=== PATIENT | female | born 1955 | race Caucasian/White ===

== ENCOUNTER 2017-09-17 02:40 | Inpatient (IN) | payer OTHER ==
[2017-09-17 03:37] LABS: Absolute Monocytes 0.4 K/uL (0.1-1.3); Absolute Neutrophil 7.2 K/uL (1.8-8.0); Basophils % 0.9 % (0-1.3); Eosinophils % 2.6 % (0-4.4); Hematocrit 32.3 % (36.0-45.0); Lymphocytes % 19.8 % (15.3-44.8); MCH 28.9 pg (27.0-35.0); MCV 89.2 fL (80-100); MPV 8.7 fL (7.6-11.3); Monocytes % 4.4 % (3.3-12.3); RBC Red Blood Cell Count 3.63 M/uL (3.86-4.86)
[2017-09-17 04:13] LABS: Albumin 4.5 g/dL (3.2-5.5); Bilirubin Total 0.3 mg/dL (0.3-1.2); Magnesium 2.4 mg/dL (1.8-2.5); Protein, Total 7.3 g/dL (6.0-8.3)
[2017-09-17 04:40] LABS: Urine Blood 1+ (NEG); Urine Glucose TRACE (NEG); Urine Protein 2+ (NEG)
[2017-09-17] MEDS ORDERED: FUROSEMIDE 40 MG/4 ML VIAL IV ONE (05:08)
[2017-09-17] MEDS ORDERED: ONDANSETRON 4 MG/2 ML VIAL IV PRN (05:08)
--- NOTE | 2017-09-17 05:31 | EDPHYS ---
Physician Documentation [facility] Name: Devika Sanchez Age: 61 yrs Sex: Female : 1955 Arrival Date: 09/17/2017 Time: 02:41 Bed 2 Private MD: Yogi Mao B ED Physician Bashir Buckley HPI: 09/17 03:03 This 61 yrs old Female presents to ER via Ambulatory with complaints of ps1 Breathing Difficulty. 03:03 renal patient 2/[address] Gracia. Has been avoiding going on dialysis for 2 years. ps1 Worsening kidney function since last visit 2 weeks ago. Now with orthopnea and difficulty breathing and anxiety while using CPAP at home. . Historical: - Allergies: 03:01 BACLOFEN; bb 03:01 Celecoxib; bb 03:01 Codeine; bb - Home Meds: 03:01 amlodipine oral twice a day [Active]; renavite [Active]; Sodium Bicarbonate 10 grains bb daily Oral [Active]; calcitrol every other day [Active]; phosphorous binder [Active]; levothyroxine 75 mcg tab 1 tab once daily [Active]; - PMHx: 03:01 Hypertension; kidney failure; Hypothyroidism; bb - PSHx: 03:01 renal catheter in chest; R knee; L wrist; bilateral carpal tunnel; bb - Immunization history:: Adult Immunizations unknown, Pneumococcal vaccine is up to date. - Social history:: Smoking status: Patient/guardian denies using tobacco, Patient/guardian denies using alcohol, street drugs. ROS: 06:28 Constitutional: Negative for fever, chills, and weight loss, Eyes: Negative for injury, ps1 pain, redness, and discharge, ENT: Negative for injury, pain, and discharge, Cardiovascular: Negative for chest pain, palpitations, and edema. 06:28 Abdomen/GI: Negative for abdominal pain, nausea, vomiting, diarrhea, and constipation, Back: Negative for injury and pain, MS/Extremity: Negative for injury and deformity, Skin: Negative for injury, rash, and discoloration, Neuro: Negative for headache, weakness, numbness, tingling, and seizure. 06:28 Respiratory: Positive for dyspnea on exertion, orthopnea, shortness of breath, at rest. Exam: 06:28 Constitutional: This is a well developed, well nourished patient who is awake, alert, ps1 and in no acute distress. Head/Face: Normocephalic, atraumatic. Eyes: Pupils equal round and reactive to light, extra-ocular motions intact. Lids and lashes normal. Conjunctiva and sclera are non-icteric and not injected. Chest/axilla: Normal chest wall appearance and motion. Nontender with no deformity. No lesions are appreciated. Cardiovascular: Regular rate and rhythm. No gallops, murmurs, or rubs. Normal PMI, no JVD. No pulse deficits. Respiratory: Lungs have equal breath sounds bilaterally, clear to auscultation and percussion. No rales, rhonchi or wheezes noted. No increased work of breathing, no retractions or nasal flaring. Abdomen/GI: Soft, non-tender, with normal bowel sounds. No distension or tympany. No guarding or rebound. No evidence of tenderness throughout. Skin: Warm, dry with normal turgor. Normal color with no rashes, no lesions, and no evidence of cellulitis. MS/ Extremity: Pulses equal, no cyanosis. Neurovascular intact. Full, normal range of motion. Neuro: Awake and alert, GCS 15, oriented to person, place, time, and situation. Cranial nerves II-XII grossly intact. Sensory grossly intact. Psych: Awake, alert, with orientation to person, place and time. Behavior, mood, and affect are within normal limits. Vital Signs: 03:01 BP 175 / 98; Pulse 85; Resp 20 S; Temp 97.9(O); Pulse Ox 100% on R/A; Weight 98.88 kg bb (R); Height 5 ft. 0 in. (152.40 cm) (R); Pain 0/10; 03:41 BP 141 / 69; Pulse 60; Resp 18; Pulse Ox 100% on R/A; lp1 04:44 BP 130 / 75; Pulse 82; Resp 15; Pulse Ox 100% on R/A; lp1 05:44 BP 128 / 70; Pulse 66; Resp 15; Pulse Ox 100% on R/A; lp1 03:01 Body Mass Index 42.57 (98.88 kg, 152.40 cm) bb MDM: 03:03 Patient medically screened. ps1 06:29 Data reviewed: vital signs, nurses notes, lab test result(s), radiologic studies. ED ps1 course: pt to be admitted for dialysis. Uremia. BUN 102. . 09/17 03:06 Order name: BNP; Complete Time: 04:27 ps1 09/17 03:06 Order name: CBC with Diff; Complete Time: 04:27 ps1 09/17 03:06 Order name: Magnesium; Complete Time: 04:27 ps1 09/17 03:06 Order name: Troponin (emerg Dept Use Only); Complete Time: 04:27 ps1 09/17 03:06 Order name: CMP; Complete Time: 04:27 ps1 09/17 03:06 Order name: XRAY Chest (1 view) ps1 09/17 04:18 Order name: Urine Dipstick--Ancillary (enter results); Complete Time: 05:18 rg2 09/17 05:13 Order name: CBC with Automated Diff EDMS 09/17 05:13 Order name: CBC with Automated Diff EDMS 09/17 05:13 Order name: Chest Single View EDMS 09/17 05:13 Order name: Chest Single View EDMS 09/17 05:13 Order name: Comprehensive Metabolic Panel EDMS 09/17 05:13 Order name: Comprehensive Metabolic Panel EDMS 09/17 03:06 Order name: EKG; Complete Time: 03:06 ps1 09/17 03:06 Order name: Cardiac monitoring; Complete Time: 04:03 ps1 09/17 03:06 Order name: EKG - Nurse/Tech; Complete Time: 03:31 ps1 09/17 03:06 Order name: IV Saline Lock; Complete Time: 04:03 ps1 09/17 03:06 Order name: Labs collected and sent; Complete Time: 04:03 ps1 09/17 03:06 Order name: O2 Per Protocol; Complete Time: 04:03 ps1 09/17 03:06 Order name: O2 Sat Monitoring; Complete Time: 04:03 ps1 09/17 03:06 Order name: Urine Dipstick-Ancillary (obtain specimen); Complete Time: 04:26 ps1 09/17 05:13 Order name: CONS Pharmacy Consult EDMS 09/17 05:13 Order name: CONS Physician Consult EDMS 09/17 05:13 Order name: Renal EDMS Administered Medications: 06:00 Drug: Ativan 0.5 mg Route: IVP; Site: left antecubital; lp1 06:26 Follow up: Given prior to transfer to floor lp1 Disposition: 04/28/18 05:31 Hospitalization ordered by Quang Lee for Inpatient Admission. Preliminary diagnosis is Uremia. Kidney Failure. Shortness of breath. . - Bed requested for Telemetry/MedSurg (Inpatient). - Status is Inpatient Admission. lp1 - Condition is Fair. - Problem is an acute exacerbation. - Symptoms have worsened. UTI on Admission? No Signatures: Dispatcher [employer] EDMS Katie Blanco RN RN Barb Yu RN RN Sonal Horvath RN RN lp1 Bashir Buckley MD MD ps1 Corrections: (The following items were deleted from the chart) 03:07 03:06 BASIC METABOLIC PANEL+C.LAB.BRZ ordered. EDIA EDMS
--- NOTE | 2017-09-17 05:31 | ER ---
Nurse's Notes [facility] Name: Devika Sanchez Age: 61 yrs Sex: Female : 1955 Arrival Date: 09/17/2017 Time: 02:41 Bed 2 Private MD: Yogi Mao B Diagnosis: Uremia. Kidney Failure. Shortness of breath. Presentation: 09/17 02:55 Presenting complaint: Patient states: she is in renal failure which is managed by Dr trey Gracia she has started having difficulty breathing yesterday she is unable to lay down and sleep. Transition of care: patient was not received from another setting of care. Onset of symptoms was September 17, 2017. Initial Sepsis Screen: Does the patient meet any 2 criteria? No. Patient's initial sepsis screen is negative. Does the patient have a suspected source of infection? No. Patient's initial sepsis screen is negative. 02:55 Method Of Arrival: Ambulatory bb 02:55 Acuity: NADINE 2 bb 03:46 Care prior to arrival: None. lp1 Historical: - Allergies: 03:01 BACLOFEN; bb 03:01 Celecoxib; bb 03:01 Codeine; bb - Home Meds: 03:01 amlodipine oral twice a day [Active]; renavite [Active]; Sodium Bicarbonate 10 grains bb daily Oral [Active]; calcitrol every other day [Active]; phosphorous binder [Active]; levothyroxine 75 mcg tab 1 tab once daily [Active]; - PMHx: 03:01 Hypertension; kidney failure; Hypothyroidism; bb - PSHx: 03:01 renal catheter in chest; R knee; L wrist; bilateral carpal tunnel; bb - Immunization history:: Adult Immunizations unknown, Pneumococcal vaccine is up to date. - Social history:: Smoking status: Patient/guardian denies using tobacco, Patient/guardian denies using alcohol, street drugs. Screenin:44 Abuse screen: Denies threats or abuse. Denies injuries from another. Nutritional lp1 screening: No deficits noted. Tuberculosis screening: No symptoms or risk factors identified. Fall Risk None identified. Assessment: 03:15 General: Appears in no apparent distress. Behavior is anxious. Pain: Denies pain. lp1 Neuro: Level of Consciousness is awake, alert, obeys commands, Oriented to person, place, time, situation, Moves all extremities. Full function Gait is steady. Cardiovascular: Reports shortness of breath, Patient's skin is warm and dry. Rhythm is sinus rhythm. Respiratory: Reports shortness of breath on exertion Airway is patent Trachea midline Respiratory effort is even, unlabored, Respiratory pattern is regular, Breath sounds are clear bilaterally. Onset: The symptoms/episode began/occurred gradually, the patient has mild shortness of breath. GI: Abdomen is obese. : No signs and/or symptoms were reported regarding the genitourinary system. EENT: No signs and/or symptoms were reported regarding the EENT system. Derm: Skin is pink, warm \\T\\ dry. Musculoskeletal: Circulation, motion, and sensation intact. 04:30 Reassessment: Patient and/or family updated on plan of care and expected duration. Pain lp1 level reassessed. Patient states feeling anxious, due to not having enough sleep; lights dimmed in room, pillow given to provide comfort. 05:30 Reassessment: Patient states discomfort due to feeling "restless". General: Behavior is lp1 anxious. Respiratory: Respiratory effort is even, unlabored. Derm: Skin is pink, warm \\T\\ dry. Vital Signs: 03:01 BP 175 / 98; Pulse 85; Resp 20 S; Temp 97.9(O); Pulse Ox 100% on R/A; Weight 98.88 kg bb (R); Height 5 ft. 0 in. (152.40 cm) (R); Pain 0/10; 03:41 BP 141 / 69; Pulse 60; Resp 18; Pulse Ox 100% on R/A; lp1 04:44 BP 130 / 75; Pulse 82; Resp 15; Pulse Ox 100% on R/A; lp1 05:44 BP 128 / 70; Pulse 66; Resp 15; Pulse Ox 100% on R/A; lp1 03:01 Body Mass Index 42.57 (98.88 kg, 152.40 cm) bb ED Course: 02:41 Patient arrived in ED. ds1 02:41 Yogi Mao MD is Private Physician. ds1 02:49 Bashir Buckley MD is Attending Physician. ps1 02:57 Triage completed. bb 03:01 Arm band placed on Patient placed in an exam room, on a stretcher, on pulse oximetry. bb Family accompanied patient. 03:24 X-ray completed. Portable x-ray completed in exam room. Patient tolerated procedure kc2 well. 03:25 XRAY Chest (1 view) In Process Unspecified. EDMS 03:30 Inserted saline lock: 20 gauge in right antecubital area, using aseptic technique. lp1 Blood collected. 03:41 Sonal Horvath, RN is Primary Nurse. lp1 03:44 Patient has correct armband on for positive identification. Placed in gown. Bed in low lp1 position. monitoring specialist on. Pulse ox on. NIBP on. 04:16 Notified ED physician of a critical lab result(s). Creatinine 6.55. lp1 05:30 Quang Lee MD is Hospitalizing Provider. ps1 05:44 No provider procedures requiring assistance completed. Patient admitted, IV remains in lp1 place. 06:00 20g to R AC infiltrated, removed. lp1 06:00 Inserted saline lock: 20 gauge in left antecubital area, using aseptic technique. lp1 Administered Medications: 06:00 Drug: Ativan 0.5 mg Route: IVP; Site: left antecubital; lp1 06:26 Follow up: Given prior to transfer to floor lp1 Intake: Outcome: 05:31 Decision to Hospitalize by Provider. ps1 05:44 Condition: stable lp1 05:44 Instructed on the need for admit. 06:00 Admitted to Tele accompanied by nurse, via wheelchair, room 413, with chart, Report lp1 called to ROLF Beaver 06:10 Patient left the ED. lp1 Signatures: Dispatcher [employer] EDVA Briseno, Janine ds1 Barb Yu RN RN bb Sonal Horvath, TIA RN lp1 Yolanda Alcocer2 Bashir Buckley MD MD ps1 Corrections: (The following items were deleted from the chart) 03:45 03:15 Respiratory: Reports shortness of breath on exertion Airway is patent Trachea lp1 midline Respiratory effort is even, unlabored, Respiratory pattern is regular, Breath sounds are clear bilaterally. lp1 06:30 06:30 Patient left the ED. lp1 lp1
[2017-09-17] MEDS ORDERED: LORazepam 2 MG/ML VIAL ONE (05:58)
[2017-09-17] MEDS: SODIUM BICARB 325 MG TAB PO SCH ×4 (08:57→21:33)
--- NOTE | 2017-09-17 08:57 | P.HP ---
Certification for Inpatient Patient admitted to: Observation With expected LOS: <2 Midnights Patient will require the following post-hospital care: None Practitioner: I am a practitioner with admitting privileges, knowledge of patient current condition, hospital course, and medical plan of care. Services: Services provided to patient in accordance with Admission requirements found in Title 42 Section 412.3 of the Code of Federal Regulations Patient History Date of Service: 09/17/17 Reason for admission: shortness of breath secondary to fluid overload History of Present Illness: Patient is a 61-year-old female who presents to the emergency room with fluid overload and pulmonary edema. Patient was short of breath and was not able to lay down without feeling suffocated. She decided to bring herself to the emergency room. In the emergency room patient had a chest x-ray performed which revealed pulmonary edema. Patient was admitted to the hospital and started on diuresis. Patient also had a Nephrology consultation as patient has significant uremia along with a metabolic acidosis with a creatinine greater than 6. Patient may benefit from hemodialysis but will have Nephrology speak to the patient. Otherwise, patient with no new complaints except for difficulty breathing. She wears a CPAP at home and is requesting 1 in the hospital which we will provide. Await Nephrology recommendation for further plan of care. Allergies celecoxib [From Celebrex] Allergy (Verified 02/24/17 02:19) Rash codeine Allergy (Unverified 03/01/17 15:31) Unknown BACLOFEN Allergy (Uncoded 03/01/17 15:31) Unknown NSAIDS Allergy (Uncoded 02/24/17 02:19) Unknown Home Medications: Calcitrol [Rocaltrol*] 0.25 mcg PO DAILY 02/24/17 Folic Acid/Vit Bcomp,C [Treva-Denny Tablet] 1 tab PO DAILY 02/24/17 Levothyroxine [Synthroid*] 1 tab PO DAILY 02/24/17 Na Bicarb Tab [Sodium Bicarb 325 MG Tab*] 1 tab PO DAILY 02/24/17 Amlodipine [Norvasc*] 5 mg PO BID #60 tab 02/27/17 Doxazosin [Cardura*] 1 mg PO DAILY #30 tab 02/27/17 - Past Medical/Surgical History Diabetic: No -: HTN -: Thyroid problem -: renal failure -: Sleep apnea patient compliant with her CPAP -: Polycystic kidney disease -: R knee sx - Family History Father Medical History: Heart disease, Hypertension Mother Medical History: Hypertension, Kidney disease Notes: polycystic kidney disease - Social History Alcohol use: No CD- Drugs: No Caffeine use: Yes Review of Systems 10-point ROS is otherwise unremarkable Physical Examination - Vital Signs Temperature: 97.8 F Blood Pressure: 117/65 Pulse: 62 Respirations: 17 Pulse Ox (%): 100 - Physical Exam General: Alert, In no apparent distress, Oriented x3 HEENT: Atraumatic, PERRLA, Mucous membr. moist/pink, EOMI, Sclerae nonicteric Neck: Supple, 2+ carotid pulse no bruit, No LAD, Without JVD or thyroid abnormality Respiratory: Diminished, Crackles/rales Cardiovascular: Regular rate/rhythm, Normal S1 S2, No murmurs Gastrointestinal: Normal bowel sounds, Soft and benign, Non-distended, No tenderness Musculoskeletal: No clubbing, No swelling, No tenderness Integumentary: No rashes Neurological: Normal gait, Normal speech, Normal strength at 5/5 x4 extr, Normal tone, Normal affect Lymphatics: No axilla or inguinal lymphadenopathy - Studies Laboratory Data (last 24 hrs) 09/17/17 03:10: WBC 10.0, Hgb 10.5 L, Hct 32.3 L, Plt Count 189 09/17/17 03:10: B-Natriuretic Peptide 31 09/17/17 03:10: Sodium 137, Potassium 4.0, BUN 102 H D, Creatinine 6.55 H*, Glucose 104, Magnesium 2.4, Total Bilirubin 0.3, AST 17, ALT 20, Alkaline Phosphatase 46 Assessment & Plan - Problems (Diagnosis) (1) ESRD (end stage renal disease) Current Visit: No Status: Acute (2) Hypomagnesemia Current Visit: No Status: Acute (3) Pulmonary embolism and infarction Current Visit: No Status: Acute (4) CKD (chronic kidney disease) Onset Date: 02/24/17 Current Visit: No Status: Chronic Qualifiers: (5) HTN (hypertension) Current Visit: No Status: Chronic Qualifiers: (6) Hypothyroidism Current Visit: No Status: Chronic Qualifiers: (7) Obesity Current Visit: No Status: Chronic Qualifiers: (8) Polycystic kidney disease Current Visit: No Status: Chronic - Plan Plan: 1. Continue with aggressive IV hydration 2. Monitor renal function closely 3. Nephrology consultation 4. IV diuretics 5. Sodium bicarb replacement 6. CPAP the bedside 7. strict input and output 8. GI and DVT prophylaxis Discharge Plan: Home Plan to discharge in: 48 Hours - Advance Directives Does patient have a Living Will: No Does patient have a Durable POA for Healthcare: No - Code Status/Comfort Care Code Status Assessed: Yes Code Status: Full Code Critical Care: No Time Spent Managing PTS Care (In Minutes): 50
[2017-09-17] MEDS: LEVOTHYROXINE SOD 0.075 MG TAB PO SCH (08:59)
[2017-09-17] MEDS ORDERED: DOXAZOSIN 2 MG TAB PO SCH (09:00)
[2017-09-17] MEDS ORDERED: LEVOTHYROXINE SOD 0.075 MG TAB PO SCH (09:00)
[2017-09-17] MEDS: CALCITROL 0.25 MCG CAP PO SCH (09:00)
[2017-09-17] MEDS ORDERED: AMLODIPINE 5 MG TAB PO SCH (09:00)
[2017-09-17] MEDS: FUROSEMIDE 40 MG/4 ML VIAL IV SCH ×2 (09:01→17:15)
--- NOTE | 2017-09-17 11:25 | RAD REPORT ---
EXAM DESCRIPTION: RAD - Chest Single View - 09/17/2017 3:26 am CLINICAL HISTORY: Shortness of breath COMPARISON: 02/23/2017 FINDINGS: Portable technique limits examination quality. The lungs are grossly clear. The heart is normal in size. No displaced fractures. IMPRESSION: No acute intrathoracic process suspected.
--- NOTE | 2017-09-17 16:13 | CON ---
Date of Consultation: 09/17/2017 Additional Consulting Physician: Quang Lee MD Reason For Consultation: Elevated BUN and creatinine, over volume, and fluid management. History Of Present Illness: This is a 61-year-old female, well known to me from the office with sign ificant past medical history of hypertension, hypothyroidism, secondary hyperparathyroidism, chronic kidney disease advanced, status post acute kidney injury required dialysis and then wean, obstructive sleep apnea, polycystic kidney disease, the patient being followed up with Dr. Gracia. The patient ca me to the hospital because of significant of shortness of breath with orthopnea with difficulty speec h. For that reason, she found to have elevated BUN and creatinine with acidosis. The patient was pl aced on BiPAP and diuresis. The patient still has shortness of breath. We have been consulted. The patient been seen by Dr. Gracia regularly. The patient was still refusing any preparation. Past Medical History: Includes: 1.Hypertension. 2.Hypothyroidism. 3.Obstructive sleep apnea. 4.Polycystic kidney disease. 5.Secondary hyperparathyroidism. 6.Chronic kidney disease, stage 4/5 secondary to hypertension and polycystic kidney disease. Family History: Positive for kidney disease, hypertension. Social History: Denies smoking. Denies drinking. Denies drug abuse. Family History: As above. Allergies: TO CELEBREX, CODEINE, BACLOFEN, AND NONSTEROID. Home Medications: Include calcitriol, folic acid, levothyroxine, sodium bicarb, amlodipine, Cardura, and Renvela. Review of Systems: Head and Neck: No red eye. No ear pain. GI: Decreased intake. : No polyuria. No dysuria. No hematuria. NETWORK SPECIALIST: No vaginal discharge. Respiratory: Has shortness of breath. Cardiovascular: Has leg swelling. Has orthopnea. Neuro: No weakness. Musculoskeletal: Fatigue. Endocrine: No polydipsia. Skin: No rash. Physical Examination: Vital Signs: Blood pressure 107/65, pulse of 78, afebrile. Chest: Crackles bilateral. Heart: S1, S2. Regular. Systolic murmur. Abdomen: Soft, nontender. Extremities: 2+ edema. Laboratory Data: WBC 10, H and H 10.5/32.2, platelets of 189. Sodium 137, potassium 4, bicarb 17, c hloride 112 and corrected, BUN 102, creatinine 6.5, calcium 8.8. Albumin of 4.5. Medications: Current medications the patient on include: 1.Amlodipine 5 mg b.i.d. 2.Cardura 1 mg daily. 3.Lasix 80 mg twice a day. 4.Sodium bicarb 650 t.i.d. 5.Levothyroxine. 6.Calcitriol 0.25. Laboratory Data: Chest x-ray showing cardiomegaly with congestion. BNP of 31. Assessment And Plan: 1.Chronic kidney disease stage 5, end-stage renal disease, slightly on the wet side. I am going to go ahead and initiate dialysis. We will plan for placement of Perm-A-Cath and we will start the veena ent on dialysis electively and we will monitor the patient. 2.Hypertension with over volume status. I am going to discontinue Norvasc to receive юлия Meza blood pressure for more diuresis. 3.Secondary hyperparathyroidism. We will resume Renvela. Continue calcitriol. 4.Hypothyroidism. Continue supplement. 5.Anemia, stable. We will continue to monitor. 6.Chronic obstructive pulmonary disease, obstructive sleep apnea. Follow up with primary. Case dis cussed with the patient, verbalized understanding. I agree on the plan after long discussion between with her and her . Discussed with the primary nurse. GINGER Voice ID: [id number] Report ID: [id number]
[2017-09-17] MEDS: SEVELAMER CARBONATE 800 MG TABLET PO SCH (17:14)
[2017-09-18] MEDS ORDERED: ALPRAZOLAM 1 MG TABLET PO ONE (00:05)
[2017-09-18] MEDS: ALPRAZOLAM 0.5 MG TABLET PO PRN ×2 (00:23→16:30)
[2017-09-18 05:30] LABS: Absolute Lymphocytes (CBC) 1.8 K/uL (0.7-4.9); Absolute Monocytes 0.4 K/uL (0.1-1.3); Basophils % 0.8 % (0-1.3); Hematocrit 29.9 % (36.0-45.0); Lymphocytes % 21.5 % (15.3-44.8); MCH 29.4 pg (27.0-35.0); MCV 88.5 fL (80-100); MPV 8.4 fL (7.6-11.3); Monocytes % 4.2 % (3.3-12.3); RBC Red Blood Cell Count 3.38 M/uL (3.86-4.86)
[2017-09-18] MEDS: LEVOTHYROXINE SOD 0.075 MG TAB PO SCH ×3 (06:03→16:31)
[2017-09-18 06:11] LABS: Bilirubin Total 0.4 mg/dL (0.3-1.2); Phosphorus 6.2 mg/dL (2.5-4.3); Potassium 3.3 mEq/L (3.6-5.0); Protein, Total 6.4 g/dL (6.0-8.3); Thyroid Stimulating Hormone 0.85 uIU/mL (0.34-5.60)
[2017-09-18] MEDS: SEVELAMER CARBONATE 800 MG TABLET PO SCH ×3 (07:35→16:31)
--- NOTE | 2017-09-18 07:44 | RAD REPORT ---
EXAM DESCRIPTION: RAD - Chest Single View - 09/18/2017 5:59 am CLINICAL HISTORY: Pulmonary edema, shortness of breath COMPARISON: September 17 TECHNIQUE: AP portable chest image was obtained 0546 hours . FINDINGS: No new or progressive mass, infiltrate or pulmonary edema finding. Heart and vasculature a re within normal limits. Trachea is midline. No measurable pleural effusion and no pneumothorax. No g ross bony abnormality seen. No acute aortic findings suspected. IMPRESSION: No acute cardiopulmonary process. No significant interval change.
[2017-09-18] MEDS: SODIUM BICARB 325 MG TAB PO SCH ×3 (08:05→22:09)
[2017-09-18] MEDS: CALCITROL 0.25 MCG CAP PO SCH (08:05)
[2017-09-18] MEDS: FUROSEMIDE 40 MG/4 ML VIAL IV SCH ×2 (08:05→16:29)
[2017-09-18] MEDS ORDERED: NA CHLORIDE 0.9% 500 ML ONE (08:42)
[2017-09-18] MEDS ORDERED: ONDANSETRON 4 MG/2 ML VIAL ONE (08:47)
[2017-09-18] MEDS ORDERED: FENTANYL CITR 100 MCG/2 ML ONE (08:47)
[2017-09-18] MEDS ORDERED: MIDAZOLAM HCL 2 MG/2 ML INJ ONE (08:47)
[2017-09-18] MEDS ORDERED: NS 0.9% VIAL 30 ML ONE (08:48)
[2017-09-18] MEDS ORDERED: HEPARIN 5000 UNIT/ML 1 ML VIAL ONE (08:48)
[2017-09-18] MEDS ORDERED: ETOMIDATE 20 MG/10 ML VIAL IV ONE (08:48)
[2017-09-18] MEDS ORDERED: Phenylephrine HCl 10 MG/ML 1 ML VIAL ONE (08:48)
[2017-09-18] MEDS ORDERED: BUPIVACA 0.25%/EPI 0.0005%/PF 30 ML VIAL ONE (08:49)
--- NOTE | 2017-09-18 09:51 | P.OP ---
Preoperative diagnosis: ESRD Postoperative diagnosis: ESRD Primary procedure: Ultrasound Guided RIGHT Internal Jugular Tunnelled Hemodialysis Catheter Anesthesia: GETA + Local Estimated blood loss: <5cc Specimen: None Findings: Dark, Nonpulsatile blood returned Complications: None Implants: 24cm curved Tunnelled HD catheter Transferred to: Recovery Room Condition: Good
[2017-09-18] MEDS: FENTANYL CITR 100 MCG/2 ML ONE ×3 (10:07→10:17)
[2017-09-18] MEDS ORDERED: PROMETHAZINE 25 MG/ML VIAL ONE (10:23)
--- NOTE | 2017-09-18 10:45 | P.PN ---
Subjective Date of Service: 09/18/17 Primary Care Provider: Dr Mao Chief Complaint: shortness of breath secondary to fluid overload Pt seen and examined at bedside. Doing well overall. Awaiting Surgery today for Dialysis catheter placement. Review of Systems General: As per HPI Physical Examination - Vital Signs Temperature: 97.3 F Blood Pressure: 111/65 Pulse: 88 Respirations: 16 Pulse Ox (%): 100 - Physical Exam General: Alert, In no apparent distress HEENT: Atraumatic, PERRLA, EOMI Neck: Supple, JVD not distended Respiratory: Normal air movement, Crackles/rales Cardiovascular: Regular rate/rhythm, Normal S1 S2 Gastrointestinal: Normal bowel sounds, No tenderness Musculoskeletal: No tenderness Integumentary: No rashes Neurological: Normal speech, Normal tone, Normal affect Lymphatics: No axilla or inguinal lymphadenopathy - Studies Laboratory Data (last 24 hrs) 09/18/17 04:50: Sodium 141, Potassium 3.3 L, BUN 96 H, Creatinine 6.63 H*, Glucose 94, Phosphorus 6.2 H, Total Bilirubin 0.4, AST 14, ALT 16, Alkaline Phosphatase 42 09/18/17 04:50: WBC 8.5 D, Hgb 9.9 L, Hct 29.9 L, Plt Count 180 Medications List Reviewed: Yes Assessment & Plan - Problems (Diagnosis) (1) Shortness of breath Onset Date: 05/26/15 Current Visit: No Status: Acute Plan: SOB most likely 2.2 to Volume Overload due to declining kidney function. Improved now -Lasix 80mg IV BID -Nephrology consulted. -Rec dialysis startup -Catheter placement today -SS to arrange for Outpt dialysis (2) ESRD (end stage renal disease) Current Visit: No Status: Acute Plan: ESRD now on HD -See # 1 (3) HTN (hypertension) Current Visit: No Status: Chronic Qualifiers: Hypertension type: essential hypertension (4) Hypothyroidism Current Visit: No Status: Chronic Qualifiers: Hypothyroidism type: acquired Qualified Code(s): E03.9 - Hypothyroidism, unspecified (5) Obesity Current Visit: No Status: Chronic Qualifiers: Obesity type: due to excess calories Obesity classification: adult class 2 (BMI 35 - 39.9) Body mass index: BMI 38.0-38.9 Discharge Plan: Home Plan to discharge in: 48 Hours - Code Status/Comfort Care Code Status Assessed: Yes Critical Care: No
[2017-09-18] MEDS: Morphine 2 MG/2 ML SYR IV PRN ×3 (12:32→22:10)
--- NOTE | 2017-09-18 14:20 | RAD REPORT ---
EXAM DESCRIPTION: RAD - Fluoroscopy <1 Hour - 09/18/2017 10:15 am FINDINGS: Chest fluoroscopy performed. Multiple portable C-arm views were obtained during fluoroscop ic assisted placement of a double-lumen vascular access catheter. No suspicious or unexpected finding.
--- NOTE | 2017-09-18 14:22 | RAD REPORT ---
EXAM DESCRIPTION: RAD - Chest Single View - 09/18/2017 10:16 am CLINICAL HISTORY: Hemodialysis catheter placement Regist[employer] Nurs[employer] system malfunction precluded earlier dictation. Telephone [facility] at the time of the study. COMPARISON: September 18 TECHNIQUE: AP portable chest image was obtained 1000 hours . FINDINGS: Double-lumen catheter has been placed on the right. Short arm is in the SVC. Long arm is a t the SVC atrial junction. There is no pneumothorax. No acute lung parenchymal finding. Heart and vas culature are normal. No pleural fluid collection. No gross bony abnormality seen. No acute aortic fin dings suspected. IMPRESSION: Right-sided dialysis catheter in place as detailed. No pneumothorax.
--- NOTE | 2017-09-18 16:12 | EKG ---
Test Date: 2017-09-17 Test Time: 03:10:00 Doormaker: DEB MEASUREMENT RESULTS: Intervals: Rate: 66 TX: 124 QRSD: 86 QT: 446 QTc: 467 [place]: P: 5 TX: 124 QRS: -16 T: 20 INTERPRETIVE STATEMENTS: Normal sinus rhythm Minimal voltage criteria for LVH, may be normal variant Borderline ECG Compared to ECG 03/01/2017 13:17:08 No significant changes Electronically Signed On 09-18-17 16:12:11 CDT by Marcus Nieves
--- NOTE | 2017-09-18 17:57 | OP ---
Date of Procedure: 09/18/2017 Surgeon: Leo Campo MD, Preoperative Diagnosis: End-stage renal disease. Postoperative Diagnosis: End-stage renal disease. Procedure Performed: An ultrasound-guided right internal jugular tunneled hemodialysis catheter plac ole using microintroducer set. Anesthesia: General endotracheal plus local with 0.25% Marcaine. Estimated Blood Loss: Less than 5 cc. Specimen: None. Findings: Dark nonpulsatile blood return. Fluoroscopy used to verify position. Complications: None. Implants: 24 cm curved tunneled hemodialysis catheter. Disposition: Transferred to recovery room in good condition. Procedure In Detail: After informed was obtained, patient brought to the operating room, prepped and draped in the usual sterile fashion after adequate anesthesia was achieved. The patient was placed in steep Trendelenburg position and using ultrasound guidance and a microintroducer set, I cannulated the right internal jugular vein on the first attempt under ultrasound guidance. Ultrasound verified position of the microwire advancing into the jugular vein. At this point, the needle was removed an d the wire was placed. A fluoroscopy confirmed the position to be in good anatomic position heading toward the SVC. Visualization was difficult due to fluoroscopy. Difficulties getting an appropriate view due to equipment dysfunction, however, I was able to see all of the anatomic structures I neede d to see. After the microwire was verified to be in good anatomic position, I made a small isaac inci serafin in the patient's insertion site in the jugular vein region. I then placed an introducer sheath using Seldinger technique over the wire and placed a standard wire from the 24 cm curved internal jug ular hemodialysis catheter set. After the standard wire was placed, I once again brought fluoroscopy and verified position which was found to be in good and normal anatomic position. At this point, an incision was made in the chest wall in the infraclavicular area approximately 3-4 cm from the clavic le. After appropriately anesthetizing 0.25% Marcaine, I then anesthetized the entire tract leading u p to the insertion site in the jugular vein and used a tunneling device to pass the 24 cm catheter up through this channel without incident or complication. The catheter was then positioned appropriate ly and the cuff was found to be in good anatomic position. I then proceeded to sequentially dilate u p the jugular vein using the attached dilators. After this was done easily with minimal force, I hua boy the introducer sheath and verified once again with fluoroscopy that the introducer sheath was in good anatomic position with the wire in place. At this point, the wire was removed and what I called the inner cannula introducer sheath was left in place in the inner cannula and then removed. At thi s point, the catheter was placed through the introducer sheath without evidence of complication and t he introducer sheath was removed at this time. An additional image was obtained at the end the proce dure showing that the catheter was in the appropriate location, and the skin incisions were then irri gated and closed with an interrupted nylon at the insertion site. The chest site was then irrigated and the subcutaneous layer was closed with a single interrupted 3-0 Vicryl and the skin was closed wi th a 2-0 nylon in an interrupted fashion also securing the catheter at this level. The catheter was then flushed and mark back quite easily with saline initially and then after flushing completely with saline heparin flush was then packed 2 cc per port into the introducer sheath using the super flush heparinized saline. After this was performed, the catheter was then secured to the chest wall using an additional 2-0 nylon suture in an interrupted fashion and a sterile dressing was placed over top. The patient tolerated the procedure well without evidence of complication, was placed back in neutra l position, and transferred to the PACU in good condition. All counts were correct at the case. Followup chest x-ray will be performed in the recovery room. STEPH/MEAGHAN Voice ID: [id number] Report ID: [id number]
[2017-09-19] MEDS: ALPRAZOLAM 0.5 MG TABLET PO PRN ×3 (01:43→21:26)
[2017-09-19] MEDS: LEVOTHYROXINE SOD 0.075 MG TAB PO SCH (05:32)
[2017-09-19 05:48] LABS: Absolute Monocytes 0.5 K/uL (0.1-1.3); Absolute Neutrophil 5.9 K/uL (1.8-8.0); Basophils % 0.6 % (0-1.3); Eosinophils % 2.4 % (0-4.4); Hematocrit 32.1 % (36.0-45.0); Lymphocytes % 23.3 % (15.3-44.8); MCH 29.9 pg (27.0-35.0); MCV 87.5 fL (80-100); MPV 8.3 fL (7.6-11.3); Monocytes % 5.9 % (3.3-12.3); RBC Red Blood Cell Count 3.67 M/uL (3.86-4.86)
[2017-09-19 06:06] LABS: Albumin 4.3 g/dL (3.2-5.5); Bilirubin Total 0.4 mg/dL (0.3-1.2); Potassium 3.5 mEq/L (3.6-5.0); Protein, Total 7.1 g/dL (6.0-8.3)
[2017-09-19] MEDS: Morphine 2 MG/2 ML SYR IV PRN ×3 (06:09→18:53)
[2017-09-19] MEDS: SODIUM BICARB 325 MG TAB PO SCH ×3 (08:15→21:25)
[2017-09-19] MEDS: CALCITROL 0.25 MCG CAP PO SCH (08:15)
[2017-09-19] MEDS: FUROSEMIDE 40 MG/4 ML VIAL IV SCH ×2 (08:15→17:00)
[2017-09-19] MEDS: SEVELAMER CARBONATE 800 MG TABLET PO SCH ×4 (08:15→17:59)
--- NOTE | 2017-09-19 10:49 | CON ---
Date of Consultation: 09/17/2017 Brief History Of Present Illness: The patient is a 61-year-old female who presented to the emergency room with fluid overload and pulmonary edema. She has a history of CKD with polycystic kidney disea se. She had a workup which revealed pulmonary edema in the ER. She was admitted to the hospital for diuresis. She had a nephrology consultation due to significant uremia, metabolic acidosis, and crea tinine of 6. Dr. Strong saw the patient, evaluated, and decided it was time for her to reinitiate hemodialysis possibly long-term and therefore she would likely need a tunneled hemodialysis catheter. Past Medical History: Significant for hypertension, hypothyroidism, renal failure, sleep apnea on CP AP, polycystic kidney disease. Past Surgical History: She has had a right subclavian tunneled hemodialysis catheter several years a go, which was kept in place for several years and then removed from the right subclavian position. S he has had knee surgery and carpal tunnel surgery. Social History: She denies smoking, alcohol, or recreational drug use. Allergies: TO CELEBREX, CODEINE, BACLOFEN, AND NSAIDS. Home Medications: Include calcitriol, Treva-Denny, Synthroid, sodium bicarb, Norvasc and Cardura. Family History: Noncontributory. Review of Systems: A 10-point review of systems other than HPI, she denies. She currently has no shortness of breath du ring the examination. Physical Examination: Vital Signs: At the time of examination her BMI is 38.9. Her blood pressure 132/68, pulse is 87, re spiratory rate 16, temperature 98.6. General: She is awake, alert, oriented. Psychiatric: She is appropriate, conversive. HEENT: She is normocephalic. Her sclerae are anicteric. Her mucous membranes are moist. Oropharyn x clear. Neck: Supple. No JVD. Chest: Had normal expansion excursion. She has a well-healed right subclavian port scar. Lungs: Clear during the examination and she had good inspiratory effort. Cardiovascular: Regular rate and rhythm. Abdomen: Soft, nontender. Extremities: No clubbing, cyanosis, minimal edema in bilateral lower extremities. Laboratory Data: Reveals a white blood count 10.0, hemoglobin 10.5, hematocrit 32.3, platelet count is 189. Sodium 137, potassium 4.0, chloride 112, carbon dioxide 17, BUN 102, creatinine 6.5, glucose is 104, total bilirubin 0.3, direct component not measured. AST 17, ALT 20, alkaline phosphatase 46 . Her urine showed 1+ blood and 2+ total protein. She had a chest x-ray performed on admission on 09/17, which showed lungs are grossly clear. Heart is normal in size. No displaced fractures. No ac [place] intrathoracic process was suspected. Assessment And Plan: This is a 61-year-old woman who presents with end-stage renal disease and worse kiya renal function. 1.Medical optimization per Dr. Strong. 2.I have explained the risks, benefits, and alternatives of placement of a tunneled hemodialysis cat heter including but not limited to bleeding, infection, damage to surrounding tissue, injury to vital structures including collapse lung/pneumothorax, injury to blood vessels, injury to mediastinal stru ctures, and need for further operations or procedures. She agrees to proceed as indicated. STEPH/MEAGHAN Voice ID: [id number] Report ID: [id number]
--- NOTE | 2017-09-19 19:09 | P.PN ---
Subjective Date of Service: 09/19/17 Primary Care Provider: Dr Mao Chief Complaint: shortness of breath secondary to fluid overload Subjective: Improving (Started dialysis.) Physical Examination - Vital Signs Temperature: 99.2 F Blood Pressure: 104/58 Pulse: 96 Respirations: 18 Pulse Ox (%): 98 - Physical Exam General: Alert, In no apparent distress, Oriented x3, Cooperative HEENT: Atraumatic Neck: Supple Respiratory: Diminished (bilateral) Cardiovascular: Normal pulses, Regular rate/rhythm Gastrointestinal: Normal bowel sounds, Soft and benign, Non-distended, No tenderness, No masses, No rebound, No guarding Musculoskeletal: No erythema, No tenderness, No warmth Integumentary: No tenderness/swelling, No erythema, No warmth, No cyanosis Neurological: Normal speech, Normal strength at 5/5 x4 extr, Normal tone, Normal affect - Studies Medications List Reviewed: Yes Assessment & Plan - Problems (Diagnosis) (1) Pulmonary edema Onset Date: 09/19/17 Current Visit: Yes Status: Acute Plan: Patient started on dialysis. Will continue with fluid restriction and IV Lasix. Will discuss with nephrology. Hepatitis panel pending. Social work working to get outpatient dialysis set up. Once this has been arranged then patient can be discharged home. Qualifiers: Chronicity: acute Qualified Code(s): J81.0 - Acute pulmonary edema (2) ESRD (end stage renal disease) Current Visit: No Status: Acute Plan: Patient with previous chronic renal disease. Patient now with end-stage renal disease requiring dialysis. Awaiting for outpatient dialysis to be set up. (3) Anemia Current Visit: No Status: Chronic Plan: This is likely of chronic disease. Will monitor closely. Qualifiers: Anemia type: due to chronic kidney disease Chronic kidney disease stage: on chronic dialysis Qualified Code(s): N18.6 - End stage renal disease; D63.1 - Anemia in chronic kidney disease; D63.1 - Anemia in chronic kidney disease; Z99.2 - Dependence on renal dialysis; Z99.2 - Dependence on renal dialysis; Z99.2 - Dependence on renal dialysis; Z99.2 - Dependence on renal dialysis (4) HTN (hypertension) Current Visit: No Status: Chronic Plan: Will continue with blood pressure control. Will monitor and adjust appropriately. Qualifiers: Hypertension type: essential hypertension (5) Hypothyroidism Current Visit: No Status: Chronic Plan: Continue the medication. Qualifiers: Hypothyroidism type: acquired Qualified Code(s): E03.9 - Hypothyroidism, unspecified (6) Obesity Current Visit: No Status: Chronic Plan: Will address lifestyle modification education. Qualifiers: Obesity type: due to excess calories Obesity classification: adult class 2 (BMI 35 - 39.9) Serious obesity comorbidity presence: with serious comorbidity Body mass index: BMI 37.0-37.9 Qualified Code(s): E66.01 - Morbid (severe) obesity due to excess calories; Z68.37 - Body mass index (BMI) 37.0-37.9, adult; Z68.37 - Body mass index (BMI) 37.0-37.9, adult Discharge Plan: Home Plan to discharge in: 48 Hours Time Spent Managing Pts Care (In Minutes): 55
--- NOTE | 2017-09-20 03:20 | PN ---
Date of Progress Note: 09/19/2017 Chief Complaint: Advanced chronic kidney disease, end-stage renal disease. Subjective: The patient will start dialysis today. Dialysis was ordered with ultrafiltration to treat fluid overload. The patient was found to have fluid overload and ultrafiltration with dialysis was done, patient was found to have metabolic acidosis and it improved with dialysis. The patient will continue dialysis 3 times per week for end-stage renal disease. Review of Systems: Denies fever, chills. Physical Examination: Lungs: Few crackles at bases. Heart: S1 and S2. ABDOMEN: Soft, benign. Extremities: Edema present in lower and upper extremities. Laboratory Data: Blood work showed sodium 142, potassium 3.5, chloride 104, CO2 28, BUN 48, creatinine 4.48, phosphorus 4.0. On September 17, sodium 137, potassium 4.0, chloride 112, CO2 17, BUN 102, creatinine 6.55, glucose 104 magnesium 2.4. Impression And Plan: 1. End-stage renal disease. The patient will continue dialysis 3 times per week. 2. Anemia of chronic kidney disease. Continue LUAN. Monitor hemoglobin level. 3. Fluid overload. Continue dialysis with ultrafiltration. Continue low- sodium diet. 4. Metabolic acidosis , controlled with dialysis. 4 Renal osteodystrophy , continue renal diet, monitor phosphorus level , adjust binders as needed. FABY/MEAGHAN Voice ID: [id number] Report ID: [id number] MTDD
[2017-09-20] MEDS: Morphine 2 MG/2 ML SYR IV PRN ×2 (04:14→10:42)
[2017-09-20] MEDS ORDERED: DIPHENHYDRAMINE 25 MG TAB/CAP PO ONE (04:39)
[2017-09-20 04:56] LABS: Absolute Lymphocytes (CBC) 2.3 K/uL (0.7-4.9); Absolute Monocytes 0.7 K/uL (0.1-1.3); Absolute Neutrophil 6.3 K/uL (1.8-8.0); Basophils % 0.7 % (0-1.3); Eosinophils % 2.2 % (0-4.4); Hematocrit 31.2 % (36.0-45.0); Lymphocytes % 24.1 % (15.3-44.8); MCH 30.2 pg (27.0-35.0); MCV 88.7 fL (80-100); MPV 8.9 fL (7.6-11.3); Monocytes % 6.9 % (3.3-12.3); RBC Red Blood Cell Count 3.52 M/uL (3.86-4.86)
[2017-09-20 05:31] LABS: Bilirubin Total 0.3 mg/dL (0.3-1.2); Phosphorus 4.4 mg/dL (2.5-4.3); Potassium 3.9 mEq/L (3.6-5.0); Protein, Total 6.7 g/dL (6.0-8.3)
[2017-09-20] MEDS: LEVOTHYROXINE SOD 0.075 MG TAB PO SCH (05:47)
[2017-09-20] MEDS: SEVELAMER CARBONATE 800 MG TABLET PO SCH ×3 (08:40→15:59)
[2017-09-20] MEDS: FUROSEMIDE 40 MG/4 ML VIAL IV SCH ×2 (08:41→15:59)
[2017-09-20] MEDS: SODIUM BICARB 325 MG TAB PO SCH ×3 (08:41→21:38)
[2017-09-20] MEDS: CALCITROL 0.25 MCG CAP PO SCH (08:41)
[2017-09-20] MEDS ORDERED: POLYETHYL GLY 3350 17 GM/DOSE PO PRN (11:40)
[2017-09-20] MEDS: DIPHENHYDRAMINE 25 MG TAB/CAP PO PRN (11:55)
--- NOTE | 2017-09-20 15:32 | P.PN ---
Subjective Date of Service: 09/20/17 Primary Care Provider: Dr Mao Chief Complaint: shortness of breath secondary to fluid overload Subjective: Other (complaining of constipation, itching at the site of the dressing placement) Review of Systems General: Unremarkable Eyes: Unremarkable ENT: Unremarkable Respiratory: Unremarkable Cardiovascular: Unremarkable Gastrointestinal: Constipation Genitourinary: Unremarkable Musculoskeletal: Unremarkable Neurological: Unremarkable Physical Examination - Vital Signs Temperature: 97.8 F Blood Pressure: 134/75 Pulse: 92 Respirations: 18 Pulse Ox (%): 100 - Physical Exam General: Alert, In no apparent distress, Oriented x3 HEENT: Atraumatic, Normocephalic, PERRLA Neck: Supple Respiratory: Clear to auscultation bilaterally, Normal air movement Cardiovascular: No edema, Normal pulses, Regular rate/rhythm, Normal S1 S2 Gastrointestinal: Normal bowel sounds, Soft and benign, Non-distended, W/out hepatosplenomegaly, No ascites, No tenderness Musculoskeletal: No clubbing, No swelling, No contractures, No erythema, No tenderness, No warmth Integumentary: Rash(es) (around the dressing placement at permacath site), Erythema (around the dressing placement at permacath site) - Studies Medications List Reviewed: Yes Assessment And Plan - Current Problems (Diagnosis) (1) ESRD (end stage renal disease) Current Visit: No Status: Acute (2) Anemia Current Visit: No Status: Chronic Plan: continue to monitor EPO with hd Qualifiers: Anemia type: due to chronic kidney disease Chronic kidney disease stage: on chronic dialysis Qualified Code(s): N18.6 - End stage renal disease; D63.1 - Anemia in chronic kidney disease; D63.1 - Anemia in chronic kidney disease; Z99.2 - Dependence on renal dialysis; Z99.2 - Dependence on renal dialysis; Z99.2 - Dependence on renal dialysis; Z99.2 - Dependence on renal dialysis (3) HTN (hypertension) Current Visit: No Status: Chronic Plan: Continue current BP meds Qualifiers: Hypertension type: essential hypertension - Plan started on HD Renal on board, appreciate recs will need 2 more sessions of HD hepatitis panel pending foster care case manager on board, to assist with outpatient HD placement renal diet monitor electrolytes Discharge Plan: Home Plan to discharge in: Greater than 2 days - Code Status/Comfort Care Code Status Assessed: Yes Code Status: Full Code
[2017-09-20] MEDS: ACETAMINOPHEN 500 MG TAB PO PRN (16:04)
[2017-09-20] MEDS: ALPRAZOLAM 0.5 MG TABLET PO PRN (21:38)
[2017-09-20 22:44] LABS: Hepatitis C Virus RNA (PCR)log <1.18 log IU/mL
[2017-09-21 01:03] VITALS: O2SAT 97
--- NOTE | 2017-09-21 04:31 | PN ---
Date of Progress Note: 09/20/2017 Subjective: The patient doing well. The patient is status post dialysis yesterday. Tolerated the d ialysis. Physical Examination: Vital Signs: Blood pressure 105/58, pulse of 91, afebrile. Chest: Clear to auscultation. Heart: S1, S2. Regular. Abdomen: Soft, nontender. Extremities: No edema. The patient had ultrafiltration of 1700. Laboratory Data: For the patient, H and H 10.6/31.2. Sodium 142, potassium 3.9, bicarb 30, BUN 38, creatinine 4.6, calcium 8.5, phos 4.4. Medications: The patient is on includes: 1.Tylenol. 2.Heparin. 3.Lasix 80 b.i.d. 4.Sodium bicarb 650 t.i.d. 5.Zofran. 6.Renvela 1 tablet with each meal. 7.Levothyroxine. 8.Morphine. 9.Calcitriol 0.25 daily. Assessment And Plan: 1.End-stage renal disease. We will continue the patient on dialysis Tuesday, Tuesday, Tuesday. I a m going to go ahead and arrange for the dialysis tomorrow. We still awaiting for chair time as outpa tient waiting for hepatitis. 2.Hypertension, controlled, optimal of all blood pressure medication except the diuresis. We will m onitor. 3.Secondary hyperparathyroidism. We will adjust the calcitriol to be every other day. 4.Chronic obstructive pulmonary disease as per the primary. GINGER Voice ID: [id number] Report ID: [id number]
[2017-09-21 04:32] LABS: HBsAG Nonreactive (Nonreactive)
[2017-09-21 05:32] LABS: Absolute Lymphocytes (CBC) 2.5 K/uL (0.7-4.9); Absolute Monocytes 0.5 K/uL (0.1-1.3); Absolute Neutrophil 5.9 K/uL (1.8-8.0); Eosinophils % 3.3 % (0-4.4); Hematocrit 32.3 % (36.0-45.0); Lymphocytes % 26.9 % (15.3-44.8); MCH 29.7 pg (27.0-35.0); MCV 89.6 fL (80-100); MPV 8.7 fL (7.6-11.3); Monocytes % 5.7 % (3.3-12.3)
[2017-09-21 05:42] LABS: Albumin 4.1 g/dL (3.2-5.5); Bilirubin Total 0.5 mg/dL (0.3-1.2); Phosphorus 5.8 mg/dL (2.5-4.3); Potassium 4.4 mEq/L (3.6-5.0); Protein, Total 6.7 g/dL (6.0-8.3)
[2017-09-21] MEDS: LEVOTHYROXINE SOD 0.075 MG TAB PO SCH (05:55)
[2017-09-21 06:49] VITALS: BMI 38.5
[2017-09-21] MEDS: SEVELAMER CARBONATE 800 MG TABLET PO SCH ×3 (08:35→16:26)
[2017-09-21] MEDS: ACETAMINOPHEN 500 MG TAB PO PRN ×2 (08:41→16:22)
[2017-09-21] MEDS: DIPHENHYDRAMINE 25 MG TAB/CAP PO PRN ×2 (08:43→16:23)
[2017-09-21] MEDS: FUROSEMIDE 40 MG/4 ML VIAL IV SCH ×2 (08:45→16:26)
--- NOTE | 2017-09-21 11:32 | P.PN ---
Subjective Date of Service: 09/21/17 Primary Care Provider: Dr Mao Chief Complaint: shortness of breath secondary to fluid overload Subjective: Other (complained of some pain at the base of her left big toe) Review of Systems 10-point ROS is otherwise unremarkable Physical Examination - Vital Signs Temperature: 98 F Blood Pressure: 113/57 Pulse: 87 Respirations: 18 Pulse Ox (%): 98 - Physical Exam General: Alert, In no apparent distress, Oriented x3 HEENT: Atraumatic, Normocephalic, PERRLA Neck: Supple, 2+ carotid pulse no bruit, JVD not distended, No Thyromegaly Respiratory: Clear to auscultation bilaterally, Normal air movement Cardiovascular: No edema, Normal pulses, Regular rate/rhythm, No gallops, No rubs, No murmurs Gastrointestinal: Normal bowel sounds, Soft and benign, Non-distended, W/out hepatosplenomegaly, No ascites, No tenderness, No masses, No rebound, No guarding Musculoskeletal: No clubbing, No swelling, No contractures, No erythema, No warmth, Tenderness (plantar surface of left big toe,no swelling, redness or warmth appreciated) Integumentary: No significant lesion, No tenderness/swelling, No erythema, No warmth, No cyanosis, No ulcers Neurological: Normal strength at 5/5 x4 extr - Studies Medications List Reviewed: Yes Assessment And Plan - Current Problems (Diagnosis) (1) ESRD (end stage renal disease) Current Visit: No Status: Acute Plan: Renal on board, appreciate assistance plan for HD today patient interested at home HD at this point hepatitis panel available , neg waiting approval for home HD (2) Anemia Current Visit: No Status: Chronic Plan: continue to monitor EPO with hd Qualifiers: Anemia type: due to chronic kidney disease Chronic kidney disease stage: on chronic dialysis Qualified Code(s): N18.6 - End stage renal disease; D63.1 - Anemia in chronic kidney disease; D63.1 - Anemia in chronic kidney disease; Z99.2 - Dependence on renal dialysis; Z99.2 - Dependence on renal dialysis; Z99.2 - Dependence on renal dialysis; Z99.2 - Dependence on renal dialysis (3) HTN (hypertension) Current Visit: No Status: Chronic Plan: Continue current BP meds Qualifiers: Hypertension type: essential hypertension - Plan started on HD Renal on board, appreciate recs will need 2 more sessions of HD hepatitis panel pending rn case manager hospice on board, to assist with outpatient HD placement renal diet monitor electrolytes Discharge Plan: Home Plan to discharge in: 24 Hours
[2017-09-21] MEDS: ALPRAZOLAM 0.5 MG TABLET PO PRN (11:35)
--- NOTE | 2017-09-21 15:37 | P.DS ---
Admission Date: 09/18/17 Discharge Date: 09/21/17 Primary Care Provider: Dr Mao Disposition: ROUTINE DISCHARGE Discharge Condition: GOOD Reason for Admission: shortness of breath secondary to fluid overload Consultations: Nephrology Dr Núñez Procedures: Perma cath placement HD - Problems (1) ESRD (end stage renal disease) Current Visit: No Status: Acute (2) Anemia Current Visit: No Status: Chronic Qualifiers: Anemia type: due to chronic kidney disease Chronic kidney disease stage: on chronic dialysis Qualified Code(s): N18.6 - End stage renal disease; D63.1 - Anemia in chronic kidney disease; D63.1 - Anemia in chronic kidney disease; Z99.2 - Dependence on renal dialysis; Z99.2 - Dependence on renal dialysis; Z99.2 - Dependence on renal dialysis; Z99.2 - Dependence on renal dialysis (3) HTN (hypertension) Current Visit: No Status: Chronic Qualifiers: Hypertension type: essential hypertension Brief History of Present Illness: Patient is a 61-year-old female who presents to the emergency room with fluid overload and pulmonary edema. Patient was short of breath and was not able to lay down without feeling suffocated. She decided to bring herself to the emergency room. In the emergency room patient had a chest x-ray performed which revealed pulmonary edema. Patient was admitted to the hospital and started on diuresis. Patient also had a Nephrology consultation as patient has significant uremia along with a metabolic acidosis with a creatinine greater than 6. Patient may benefit from hemodialysis but will have Nephrology speak to the patient. Otherwise, patient with no new complaints except for difficulty breathing Hospital Course: Patient was seen by the hot plate plywood press offbearer.,At this time she was felt to have progressed to ESRD.Permacath was placed ad HD was initiated.She recieved 3 sessions while in house.s iron worker was consulted and assisted with obtaining an outpatient HD spot.She is scheduled to receive HD TTS at [facility].She was discharged in stable condition. Vital Signs/Physical Exam: Temp Pulse Resp BP Pulse Ox 98.4 F 98 H 18 131/66 97 09/21/17 12:00 09/21/17 12:00 09/21/17 12:00 09/21/17 12:00 09/21/17 12:00 General: Alert, In no apparent distress, Oriented x3 HEENT: Atraumatic, Normocephalic, PERRLA Neck: Supple, JVD not distended, No Thyromegaly, No LAD Respiratory: Clear to auscultation bilaterally, Normal air movement Cardiovascular: No edema, Normal pulses, Regular rate/rhythm, Normal S1 S2, No gallops, No rubs, No murmurs Musculoskeletal: No clubbing, No swelling, No contractures, No erythema, No tenderness Neurological: Normal strength at 5/5 x4 extr Laboratory Data at Discharge: WBC 9.4 K/uL (4.3-10.9) 09/21/17 04:00 Hgb 10.7 g/dL (12.0-15.0) L 09/21/17 04:00 Hct 32.3 % (36.0-45.0) L 09/21/17 04:00 Plt Count 145 K/uL (152-406) L 09/21/17 04:00 Sodium 137 mEq/L (135-145) 09/21/17 04:00 Potassium 4.4 mEq/L (3.6-5.0) 09/21/17 04:00 BUN 61 mg/dL (6-20) H D 09/21/17 04:00 Creatinine 6.46 mg/dL (0.44-1.00) H* D 09/21/17 04:00 Glucose 123 mg/dL (65-120) H 09/21/17 04:00 Phosphorus 5.8 mg/dL (2.5-4.3) H 09/21/17 04:00 Magnesium 2.4 mg/dL (1.8-2.5) 09/17/17 03:10 Total Bilirubin 0.5 mg/dL (0.3-1.2) 09/21/17 04:00 AST 22 IU/L (10-42) 09/21/17 04:00 ALT 28 IU/L (10-60) 09/21/17 04:00 Alkaline Phosphatase 46 IU/L (42-121) 09/21/17 04:00 B-Natriuretic Peptide 31 pg/ml (<=100) 09/17/17 03:10 Home Medications: Calcitrol [Rocaltrol*] 0.25 mcg PO DAILY 02/24/17 Folic Acid/Vit Bcomp,C [Treva-Denny Tablet] 1 tab PO DAILY 02/24/17 Levothyroxine [Synthroid*] 1 tab PO DAILY 02/24/17 Amlodipine [Norvasc*] 5 mg PO BID #60 tab 02/27/17 Doxazosin [Cardura*] 1 mg PO DAILY #30 tab 02/27/17 Ferrous Sulfate [Ferrous Sulfate*] 2 tab PO DAILY 09/17/17 Sevelamer Carbonate [Renvela*] 800 mg PO TID 09/17/17 Sodium Bicarbonate 650 mg PO DAILY 09/17/17 Patient Discharge Instructions: return to the ER with new or worsening symptoms Diet: Low sodium Activity: Ad brenda Followup: Gretchen Strong MD [ACTIVE - CAN ADMIT] - 1 Week Physician Review: Patient Assessed, Agree with Above Assessment and Plan Time spent managing pt's care (in minutes): 30
[2017-09-21 16:27] VITALS: BP 116/56
[2017-09-21 17:03] VITALS: TEMP 98.3
--- NOTE | 2017-09-22 03:40 | PN ---
Date of Progress Note: 09/21/2017 Subjective: The patient feeling better. No nausea. No vomiting. Physical Examination: Vital Signs: Blood pressure 142/78, pulse of 88. Chest: Clear to auscultation. Heart: S1, S2. Regular. Abdomen: Soft, nontender. Extremities: No edema. Laboratory Data: Reviewed. Medication: Reviewed. Assessment And Plan: 1.End-stage renal disease. We will continue the patient on dialysis Tuesday, Tuesday, Tuesday. The patient shows interest in home hemodialysis as that is more compatible with her work schedule and be cause of her deconditioning status. We will arrange for outpatient hemodialysis and then we will arr jose for outpatient home hemo. The patient already has chair time with [facility] tomorrow so we will pr oceed with discharge. Then, we will arrange as outpatient for the home hemo. 2.Hypertension, controlled optimal. Continue current medication. 3.Anemia of chronic kidney disease, stable. 4.Chronic obstructive pulmonary disease. Follow up with the primary. GINGER Voice ID: [id number] Report ID: [id number]
[2017-09-22] MEDS ORDERED: CALCITROL 0.25 MCG CAP PO SCH (09:00)
== END 2017-09-21 19:00 | disposition home or self-care (01) | DRG 673 ==
LOC: ER 02:40 → ERHOLD 05:15 → 4TH 05:41 → OBSVTOIN 09-18 10:17
PROVIDERS: ADMIT Hospitalist; ATTEND Internal Medicine
PROC: 0JH60XZ Insertion of Tunneled Vascular Access Device into Chest Subcutaneous Tissue and Fascia, Open Approach (ICD-10-PCS; 2017-09-18)
PROC: 05HM33Z Insertion of Infusion Device into Right Internal Jugular Vein, Percutaneous Approach (ICD-10-PCS; principal; 2017-09-18 09:00)
DX: I12.0 Hypertensive chronic kidney disease with stage 5 chronic kidney disease or end stage renal disease (principal); N18.6 End stage renal disease; I26.99 Other pulmonary embolism without acute cor pulmonale; Q61.3 Polycystic kidney, unspecified; N25.81 Secondary hyperparathyroidism of renal origin; Z68.38 Body mass index [BMI] 38.0-38.9, adult; E83.42 Hypomagnesemia; E03.9 Hypothyroidism, unspecified; E66.9 Obesity, unspecified; G47.33 Obstructive sleep apnea (adult) (pediatric); D63.1 Anemia in chronic kidney disease; J44.9 Chronic obstructive pulmonary disease, unspecified
CPT/HCPCS: 36415; 71045; 76000; 80053; 80069; 81003; 83735; 83880; 84100; 84443; 84484; 85025; 86317; 86704; 86706; 87340; 87522; 90935; 93005; 94660; 94760; 96374; 99285; C1752; G0378; J1644; J2250; J2270; J2370; J2405; J2550; J3010

== ENCOUNTER 2017-09-24 06:24 | Emergency (ER) | payer OTHER ==
[2017-09-24 06:53] LABS: Absolute Lymphocytes (CBC) 2.9 K/uL (0.7-4.9); Absolute Monocytes 0.5 K/uL (0.1-1.3); Absolute Neutrophil 6.9 K/uL (1.8-8.0); Basophils % 0.6 % (0-1.3); Eosinophils % 2.8 % (0-4.4); Hematocrit 31.2 % (36.0-45.0); Lymphocytes % 27.2 % (15.3-44.8); MCV 88.8 fL (80-100); MPV 8.8 fL (7.6-11.3); Monocytes % 4.7 % (3.3-12.3); RBC Red Blood Cell Count 3.51 M/uL (3.86-4.86)
[2017-09-24 07:09] LABS: Protime INR 0.92
[2017-09-24 07:14] LABS: Potassium 3.5 mEq/L (3.6-5.0)
[2017-09-24 07:21] LABS: Albumin 4.2 g/dL (3.2-5.5); Bilirubin Direct 0.1 mg/dL (0-0.2); Bilirubin Total 0.3 mg/dL (0.3-1.2); Magnesium 2.2 mg/dL (1.8-2.5); Protein, Total 7.3 g/dL (6.0-8.3)
[2017-09-24] MEDS ORDERED: LORazepam 2 MG/ML VIAL ONE (07:32)
[2017-09-24 07:53] LABS: Urine Blood 1+ (NEG); Urine Glucose TRACE (NEG); Urine Protein 2+ (NEG); Urine pH 6.5 (5.0-7.0)
--- NOTE | 2017-09-24 10:15 | RAD REPORT ---
EXAM DESCRIPTION: [place] Single View09/24/2017 7:53 am CLINICAL HISTORY: Chest pain COMPARISON: August 2017 FINDINGS: The lungs appear clear of acute infiltrate. The heart is normal size. Central venous cath eter is in place. IMPRESSION: No acute abnormalities displayed
--- NOTE | 2017-09-24 10:48 | EDPHYS ---
Physician Documentation [facility] Name: Devika Sanchez Age: 61 yrs Sex: Female : 1955 Arrival Date: 09/24/2017 Time: 06:25 Bed 7 Private MD: Yogi Mao B ED Physician Rafiq Salamanca HPI: 09/24 07:00 This 61 yrs old Female presents to ER via Wheelchair with complaints of pm1 Breathing Difficulty. 07:00 The patient or guardian reports chest pain that is located primarily in the chest pm1 diffusely. Onset: Since dialysis treatments patient has reported chest pain with anxiety attacks. Patient contacted her PCP, Dr. Mao two days ago and was prescribed Zoloft. Patient reports some improvement in her anxiety with the medication. However patient has had three days of insomnia. Patient contacted her doctor yesterday and was prescribed Trazodone. Patient concerned that Trazodone is making her insomnia worse. Patient with dialysis treatments TThS. The pain does not radiate. Associated signs and symptoms: Pertinent negatives: abdominal pain, cough, diaphoresis, dizziness, headache, lower extremity swelling, nausea, vomiting. The chest pain is described as a pressure. Duration: The patient or guardian reports a single episode, that is still ongoing, since 0600 today. Other chest pain episodes prior and during previous dialysis treatments. Modifying factors: The symptoms are alleviated by Zoloft has helped a little. the symptoms are aggravated by emotionally stressful situations, Dialysis. The patient has experienced similar episodes in the past. The patient has been recently seen by a physician: The patient has been recently been admitted at [facility], was discharged earlier this week, Patient admitted last week for pulmonary edema and renal failure. Patient started on dialysis treatment and alfreda catheter placed. Historical: - Allergies: 06:47 BACLOFEN; fc 06:47 Celecoxib; fc 06:47 Codeine; fc 06:47 NSAIDS; fc - Home Meds: 06:47 ferrous sulfate 325 mg (65 mg iron) Oral tab 2 tab daily [Active]; doxazosin 1 mg oral fc tab 1 tab once daily [Active]; Rocaltrol 0.25 mcg Oral cap 1 cap once daily [Active]; Renvela 800 mg oral tab 1 tab 3 times per day [Active]; amlodipine 5 mg oral tab 1 tab twice a day [Active]; Treva-Denny 0.8 mg oral tab daily [Active]; sodium bicarbonate 650 mg oral tab daily [Active]; levothyroxine 75 mcg tab 1 tab once daily [Active]; Prozac 10 mg Oral cap once daily [Active]; trazodone 50 mg Oral tab .5 tab daily [Active]; - PMHx: 06:47 pulmonary edema; Hypothyroidism; Anemia; kidney failure; Hypertension; pulmonary fc embolism; polycystic kidney disease; ESRD; - PSHx: 06:47 right chest wall alfreda; fc - Immunization history:: Last tetanus immunization: unknown. - Social history:: Smoking status: Patient/guardian denies using tobacco. ROS: 07:00 Constitutional: Negative for fever, chills, and weight loss, Eyes: Negative for injury, pm1 pain, redness, and discharge, ENT: Negative for injury, pain, and discharge, Neck: Negative for injury, pain, and swelling. 07:00 Abdomen/GI: Negative for abdominal pain, nausea, vomiting, diarrhea, and constipation, Back: Negative for injury and pain, : Negative for injury, bleeding, discharge, and swelling, MS/Extremity: Negative for injury and deformity, Skin: Negative for injury, rash, and discoloration, Neuro: Negative for headache, weakness, numbness, tingling, and seizure. 07:00 Cardiovascular: Positive for chest pain, Negative for edema, orthopnea, palpitations. 07:00 Respiratory: Positive for shortness of breath, Negative for sputum production, wheezing. 07:00 Psych: Positive for anxiety, insomnia. Exam: 07:00 Constitutional: This is a well developed, well nourished patient who is awake, alert, pm1 and in no acute distress. Head/Face: Normocephalic, atraumatic. Eyes: Pupils equal round and reactive to light, extra-ocular motions intact. Lids and lashes normal. Conjunctiva and sclera are non-icteric and not injected. Cornea within normal limits. Periorbital areas with no swelling, redness, or edema. ENT: Nares patent. No nasal discharge, no septal abnormalities noted. Tympanic membranes are normal and external auditory canals are clear. Oropharynx with no redness, swelling, or masses, exudates, or evidence of obstruction, uvula midline. Mucous membranes moist. Neck: Trachea midline, no thyromegaly or masses palpated, and no cervical lymphadenopathy. Supple, full range of motion without nuchal rigidity, or vertebral point tenderness. No Meningismus. Chest/axilla: Normal chest wall appearance and motion. Nontender with no deformity. No lesions are appreciated. Cardiovascular: Regular rate and rhythm with a normal S1 and S2. No gallops, murmurs, or rubs. No pulse deficits. Respiratory: Lungs have equal breath sounds bilaterally, clear to auscultation and percussion. No rales, rhonchi or wheezes noted. No increased work of breathing, no retractions or nasal flaring. Abdomen/GI: Soft, non-tender, with normal bowel sounds. No distension or tympany. No guarding or rebound. No evidence of tenderness throughout. Back: No spinal tenderness. No costovertebral tenderness. Full range of motion. Skin: Warm, dry with normal turgor. Normal color with no rashes, no lesions, and no evidence of cellulitis. MS/ Extremity: Pulses equal, no cyanosis. Neurovascular intact. Full, normal range of motion. 07:00 Neuro: Orientation: is normal, Mentation: is normal, Motor: is normal, moves all fours. Vital Signs: 06:30 BP 154 / 80; Pulse 95; Resp 24; Pulse Ox 100% on R/A; Weight 97.07 kg (R); Height 5 ft. fc 0 in. (152.40 cm) (R); Pain 0/10; 07:07 BP 118 / 72; Pulse 79; Resp 17; Pulse Ox 99% on R/A; Pain 0/10; tl1 07:07 Temp 97.2(TE); aa5 10:11 BP 135 / 76; Pulse 74; Resp 19; Pulse Ox 99% on R/A; aj 11:11 BP 128 / 78; Pulse 72; Resp 18; Temp 97.9; Pulse Ox 99% on R/A; ph 06:30 Body Mass Index 41.79 (97.07 kg, 152.40 cm) fc MDM: 06:40 Patient medically screened. pm1 10:47 Data reviewed: vital signs. Data interpreted: Pulse oximetry: on room air is 99 %. pm1 Interpretation: normal. Counseling: I had a detailed discussion with the patient and/or guardian regarding: the historical points, exam findings, and any diagnostic results supporting the discharge/admit diagnosis, lab results, radiology results, the need for outpatient follow up, to return to the emergency department if symptoms worsen or persist or if there are any questions or concerns that arise at home. 11:00 ED course: Patient requesting additional Ativan prior to dialysis treatment. Patient pm1 going to dialysis at [facility] immediately after leaving the ER. Patient is anxious over the thought of sitting in a chair for 3-4 hours, the constant rechecking of the blood pressure cough, and the restlessness feeling in her legs. 09/24 06:41 Order name: Basic Metabolic Panel; Complete Time: 07:39 pm1 09/24 06:41 Order name: BNP; Complete Time: 07:27 pm1 09/24 06:41 Order name: CBC with Diff; Complete Time: 07:02 pm1 09/24 06:41 Order name: LFT's; Complete Time: 07:39 pm1 09/24 06:41 Order name: Magnesium; Complete Time: 07:39 pm1 09/24 06:41 Order name: PT-INR; Complete Time: 07:16 pm1 09/24 06:41 Order name: Ptt, Activated; Complete Time: 07:16 pm1 09/24 06:41 Order name: Troponin (emerg Dept Use Only); Complete Time: 07:27 pm1 09/24 06:41 Order name: XRAY Chest (1 view); Complete Time: 10:22 pm1 09/24 07:52 Order name: Urine Dipstick--Ancillary (enter results) eb 09/24 07:52 Order name: Urine Dipstick-Ancillary; Complete Time: 08:00 EDMS 09/24 09:55 Order name: Troponin (emerg Dept Use Only); Complete Time: 10:47 pm1 09/24 06:41 Order name: EKG; Complete Time: 06:42 pm1 09/24 06:41 Order name: Cardiac monitoring; Complete Time: 07:05 pm1 09/24 06:41 Order name: EKG - Nurse/Tech; Complete Time: 07:05 pm1 09/24 06:41 Order name: IV Saline Lock; Complete Time: 07:05 pm1 09/24 06:41 Order name: Labs collected and sent; Complete Time: 07:05 pm1 09/24 06:41 Order name: O2 Per Protocol; Complete Time: 07:05 pm1 05 06:41 Order name: O2 Sat Monitoring; Complete Time: 07:05 pm1 09/24 06:41 Order name: Urine Dipstick-Ancillary (obtain specimen); Complete Time: 08:03 pm1 Administered Medications: 07:31 Drug: Ativan 0.5 mg Route: IVP; Site: right hand; aa5 07:45 Follow up: Response: No adverse reaction; Marked relief of symptoms aa5 11:00 Drug: Ativan 0.5 mg Route: PO; ph 11:11 Follow up: Response: No adverse reaction ph Disposition: 09/24/17 10:48 Discharged to Home. Impression: Chest pain, unspecified, Anxiety disorder, unspecified, Insomnia. - Condition is Stable. - Discharge Instructions: Nonspecific Chest Pain, Insomnia, Generalized Anxiety Disorder. - Prescriptions for Ativan 0.5 mg Oral Tablet - take 1 tablet by ORAL route every 8 hours As needed; 10 tablet. - Medication Reconciliation Form, Thank You Letter form. - Follow up: Yogi Mao; When: 2 - 3 days; Reason: Recheck today's complaints, Continuance of care, Re-evaluation by your physician. Follow up: Emergency Department; When: As needed; Reason: Worsening of condition. - Problem is new. - Symptoms have improved. Addendum: 09/27/2017 19:52 Co-signature as Attending Physician, Rafiq Salamanca MD. g s Signatures: Dispatcher [employer] EDMS Shayla Meza RN RN Zamzam Colmenares RN RN aa5 Raegan You RN RN Vinayak Lora, CREDIT CARD CONTROL CLERK CREDIT CARD CONTROL CLERK pm1 Rafiq Salamanca MD MD Corrections: (The following items were deleted from the chart) 09/24 11:13 10:48 09/24/2017 10:48 Discharged to Home. Impression: Chest pain, unspecified; Anxiety ph disorder, unspecified; Insomnia. Condition is Stable. Discharge Instructions: Nonspecific Chest Pain, Insomnia, Generalized Anxiety Disorder. Prescriptions for Ativan 0.5 mg Oral Tablet - take 1 tablet by ORAL route every 8 hours As needed; 10 tablet. and Forms are Medication Reconciliation Form, Thank You Letter, Antibiotic Education, Prescription Opioid Use. Follow up: Yogi Mao; When: 2 - 3 days; Reason: Recheck today's complaints, Continuance of care, Re-evaluation by your physician. Follow up: Emergency Department; When: As needed; Reason: Worsening of condition. Problem is new. Symptoms have improved. pm1
--- NOTE | 2017-09-24 10:48 | ER ---
Nurse's Notes [facility] Name: Devika Sanchez Age: 61 yrs Sex: Female : 1955 Arrival Date: 09/24/2017 Time: 06:25 Bed 7 Private MD: Yogi Mao B Diagnosis: Chest pain, unspecified;Anxiety disorder, unspecified;Insomnia Presentation: 09/24 06:30 Presenting complaint: Patient states: that she was discharged from the hospital on post dialysis cath placement for pulmonary edema and kidney problems. On she went to outpt dialysis and became anxious. Was given Prozac by Dr Mao. When she could not sleep she called him back and was given Trazodone. This am at 0600 she started to have chest tightness and shortness of breath. Has had only small amt of sleep since Tuesday. Transition of care: patient was not received from another setting of care. Onset of symptoms was September 24, 2017 at 06:00. Initial Sepsis Screen: Does the patient meet any 2 criteria? RR > 20 per min. HR > 90 bpm. Yes Does the patient have a suspected source of infection? Yes: Productive cough/pneumonia. Care prior to arrival: None. 06:30 Method Of Arrival: Wheelchair 06:30 Acuity: NADINE 3 fc Historical: - Allergies: 06:47 BACLOFEN; fc 06:47 Celecoxib; fc 06:47 Codeine; fc 06:47 NSAIDS; fc - Home Meds: 06:47 ferrous sulfate 325 mg (65 mg iron) Oral tab 2 tab daily [Active]; doxazosin 1 mg oral fc tab 1 tab once daily [Active]; Rocaltrol 0.25 mcg Oral cap 1 cap once daily [Active]; Renvela 800 mg oral tab 1 tab 3 times per day [Active]; amlodipine 5 mg oral tab 1 tab twice a day [Active]; Treva-Denny 0.8 mg oral tab daily [Active]; sodium bicarbonate 650 mg oral tab daily [Active]; levothyroxine 75 mcg tab 1 tab once daily [Active]; Prozac 10 mg Oral cap once daily [Active]; trazodone 50 mg Oral tab .5 tab daily [Active]; - PMHx: 06:47 pulmonary edema; Hypothyroidism; Anemia; kidney failure; Hypertension; pulmonary fc embolism; polycystic kidney disease; ESRD; - PSHx: 06:47 right chest wall alfreda; fc - Immunization history:: Last tetanus immunization: unknown. - Social history:: Smoking status: Patient/guardian denies using tobacco. Screenin:39 Abuse screen: Denies threats or abuse. Nutritional screening: No deficits noted. fc Tuberculosis screening: No symptoms or risk factors identified. Fall Risk None identified. Assessment: 07:08 General: Appears distressed, Behavior is cooperative, anxious. Pain: Denies pain. tl1 Neuro: Level of Consciousness is awake, alert, obeys commands, Oriented to person, place, time, situation. Cardiovascular: Denies chest pain. Respiratory: Reports shortness of breath at rest Airway is patent Trachea midline Respiratory effort is labored, Respiratory pattern is tachypnea Breath sounds are clear bilaterally. GI: Abdomen is obese, Bowel sounds present X 4 quads. Abd is soft and non tender X 4 quads. : No signs and/or symptoms were reported regarding the genitourinary system. EENT: No signs and/or symptoms were reported regarding the EENT system. Derm: No signs and/or symptoms reported regarding the dermatologic system. 07:10 General: Appears comfortable, Behavior is calm, cooperative. Pain: Denies pain. Neuro: aa5 Level of Consciousness is awake, alert, obeys commands, Oriented to person, place, time, situation. Cardiovascular: Reports episodes of chest tightness since today at 0500 Heart tones S1 S2 present Capillary refill < 3 seconds in bilateral fingers toes Dialysis catheter noted to right upper chest.. Rhythm is sinus rhythm. Respiratory: Reports episodes of SOB since today at 0500 Airway is patent Respiratory effort is even, unlabored, Respiratory pattern is regular, symmetrical, Breath sounds are clear bilaterally. GI: No signs and/or symptoms were reported involving the gastrointestinal system. : No signs and/or symptoms were reported regarding the genitourinary system. EENT: No signs and/or symptoms were reported regarding the EENT system. Derm: Skin is pink, warm \\T\\ dry. Musculoskeletal: Range of motion: intact in all extremities. 07:25 Reassessment: [place] [employer] INSTALLER at bedside. Pt c/o SOB, tachypnea noted 24 RR, pt appears aa5 anxious. Pt states "I am getting short of breath just thinking about how short of breath I was this morning". Pt also reports chest tightness at this moment. . 07:45 Reassessment: Patient and/or family updated on plan of care and expected duration. Pain aa5 level reassessed. Patient is alert, oriented x 3, equal unlabored respirations, skin warm/dry/pink. Patient states feeling better. Pt currently denies SOB, denies chest tightness . 10:11 General: Appears in no apparent distress. comfortable, Behavior is calm, cooperative, aj appropriate for age. Neuro: Level of Consciousness is awake, alert, obeys commands, Oriented to person, place, time, situation. Respiratory: Airway is patent Respiratory effort is even, unlabored, Respiratory pattern is regular, symmetrical. Derm: Skin is intact, is healthy with good turgor, Skin is pink, warm \\T\\ dry. normal. 10:26 Reassessment: Patient appears in no apparent distress at this time. Patient and/or ph family updated on plan of care and expected duration. Pain level reassessed. Patient is alert, oriented x 3, equal unlabored respirations, skin warm/dry/pink. Pt ambulated to restroom, gait steady. 11:10 Reassessment: Patient appears in no apparent distress at this time. Patient and/or ph family updated on plan of care and expected duration. Pain level reassessed. Patient is alert, oriented x 3, equal unlabored respirations, skin warm/dry/pink. D/C home w/ SO, will attend dialysis after discharge. Vital Signs: 06:30 BP 154 / 80; Pulse 95; Resp 24; Pulse Ox 100% on R/A; Weight 97.07 kg (R); Height 5 ft. fc 0 in. (152.40 cm) (R); Pain 0/10; 07:07 BP 118 / 72; Pulse 79; Resp 17; Pulse Ox 99% on R/A; Pain 0/10; tl1 07:07 Temp 97.2(TE); aa5 10:11 BP 135 / 76; Pulse 74; Resp 19; Pulse Ox 99% on R/A; aj 11:11 BP 128 / 78; Pulse 72; Resp 18; Temp 97.9; Pulse Ox 99% on R/A; ph 06:30 Body Mass Index 41.79 (97.07 kg, 152.40 cm) ED Course: 06:25 Patient arrived in ED. do 06:28 Vinayak Lora NP is PHCP. pm1 06:28 Rafiq Salamanca MD is Attending Physician. pm1 06:30 Arm band placed on Patient placed in an exam room, on a stretcher. fc 06:30 Patient has correct armband on for positive identification. Placed in gown. Bed in low fc position. Call light in reach. quality assurance monitor body on. Pulse ox on. NIBP on. 06:30 No provider procedures requiring assistance completed. fc 06:32 Yogi Mao MD is Private Physician. do 06:32 Inserted saline lock: 22 gauge in right hand, using aseptic technique. ,using aseptic fc technique. per Mindy WEBER. 06:38 Triage completed. fc 07:05 Report received from TIA Thorpe. aa5 07:13 Zamzam Colmenares, RN is Primary Nurse. aa5 07:48 X-ray completed. Portable x-ray completed in exam room. Patient tolerated procedure jr1 well. 07:50 XRAY Chest (1 view) In Process Unspecified. EDMS 10:00 Report given to TIA Ireland. aa5 10:48 Yogi Mao MD is Referral Physician. pm1 11:12 IV discontinued, intact, bleeding controlled, No redness/swelling at site. Pressure ph dressing applied. Administered Medications: 07:31 Drug: Ativan 0.5 mg Route: IVP; Site: right hand; aa5 07:45 Follow up: Response: No adverse reaction; Marked relief of symptoms aa5 11:00 Drug: Ativan 0.5 mg Route: PO; ph 11:11 Follow up: Response: No adverse reaction ph Outcome: 10:48 Discharge ordered by MD. pm1 11:12 Discharged to home ambulatory, with significant other. ph 11:12 Condition: good 11:12 Discharge instructions given to patient, significant other, Instructed on discharge instructions, follow up and referral plans. medication usage, Demonstrated understanding of instructions, follow-up care, medications. 11:13 Patient left the ED. ph Signatures: Dispatcher [employer] EDMA Shu Saunders RN RN aj [place], Jennifer jr1 Shayla Meza RN RN Zamzam Colmenares RN RN aa5 Mindy Ruvalcaba RN RN tl1 Raegan You RN RN [facility], Vinayak Castano NP [employer] EXCHANGE INSTALLER pm1 Corrections: (The following items were deleted from the chart) 07:48 07:31 Ativan 0.5 mg IVP in right wrist aa5 aa5 08:22 07:10 Cardiovascular: Reports episodes of chest tightness since today at 0500 Heart aa5 tones S1 S2 present Capillary refill < 3 seconds in bilateral fingers toes Rhythm is sinus rhythm aa5
[2017-09-24] MEDS ORDERED: LORAZEPAM 0.5 MG TABLET ONE (10:59)
[2017-09-24 11:18] VITALS: O2SAT 99
[2017-09-24 11:20] VITALS: BP 128/78; TEMP 97.9
--- NOTE | 2017-09-25 05:49 | EKG ---
Test Date: 2017-09-24 Test Time: 06:40:15 Rn New Graduate: JANAK MEASUREMENT RESULTS: Intervals: Rate: 88 MD: 124 QRSD: 78 QT: 412 QTc: 498 [place]: P: 85 MD: 124 QRS: 9 T: 33 INTERPRETIVE STATEMENTS: Normal sinus rhythm Normal ECG Compared to ECG 09/17/2017 03:10:00 Left ventricular hypertrophy no longer present Electronically Signed On 09-25-17 05:48:55 CDT by Marcus Nieves
== END 2017-09-24 11:13 | disposition home or self-care (01) ==
LOC: ER 06:24
DX: F41.9 Anxiety disorder, unspecified (principal); G47.00 Insomnia, unspecified; I12.0 Hypertensive chronic kidney disease with stage 5 chronic kidney disease or end stage renal disease; N18.6 End stage renal disease; E03.9 Hypothyroidism, unspecified; Z88.5 Allergy status to narcotic agent; Z88.6 Allergy status to analgesic agent; Z88.8 Allergy status to other drugs, medicaments and biological substances
CPT/HCPCS: 36415; 71045; 80048; 80076; 81003; 83735; 83880; 84484; 85025; 85610; 85730; 93005; 96374; 99284

== ENCOUNTER 2017-11-14 09:21 | Observation (INO) | payer OTHER ==
--- OUTSIDE RECORDS SUMMARY | 2017-11-14 09:26 | XMS REPORT | Summary of Care ---
:1955 Author Organization [facility] Encounter HQ Encntr_alias(SHUBHAM) [id number] Date(s): 09/06/16 - 10/05/16 [facility] Discharge Disposition: Home or Self Care Attending Physician: Esteban Fink MD Vital Signs No data available for this section Problem List No data available for this section Allergies, Adverse Reactions, Alerts No data available for this section Medications No data available for this section Results No data available for this section Immunizations No data available for this section Procedures No data available for this section Social History No data available for this section Assessment and Plan No data available for this section
--- OUTSIDE RECORDS SUMMARY | 2017-11-14 09:26 | XMS REPORT | Summary of Care ---
:1955 Author Organization [facility] Encounter HQ Encntr_alias(SHUBHAM) [id number] Date(s): 08/04/16 - 09/02/16 [facility] Discharge Disposition: Home or Self Care Attending [...]
--- OUTSIDE RECORDS SUMMARY | 2017-11-14 09:26 | XMS REPORT | Continuity of Care Document ---
:1955 Author Organization Interface Problems Problem Status Onset Classification Date Comments Source Date Reported LT Active [facility] 7 [facility] LEFT Active [facility] Levels SX 07/19/16 [facility] Medications Medication Details Route Status Patient Ordering Order Source Instructions Provider Date Allergies, Adverse Reactions, Alerts Substance Category Reaction Severity Reaction Status Date Comments Source type Reported Immunizations Immunization Date Given Site Status Last Updated Comments Source Results Order Results Value Reference Date Interpretation Comments Source Name Range Vital Signs Vital Sign Value Date Comments Source Encounters Location Location Encounter Encounter Reason Attending ADM DC Status Source Details Type Number For Provider Date Date Visit [facility] OP Therapy [id number] Esteban 08/04 09/03 [facility] Patients off /2016 [facility] OP Therapy [id number] Esteban 09/06 10/06 [facility] Patients [place] /2016 [facility] Procedures Procedure Code Date Perfomer Comments Source
--- NOTE | 2017-11-14 10:38 | EDPHYS ---
Physician Documentation [facility] Name: Devika Sanchez Age: 62 yrs Sex: Female : 1955 Arrival Date: 11/14/2017 Time: 09:26 Bed 20 Private MD: Yogi Mao B ED Physician Andrea Kat HPI: 11/14 10:29 This 62 yrs old Female presents to ER via Ambulatory with complaints of madelyn Dialysis Catheter Problem. 10:29 The patient has a dialysis catheter in the right subclavian area. Onset: The madelyn symptoms/episode began/occurred 2 day(s) ago. The malfunction was discovered at home. The patient has not experienced similar symptoms in the past. Historical: - Allergies: 09:40 BACLOFEN; ss 09:40 Codeine; ss 09:40 NSAIDS; ss 09:40 Celebrex; ss - Home Meds: 09:40 levothyroxine 75 mcg tab 1 tab once daily [Active]; sevelamer carbonate 800 mg oral tab ss 1 tab 3 times per day [Active]; Lexapro 20 mg Oral tab 1 tab once daily [Active]; RevaVite tablet one tab once daily [Active]; Ambien 5 mg Oral tab 1 tab once daily [Active]; - PMHx: 09:40 ESRD; kidney failure; POLYCYSTIC KIDNEY DISEASE; Pulmonary Embolism; Anemia; ss Hypertension; Hypothyroidism; pulmonary edema; - PSHx: 09:40 right chest wall alfreda; ss - Immunization history:: Adult Immunizations up to date. - Social history:: Smoking status: Patient/guardian denies using tobacco. - Ebola Screening: : Patient denies exposure to infectious person Patient denies travel to an Ebola-affected area in the 21 days before illness onset. - Family history:: not pertinent. ROS: 10:29 Constitutional: Negative for fever, chills, and weight loss, Eyes: Negative for injury, madelyn pain, redness, and discharge, ENT: Negative for injury, pain, and discharge, Neck: Negative for injury, pain, and swelling, Cardiovascular: Negative for chest pain, palpitations, and edema, Respiratory: Negative for shortness of breath, cough, wheezing, and pleuritic chest pain, Abdomen/GI: Negative for abdominal pain, nausea, vomiting, diarrhea, and constipation, Back: Negative for injury and pain, : Negative for injury, bleeding, discharge, and swelling, MS/Extremity: Negative for injury and deformity, Neuro: Negative for headache, weakness, numbness, tingling, and seizure, Psych: Negative for depression, anxiety, suicide ideation, homicidal ideation, and hallucinations, Allergy/Immunology: Negative for hives, rash, and allergies, Endocrine: Negative for neck swelling, polydipsia, polyuria, polyphagia, and marked weight changes, Hematologic/Lymphatic: Negative for swollen nodes, abnormal bleeding, and unusual bruising. 10:29 Skin: Positive for erythema, of the anterior aspect of right upper chest. Exam: 10:29 Constitutional: This is a well developed, well nourished patient who is awake, alert, madelyn and in no acute distress. Head/Face: Normocephalic, atraumatic. Eyes: Pupils equal round and reactive to light, extra-ocular motions intact. Lids and lashes normal. Conjunctiva and sclera are non-icteric and not injected. Cornea within normal limits. Periorbital areas with no swelling, redness, or edema. ENT: Nares patent. No nasal discharge, no septal abnormalities noted. Tympanic membranes are normal and external auditory canals are clear. Oropharynx with no redness, swelling, or masses, exudates, or evidence of obstruction, uvula midline. Mucous membranes moist. Neck: Trachea midline, no thyromegaly or masses palpated, and no cervical lymphadenopathy. Supple, full range of motion without nuchal rigidity, or vertebral point tenderness. No Meningismus. Cardiovascular: Regular rate and rhythm with a normal S1 and S2. No gallops, murmurs, or rubs. Normal PMI, no JVD. No pulse deficits. Respiratory: Lungs have equal breath sounds bilaterally, clear to auscultation and percussion. No rales, rhonchi or wheezes noted. No increased work of breathing, no retractions or nasal flaring. Abdomen/GI: Soft, non-tender, with normal bowel sounds. No distension or tympany. No guarding or rebound. No evidence of tenderness throughout. Back: No spinal tenderness. No costovertebral tenderness. Full range of motion. Female : Normal external genitalia. Skin: Warm, dry with normal turgor. Normal color with no rashes, no lesions, and no evidence of cellulitis. MS/ Extremity: Pulses equal, no cyanosis. Neurovascular intact. Full, normal range of motion. Neuro: Awake and alert, GCS 15, oriented to person, place, time, and situation. Cranial nerves II-XII grossly intact. Motor strength 5/5 in all extremities. Sensory grossly intact. Cerebellar exam normal. Normal gait. Psych: Awake, alert, with orientation to person, place and time. Behavior, mood, and affect are within normal limits. 10:29 Chest/axilla: Inspection: normal, Palpation: tenderness, that is mild, of the anterior aspect of right upper chest, Axilla: are normal, Breasts: are normal, Lymph nodes: lymphadenopathy is not appreciated. Vital Signs: 09:35 BP 141 / 92; Pulse 66; Resp 18; Temp 98.6(O); Pulse Ox 98% on R/A; Weight 95.71 kg; ss Height 5 ft. 0 in. (152.40 cm); Pain 0/10; 11:32 BP 129 / 92; Pulse 58; Resp 17; Pulse Ox 99% on R/A; mh5 12:30 BP 130 / 64; Pulse 60; Resp 18; Pulse Ox 100% on R/A; aj1 13:19 BP 137 / 68; Pulse 62; Resp 18; Pulse Ox 99% on R/A; aj1 09:35 Body Mass Index 41.21 (95.71 kg, 152.40 cm) ss MDM: 09:31 Patient medically screened. [facility] 10:30 Data reviewed: vital signs, nurses notes, lab test result(s), EKG, radiologic studies, madelyn plain films. 11/14 10:28 Order name: Basic Metabolic Panel; Complete Time: 14:13 [facility] 11/14 10:28 Order name: CBC with Diff; Complete Time: 14:13 [facility] 11/14 10:28 Order name: Ckmb; Complete Time: 14:13 [facility] 11/14 10:28 Order name: CPK; Complete Time: 14:13 [facility] 11/14 10:28 Order name: LFT's; Complete Time: 14:13 [facility] 11/14 10:28 Order name: Magnesium; Complete Time: 14:13 [facility] 11/14 10:28 Order name: NT PRO-BNP; Complete Time: 14:13 [facility] 11/14 10:28 Order name: PT-INR; Complete Time: 14:13 [facility] 11/14 10:28 Order name: Ptt, Activated; Complete Time: 14:13 [facility] 11/14 10:28 Order name: Troponin (emerg Dept Use Only); Complete Time: 14:13 [facility] 11/14 10:28 Order name: Blood Culture Adult (2) [facility] 11/14 10:28 Order name: Urine Culture [facility] 11/14 10:28 Order name: Lipase; Complete Time: 14:13 [facility] 11/14 11:55 Order name: Urine Dipstick--Ancillary (enter results) 11/14 10:28 Order name: XRAY Chest (1 view); Complete Time: 14:13 [facility] 11/14 10:28 Order name: EKG; Complete Time: 10:29 [facility] 11/14 10:28 Order name: Cardiac monitoring; Complete Time: 10:31 [facility] 11/14 10:28 Order name: EKG - Nurse/Tech; Complete Time: 11:30 [facility] 11/14 10:28 Order name: IV Saline Lock; Complete Time: 10:31 [facility] 11/14 10:28 Order name: Labs collected and sent; Complete Time: 10:31 [facility] 11/14 10:28 Order name: O2 Per Protocol; Complete Time: 10:31 [facility] 11/14 10:28 Order name: O2 Sat Monitoring; Complete Time: 10:31 [facility] 11/14 10:28 Order name: Urine Dipstick-Ancillary (obtain specimen); Complete Time: 11:51 [facility] 11/14 10:46 Order name: CONS Physician Consult [facility] 11/14 10:46 Order name: CONS Physician Consult [facility] 11/14 12:22 Order name: Urine Dipstick-Ancillary; Complete Time: 14:13 EDLA Administered Medications: 11:59 Drug: NS 0.9% 1000 ml Route: IV; Rate: 75 ml/hr; Site: right antecubital; aj1 13:30 Follow up: IV Status: Infusion continued; IV Intake: 100ml aj1 Disposition: 11/14/17 10:37 Hospitalization ordered by Benny Whitehead for Inpatient Admission. Preliminary diagnosis are Displacement of vascular dialysis catheter, End stage renal disease. - Bed requested for Telemetry/MedSurg (Inpatient). - Status is Inpatient Admission. aj1 - Condition is Fair. - Problem is new. - Symptoms have improved. UTI on Admission? No Signatures: Dispatcher [employer] EDLA Keeley Washburn RN RN aj1 Shena Lovell RN RN dw Anderson, Corey, MD MD cha Smirch, Shelby, RN RN ss Corrections: (The following items were deleted from the chart) 12:31 10:37 Hospitalization Ordered by Benny Whitehead MD for Inpatient Admission. Preliminary dw diagnosis is Displacement of vascular dialysis catheter; End stage renal disease. Bed requested for Telemetry/MedSurg (Inpatient). Status is Inpatient Admission. Condition is Fair. Problem is new. Symptoms have improved. UTI on Admission? No. madelyn 14:20 12:31 11/14/2017 10:37 Hospitalization Ordered by Benny Whitehead MD for Inpatient aj1 Admission. Preliminary diagnosis is Displacement of vascular dialysis catheter; End stage renal disease. Bed requested for Telemetry/MedSurg (Inpatient). Status is Inpatient Admission. Condition is Fair. Problem is new. Symptoms have improved. UTI on Admission? No. dw
--- NOTE | 2017-11-14 10:38 | ER ---
Nurse's Notes [facility] Name: Devika Sanchez Age: 62 yrs Sex: Female : 1955 Arrival Date: 11/14/2017 Time: 09:26 Bed 20 Private MD: Yogi Mao B Diagnosis: Displacement of vascular dialysis catheter;End stage renal disease Presentation: 11/14 09:36 Presenting complaint: Patient states: "I went to go have my dialysis on Tuesday, but ss they wouldn't do it because they said my catheter had slipped, so I called Dr. Rodas's office today and they said to come to the ER because he was in surgery." Pt denies pain at this time. Transition of care: patient was not received from another setting of care. Onset of symptoms is unknown. Risk Assessment: Do you want to hurt yourself or someone else? Patient reports no desire to harm self or others. Initial Sepsis Screen: Does the patient meet any 2 criteria? No. Patient's initial sepsis screen is negative. Does the patient have a suspected source of infection? No. Patient's initial sepsis screen is negative. Care prior to arrival: None. 09:36 Method Of Arrival: Ambulatory ss 09:36 Acuity: NADINE 3 ss Historical: - Allergies: 09:40 BACLOFEN; ss 09:40 Codeine; ss 09:40 NSAIDS; ss 09:40 Celebrex; ss - Home Meds: 09:40 levothyroxine 75 mcg tab 1 tab once daily [Active]; sevelamer carbonate 800 mg oral tab ss 1 tab 3 times per day [Active]; Lexapro 20 mg Oral tab 1 tab once daily [Active]; RevaVite tablet one tab once daily [Active]; Ambien 5 mg Oral tab 1 tab once daily [Active]; - PMHx: 09:40 ESRD; kidney failure; POLYCYSTIC KIDNEY DISEASE; Pulmonary Embolism; Anemia; ss Hypertension; Hypothyroidism; pulmonary edema; - PSHx: 09:40 right chest wall alfreda; ss - Immunization history:: Adult Immunizations up to date. - Social history:: Smoking status: Patient/guardian denies using tobacco. - Ebola Screening: : Patient denies exposure to infectious person Patient denies travel to an Ebola-affected area in the 21 days before illness onset. - Family history:: not pertinent. Screenin:53 Abuse screen: Denies threats or abuse. Denies injuries from another. Nutritional aj1 screening: No deficits noted. Tuberculosis screening: No symptoms or risk factors identified. 13:29 Fall Risk None identified. aj1 Assessment: 09:53 General: Appears in no apparent distress. comfortable, Behavior is calm, cooperative, aj1 appropriate for age. Pain: Denies pain. Neuro: Level of Consciousness is awake, alert, obeys commands, Oriented to person, place, time, situation, Speech is normal, Facial symmetry appears normal. Cardiovascular: Redness noted above dialysis catheter, Patient states that she noticed that a stitch had come out on Tuesday, but didn't think much of it. When she went to dialysis Tuesday they told her the cup had come out and could not give her dialysis . Respiratory: Airway is patent Respiratory effort is even, unlabored, Respiratory pattern is regular, symmetrical. GI: No signs and/or symptoms were reported involving the gastrointestinal system. : No signs and/or symptoms were reported regarding the genitourinary system. EENT: No signs and/or symptoms were reported regarding the EENT system. Derm: No signs and/or symptoms reported regarding the dermatologic system. Skin is pink, warm \\T\\ dry. normal. Musculoskeletal: No signs and/or symptoms reported regarding the musculoskeletal system. Circulation, motion, and sensation intact. 10:50 Reassessment: Patient appears in no apparent distress at this time. No changes from aj1 previously documented assessment. Patient and/or family updated on plan of care and expected duration. Pain level reassessed. Patient is alert, oriented x 3, equal unlabored respirations, skin warm/dry/pink. 11:38 Reassessment: Patient appears in no apparent distress at this time. No changes from aj1 previously documented assessment. Patient and/or family updated on plan of care and expected duration. Pain level reassessed. Patient is alert, oriented x 3, equal unlabored respirations, skin warm/dry/pink. 12:30 Reassessment: Patient and/or family updated on plan of care and expected duration. Pain aj1 level reassessed. General: Appears in no apparent distress. comfortable, Behavior is calm, cooperative, appropriate for age. Pain: Denies pain. Neuro: Level of Consciousness is awake, alert, obeys commands, Oriented to person, place, time, situation, Speech is normal, Facial symmetry appears normal. Cardiovascular: Patient's skin is warm and dry. Respiratory: Airway is patent Respiratory effort is even, unlabored, Respiratory pattern is regular, symmetrical. 13:20 Reassessment: Patient appears in no apparent distress at this time. No changes from aj1 previously documented assessment. Patient and/or family updated on plan of care and expected duration. Pain level reassessed. Patient is alert, oriented x 3, equal unlabored respirations, skin warm/dry/pink. 13:40 Reassessment: Dr. Rodas at bedside to evaluate patient. aj1 Vital Signs: 09:35 BP 141 / 92; Pulse 66; Resp 18; Temp 98.6(O); Pulse Ox 98% on R/A; Weight 95.71 kg; Height 5 ft. 0 in. (152.40 cm); Pain 0/10; 11:32 BP 129 / 92; Pulse 58; Resp 17; Pulse Ox 99% on R/A; mh5 12:30 BP 130 / 64; Pulse 60; Resp 18; Pulse Ox 100% on R/A; aj1 13:19 BP 137 / 68; Pulse 62; Resp 18; Pulse Ox 99% on R/A; aj1 09:35 Body Mass Index 41.21 (95.71 kg, 152.40 cm) ED Course: 09:26 Patient arrived in ED. sb2 09:26 Yogi Mao MD is Private Physician. sb2 09:31 Andrea Kat MD is Attending Physician. madelyn 09:35 Arm band placed on right wrist. 09:38 Triage completed. 09:53 Keeley Washburn, RN is Primary Nurse. aj1 09:53 Patient has correct armband on for positive identification. Bed in low position. Call aj1 light in reach. Side rails up X 1. 09:53 No provider procedures requiring assistance completed. Initial lab(s) drawn, by in, dariel sent to lab. Inserted saline lock: 20 gauge in right antecubital area, using aseptic technique. Blood collected. 10:35 Benny Whitehead MD is Hospitalizing Provider. madelyn 10:46 X-ray completed. Portable x-ray completed in exam room. Patient tolerated procedure ml well. 10:46 EKG done, by microwave technician. reviewed by Andrea Kat MD. at1 10:47 XRAY Chest (1 view) In Process Unspecified. EDMS 11:30 Notified ED physician of a critical lab result(s). Creatinine of 8.5. 11:50 Urine collected: clean catch specimen, clear. [facility] 11:[address] [facility] 13:18 Report given to TIA Perez on 4th floor. aj1 13:19 Patient admitted, IV remains in place. aj1 Administered Medications: 11:59 Drug: NS 0.9% 1000 ml Route: IV; Rate: 75 ml/hr; Site: right antecubital; aj1 13:30 Follow up: IV Status: Infusion continued; IV Intake: 100ml aj1 Intake: 13:30 IV: 100ml; Total: 100ml. aj1 Outcome: 10:37 Decision to Hospitalize by Provider. [facility] 14:19 Admitted to Med/surg accompanied by [facility], with chart. aj1 14:19 Condition: stable 14:19 Discharge instructions given to patient, Instructed on the need for admit, Demonstrated understanding of instructions. 14:20 Patient left the ED. aj1 Signatures: Dispatcher [employer] EDMS Keeley Washburn, RN RN aj1 Hema Munoz RN RN Andrea Cordero MD MD cha Lopez, Melissa ml Smirch, Shelby, RN RN ss gonzales, Amanda, tableau administrator EKG [facility] HospitalCeline Santamaria Annette Torres2
--- NOTE | 2017-11-14 10:54 | RAD REPORT ---
EXAM DESCRIPTION: RAD - Chest Single View - 11/14/2017 10:49 am CLINICAL HISTORY: COUGH Chest pain. COMPARISON: Chest Single View dated 09/24/2017; Chest Single View dated 09/18/2017; Chest Single View d ated 09/18/2017; Chest Single View dated 09/17/2017 FINDINGS: Portable technique limits examination quality. The lungs are grossly clear. The heart is normal in size. No displaced fractures.Right-sided dialysis catheter has tip in the SVC. IMPRESSION: No acute intrathoracic process suspected.
[2017-11-14 10:58] LABS: Absolute Lymphocytes (CBC) 1.2 K/uL (0.7-4.9); Absolute Monocytes 0.2 K/uL (0.1-1.3); Absolute Neutrophil 4.9 K/uL (1.8-8.0); Basophils % 0.9 % (0-1.3); Eosinophils % 2.6 % (0-4.4); Hematocrit 35.9 % (36.0-45.0); MCH 30.1 pg (27.0-35.0); MCV 91.4 fL (80-100); Monocytes % 3.3 % (3.3-12.3); RBC Red Blood Cell Count 3.93 M/uL (3.86-4.86)
[2017-11-14 11:08] LABS: Protime INR 0.88
[2017-11-14] MEDS ORDERED: ONDANSETRON 4 MG/2 ML VIAL IV PRN (11:18)
[2017-11-14] MEDS ORDERED: ACETAMINOPHEN 500 MG TAB PO PRN (11:18)
[2017-11-14 11:27] LABS: ALT/SGPT 14 U/L (12-78); AST/SGOT 11 U/L (15-37); Albumin 3.5 g/dL (3.4-5.0); Alkaline Phosphatase 85 U/L (45-117); BUN Blood Urea Nitrogen 74 mg/dL (7-18); Bicarbonate 22 mmol/L (21-32); Bilirubin Direct < 0.1 mg/dL (0-0.2); Bilirubin Total 0.2 mg/dL (0.2-1.0); CKMB Creatine Kinase MB < 1.0 ng/mL (0.3-3.6); Creatine Phosphokinase 27 U/L (26-192); Glucose Level 96 mg/dL (74-106); Lipase 419 U/L (73-393); Magnesium 2.9 mg/dL (1.8-2.4); NT PRO-BNP 1242 pg/mL (<125); Potassium 3.8 mmol/L (3.5-5.1); Sodium Level 138 mmol/L (136-145)
[2017-11-14] MEDS ORDERED: NA CHLORIDE 0.9% 1,000 ML ONE (11:34)
[2017-11-14 12:22] LABS: Urine Blood TRACE (NEG); Urine Glucose TRACE (NEG); Urine Protein 2+ (NEG); Urine Specific Gravity 1.015 (1.005-1.030); Urine pH 6.5 (5.0-7.0)
--- NOTE | 2017-11-14 12:56 | EKG ---
Test Date: 2017-11-14 Test Time: 10:40:38 Ap Processor: NEREYDA MEASUREMENT RESULTS: Intervals: Rate: 59 WI: 132 QRSD: 86 QT: 480 QTc: 475 Lutz: P: 21 WI: 132 QRS: 7 T: 32 INTERPRETIVE STATEMENTS: Sinus bradycardia Otherwise normal ECG Compared to ECG 09/24/2017 06:40:15 Sinus rhythm no longer present Electronically Signed On 11-14-17 12:55:49 CDT by Marcus Nieves
[2017-11-14 16:56] VITALS: BMI 43.1
[2017-11-14] MEDS: ENOXAPARIN 30 MG/0.3 ML SQ SCH (17:00)
[2017-11-14] MEDS ORDERED: SEVELAMER CARBONATE 800 MG TABLET PO SCH (21:00)
[2017-11-14] MEDS: ZOLPIDEM TARTRATE 5 MG TABLET PO SCH (21:02)
--- NOTE | 2017-11-15 02:09 | HP ---
Date of Admission: 11/14/2017 Consultants: Shayne Rodas MD, General Surgery, Gretchen Strong M.D., Nephrology. Code Status: Full. Chief Complaint: Dialysis catheter malfunction. History Of Present Illness: The patient is a 62-year-old female with past medical history of end-sta ge renal disease, on hemodialysis, who sees Dr. Strong, which dialysis had began in August. The pat ient also has hypertension, sleep apnea, thyroid disease, hypothyroidism, comes in due to dialysis ca theter not functioning. She went for dialysis on Tuesday and was told that her dialysis catheter is not functioning properly and she was told by Nephrology to come to the office on Tuesday for re-evalu ation. On the day of admission, Nephrology contacted Surgery in order to have a dialysis catheter re placed, and therefore, the patient was informed to come into the ER for further evaluation. The veena ent otherwise denies any nausea, vomiting, fever, chills, bleeding from the cath site. The patient p atmilagro's vital signs were stable on arrival. Her lab work showed creatinine of 8.5 and a potassium o f 3.8. White count was normal. Chest x-ray did not show any acute abnormalities. The dialysis cath eter tip was in the SVC. The patient was then referred for admission. When seen in the ER, the veena ent was awake, alert, and oriented x3, not in any acute distress. Past Medical History: Hypertension; hypothyroidism; end-stage renal disease, on hemodialysis; sleep apnea, on CPAP; polycystic kidney disease. Past Surgical History: Right knee surgery, dialysis catheter placement in August. Allergies: TO CELEBREX, CAUSES A RASH; CODEINE; BACLOFEN; AND NSAIDS. Medications: List reviewed. Family History: Father had heart disease and hypertension. Mother had hypertension, polycystic kidn ey disease. Social History: The patient denies any alcohol use, illicit drug use, or tobacco use. Review of Systems: An 11-point system reviewed, negative except as per HPI. Physical Examination: Vital Signs: Temperature 98.6, heart rate 66, blood pressure 141/92, respirations 18, O2 98% on room air. General: Awake, alert, oriented x3, not in any acute distress, morbidly obese female. BMI of 41.2. HEENT: Normocephalic and atraumatic. PERRLA. EOMI. Moist mucous membranes. Oropharynx is clear. Conjunctiva is anicteric. Dentition is normal. Neck: Supple. No JVD. Trachea midline. CV: S1, S2. No murmurs. Regular rate and rhythm. Peripheral pulses present. Respiratory: Clear to auscultation bilaterally. No wheezing. No stridor. No use of accessory musc les. Gastrointestinal: Abdomen is soft, nontender, and nondistended. Positive bowel sounds. No guarding or rigidity. Extremities: No clubbing or cyanosis. No calf tenderness. The patient does have some pedal edema. Neuro: Cranial nerves 2 through 12 intact grossly. No focal neurological deficit. Speech is normal . Strength is 5/5 in bilateral upper and lower extremities. Skin: No rashes. Normal skin turgor. Psych: Mood is okay. Affect is full. Insight and judgment are good. Laboratory Data: Sodium 138, potassium 3.8, chloride 108, CO2 of 22, BUN 74, creatinine 8.5, glucose 96, calcium 8.3, magnesium 2.9. Troponin less than 0.02. BNP 1242. Lipase 419. INR 0.88. WBC 6. 6, H and H 11.8 and 35.9, platelets 158, neutrophils 74%. UA; negative nitrite, negative leukocyte. Chest x-ray personally reviewed, shows no acute intrathoracic process, suspected dialysis tip in the SVC. Assessment And Plan: A 62-year-old female with; 1.Dialysis catheter malfunction. Dr. Rodas has been consulted. We will likely remove dialysis c atheter today and have replacement catheter placed on opposite side in a.m. No acute bleeding at thi s time. 2.End-stage renal disease, on hemodialysis. Dr. Strong has been consulted. The patient has not h ad dialysis since . Electrolytes are stable at this time. We will continue to monitor. 3.History of pulmonary embolism. 4.Essential hypertension. Resume home medications. 5.Hypothyroidism. We will continue Synthroid. 6.Morbid obesity. BMI of 41. 7.History of polycystic kidney disease. 8.Obstructive sleep apnea, on CPAP. 9.Gastrointestinal and deep venous thrombosis prophylaxes with PPI and Lovenox renal dose. Plan: Admit the patient to Med-Surg and place as inpatient. SA/MODL Voice ID: [id number]
--- NOTE | 2017-11-15 02:57 | CON ---
Date of Consultation: 11/14/2017 Chief Complaint: End-stage renal disease, on dialysis. History Of Present Illness: The patient came to emergency room because of malfunctioning displaced dialysis catheter. The patient was scheduled with Dr. Rodas to have procedure done to replace the catheter. The patient has been treated with dialysis 3 times per week although last Tuesday when she came for routine treatment she was found to have displaced dialysis catheter and dialysis was not done. The patient was referred for dialysis catheter replacement. The patient is admitted to the hospital, is awaiting for the procedure to be done as soon as possible. The patient denies complaints. Review of Systems: Constitutional: Denies fever, chills. Eyes: Denies vision changes. Ears, Nose, Mouth, and Throat: Denies sore throat or earache. Respiratory: Denies PND, orthopnea. Cardiovascular: Denies chest pain, palpitation. GI: Denies nausea, vomiting. : Denies dysuria, hematuria. Musculoskeletal: Denies muscle aches or joint swelling. All other system reviewed and all are negative. Past Medical History: Polycystic kidney disease, pulmonary embolism, anemia, CKD, hypertension, hypothyroid, history of congestive heart failure with diastolic dysfunction and pulmonary edema, end-stage renal disease, on dialysis. Past Surgical History: Status post dialysis catheter, right IJ Social History: Denies tobacco, alcohol or illicit drugs. Physical Examination: General: She is not in acute distress. Eyes: Anicteric sclerae. EOMI. Ears, Nose, Mouth, and Throat: Oral mucosa moist. No pallor. Neck: Supple. No JVD. No bruits. Lungs: Clear to auscultation bilaterally. Heart: S1, S2. No pericardial friction rub. Abdomen: Soft, obese, nontender. No rebound. No guarding. Extremities: No edema. No clubbing. No cyanosis. Skin; warm and dry , no bleeding Neurologic: alert, oriented x3, no tremor Laboratory Data: Hemoglobin 11.8, WBC 6.6, platelet count is 158,000. Chemistry showed sodium 130, potassium 3.8, chloride 108, CO2 22, BUN 74, creatinine 8.5, magnesium 2.9, calcium 8.3, total protein 7.0, albumin 3.5. Impression And Plan: 1. End-stage renal disease, dialysis will be resumed as soon as the patient has a working dialysis catheter. The patient needs a catheter replacement for dialysis access. Procedure to insert new tunneled hemodialysis catheter will be scheduled by Dr. Rodas. 2. Hypertension. Continue blood pressure medication. 3. Renal osteodystrophy. Continue renal diet and binders. The patient will be n.p.o. prior to the procedure. 4. Anemia, chronic kidney disease. Monitor hemoglobin level. Adjust LUAN. FABY/MAEGHAN Voice ID: [id number] Report ID: [id number] MTDD
[2017-11-15] MEDS: LEVOTHYROXINE SOD 0.075 MG TAB PO SCH (05:14)
[2017-11-15 05:52] LABS: Absolute Lymphocytes (CBC) 1.6 K/uL (0.7-4.9); Absolute Monocytes 0.3 K/uL (0.1-1.3); Basophils % 1.1 % (0-1.3); Eosinophils % 3.4 % (0-4.4); Hematocrit 31.9 % (36.0-45.0); Lymphocytes % 31.3 % (15.3-44.8); MCH 29.9 pg (27.0-35.0); MCV 90.5 fL (80-100); MPV 7.8 fL (7.6-11.3); Monocytes % 5.1 % (3.3-12.3); RBC Red Blood Cell Count 3.52 M/uL (3.86-4.86)
[2017-11-15 06:06] LABS: Albumin 3.1 g/dL (3.4-5.0); Bilirubin Total 0.3 mg/dL (0.2-1.0); Potassium 4.6 mmol/L (3.5-5.1); Protein, Total 5.8 g/dL (6.4-8.2)
[2017-11-15 06:12] LABS: Protime INR 0.93
[2017-11-15] MEDS: SEVELAMER CARBONATE 800 MG TABLET PO SCH ×3 (08:00→16:32)
[2017-11-15] MEDS: MULTIVITAMINS,THERAPEUT 1 TAB PO SCH (09:00)
[2017-11-15] MEDS: ESCITALOPRAM 20 MG TAB PO SCH ×2 (09:00→13:21)
[2017-11-15] MEDS ORDERED: NS 0.9% VIAL 10 ML ONE (10:15)
[2017-11-15] MEDS ORDERED: HEPARIN 5000 UNIT/ML 1 ML VIAL ONE (10:15)
[2017-11-15] MEDS ORDERED: NA CHLORIDE 0.9% 100 ML IV ONE (10:15)
[2017-11-15] MEDS ORDERED: LIDOCAINE 1% 20 ML MDV ONE (10:16)
[2017-11-15] MEDS ORDERED: LIDOCAINE 1% MPF 5 ML VIAL ONE (10:20)
[2017-11-15] MEDS ORDERED: PROPOFOL 200 MG/20 ML VIAL IV ONE (10:20)
[2017-11-15] MEDS ORDERED: FENTANYL CITR 100 MCG/2 ML ONE (10:21)
[2017-11-15] MEDS ORDERED: ONDANSETRON HCL 40 MG/20 ML VIAL ONE (10:22)
[2017-11-15] MEDS ORDERED: Ringers Lactate 1,000 ML IV ONE (10:25)
--- NOTE | 2017-11-15 10:46 | P.CNS ---
Date of Consult: 11/14/17 Reason for Consult: unable to use HD cath History of Present Illness: 62 y/o fe,shahbaz with ESRD on HD needing removal of non-functional catheter and placement of new one to receive dialysis. Allergies celecoxib [From Celebrex] Allergy (Verified 11/14/17 14:29) Rash codeine Allergy (Verified 11/14/17 14:29) Unknown adhesive tape Adverse Reaction (Verified 11/14/17 14:29) Rash BACLOFEN Allergy (Mild, Uncoded 11/14/17 14:29) Unknown NSAIDS Allergy (Uncoded 11/14/17 14:29) Anaphylaxis Home medications list reviewed: Yes Home Medications: Folic Acid/Vit Bcomp,C [Treva-Denny Tablet] 1 tab PO DAILY 02/24/17 Levothyroxine [Synthroid*] 1 tab PO DAILY 02/24/17 Sevelamer Carbonate [Renvela*] 800 mg PO TID 09/17/17 Escitalopram [Lexapro*] 1 tab PO DAILY 11/14/17 Zolpidem Tartrate [Ambien*] 1 tab PO BEDTIME 11/14/17 - Past Medical/Surgical History Diabetic: No -: HTN -: Thyroid problem -: renal failure -: Sleep apnea patient compliant with her CPAP -: Polycystic kidney disease -: carpal tunnel -: R knee sx -: bilateral carpal tunnel repair. -: 2 dialysis catheter placements. - Family History Father Medical History: Heart disease, Hypertension Mother Medical History: Hypertension, Kidney disease Notes: polycystic kidney disease - Social History Alcohol use: No CD- Drugs: No Caffeine use: Yes Place of Residence: Home Review of Systems General: Unremarkable Eyes: Unremarkable ENT: Unremarkable Respiratory: Unremarkable Gastrointestinal: Unremarkable Genitourinary: As per HPI Integumentary: As per HPI (right chest hemosplit with cuff off catheter partially off need to be removed.) Physical Examination Temp Pulse Resp BP Pulse Ox 98.1 F 61 20 138/75 98 11/15/17 08:00 11/15/17 08:00 11/15/17 08:00 11/15/17 08:00 11/15/17 08:00 General: Alert, In no apparent distress, Oriented x3, Cooperative HEENT: PERRLA, EOMI Neck: Supple Respiratory: Normal air movement Cardiovascular: Regular rate/rhythm Gastrointestinal: Soft and benign Integumentary: No cyanosis, Other (right side partially off hemosplit with cuff off the skin. ) Laboratory Data (last 24 hrs) 11/14/17 10:15: PT 10.4, INR 0.88, APTT 26.4 11/14/17 10:15: WBC 6.6, Hgb 11.8 L, Hct 35.9 L, Plt Count 158 11/14/17 10:15: Sodium 138, Potassium 3.8, BUN 74 H, Creatinine 8.50 H*, Glucose 96, Magnesium 2.9 H, Total Bilirubin 0.2, AST 11 L, ALT 14, Alkaline Phosphatase 85, Lipase 419 H Conclusions/Impression: ESRD 1. Removal of hemosplit hemodyalisis catheter ( see procedure note) 2. NO P MN 3. Placement of hemosplit hemodialysis catheter. BAR fully explained including but not limited to infection, bleeding, damage to adjacent structures , Pneumothorax, hemothorax, DVT, PE, pericardial tamponade, pericarditis, catheter break, vessel stenosis, VT even
[2017-11-15] MEDS ORDERED: CIPROFLOXACIN 400mg IV 400 MG/200 ML BAG IV ONE (10:47)
--- NOTE | 2017-11-15 10:49 | P.BOP ---
Preoperative diagnosis: ESRD Postoperative diagnosis: same Primary procedure: Removal of hemosplit tunneled cuffed hemodialysis catheter Estimated blood loss: minimal Specimen: intact hemosplit Findings: as above Anesthesia: iv Complications: None Transferred to: Other (ER) Condition: Good
[2017-11-15] MEDS ORDERED: NA CHLORIDE 0.9% 500 ML ONE (11:11)
--- NOTE | 2017-11-15 11:47 | P.BOP ---
Preoperative diagnosis: ESRD Postoperative diagnosis: same Primary procedure: 1. Placement of hemosplit tunneled cuffed hemodialysis catheter Secondary procedure: 2. interpretation of fluoroscopy Other procedure(s): 3. right neck venous ultrasound Estimated blood loss: minimal Specimen: intact hemosplit Findings: see dictation Anesthesia: General Complications: None Implants: hemosplit HD cath Transferred to: Recovery Room (ER) Condition: Good
[2017-11-15] MEDS: MEPERIDINE HCL 25 MG/0.5 ML ONE ×4 (12:08→12:26)
--- NOTE | 2017-11-15 12:41 | RAD REPORT ---
EXAM DESCRIPTION: RAD - Chest Single View - 11/15/2017 12:32 pm CLINICAL HISTORY: Tessio catheter placement postprocedure chest film COMPARISON: November 14 TECHNIQUE: AP portable chest image was obtained 1219 hours . FINDINGS: No pneumothorax is present. No acute lung parenchymal process. Heart size, vasculature and lung markings are accentuated by shallow inspiration portable imaging. Trachea is midline. No pleura l fluid collection identifiable. Right-sided jugular catheter placement. Short arm of the catheter is in the distal most jugular vein with the long arm of the catheter at the proximal most SVC. IMPRESSION: Right jugular Tessio catheter placement showing no pneumothorax. Tip of the catheter is in the proximal most SVC. Short arm of the catheter is probably still within t he distal jugular vein.
--- NOTE | 2017-11-15 13:29 | RAD REPORT ---
EXAM DESCRIPTION: RAD - Fluoroscopy <1 Hour - 11/15/2017 1:11 pm CLINICAL HISTORY: Right jugular Tessio catheter placement COMPARISON: Chest film November 14 FINDINGS: Fluoroscopy of the right upper chest and right neck base performed. Total of 15 fluoroscop ic images were submitted for interpretation. Fluoro time was 0.6 minutes. Cumulative dose was 14.7 mG y. Fluoroscopic images show stepwise placement of a right jugular Tessio catheter. No suspicious or unex pected finding. IMPRESSION: Right jugular Tessio catheter placement as detailed.
[2017-11-15] MEDS: ENOXAPARIN 30 MG/0.3 ML SQ SCH (16:30)
[2017-11-15] MEDS: HYDROCODONE/APAP 10/325 TAB PO PRN ×2 (16:30→20:56)
--- NOTE | 2017-11-15 20:15 | PN ---
Date of Progress Note: 11/15/2017 Subjective: The patient seen and examined, chart reviewed, and case discussed with Dr. Rodas. Th e patient had dialysis catheter replaced today, going for hemodialysis later today. The patient othe rwise feels well. No nausea or vomiting. Review of Systems: Negative except as above. Medications: Reviewed. Objective: Vital signs: Temperature 98.1, heart rate 61, blood pressure 130/75, respirations 20, an d O2 98% on room air. General: Awake, alert, oriented x3, elderly, obese female. BMI 43. No acute distress. CV: S1, S2. No murmurs. Regular rate and rhythm. Peripheral pulses present. Respiratory: moving air well bilaterally. No wheezing. Gastrointestinal: Abdomen is soft, nontender, nondistended. Positive bowel sounds. Extremities: No clubbing, cyanosis, edema. Neurologic: Nonfocal. Laboratory Data: Sodium 143, potassium 4.3, chloride 109, CO2 21, BUN 75, creatinine 8.6, glucose 97 , calcium 8.2, total bilirubin 0.3, and albumin 3.1. INR 0.93. WBC 5.1, H and H 10.5, 31.9, and hua telets 155. Blood cultures, no growth to date. Urine culture no growth. Assessment And Plan: A 62-year-old female with; 1.Dialysis catheter malfunction, status post removal and replacement of new catheter by Dr. Rodas . The patient will be going for dialysis later today. 2.End-stage renal disease, on hemodialysis. Dr. Strong on board. We will continue with dialysis as scheduled. 3.History of pulmonary embolism. 4.Essential hypertension, stable, on home medications. 5.Hypothyroidism, Synthroid. 6.Morbid obesity body mass index 43.1. 7.History of polycystic kidney disease. 8.Obstructive sleep apnea, on CPAP at night. The patient is compliant with her CPAP. 9.Gastrointestinal and deep venous thrombosis prophylaxis with PPI and Lovenox renally dosed. Plan: We will likely discharge in a.m. as the patient has yet to start hemodialysis, but will likely not get done until 8 or 9 in the evening. We will monitor blood pressure and a.m. labs prior to dis charge. /MEAGHAN Voice ID: [id number] Report ID: [id number]
[2017-11-15] MEDS: ZOLPIDEM TARTRATE 5 MG TABLET PO SCH (20:56)
--- NOTE | 2017-11-16 01:25 | OP ---
Date of Procedure: 11/15/2017 Surgeon: Shayne Rodas MD Preoperative Diagnosis: End-stage renal disease. Postoperative Diagnosis: End-stage renal disease. Procedures: 1.Placement of a HemoSplit tunneled cuffed hemodialysis catheter. 2.Interpretation of fluoroscopy. 3.Right neck venous ultrasound. Estimated Blood Loss: Less than 10 cc. Specimen: None. Anesthesia: General. Implant: HemoSplit hemodialysis catheter in the right jugular vein. Indication: This is the case of a female come to us yesterday with a malfunction of the catheter. H er catheter was partially removed above, so catheter was removed intact. Today, she is in need for h emodialysis. They asked me to put a new hemodialysis catheter on her. The benefits, alternatives, a nd risks were fully explained to the patient, which included but are not limited to infection, bleedi ng, damage to adjacent structures as well as complication, pneumothorax, hemothorax, pericardial tamp onade, DVT, breakage of the catheter, UT, even . She also understands this may not relieve any symptoms. She might need more than one surgical intervention. She was advised to find a vascular grewal rgeon as soon as she can and the renal doctor suggested to move this catheter to a permanent location . She understood and signed the consent. Description Of Procedure: The patient was brought to the operating room and placed in supine positio n. Anesthesia was done without complication. The right neck and chest and left neck and chest were prepped and draped in a sterile fashion. Trying to stay away from the previous the patien t had. We placed the patient in Trendelenburg position. Time-out was called. Using ultrasound, we identified the internal jugular vein and we noticed to be viable and compressible. At that moment, I put an 18-gauge needle in the right jugular vein at the first attempt. A guidewire was passed throu gh and the needle was removed. Once again, we confirmed placement with the help of a fluoroscopy int o the superior vena cava. After that, I proceeded to select an area in the right upper chest where carlie marquis made a small incision and tunneled the catheter from there into the neck incision. We placed an in troducer sheath after putting dilators over the guidewire under direct visualization with fluoroscopy . The catheter was placed in, the introducer sheath was peeled off. We already from the skin. The fluoroscopy shows proper placement and excellent backflow and inflow. The skin was then c losed with 3-0 chromic. The catheter was secured in place with 3-0 nylon. Previously, the patient _ from the previous catheter insertion many months ago. She asked me to remove it and we rem alex that stitch through. The patient tolerated the procedure well. The patient was sent to recover y room in stable condition. The patient will be sent to the floor under the care of the primary doct or. NKECHI/MEAGHAN Voice ID: [id number] Report ID: [id number]
--- NOTE | 2017-11-16 01:40 | PN ---
Date of Progress Note: 11/15/2017 Subjective: The patient was admitted for malfunction PermCath today and plan for exchange. Physical Examination: Vital Signs: When I saw the patient, blood pressure 120/79, pulse of 60, afebrile. The patient had good diuresis. Chest: Crackles in the base. Heart: S1, S2. Regular. Abdomen: Soft, nontender. Extremities: Trace edema. Laboratory Data: WBC 5.1, H and H 10.5/35. Sodium 143, potassium 4.6, bicarb 21, BUN 75, creatinine 8.5, calcium 8.2, albumin 3.1. Medications: Current medications the patient on include: 1.Lovenox. 2.Heparin. 3.Ambien. 4.Lexapro. 5.Zofran. 6.Levothyroxine. 7.Hydrocodone. 8.Multivitamin. Assessment And Plan: 1.End-stage renal disease. We will continue the patient on dialysis. We will do a dialysis today a fter catheter exchange and we will monitor. 2.Hypertension, controlled, optimal. Continue current medication of blood pressure medication. 3.Malfunction PermCath. Will follow up after exchange. GINGER Voice ID: [id number] Report ID: [id number]
[2017-11-16] MEDS: HYDROCODONE/APAP 10/325 TAB PO PRN ×2 (04:05→08:05)
[2017-11-16] MEDS: LEVOTHYROXINE SOD 0.075 MG TAB PO SCH (04:05)
[2017-11-16 04:40] LABS: Absolute Lymphocytes (CBC) 1.5 K/uL (0.7-4.9); Absolute Monocytes 0.2 K/uL (0.1-1.3); Eosinophils % 2.5 % (0-4.4); Hematocrit 32.3 % (36.0-45.0); MCH 29.2 pg (27.0-35.0); MCV 89.5 fL (80-100); MPV 7.6 fL (7.6-11.3); Monocytes % 4.4 % (3.3-12.3); RBC Red Blood Cell Count 3.61 M/uL (3.86-4.86)
[2017-11-16 05:08] LABS: Bilirubin Total 0.3 mg/dL (0.2-1.0); Potassium 4.1 mmol/L (3.5-5.1); Protein, Total 5.9 g/dL (6.4-8.2)
[2017-11-16 08:02] VITALS: TEMP 97.6
[2017-11-16] MEDS: SEVELAMER CARBONATE 800 MG TABLET PO SCH ×2 (08:02→11:53)
[2017-11-16] MEDS: ESCITALOPRAM 20 MG TAB PO SCH (08:02)
[2017-11-16] MEDS: MULTIVITAMINS,THERAPEUT 1 TAB PO SCH (08:02)
[2017-11-16 11:55] VITALS: O2SAT 95
[2017-11-16 12:05] VITALS: BP 112/57
--- NOTE | 2017-11-16 14:58 | PN ---
Date of Progress Note: 11/16/2017 Subjective: The patient is status post PermCath exchange, tolerated well. Status post dialysis yest erday, tolerated well. We managed to remove 1400. Physical Examination: Vital Signs: Blood pressure 106/55, pulse of 65. Chest: Clear to auscultation. Heart: S1, S2. Regular rhythm. Abdomen: Soft, nontender. Extremities: No edema. Neurological: Alert and oriented x3. Nonfocal. Laboratory Data: WBC 5, H and H 10.5/32.3, platelets 148. Sodium 144, potassium 4.1, bicarb 31, BUN 33, creatinine 5, calcium 8.3. Current Medications: The patient on include: 1.Tylenol. 2.Lexapro. 3.Ambien. 4.Renvela. 5.Levothyroxine. Assessment And Plan: 1.End-stage renal disease, normal volume, status post dialysis today, recovering. We will continue dialysis as scheduled TTS. 2.Secondary hyperparathyroidism, stable. Continue Renvela. 3.Anemia, stable. 4.Over volume, recovered and resolved. 5.Anemia of chronic kidney disease. Continue LUAN as outpatient. 6.Malfunction of PermCath, status post exchange. We will follow up outpatient. Case discussed with Dr. Whitehead, agreed on the plan. The patient cleared from the renal standpoint for discharge planning. GINGER Voice ID: [id number] Report ID: [id number]
--- NOTE | 2017-11-17 02:55 | DS ---
Date of Discharge: 11/16/2017 Consultants: Dr. Rodas, General Surgery; Dr. Strong with Nephrology. Procedures: On 11/14/2017, removal of dialysis catheter. Procedure on 11/15/2017, placement of Hemo Split tunneled cuffed hemodialysis catheter, right venous ultrasound. Admitting Diagnoses: 1.Dialysis catheter malfunction. 2.End-stage renal disease, on hemodialysis. 3.History of pulmonary embolism. 4.Essential hypertension. 5.Hypothyroidism. 6.Morbid obesity, body mass index of 41. 7.History of polycystic kidney disease. 8.Obstructive sleep apnea, on CPAP. Discharge Diagnoses: 1.Dialysis catheter malfunction, status post removal and replacement of new catheter. 2.End-stage renal disease, on hemodialysis. 3.History of pulmonary embolism. 4.Essential hypertension, stable. 5.Hypothyroidism, on Synthroid. 6.Morbid obesity, body mass index of 43.1. 7.History of polycystic kidney disease. 8.Obstructive sleep apnea, on CPAP. Hospital Course: The patient is a 62-year-old female who was unable to be dialyzed at the outpatient center and was having difficulty with her catheter malfunctioning. The patient was told to come int o the ER for further evaluation. Dr. Rodas was consulted. He removed the dialysis catheter and a new catheter was placed the following day. The patient was able to be dialyzed and did well. Her e lectrolytes remained stable. Her blood cultures were negative to date. The patient was then cleared for discharge from Nephrology and Surgical standpoint. She was sent home in a stable condition. Activity: As tolerated. Medications: As per medication reconciliation list. Followup: Follow up with primary care physician in 2 to 3 days. Follow up with walking dragline operator, Dr. Sanchez, in 2 weeks. Return to ER for worsening condition. Diet: Renal. Activity: Ad brenda. Physical Examination: General: Awake, alert, oriented, no acute distress. CV: S1, S2. No murmurs. Respiratory: Moving air well bilaterally. Abdomen: Soft, nontender, nondistended. Positive bowel sounds. Extremities: No clubbing, cyanosis, edema. Neurologic: Nonfocal. Skin: Dialysis catheter in place, right chest wall. SA/MODL Voice ID: [id number] Report ID: [id number]
[2017-11-17 12:46] LABS: HBsAG Nonreactive (Nonreactive)
== END 2017-11-16 12:47 | disposition home or self-care (01) ==
LOC: ER 09:21 → INTOOBSV 10:43 → ERHOLD 10:43 → 4TH 13:30
PROVIDERS: ADMIT Family Medicine; ATTEND Family Medicine
PROC: 02HV33Z Insertion of Infusion Device into Superior Vena Cava, Percutaneous Approach (ICD-10-PCS; 2017-11-15)
PROC: 0JH63XZ Insertion of Tunneled Vascular Access Device into Chest Subcutaneous Tissue and Fascia, Percutaneous Approach (ICD-10-PCS; principal; 2017-11-15 11:00)
DX: T82.41XA Breakdown (mechanical) of vascular dialysis catheter, initial encounter (principal); I12.0 Hypertensive chronic kidney disease with stage 5 chronic kidney disease or end stage renal disease; N18.6 End stage renal disease; Z99.2 Dependence on renal dialysis; E03.9 Hypothyroidism, unspecified; G47.30 Sleep apnea, unspecified; Q61.3 Polycystic kidney, unspecified; E66.01 Morbid (severe) obesity due to excess calories; Z68.41 Body mass index [BMI] 40.0-44.9, adult; D63.1 Anemia in chronic kidney disease
CPT/HCPCS: 36415 ×2; 36558; 71045 ×2; 80048; 80053 ×2; 80076; 81003; 82550; 82553; 83690; 83735; 83880; 84484; 85025 ×3; 85610 ×2; 85730 ×2; 86704; 86706; 86803; 87040 ×2; 87086; 87088; 87340; 90935 ×2; 93005; 94760 ×5; 96360; 96361; 99285; C1752; G0378 ×2; J0744; J1644; J1650; J2175 ×2; J2405; J3010; J7030; 76000

== ENCOUNTER 2017-11-19 18:11 | Emergency (ER) | payer OTHER ==
--- OUTSIDE RECORDS SUMMARY | 2017-11-19 18:14 | XMS REPORT | Continuity of Care Document ---
:1955 Author Organization Interface Problems Problem Status Onset Classification Date Comments Source Date Reported LT Active [facility] 7 [facility] LEFT Active [facility] [place] SX 07/19/16 [facility] Medications Medication Details Route Status [...] Type Number For Provider Date Date Visit [facility] OP Therapy [id number] Esteban 08/04 09/03 [facility] Patients off /2016 [facility] OP Therapy [id number] Esteban 09/06 10/06 [facility] Patients [place] /2016 [facility] Procedures Procedure Code Date Perfomer Comments Source
[2017-11-19 20:33] LABS: Absolute Lymphocytes (CBC) 1.5 K/uL (0.7-4.9); Absolute Monocytes 0.2 K/uL (0.1-1.3); Absolute Neutrophil 4.2 K/uL (1.8-8.0); Basophils % 0.7 % (0-1.3); Eosinophils % 1.8 % (0-4.4); Lymphocytes % 25.2 % (15.3-44.8); MCH 29.6 pg (27.0-35.0); Monocytes % 2.5 % (3.3-12.3); RBC Red Blood Cell Count 3.66 M/uL (3.86-4.86)
[2017-11-19 20:52] LABS: Albumin 3.6 g/dL (3.4-5.0); Bilirubin Total 0.3 mg/dL (0.2-1.0); Potassium 4.2 mmol/L (3.5-5.1); Protein, Total 6.8 g/dL (6.4-8.2)
--- NOTE | 2017-11-19 21:10 | RAD REPORT ---
EXAM DESCRIPTION: RAD - Chest Single View - 11/19/2017 8:17 pm CLINICAL HISTORY: Dialysis catheter placement, limited function COMPARISON: November 15 TECHNIQUE: AP portable chest image was obtained 2011 hours . FINDINGS: Right jugular double-lumen dialysis catheter is in place. The superior aspect of the phil ter falls outside of the field of view. The long and short arm of the catheter unchanged in position from November 15. Heart and vasculature are normal. No measurable pleural effusion and no pneumothorax. No gross bony a bnormality seen. No acute aortic findings suspected. IMPRESSION: No change in positioning of the dialysis catheter since the November 15 study. No acute chest finding.
--- NOTE | 2017-11-19 22:41 | EDPHYS ---
Physician Documentation [facility] Name: Devika Sanchez Age: 62 yrs Sex: Female : 1955 Arrival Date: 11/19/2017 Time: 18:16 Bed 26 Private MD: Yogi Mao B ED Physician Stanley Jaquez HPI: 11/19 19:05 This 62 yrs old Female presents to ER via Ambulatory with complaints of rh1 Dialysis Catheter Problem. 19:05 The patient has a dialysis catheter in the right subclavian area. Type of problem: rh1 unable to withdraw blood. Onset: The symptoms/episode began/occurred just prior to arrival. The malfunction was discovered at the dialysis center. Dialysis schedule: . Associated signs and symptoms: Pertinent negatives: fever, swelling, redness in area, bleeding at site. The patient has not experienced similar symptoms in the past. The patient has been recently seen by a physician: catheter placed [address] Rodas. Pt. reports she was at dialysis today, nurse attempted to access port, was able to flush but was unable to withdraw blood. The nurse used activase without any change. She was sent here by Dr. Oakley.. Historical: - Allergies: 18:25 BACLOFEN; aj1 18:25 Celebrex; aj1 18:25 Celecoxib; aj1 18:25 Codeine; aj1 18:25 NSAIDS; aj1 - Home Meds: 18:25 Ambien 5 mg Oral tab 1 tab once daily [Active]; amlodipine 5 mg tab 1 tab twice a day aj1 [Active]; doxazosin 1 mg Oral tab 1 tab once daily [Active]; ferrous sulfate 325 mg (65 mg iron) Oral tab 2 tab daily [Active]; levothyroxine 75 mcg tab 1 tab once daily [Active]; levothyroxine 75 mcg tab 1 tab once daily [Active]; Lexapro 20 mg Oral tab 1 tab once daily [Active]; Prozac 10 mg Oral cap once daily [Active]; Treva-Denny 0.8 mg Oral tab daily [Active]; Renvela 800 mg Oral tab 1 tab 3 times per day [Active]; RevaVite tablet one tab once daily [Active]; Rocaltrol 0.25 mcg Oral cap 1 cap once daily [Active]; sevelamer carbonate 800 mg Oral tab 1 tab 3 times per day [Active]; sodium bicarbonate 650 mg Oral tab daily [Active]; trazodone 50 mg Oral tab 0.5 tab daily [Active]; - PMHx: 18:25 Anemia; ESRD; Hypertension; Hypothyroidism; kidney failure; POLYCYSTIC KIDNEY DISEASE; aj1 pulmonary edema; Pulmonary Embolism; - Immunization history:: Adult Immunizations up to date. - Social history:: Smoking status: Patient/guardian denies using tobacco. - Ebola Screening: : Patient denies travel to an Ebola-affected area in the 21 days before illness onset. ROS: 19:05 Constitutional: Negative for fever, chills rh1 19:05 Cardiovascular: Negative for chest pain, edema, palpitations. 19:05 Respiratory: Negative for cough, shortness of breath, wheezing. 19:05 Abdomen/GI: Negative for abdominal pain, nausea and vomiting. 19:05 Neuro: Negative for altered mental status, dizziness. 19:05 All other systems are negative. Exam: 19:05 Constitutional: This is a well developed, well nourished patient who is awake, alert, rh1 and in no acute distress. Head/Face: Normocephalic, atraumatic. Neck: Trachea midline, and no cervical lymphadenopathy. Supple, full range of motion without nuchal rigidity. No Meningismus. Chest/axilla: Normal chest wall appearance and motion. Nontender with no deformity. No lesions are appreciated. Cardiovascular: Regular rate and rhythm with a normal S1 and S2. No gallops, murmurs, or rubs. No JVD. No pulse deficits. Respiratory: Lungs have equal breath sounds bilaterally, clear to auscultation. No rales, rhonchi or wheezes noted. No increased work of breathing. Abdomen/GI: Soft, non-tender, with normal bowel sounds. No distension. No guarding or rebound. No evidence of tenderness throughout. Back: No spinal tenderness. No costovertebral tenderness. Full range of motion. Skin: Warm, dry with normal turgor. Normal color with no rashes, no lesions, and no evidence of cellulitis. MS/ Extremity: Pulses equal, no cyanosis. Neurovascular intact. Full, normal range of motion. Neuro: Awake and alert, GCS 15, oriented to person, place, time, and situation. Cranial nerves II-XII grossly intact. Motor strength 5/5 in all extremities. Sensory grossly intact. Cerebellar exam normal. Normal gait. 19:05 Chest/axilla: right upper chest port without swelling, erythema. Vital Signs: 18:25 BP 158 / 86; Pulse 78; Resp 18; Temp 99.1(O); Pulse Ox 96% on R/A; Weight 98.88 kg (R); aj1 Height 5 ft. 0 in. (152.40 cm) (R); Pain 0/10; 19:07 BP 133 / 65; Pulse 70; Resp 20; Pulse Ox 99% on R/A; aj 20:26 BP 149 / 83; Pulse 61; Resp 20; Pulse Ox 98% on R/A; aj 21:50 BP 145 / 71; Pulse 61; Resp 20; Pulse Ox 100% on R/A; aj 22:45 BP 148 / 80; Pulse 60; Resp 19; Pulse Ox 99% on R/A; kr2 18:25 Body Mass Index 42.57 (98.88 kg, 152.40 cm) aj1 MDM: 19:05 Patient medically screened. [facility] 19:23 Physician consultation: Юлия Powell MD was called at 19:23, was contacted [facility] at 19:23, regarding consult, patient's condition, she would like to have the patient admitted and consult Dr. Rodas, and also have blood work prior to determining if dialysis is needed tonight or can wait until tomorrow. 21:42 Physician consultation: Юлия Powell MD was called at 21:30, regarding [facility] consult, patient's condition, recommends admission for replacement of dialysis catheter and dialysis tomorrow. 21:44 Physician consultation: Shayne Rodas MD was called at 21:45, was contacted at 21:45, [facility] regarding consult, patient's condition, reports he will plan for catheter placement on Tuesday as he feels an MRI/MRV is needed to determine causation of issues with dialysis catheter; he will call the patient on Tuesday morning to discuss scheduling for MRI or need for evaluation in [place] by vascular surgeon for further management. 21:45 Data reviewed: vital signs, nurses notes, lab test result(s), radiologic studies, plain [facility] films, and as a result, I will admit patient. Data interpreted: Pulse oximetry: on room air is 98 %. Interpretation: normal. Counseling: I had a detailed discussion with the patient and/or guardian regarding: the historical points, exam findings, and any diagnostic results supporting the discharge/admit diagnosis, lab results. 21:50 Physician consultation: Юлия Powell MD was called at 21:50, was contacted [facility] at 21:55, regarding consult, patient's condition, if pt. has adequate follow up with Dr. Rodas on Tuesday morning, ok to discharge with that close follow up. 22:39 ED course: Spoke with pt. regarding plan of care and conversations with Dr. Oakley and [address] Dr. Rodas. Discussed with pt option for admission, and wait until Tuesday for MRI vs going home, and awaiting Dr Rodas's call on Tuesday for further intervention. We also discussed possibility of attempting transfer for evaluation by vascular surgery, but I do not think transfer is necessary at this time, and she would rather wait for Dr. Rodas. She prefers to go home tonight, and will await call from Dr. Rodas on Tuesday. We also discussed if she does not hear from the office Tuesday, to call the office. We discussed if she has any concerning symptoms, including, chest pain, SOB, dizziness, cramping, abdominal pain, vomiting, to return to ER for immediate evaluation. She verbalized understanding, and is in agreement with plan of care.. 11/19 19:23 Order name: CBC with Diff; Complete Time: 20:52 [facility] 11/19 19:23 Order name: CMP; Complete Time: 20:54 [facility] 11/19 19:20 Order name: Chest Single View XRAY; Complete Time: 21:11 [facility] Administered Medications: No medications were administered Disposition: 11/19/17 22:40 Discharged to Home. Impression: Other complication of vascular dialysis catheter. - Condition is Stable. - Discharge Instructions: Dialysis Vascular Access Malfunction, Dialysis Diet, [id number]. - Medication Reconciliation Form, Thank You Letter, Antibiotic Education, Prescription Opioid Use form. - Follow up: Shayne Rodas MD; When: 48 Hours; Reason: Further diagnostic work-up, Recheck today's complaints, Continuance of care, Re-evaluation by your physician. Follow up: Emergency Department; When: As needed; Reason: Fever > 102 F, If symptoms return, Trouble breathing, Worsening of condition. - Problem is new. - Symptoms are unchanged. Addendum: 11/23/2017 07:02 Co-signature as Attending Physician, Stanley Jaquez MD. r n Signatures: Dispatcher [employer] EDMS Keeley Washburn RN RN aj1 Stanley Jaquez MD MD rn Jones, Rachel, [employer] 1 Brina Jimenez RN RN kr2 Corrections: (The following items were deleted from the chart) 11/19 22:57 22:40 11/19/2017 22:40 Discharged to Home. Impression: Other complication of vascular kr2 dialysis catheter. Condition is Stable. Forms are Medication Reconciliation Form, Thank You Letter, Antibiotic Education, Prescription Opioid Use. Follow up: Shayne Rodas; When: 48 Hours; Reason: Further diagnostic work-up, Recheck today's complaints, Continuance of care, Re-evaluation by your physician. Follow up: Emergency Department; When: As needed; Reason: Fever > 102 F, If symptoms return, Trouble breathing, Worsening of condition. Problem is new. Symptoms are unchanged. [facility] 11/20 19:23 Physician consultation: Юлия Powell MD was called at 19:23, [facility] was contacted at 19:23, regarding consult, patient's condition, [facility] 11/20 21:42 Physician consultation: Юлия Powell MD was called at 21:30, [facility] regarding consult, patient's condition, recommends admission for , [facility] 11/20 21:44 Physician consultation: Shayne Rodas MD was called at 21:45, was [facility] contacted at 21:45, regarding consult, patient's condition, reports he will plan for catheter placement on tuesday, [facility] 11/20 21:50 Physician consultation: Юлия Powell MD was called at 21:50, [place] [id number] 11/20 22:39 ED course: Spoke with pt. regarding plan of care. [place] [id number]
--- NOTE | 2017-11-19 22:41 | ER ---
Nurse's Notes [facility] Name: Devika Sanchez Age: 62 yrs Sex: Female : 1955 Arrival Date: 11/19/2017 Time: 18:16 Bed 26 Private MD: Yogi Mao B Diagnosis: Other complication of vascular dialysis catheter Presentation: 11/19 18:17 Presenting complaint: Patient states: She went to dialysis today and was told by the aj1 nurse that her dialysis catheter was difficult to aspirate blood. States Dr. Rodas just inserted this catheter on Tuesday morning. The nurse at dialysis attempted flushing both ports with saline and reposition the patient, when that did not work they tried packing each port with Activase 2 mg, which also did not help per a note sent over by patient's dialysis nurse Chelo Claudio RN. Patient last received dialysis on . Transition of care: patient was not received from another setting of care. Onset of symptoms was November 19, 2017. Risk Assessment: Do you want to hurt yourself or someone else? Patient reports no desire to harm self or others. Initial Sepsis Screen: Does the patient meet any 2 criteria? No. Patient's initial sepsis screen is negative. Does the patient have a suspected source of infection? No. Patient's initial sepsis screen is negative. Care prior to arrival: None. 18:17 Method Of Arrival: Ambulatory aj 18:17 Acuity: NADINE 3 aj1 Triage Assessment: 18:25 General: Appears in no apparent distress. comfortable, Behavior is calm, cooperative, aj1 appropriate for age. Pain: Denies pain. Historical: - Allergies: 18:25 BACLOFEN; aj1 18:25 Celebrex; aj1 18:25 Celecoxib; aj1 18:25 Codeine; aj1 18:25 NSAIDS; aj1 - Home Meds: 18:25 Ambien 5 mg Oral tab 1 tab once daily [Active]; amlodipine 5 mg tab 1 tab twice a day aj1 [Active]; doxazosin 1 mg Oral tab 1 tab once daily [Active]; ferrous sulfate 325 mg (65 mg iron) Oral tab 2 tab daily [Active]; levothyroxine 75 mcg tab 1 tab once daily [Active]; levothyroxine 75 mcg tab 1 tab once daily [Active]; Lexapro 20 mg Oral tab 1 tab once daily [Active]; Prozac 10 mg Oral cap once daily [Active]; Treva-Denny 0.8 mg Oral tab daily [Active]; Renvela 800 mg Oral tab 1 tab 3 times per day [Active]; RevaVite tablet one tab once daily [Active]; Rocaltrol 0.25 mcg Oral cap 1 cap once daily [Active]; sevelamer carbonate 800 mg Oral tab 1 tab 3 times per day [Active]; sodium bicarbonate 650 mg Oral tab daily [Active]; trazodone 50 mg Oral tab 0.5 tab daily [Active]; - PMHx: 18:25 Anemia; ESRD; Hypertension; Hypothyroidism; kidney failure; POLYCYSTIC KIDNEY DISEASE; aj1 pulmonary edema; Pulmonary Embolism; - Immunization history:: Adult Immunizations up to date. - Social history:: Smoking status: Patient/guardian denies using tobacco. - Ebola Screening: : Patient denies travel to an Ebola-affected area in the 21 days before illness onset. Screenin:07 Abuse screen: Denies threats or abuse. Denies injuries from another. Nutritional aj screening: No deficits noted. Tuberculosis screening: No symptoms or risk factors identified. Fall Risk None identified. Assessment: 19:07 General: Appears in no apparent distress. comfortable, Behavior is calm, cooperative, aj appropriate for age. Neuro: Level of Consciousness is awake, alert, obeys commands, Oriented to person, place, time, situation, Appropriate for age. Cardiovascular: Dialysis shunt: in the anterior aspect of right upper chest, with no edema, no bleeding noted. Respiratory: Airway is patent Respiratory effort is even, unlabored, Respiratory pattern is regular, symmetrical. Derm: Skin is intact, is healthy with good turgor, Skin is pink, warm \T\ dry. normal. 21:50 Reassessment: Patient appears in no apparent distress at this time. No changes from aj previously documented assessment. Patient and/or family updated on plan of care and expected duration. Pain level reassessed. Patient is alert, oriented x 3, equal unlabored respirations, skin warm/dry/pink. Patient denies pain at this time. 22:30 Reassessment: Patient appears in no apparent distress at this time. Patient and/or kr2 family updated on plan of care and expected duration. Pain level reassessed. Patient is alert, oriented x 3, equal unlabored respirations, skin warm/dry/pink. Patient denies pain at this time. Vital Signs: 18:25 BP 158 / 86; Pulse 78; Resp 18; Temp 99.1(O); Pulse Ox 96% on R/A; Weight 98.88 kg (R); aj1 Height 5 ft. 0 in. (152.40 cm) (R); Pain 0/10; 19:07 BP 133 / 65; Pulse 70; Resp 20; Pulse Ox 99% on R/A; aj 20:26 BP 149 / 83; Pulse 61; Resp 20; Pulse Ox 98% on R/A; aj 21:50 BP 145 / 71; Pulse 61; Resp 20; Pulse Ox 100% on R/A; aj 22:45 BP 148 / 80; Pulse 60; Resp 19; Pulse Ox 99% on R/A; kr2 18:25 Body Mass Index 42.57 (98.88 kg, 152.40 cm) aj1 ED Course: 18:16 Patient arrived in ED. sb2 18:16 Yogi Mao MD is Private Physician. sb2 18:23 Triage completed. aj1 18:25 Arm band placed on Patient placed in an exam room. aj1 18:37 Geneva Milian NP is PHCP. rh1 18:37 Stanley Jaquez MD is Attending Physician. rh1 18:44 Shu Saunders, TIA is Primary Nurse. aj 19:07 Patient has correct armband on for positive identification. aj 20:16 X-ray completed. Portable x-ray completed in exam room. Patient tolerated procedure la2 well. 20:17 Chest Single View XRAY In Process Unspecified. EDMS 20:26 Inserted saline lock: 22 gauge in right antecubital area, using aseptic technique. aj Blood collected. 21:50 No provider procedures requiring assistance completed. aj 22:40 Shayne Rodas MD is Referral Physician. rh1 22:50 IV discontinued, intact, bleeding controlled, No redness/swelling at site. Pressure kr2 dressing applied. Administered Medications: No medications were administered Outcome: 22:40 Discharge ordered by . rh1 22:50 Discharged to home ambulatory, with family. kr2 22:50 Condition: good 22:50 Discharge instructions given to patient, family, Instructed on discharge instructions, follow up and referral plans. Demonstrated understanding of instructions, follow-up care. 22:57 Patient left the ED. kr2 Signatures: Dispatcher [employer] EDKeeley Reyes RN RN aj1 Shu Saunders RN Geneva Michelle, ENE SLEEP MANAGER rh1 Sandi Avery sd2 Brina Jimenez RN RN kr2 Annette Beal2
[2017-11-19 23:06] VITALS: TEMP 99.1
[2017-11-19 23:09] VITALS: BP 145/71; O2SAT 100
== END 2017-11-19 22:57 | disposition home or self-care (01) ==
LOC: ER 18:11
DX: T82.41XA Breakdown (mechanical) of vascular dialysis catheter, initial encounter (principal); X58.XXXA Exposure to other specified factors, initial encounter; Y93.89 Activity, other specified; Y92.538 Other ambulatory health services establishments as the place of occurrence of the external cause; Y99.9 Unspecified external cause status; Z88.5 Allergy status to narcotic agent; Z88.8 Allergy status to other drugs, medicaments and biological substances; I12.0 Hypertensive chronic kidney disease with stage 5 chronic kidney disease or end stage renal disease; N18.6 End stage renal disease; Z99.2 Dependence on renal dialysis; E03.9 Hypothyroidism, unspecified; Q61.3 Polycystic kidney, unspecified
CPT/HCPCS: 36415; 71045; 80053; 85025; 99284

== ENCOUNTER 2018-05-22 12:50 | Emergency (ER) | payer OTHER ==
--- OUTSIDE RECORDS SUMMARY | 2018-05-22 13:37 | XMS REPORT | Clinical Summary ---
:1955 Author Organization [facility] Address [address] [place] [address] Care Team Providers Name Role Phone Sunny Mao MD Primary Care Provider Allergies Active Allergy Reactions Severity Noted Date Comments Adhesive Tape-Silicones Rash Low 11/21/2017 Baclofen Other (See Comments) High 11/21/2017 Encephalopathy Celecoxib Hives 11/21/2017 Codeine GI Intolerance 11/21/2017 Medications Medication Sig Dispensed Refills Start Date End Date Status levothyroxine Take 75 mcg by 0 Active (SYNTHROID, LEVOXYL) mouth every 75 mcg tablet morning. folic acid/vit B Take 1 tablet 0 Active complex and C by mouth daily. (REBEKAH-ZACH ORAL) sevelamer (RENVELA) Take 1,600 mg 0 Active 800 mg tablet by mouth 3 (three) times a day with meals. calcium carbonate Chew 1 tablet 3 0 Active (calcium carbonate EX) (three) times a 300 mg (750 mg) day with meals. tablet,chewable escitalopram (LEXAPRO) Take 20 mg by 0 Active 20 MG tablet mouth daily. zolpidem (AMBIEN) 5 MG Take 5 mg by 0 Active tablet mouth nightly. cinacalcet (SENSIPAR) Take 30 mg by 0 Active 30 MG tablet mouth daily. aspirin (ECOTRIN) 81 Take 1 tablet 30 tablet 0 12/10/2017 01/09/2018 MG enteric coated (81 mg total) tablet by mouth daily for 30 days. Active Problems Problem Noted Date PKD (polycystic kidney disease) 01/11/2018 Hemodialysis catheter dysfunction 12/10/2017 ESRD (end stage renal disease) on dialysis 12/09/2017 Failure of hemodialysis access 11/21/2017 Encounters Date Type Specialty Care Team Description 01/11/2018 Telephone Transplant Isabella Milian - Neymar Coyle MA Txp 12/09/2017 Surgery General Surgery Ladan, TUNNELED DIALYSIS MD Crescencio CATHETER EXCHANGE, VENIOGRAM, AND BALLOON ANGIOPLASTY. 12/09/2017 Anesthesia Event General Surgery Brandon Jeffries CRNA 12/09/2017 - Hospital Encounter General Internal Ladan, ESRD (end stage renal disease) on dialysis (Primary Dx); 12/10/2017 Emily Prather MD Failure of hemodialysis access, initial encounter Layla Quinn MD 11/22/2017 Anesthesia Event General Surgery Jessica Goodman, RADHA 11/22/2017 Surgery General Surgery Ladan, Tunneled Dialysis MD Crescencio Catheter Exchange/Insertion, Venogram balloon angioplasty right chest 11/22/2017 Patient Outreach Quality Stephanie Reyes RN 11/21/2017 - Emergency General Internal Shravan Zapien Failure of hemodialysis access, subsequent encounter (Primary Dx); 11/22/2017 Emily Verde MD End stage renal disease Layla Quinn MD Joglekar, Samir P., MD after 05/21/2017 Family History Medical History Relation Name Comments Heart disease Father Hyperlipidemia Father Kidney disease Mother Polycystic kidney disease Mother Kidney disease Sister Polycystic kidney disease Sister Relation Name Status Comments Father Mother Sister Social History Tobacco Use Types Packs/Day Years Used Date Never Smoker Smokeless Tobacco: Never Used Tobacco Cessation: Counseling Given: Yes Alcohol Use Drinks/Week oz/Week Comments No Sex Assigned at Date Recorded Not on file Job Start Date Occupation Industry Not on file Not on file Not on file Travel History Travel Start Travel End No recent travel history available. Last Filed Vital Signs Vital Sign Reading Time Taken Blood Pressure 139/83 12/10/2017 2:58 PM CDT Pulse 88 12/10/2017 2:58 PM CDT Temperature 36.2 C (97.1 F) 12/10/2017 2:58 PM CDT Respiratory Rate 19 12/10/2017 2:58 PM CDT Oxygen Saturation 92% 12/10/2017 2:58 PM CDT Inhaled Oxygen Concentration - - Weight 98.4 kg (217 lb) 01/11/2018 3:23 PM CDT Height 154.3 cm (5' 0.75") 01/11/2018 3:23 PM CDT Body Mass Index 41.34 01/11/2018 3:23 PM CDT Plan of Treatment Health Maintenance Due Date Last Done Comments CERVICAL CANCER SCREENING 1974 BREAST CANCER SCREENING 11/14/2003 COLON CANCER SCREENING 11/14/2003 SHINGLES VACCINES (1 of 2) 11/14/2003 INFLUENZA VACCINE 12/21/2017 Procedures Procedure Name Priority Date/Time Associated Comments Diagnosis HEMODIALYSIS Routine 12/10/2017 7:44 AM CDT ZZESTIMATED GFR Routine 12/10/2017 5:40 Results for this AM CDT procedure are in the results section. HC COMPLETE BLD COUNT Routine 12/10/2017 5:40 Results for this W/AUTO DIFF AM CDT procedure are in the results section. BASIC METABOLIC PANEL Routine 12/10/2017 5:40 Results for this AM CDT procedure are in the results section. HEPATITIS B SURFACE Routine 12/09/2017 1:20 Results for this ANTIGEN PM CDT procedure are in the results section. HEMODIALYSIS Routine 12/09/2017 12:21 PM CDT [place] < 1 HOUR Routine 12/09/2017 9:15 Results for this AM CDT procedure are in the results section. LA AN ELECTIVE Routine 12/09/2017 9:04 SUPRAGLOTTIC AIRWAY AM CDT Procedure Note - Brandon Jeffries HOME APPRAISER - 12/09/2017 9:04 AM CDT Airway Date/Time: 12/09/2017 8:55 AM Performed by: BRANDON JEFFRIES Authorized by: AZUCENA SILVEIRA Location: OR Urgency: Elective Difficult Airway: No Anesthesiologist: AZUCENA SILVEIRA Resident/HOME APPRAISER/AA: BRANDON JEFFRIES Preoxygenated with 100% O2: Yes C-spine Precautions Maintained Throughout: Yes Mask Ventilation: Easy mask Final Airway Type: Supraglottic airway Final LMA: I-Gel LMA Size: 4 Number of Attempts at Approach: 1 POC PANEL 4 Routine 12/09/2017 8:21 AM CDT ZZESTIMATED GFR STAT 12/09/2017 8:18 AM CDT TYPE AND SCREEN STAT 12/09/2017 8:18 AM CDT BASIC METABOLIC PANEL STAT 12/09/2017 8:18 AM CDT ZZESTIMATED GFR STAT 11/22/2017 2:11 PM CDT HEPATITIS C ANTIBODY Routine 11/22/2017 2:11 PM CDT HEPATITIS B CORE ANTIBODY Routine 11/22/2017 2:11 PM CDT Results for this IGM procedure are in the results section. HEPATITIS B SURFACE Routine 11/22/2017 2:11 PM CDT Results for this ANTIBODY procedure are in the results section. BASIC METABOLIC PANEL STAT 11/22/2017 2:11 PM CDT OR FL > 1 HOUR Routine 11/22/2017 11:15 AM CDT LA AN ELECTIVE SUPRAGLOTTIC Routine 11/22/2017 9:50 AM CDT AIRWAY Procedure Note - Jonah Donaldson MD - 11/22/2017 9:50 AM CDT Airway Date/Time: 11/22/2017 9:50 AM Performed by: JONAH DONALDSON Authorized by: JONAH DONALDSON Location: OR Urgency: Elective Difficult Airway: No Anesthesiologist: JONAH DONALDSON Resident/HOME APPRAISER/AA: JESSICA GOODMAN Performed by: resident/HOME APPRAISER/AA Preoxygenated with 100% O2: Yes C-spine Precautions Maintained Throughout: Yes Mask Ventilation: Easy mask Final Airway Type: Supraglottic airway Final LMA: I-Gel LMA Size: 3 Number of Attempts at Approach: 1 POC PANEL 4 Routine 11/22/2017 8:16 AM CDT HEMODIALYSIS Routine 11/22/2017 8:12 AM CDT ZZESTIMATED GFR STAT 11/22/2017 8:12 AM CDT BASIC METABOLIC PANEL STAT 11/22/2017 8:12 AM CDT TYPE AND SCREEN STAT 11/22/2017 8:10 AM CDT ECG ED PRELIMINARY Routine 11/21/2017 1:10 PM CDT Results for this INTERPRETATION procedure are in the results section. XR CHEST 2 VW STAT 11/21/2017 12:08 PM CDT ZZESTIMATED GFR STAT 11/21/2017 11:26 AM CDT BASIC METABOLIC PANEL STAT 11/21/2017 11:26 AM CDT PARTIAL THROMBOPLASTIN TIME STAT 11/21/2017 11:26 AM CDT Results for this (PTT) procedure are in the results section. PROTHROMBIN TIME WITH INR STAT 11/21/2017 11:26 AM CDT HC COMPLETE BLD COUNT W/AUTO STAT 11/21/2017 11:26 AM CDT Results for this DIFF procedure are in the results section. ECG 12-LEAD STAT 11/21/2017 11:22 AM CDT after 05/21/2017 Results Estimated GFR (12/10/2017 5:40 AM CDT)Only the most recent of5 resultswithin the time period is included. GFR Non Af Amer 9 (A) mL/min/1.73 m2 [facility] DEPARTMENT OF PATHOLOGY AND GENOMIC MEDICINE GFR Af Amer 11 (A) mL/min/1.73 m2 [facility] DEPARTMENT OF Comment: PATHOLOGY AND GENOMIC Chronic kidney disease: <60 mL/min/1.73m2 MEDICINE Kidney failure: <15 mL/min/1.73m2 The estimated GFR is calculated from the IDMS-traceable Modification of Diet in Renal Disease Equation. The accuracy of the calculation is poor when the creatinine is normal. Calculated values >90 mL/min/1.73m2 are not reported. This equation has not been validated in children (<18 years), women, the elderly (>70 years), or ethnic groups other than Caucasians and Americans. Specimen Plasma specimen Performing Organization Address City/State/Zipcode Phone Number [facility] DEPARTMENT OF PATHOLOGY [address] [place] [address] AND [employer] CBC with platelet and differential (12/10/2017 5:40 AM CDT)Only the most recent of2 resultswithin the time period is included. WBC 6.5 4.5 - 11.0 k/uL [facility] DEPARTMENT OF PATHOLOGY AND GENOMIC MEDICINE RBC 3.53 (L) 4.20 - 5.50 m/uL [facility] DEPARTMENT OF PATHOLOGY AND GENOMIC MEDICINE HGB 10.3 (L) 12.0 - 16.0 g/dL [facility] DEPARTMENT OF PATHOLOGY AND GENOMIC MEDICINE HCT 33.9 (L) 37.0 - 47.0 % [facility] DEPARTMENT OF PATHOLOGY AND GENOMIC MEDICINE MCV 96.0 82.0 - 100.0 fL [facility] DEPARTMENT OF PATHOLOGY AND GENOMIC MEDICINE MCH 29.2 27.0 - 34.0 pg [facility] DEPARTMENT OF PATHOLOGY AND GENOMIC MEDICINE MCHC 30.4 (L) 31.0 - 37.0 g/dL [facility] DEPARTMENT OF PATHOLOGY AND GENOMIC MEDICINE RDW - SD 50.0 37.0 - 55.0 fL [facility] DEPARTMENT OF PATHOLOGY AND GENOMIC MEDICINE MPV 10.0 6.9 - 11.0 fL [facility] DEPARTMENT OF PATHOLOGY AND GENOMIC MEDICINE Platelet count 149 (L) 150 - 400 K/uL [facility] DEPARTMENT OF PATHOLOGY AND GENOMIC MEDICINE Nucleated RBC 0.00 /100 WBC [facility] DEPARTMENT OF PATHOLOGY AND GENOMIC MEDICINE Neutrophils 60.9 39.0 - 69.0 % [facility] DE[facility]MENT OF PATHOLOGY AND GENOMIC MEDICINE Lymphocytes 30.7 25.0 - 45.0 % [facility] DEPARTMENT OF PATHOLOGY AND GENOMIC MEDICINE Monocytes 3.7 0.0 - 10.0 % [facility] DEPARTMENT OF PATHOLOGY AND GENOMIC MEDICINE Eosinophils 3.4 0.0 - 5.0 % [facility] DEPARTMENT OF PATHOLOGY AND GENOMIC MEDICINE Basophils 0.8 0.0 - 1.0 % [facility]PARTMENT OF PATHOLOGY AND GENOMIC MEDICINE Immature granulocytes 0.5 0.0 - 1.0 % [facility] DEPARTMENT OF PATHOLOGY AND GENOMIC MEDICINE Specimen Blood Performing Organization Address City/State/Zipcode Phone Number [facility] DEPARTMENT OF PATHOLOGY [address] [place] [address] AND [facility] Basic metabolic panel (12/10/2017 5:40 AM CDT)Only the most recent of5 resultswithin the time period is included. Sodium 143 135 - 148 mEq/L [facility] DEPARTMENT OF PATHOLOGY AND GENOMIC MEDICINE Potassium 4.5 3.5 - 5.0 mEq/L [facility] DEPARTMENT OF PATHOLOGY AND GENOMIC MEDICINE Chloride 103 98 - 112 mEq/L [facility] DEPARTMENT OF PATHOLOGY AND GENOMIC MEDICINE CO2 21 (L) 24 - 31 mEq/L [facility] DEPARTMENT OF PATHOLOGY AND GENOMIC MEDICINE Anion gap 19@ANIO (H) 7 - 15 mEq/L [facility] DEPARTMENT OF PATHOLOGY AND GENOMIC MEDICINE BUN 39 (H) 8 - 23 mg/dL [facility] DEPARTMENT OF PATHOLOGY AND GENOMIC MEDICINE Creatinine 4.9 (H) 0.5 - 0.9 mg/dL [facility] DEPARTMENT OF PATHOLOGY AND GENOMIC MEDICINE Glucose 105 (H) 65 - 99 mg/dL [facility] DEPARTMENT OF PATHOLOGY AND GENOMIC MEDICINE Calcium 8.5 (L) 8.8 - 10.2 mg/dL [facility] DEPARTMENT OF PATHOLOGY AND GENOMIC MEDICINE Specimen Plasma specimen Performing Organization Address City/[facility]/Zipcode Phone Number [facility] DEPARTMENT OF PATHOLOGY [address] [place] [address] AND [facility] Hepatitis B surface antigen (12/09/2017 1:20 PM CDT) Hepatitis B surface Ag Non-reactive Non-reactive [facility] DEPARTMENT OF PATHOLOGY AND GENOMIC MEDICINE Specimen Blood Performing Organization Address [facility] Cent[facility] Phone Number [facility] DEPARTMENT OF PATHOLOGY AND [address] [place] [address] [facility] MED[facility] [place] < 1 Hour (12/09/2017 9:15 AM CDT) Narrative Performed At EXAMINATION:[place] 1 HOUR [facility] CLINICAL HISTORY: IMPRESSION: Fluoroscopy was provided. No radiologist present.Please see procedure report for discussion of procedure, findings and fluoroscopic time. [facility]-[id number] Procedure Note Interface, Radiology Results Incoming - 12/09/2017 9:22 AM CDT EXAMINATION: [place] 1 HOUR CLINICAL HISTORY: IMPRESSION: Fluoroscopy was provided. No radiologist present. Please see procedure report for discussion of procedure, findings and fluoroscopic time. [facility]-[id number] Performing Organization Address [facility] Phone Number [facility] [address] [place] [address] POC panel 4 (12/09/2017 8:21 AM CDT)Only the most recent of2 resultswithin the time period is included. POC sodium 139 135 - 148 mmol/L [facility] DEPARTMENT OF PATHOLOGY AND GENOMIC MEDICINE POC potassium 4.4 3.5 - 5.0 mmol/L [facility] DEPARTMENT OF PATHOLOGY AND GENOMIC MEDICINE POC hematocrit 29 (L) 37 - 47 % [facility] DEPARTMENT OF PATHOLOGY AND GENOMIC MEDICINE POC glucose 87 65 - 99 mg/dL [facility] DEPARTMENT OF PATHOLOGY AND GENOMIC MEDICINE POC hemoglobin 9.9 (L) 12.0 - 16.0 g/dL [facility] DEPARTMENT OF Comment: PATHOLOGY AND GENOMIC Meter ID: [id number] MEDICINE Professional Poker Player: Sriram [place] Specimen Blood Performing Organization Address City/[facility]/Zipcode Phone Number [facility] DEPARTMENT OF PATHOLOGY [id number] [place] [address] AND GENOMIC MEDICINE Type and screen (12/09/2017 8:18 AM CDT)Only the most recent of2 resultswithin the time period is included. ABO grouping O [facility] DEPARTMENT OF PATHOLOGY AND GENOMIC MEDICINE Rh type POS [facility] DEPARTMENT OF PATHOLOGY AND GENOMIC MEDICINE Antibody screen (gel) NEG [facility] DEPARTMENT OF PATHOLOGY AND GENOMIC MEDICINE Specimen Blood Performing Organization Address City/[facility]/Zipcode Phone Number [facility] DEPARTMENT OF PATHOLOGY [id number] [place] [address] AND [facility] MEDICINE Hepatitis C antibody (11/22/2017 2:11 PM CDT) Hepatitis C Ab Non-reactive Non-reactive [facility] DEPARTMENT OF PATHOLOGY AND GENOMIC MEDICINE Specimen Blood Performing Organization Address City/[facility]ode Phone Number [facility] DEPARTMENT OF PATHOLOGY AND [address] [place] [address] Hepatitis B core antibody IgM (11/22/2017 2:11 PM CDT) Hepatitis B core IgM Non-reactive Non-reactive [facility] DEPARTMENT OF PATHOLOGY AND GENOMIC MEDICINE Specimen Blood Performing Organization Address City/[facility]/Zipcode Phone Number [facility] DEPARTMENT OF PATHOLOGY AND [address] [place] [address] Hepatitis B surface antibody (11/22/2017 2:11 PM CDT) Hepatitis B surface Ab Reactive (A) Non-reactive [facility] DEPARTMENT OF PATHOLOGY AND GENOMIC MEDICINE Specimen Blood Performing Organization Address [facility] Centercode Phone Number [facility] DEPARTMENT OF PATHOLOGY AND [address] [place] [address] [place] > I Hour (11/22/2017 11:15 AM CDT) Narrative Performed At EXAMINATION:[place] 1 HOUR [facility] CLINICAL HISTORY: None provided. IMPRESSION: 1. Fluoroscopy was provided in the operating. I was not present during the procedure. 2. Please refer to the operative report for findings. 3. Total Dose:2 fluoroscopic images. 130.3 seconds of fluoroscopy time. Procedure Note Interface, Radiology Results Incoming - 11/22/2017 12:21 PM CDT EXAMINATION: [place] 1 HOUR CLINICAL HISTORY: None provided. IMPRESSION: 1. Fluoroscopy was provided in the operating. I was not present during the procedure. 2. Please refer to the operative report for findings. 3. Total Dose: 2 fluoroscopic images. 130.3 seconds of fluoroscopy time. 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 There is no pneumothorax. 2.Heart size within normal limits. Vessels are not congested. 3.No infiltrates are seen. [id number] Procedure Note Hm Interface, Radiology Results Incoming - 11/21/2017 12:14 PM CDT EXAMINATION: XR CHEST 2 VW CLINICAL HISTORY: Dizziness end-stage renal disease COMPARISON: None IMPRESSION: 1. Right jugular catheter tip is in the right innominate vein. There is no pneumothorax. 2. Heart size within normal limits. Vessels are not congested. 3. No infiltrates are seen. [id number] Performing Organization Address [facility] Phone Number [facility] [address] [place] [address] Partial thromboplastin time, activated (11/21/2017 11:26 AM CDT) PTT 28.0 23.0 - 36.0 sec [facility] DEPARTMENT OF Comment: PATHOLOGY AND GENOMIC PTT therapeutic range for unfractionated heparin is MEDICINE 61.0-112.0 seconds which corresponds to Anti-Xa 0.3-0.7 U/ml. Specimen Blood Performing Organization Address [facility]/Zipcode Phone Number [facility] DEPARTMENT OF PATHOLOGY [address] [place] [address] AND GENOMIC MEDICINE Prothrombin time with INR (11/21/2017 11:26 AM CDT) Prothrombin time 12.9 12.0 - 15.0 sec [facility] DEPARTMENT OF PATHOLOGY AND GENOMIC MEDICINE INR 1.0 [facility] DEPARTMENT OF Comment: PATHOLOGY AND GENOMIC The International Normalized Ratio (INR) is a therapeutic MEDICINE monitoring tool for patients who are stable on oral anticoagulant therapy. An INR of 2.0-3.0 is suggested for deep vein thrombosis/pulmonary embolism. Specimen Blood Performing Organization Address City/State/Zipcode Phone Number [facility] DEPARTMENT OF PATHOLOGY [address] [facility] [place] [address] AND [employer] MEDICINE ECG 12 lead (11/21/2017 11:22 AM CDT) Ventricular rate 62 [facility] Atrial rate 62 [facility] LA interval 126 [facility] QRSD interval 84 [facility] QT interval 440 [facility] QTC interval 446 [facility] P axis 1 33 [facility] QRS axis 1 7 [facility] T wave axis 45 [facility] EKG impression Normal sinus rhythm-Normal ECG-No previous [facility] MUSE ECGs available- Performing Organization Address City/[facility]/Zipcode Phone Number [facility] MUSE [address] [place] [address] after 05/21/2017 Insurance Payer Benefit Plan / Group Subscriber ID Type Phone Address [place] PPO xxxxxxxxxx-xxxx PPO MEDICARE MEDICARE PART A AND B xxxxxxxxxxx Medicare [place], [place] Advance Directives Patient has advance care planning documents on file. For more information, please contact:Harry Franklin[address] [place] [address]
[2018-05-22 13:43] LABS: Absolute Lymphocytes (CBC) 1.1 K/uL (0.7-4.9); Absolute Monocytes 0.2 K/uL (0.1-1.3); Absolute Neutrophil 4.4 K/uL (1.8-8.0); Eosinophils % 1.4 % (0-4.4); Hematocrit 34.2 % (36.0-45.0); Lymphocytes % 18.5 % (15.3-44.8); MPV 7.3 fL (7.6-11.3); Monocytes % 3.9 % (3.3-12.3); RBC Red Blood Cell Count 3.86 M/uL (3.86-4.86)
[2018-05-22 13:44] LABS: Protime INR 1.06
[2018-05-22 14:16] LABS: BUN Blood Urea Nitrogen 73 mg/dL (7-18); Bicarbonate 24 mmol/L (21-32); Glucose Level 83 mg/dL (74-106); Magnesium 2.6 mg/dL (1.8-2.4); NT PRO-BNP 787 pg/mL (<125); Potassium 3.8 mmol/L (3.5-5.1); Sodium Level 141 mmol/L (136-145); Troponin (Emerg Dept Use Only) < 0.02 ng/mL (0.0-0.045)
--- NOTE | 2018-05-22 14:32 | RAD REPORT ---
EXAM DESCRIPTION: RAD - Chest Single View - 05/22/2018 2:27 pm CLINICAL HISTORY: Dyspnea COMPARISON: March 15 TECHNIQUE: AP portable chest image was obtained 1411 hours . FINDINGS: Lungs are clear. Heart and vasculature are normal. No measurable pleural effusion and no p neumothorax. No acute bony abnormality seen. No acute aortic findings suspected. Right-sided double-l umen catheter has been removed since prior study. IMPRESSION: No acute cardiopulmonary process. No significant change from comparison.
--- NOTE | 2018-05-22 15:19 | ER ---
Nurse's Notes [facility] Name: Devika Sanchez Age: 62 yrs Sex: Female : 1955 Arrival Date: 05/22/2018 Time: 12:54 Bed 23 Private MD: Yogi Mao B Diagnosis: End stage renal disease;Dyspnea Presentation: 05/22 12:56 Presenting complaint: Patient states: i am having trouble breathing that started for a hj while and its getting worse; now my chest feels heavy and i think i am keeping fluids and i gained 10 lbs in 2 days; reports SOB; hx of PE; dialysis pt; denies chest pain;. Transition of care: patient was not received from another setting of care. Onset of symptoms was May 22, 2018. Risk Assessment: Do you want to hurt yourself or someone else? Patient reports no desire to harm self or others. Initial Sepsis Screen: Does the patient meet any 2 criteria? No. Patient's initial sepsis screen is negative. Does the patient have a suspected source of infection? No. Patient's initial sepsis screen is negative. Care prior to arrival: None. 12:56 Method Of Arrival: Ambulatory 12:56 Acuity: NADINE 3 hj Triage Assessment: 12:59 General: Appears in no apparent distress. uncomfortable, Behavior is calm, cooperative, hj appropriate for age. Pain: Complains of pain in chest. Respiratory: Reports shortness of breath Onset: The symptoms/episode began/occurred gradually, the patient has mild shortness of breath. Historical: - Allergies: 12:58 BACLOFEN; hj 12:58 Celebrex; hj 12:58 Celecoxib; hj 12:58 Codeine; hj 12:58 NSAIDS; hj - PMHx: 12:58 Anemia; ESRD; Hypertension; Hypothyroidism; kidney failure; POLYCYSTIC KIDNEY DISEASE; hj pulmonary edema; Pulmonary Embolism; - PSHx: 12:58 dialysis port; hj - Immunization history:: Adult Immunizations up to date. - Social history:: Smoking status: Patient/guardian denies using tobacco, Patient/guardian denies using alcohol. - Ebola Screening: : Patient negative for fever greater than or equal to 101.5 degrees Fahrenheit, and additional compatible Ebola Virus Disease symptoms Patient denies exposure to infectious person Patient denies travel to an Ebola-affected area in the 21 days before illness onset. Screenin:59 Abuse screen: Denies threats or abuse. Denies injuries from another. Nutritional hj screening: No deficits noted. Tuberculosis screening: No symptoms or risk factors identified. Fall Risk None identified. Assessment: 12:59 Cardiovascular: Reports shortness of breath, Rhythm is. Respiratory: Airway is patent hj Respiratory effort is even, unlabored, Respiratory pattern is symmetrical, 13:43 General: Appears in no apparent distress. comfortable, Behavior is calm, cooperative, aj1 appropriate for age. Pain: Complains of pain in chest Pain does not radiate. Pain currently is 2 out of 10 on a pain scale. Quality of pain is described as heavy, Pain began one week ago Is intermittent. Neuro: Level of Consciousness is awake, alert, obeys commands, Oriented to person, place, time, situation. Cardiovascular: Reports chest pain, shortness of breath, Heart tones S1 S2 present Patient's skin is warm and dry. Rhythm is sinus rhythm. Respiratory: Reports shortness of breath cough that is persistent Airway is patent Respiratory effort is even, unlabored, Respiratory pattern is regular, symmetrical. GI: No signs and/or symptoms were reported involving the gastrointestinal system. : No signs and/or symptoms were reported regarding the genitourinary system. EENT: No signs and/or symptoms were reported regarding the EENT system. Derm: No signs and/or symptoms reported regarding the dermatologic system. Skin is pink, warm \T\ dry. normal. Musculoskeletal: No signs and/or symptoms reported regarding the musculoskeletal system. Circulation, motion, and sensation intact. 14:26 Reassessment: Patient appears in no apparent distress at this time. No changes from aj1 previously documented assessment. Patient and/or family updated on plan of care and expected duration. Pain level reassessed. Patient is alert, oriented x 3, equal unlabored respirations, skin warm/dry/pink. 15:30 Reassessment: Patient appears in no apparent distress at this time. No changes from aj1 previously documented assessment. Patient and/or family updated on plan of care and expected duration. Pain level reassessed. Patient is alert, oriented x 3, equal unlabored respirations, skin warm/dry/pink. 16:10 Reassessment: Patient appears in no apparent distress at this time. No changes from aj1 previously documented assessment. Patient and/or family updated on plan of care and expected duration. Pain level reassessed. Patient is alert, oriented x 3, equal unlabored respirations, skin warm/dry/pink. Vital Signs: 13:00 BP 137 / 65; Pulse 85; Resp 18; Temp 97.6; Pulse Ox 96% on R/A; Weight 102.06 kg; hj Height 5 ft. 3 in. (160.02 cm); Pain 0/10; 13:43 BP 142 / 75; Pulse 68; Resp 18; Pulse Ox 100% on R/A; aj1 14:25 BP 135 / 76; Pulse 68; Resp 18; Pulse Ox 98% on R/A; aj1 15:30 BP 136 / 82; Pulse 66; Resp 18; Pulse Ox 100% on R/A; aj1 13:00 Body Mass Index 39.86 (102.06 kg, 160.02 cm) hj ED Course: 12:54 Patient arrived in ED. mr 12:54 Yogi Mao MD is Private Physician. mr 12:58 Triage completed. hj 13:00 Arm band placed on right wrist. hj 13:00 Patient has correct armband on for positive identification. Placed in gown. Bed in low hj position. Call light in reach. Side rails up X 1. 13:10 Mylene Goel FNP-C is PHCP. kb 13:10 Saturnino Mcmillan MD is Attending Physician. kb 13:17 Keeley Washburn, RN is Primary Nurse. aj1 13:35 Initial lab(s) drawn, by or, sent to lab. Inserted saline lock: 20 gauge in right aj1 antecubital area, using aseptic technique. Blood collected. 13:43 No provider procedures requiring assistance completed. aj1 14:15 X-ray completed. Portable x-ray completed in exam room. Patient tolerated procedure jb2 well. 14:27 XRAY Chest (1 view) In Process Unspecified. EDMS Administered Medications: No medications were administered Outcome: 15:18 Discharge ordered by . kb 16:11 Patient left the ED. aj1 Signatures: Dispatcher [employer] EDMS Mylene Goel FNP-C FNP-Keeley Fernandez RN RN aj1 Karishma Jonas Jesse jb2 Slime Maldonado RN RN Shayne Cardona RN RN Corrections: (The following items were deleted from the chart) 12:59 12:56 Presenting complaint: Patient states: i am having trouble breathing that started hj for a while and its getting worse; now my chest feels heavy and i think i am keeping fluids and i gained 10 lbs in 2 days; reports SOB; hj 13:02 12:56 Presenting complaint: Patient states: i am having trouble breathing that started hj for a while and its getting worse; now my chest feels heavy and i think i am keeping fluids and i gained 10 lbs in 2 days; reports SOB; hx of PE; hj 13: 13:00 Pulse 85bpm; Resp 18bpm; Temp 97.6F; 102.06 kg; Height 5 ft. 3 in.; BMI: 39.8; hj Pain 0/10; hj 13:19 13:00 BP 137 / 65; Pulse 85bpm; Resp 18bpm; Temp 97.6F; 102.06 kg; Height 5 ft. 3 in.; iw BMI: 39.8; Pain 0/10; hj 13:19 13:00 BP 137 / 65; Pulse 85bpm; Resp 18bpm; Pulse Ox 96% RA; Temp 97.6F; 102.06 kg; hj Height 5 ft. 3 in.; BMI: 39.8; Pain 0/10; iw
--- NOTE | 2018-05-22 15:19 | EDPHYS ---
Physician Documentation [facility] Name: Devika Sanchez Age: 62 yrs Sex: Female : 1955 Arrival Date: 05/22/2018 Time: 12:54 Bed 23 Private MD: Yogi Mao B ED Physician Saturnino Mcmillan HPI: 05/22 15:02 This 62 yrs old Female presents to ER via Ambulatory with complaints of kb Breathing Difficulty. 15:02 The patient has shortness of breath at rest, and the patient has a history of pulmonary kb edema, ESRD. Onset: The symptoms/episode began/occurred 1 month(s) ago. Duration: The symptoms are intermittent. The patient's shortness of breath is aggravated by exertion, is alleviated by nothing. Associated signs and symptoms: The patient has no apparent associated signs or symptoms. Severity of symptoms: At their worst the symptoms were moderate in the emergency department the symptoms are unchanged. The patient has experienced similar episodes in the past, several times. The patient has not recently seen a physician. Pt states she has had shortness of breath for a month. States she gained 10lbs from to , but they are only allowed to take off 6lb of fluid at dialysis. Her PCP put her on lasix on Tuesday and it has helped some but persists. Was seen by Dr Mattson for these symptoms and given a "puffer.". 15:05 Pt states "my lungs feel heavy.". kb Historical: - Allergies: 12:58 BACLOFEN; hj 12:58 Celebrex; hj 12:58 Celecoxib; hj 12:58 Codeine; hj 12:58 NSAIDS; hj - PMHx: 12:58 Anemia; ESRD; Hypertension; Hypothyroidism; kidney failure; POLYCYSTIC KIDNEY DISEASE; hj pulmonary edema; Pulmonary Embolism; - PSHx: 12:58 dialysis port; hj - Immunization history:: Adult Immunizations up to date. - Social history:: Smoking status: Patient/guardian denies using tobacco, Patient/guardian denies using alcohol. - Ebola Screening: : Patient negative for fever greater than or equal to 101.5 degrees Fahrenheit, and additional compatible Ebola Virus Disease symptoms Patient denies exposure to infectious person Patient denies travel to an Ebola-affected area in the 21 days before illness onset. ROS: 15:02 Constitutional: Negative for fever, chills, and weight loss, ENT: Negative for injury, kb pain, and discharge, Neck: Negative for injury, pain, and swelling, Cardiovascular: Negative for chest pain, palpitations, and edema, Abdomen/GI: Negative for abdominal pain, nausea, vomiting, diarrhea, and constipation, Back: Negative for injury and pain, : Negative for injury, bleeding, discharge, and swelling, MS/Extremity: Negative for injury and deformity, Skin: Negative for injury, rash, and discoloration, Neuro: Negative for headache, weakness, numbness, tingling, and seizure. 15:02 Respiratory: Positive for dyspnea on exertion, shortness of breath, Negative for cough, hemoptysis, orthopnea, pleurisy, sputum production, wheezing. Exam: 15:02 Constitutional: This is a well developed, well nourished patient who is awake, alert, kb and in no acute distress. Head/Face: Normocephalic, atraumatic. Chest/axilla: Normal chest wall appearance and motion. Nontender with no deformity. No lesions are appreciated. Cardiovascular: Regular rate and rhythm with a normal S1 and S2. No gallops, murmurs, or rubs. Normal PMI, no JVD. No pulse deficits. Respiratory: Lungs have equal breath sounds bilaterally, clear to auscultation and percussion. No rales, rhonchi or wheezes noted. No increased work of breathing, no retractions or nasal flaring. Abdomen/GI: Soft, non-tender, with normal bowel sounds. No distension or tympany. No guarding or rebound. No evidence of tenderness throughout. Back: No spinal tenderness. No costovertebral tenderness. Full range of motion. Skin: Warm, dry with normal turgor. Normal color with no rashes, no lesions, and no evidence of cellulitis. MS/ Extremity: Pulses equal, no cyanosis. Neurovascular intact. Full, normal range of motion. Neuro: Awake and alert, GCS 15, oriented to person, place, time, and situation. Cranial nerves II-XII grossly intact. Motor strength 5/5 in all extremities. Sensory grossly intact. Cerebellar exam normal. Normal gait. Vital Signs: 13:00 BP 137 / 65; Pulse 85; Resp 18; Temp 97.6; Pulse Ox 96% on R/A; Weight 102.06 kg; Height 5 ft. 3 in. (160.02 cm); Pain 0/10; 13:43 BP 142 / 75; Pulse 68; Resp 18; Pulse Ox 100% on R/A; aj1 14:25 BP 135 / 76; Pulse 68; Resp 18; Pulse Ox 98% on R/A; aj1 15:30 BP 136 / 82; Pulse 66; Resp 18; Pulse Ox 100% on R/A; aj1 13:00 Body Mass Index 39.86 (102.06 kg, 160.02 cm) MDM: 13:12 Patient medically screened. 14:58 The patient's Wells Deep Vein Thrombosis Score was calculated as follows: Previous DVT/PE (1.5 Pts) Total Score: 0-2 Pts- Low Risk. The patient's pulmonary embolism risk score was calculated as follows: the patient has a history of a previous deep vein thrombosis or pulmonary embolism (1.5 Pts) Total Score: 0-2 points. This patient was found to be at low risk for a pulmonary embolism by using the Well's assessment criteria. Data reviewed: vital signs, nurses notes. Data interpreted: Pulse oximetry: on room air is 98 %. Interpretation: normal. Counseling: I had a detailed discussion with the patient and/or guardian regarding: the historical points, exam findings, and any diagnostic results supporting the discharge/admit diagnosis, lab results, radiology results, the need for outpatient follow up, a family practitioner, to return to the emergency department if symptoms worsen or persist or if there are any questions or concerns that arise at home. 15:14 ED course: Pt educated on diagnostic findings. Pt has history of PE, but no other risk kb factors. No tachypnea, hypoxia, tachycardia noted. Lungs clear throughout. Pt educated to keep appt for dialysis tomorrow, follow up with PCP and nephrology. Pt taking in full sentences, laughing and appears to be in no distress. Will follow up and return for worsening symptoms. . 15:18 Data reviewed: I have discussed the patient's presentation/case with the attending Emergency Department Physician;. 05/22 13:16 Order name: Basic Metabolic Panel; Complete Time: 14:24 kb 05/22 13:16 Order name: CBC with Diff; Complete Time: 14:01 kb 05/22 13:16 Order name: Magnesium; Complete Time: 14:24 kb 05/22 13:16 Order name: NT PRO-BNP; Complete Time: 14:24 kb 05/22 13:16 Order name: PT-INR; Complete Time: 14:01 kb 05/22 13:16 Order name: Troponin (emerg Dept Use Only); Complete Time: 14:24 kb 05/22 13:16 Order name: XRAY Chest (1 view); Complete Time: 14:35 kb 05/22 13:16 Order name: EKG; Complete Time: 13:17 kb 05/22 13:16 Order name: Cardiac monitoring; Complete Time: 13:34 kb 05/22 13:16 Order name: EKG - Nurse/Tech; Complete Time: 14:26 kb 05/22 13:16 Order name: IV Saline Lock; Complete Time: 13:34 kb 05/22 13:16 Order name: Labs collected and sent; Complete Time: 13:35 kb 05/22 13:16 Order name: O2 Per Protocol; Complete Time: 13:35 kb 05/22 13:16 Order name: O2 Sat Monitoring; Complete Time: 13:35 kb Administered Medications: No medications were administered Disposition: 05/23 15:49 Co-signature as Attending Physician, Saturnino Mcmillan MD I agree with the assessment and kdr plan of care. Disposition: 05/22/18 15:18 Discharged to Home. Impression: End stage renal disease, Dyspnea. - Condition is Stable. - Discharge Instructions: Chronic Kidney Disease, Adult, [id number]. - Medication Reconciliation Form, Thank You Letter, Antibiotic Education, Prescription Opioid Use form. - Follow up: Emergency Department; When: As needed; Reason: Worsening of condition. Follow up: Private Physician; When: 2 - 3 days; Reason: Recheck today's complaints, Continuance of care, Re-evaluation by your physician. Signatures: Dispatcher [employer] Mylene Briceño FNP-C FNP-Keeley Fernandez RN RN aj1 Saturnino Mcmillan MD MD kdr Shayne Cardona RN RN hj Corrections: (The following items were deleted from the chart) 05/22 15:19 15:02 Pt states she has had shortness of breath for a month. States she gained 10lbs kb from to , but they are only allowed to take off 6lb of fluid at dialysis. Her PCP put her on lasix on Tuesday and it has helped some but persists. kb 16:11 15:18 05/22/2018 15:18 Discharged to Home. Impression: End stage renal disease; aj1 Dyspnea. Condition is Stable. Forms are Medication Reconciliation Form, Thank You Letter, Antibiotic Education, Prescription Opioid Use. Follow up: Emergency Department; When: As needed; Reason: Worsening of condition. Follow up: Private Physician; When: 2 - 3 days; Reason: Recheck today's complaints, Continuance of care, Re-evaluation by your physician. kb
--- NOTE | 2018-05-22 15:32 | EKG ---
Test Date: 2018-05-22 Test Time: 14:29:13 Transportation Security Officer: DARIO MEASUREMENT RESULTS: Intervals: Rate: 66 [place]: 138 QRSD: 82 QT: 464 QTc: 486 [place]: P: 36 [place]: 138 QRS: 11 T: 33 INTERPRETIVE STATEMENTS: Normal sinus rhythm Normal ECG Compared to ECG 11/14/2017 10:40:38 Sinus bradycardia no longer present Electronically Signed On 05-22-18 15:31:35 SE[employer]ESS [employer]BE [employer]ER by Marcus Nieves
[2018-05-22 16:34] VITALS: TEMP 97.6
[2018-05-22 16:37] VITALS: BP 136/82; O2SAT 100
== END 2018-05-22 16:11 | disposition home or self-care (01) ==
LOC: ER 12:50
DX: I12.0 Hypertensive chronic kidney disease with stage 5 chronic kidney disease or end stage renal disease (principal); N18.6 End stage renal disease; Z99.2 Dependence on renal dialysis; Z88.1 Allergy status to other antibiotic agents; Z88.5 Allergy status to narcotic agent; Z88.6 Allergy status to analgesic agent; Z88.8 Allergy status to other drugs, medicaments and biological substances
CPT/HCPCS: 36415; 71045; 80048; 83735; 83880; 84484; 85025; 85610; 93005; 99284

== ENCOUNTER 2021-03-06 23:08 | Emergency (ER) | payer OTHER, MEDICARE ==
[2021-03-07] MEDS ORDERED: LORazepam 2 MG/ML VIAL ONE ×2 (00:53→03:03)
[2021-03-07 01:36] LABS: Basophils % 0.7 % (0-1.3); Hematocrit 38.2 % (36.0-45.0); Lymphocytes % 22.4 % (15.3-44.8); MPV 8.1 fL (7.6-11.3)
[2021-03-07 01:37] LABS: Protime INR 0.94
[2021-03-07 02:04] LABS: ALT/SGPT 48 U/L (12-78); AST/SGOT 16 U/L (15-37); Albumin 3.8 g/dL (3.4-5.0); Alkaline Phosphatase 83 U/L (45-117); BUN Blood Urea Nitrogen 72 mg/dL (7-18); Bicarbonate 25 mmol/L (21-32); Bilirubin Direct 0.1 mg/dL (0-0.2); Bilirubin Total 0.3 mg/dL (0.2-1.0); Glucose Level 93 mg/dL (74-106); Magnesium 2.3 mg/dL (1.8-2.4); NT PRO-BNP 2771 pg/mL (<125); Protein, Total 6.8 g/dL (6.4-8.2); Sodium Level 142 mmol/L (136-145); Troponin (Emerg Dept Use Only) < 0.02 ng/mL (0.0-0.045)
--- NOTE | 2021-03-07 02:46 | ER ---
Nurse's Notes [facility] Name: Devika Sanchez Age: 65 yrs Sex: Female : 1955 Arrival Date: 03/06/2021 Time: 23:10 Bed 19 Private MD: Diagnosis: Anxiety disorder, unspecified Presentation: 03/06 23:15 Chief complaint: Patient states: Anxious all day, took xanax at 1945, SOB. Unable to sj1 sleep. Hx of panic attacks. Coronavirus screen: Vaccine status: Patient reports being unvaccinated. Ebola Screen: Patient negative for fever greater than or equal to 101.5 degrees Fahrenheit, and additional compatible Ebola Virus Disease symptoms Patient denies exposure to infectious person. Patient denies travel to an Ebola-affected area in the 21 days before illness onset. Initial Sepsis Screen: Does the patient meet any 2 criteria? No. Patient's initial sepsis screen is negative. Does the patient have a suspected source of infection? No. Patient's initial sepsis screen is negative. Risk Assessment: Do you want to hurt yourself or someone else? Patient reports no desire to harm self or others. Onset of symptoms was March 06, 2021. 23:15 Method Of Arrival: Ambulatory [facility] 23:15 Acuity: NADINE 4 sj1 Triage Assessment: 23:20 General: Appears in no apparent distress. Behavior is calm, cooperative, appropriate sj1 for age. Pain: Complains of pain in rt knee Pain does not radiate. Pain currently is 3 out of 10 on a pain scale. Quality of pain is described as aching, Pain began. EENT: No deficits noted. Neuro: No deficits noted. Cardiovascular: No deficits noted. Respiratory: Reports shortness of breath. GI: No deficits noted. : No deficits noted. Derm: No deficits noted. Musculoskeletal: Reports pain in rt knee. Historical: - Allergies: 23:20 Baclofen; sj1 23:20 Celebrex; sj1 23:20 Codeine; sj1 23:20 Celecoxib; sj1 23:20 NSAIDS; sj1 - Home Meds: 03/07 01:00 Ambien 5 mg Oral tab 1 tab once daily [Active]; amlodipine 5 mg tab 1 tab twice a day df1 [Active]; doxazosin 1 mg Oral tab 1 tab once daily [Active]; ferrous sulfate 325 mg (65 mg iron) Oral tab 2 tab daily [Active]; levothyroxine 75 mcg tab 1 tab once daily [Active]; Lexapro 20 mg Oral tab 1 tab once daily [Active]; Prozac 10 mg Oral cap once daily [Active]; Treva-Denny 0.8 mg Oral tab daily [Active]; Renvela 800 mg Oral tab 1 tab 3 times per day [Active]; RevaVite tablet one tab once daily [Active]; Rocaltrol 0.25 mcg Oral cap 1 cap once daily [Active]; sevelamer carbonate 800 mg Oral tab 1 tab 3 times per day [Active]; sodium bicarbonate 650 mg Oral tab daily [Active]; trazodone 50 mg Oral tab 0.5 tab daily [Active]; - PMHx: 03/06 23:20 Anemia; ESRD; kidney failure; Pulmonary Embolism; pulmonary edema; Hypertension; sj1 Hypothyroidism; POLYCYSTIC KIDNEY DISEASE; 03/07 01:00 Hemodialysis; df1 - PSHx: 01:00 bilateral carpal tunnel; right knee repair; fistula left arm; df1 - Immunization history:: Adult Immunizations up to date. - Social history:: Smoking status: Patient denies any tobacco usage or history of. Patient/guardian denies using alcohol, street drugs. Screenin/15 23:23 Abuse screen: Denies threats or abuse. Denies injuries from another. Nutritional sj1 screening: No deficits noted. Tuberculosis screening: No symptoms or risk factors identified. Fall Risk None identified. Assessment: 23:56 General: Appears uncomfortable, Behavior is cooperative, anxious. Pain: Denies pain. cc4 Neuro: No deficits noted. Level of Consciousness is awake, alert, obeys commands, Oriented to person, place, time, situation. Cardiovascular: No deficits noted. Denies chest pain, Capillary refill < 3 seconds Rhythm is sinus rhythm. Respiratory: Reports shortness of breath since Intermittently; States, "I feel like I am having an anxiety attack"; "I feel on edge"; 'I feel SOB at times"; no respiratory distress noted; O2 sat 100% on RA. GI: No signs and/or symptoms were reported involving the gastrointestinal system. : No deficits noted. No signs and/or symptoms were reported regarding the genitourinary system. Reports ESRD \\T\\ receiving hemodialysis TTS; AVF noted left upper arm. EENT: No signs and/or symptoms were reported regarding the EENT system. Derm: No deficits noted. Skin is intact. Musculoskeletal: No deficits noted. Capillary refill < 3 seconds. Vital Signs: 23:15 BP 137 / 63; Pulse 63; Resp 19; Temp 98.1(O); Pulse Ox 98% on R/A; Weight 113.85 kg sj1 (R); Height 5 ft. 0 in. (152.40 cm) (R); Pain 3/10; 23:56 BP 134 / 73; Pulse 61; Resp 20; Temp 98.1; Pulse Ox 98% on R/A; cc4 03/07 00:47 BP 121 / 51; Pulse 62; Resp 20; Pulse Ox 98% ; cc4 01:30 BP 142 / 73; Pulse 63; Resp 20; Pulse Ox 100% on R/A; cc4 02:58 BP 123 / 56; Pulse 63; Resp 18; Pulse Ox 100% on R/A; Pain 0/10; dc2 03/06 23:15 Body Mass Index 49.02 (113.85 kg, 152.40 cm) [facility] ED Course: 03/06 23:10 Patient arrived in ED. bp1 23:20 Triage completed. sj1 23:20 Arm band placed on right wrist. sj1 23:23 Patient has correct armband on for positive identification. sj1 23:56 Andrea Burdick PA is PHCP. cp 23:56 Bashir Buckley MD is Attending Physician. cp 03/07 00:20 XRAY Chest (1 view) In Process Unspecified. EDMS 00:22 Mikaela Begum, TIA is Primary Nurse. cc4 01:00 Basic Metabolic Panel Sent. df1 01:00 CBC with Diff Sent. df1 01:00 LFT's Sent. df1 01:00 Magnesium Sent. df1 01:00 NT PRO-BNP Sent. df1 01:00 PT-INR Sent. df1 01:00 Troponin (emerg Dept Use Only) Sent. df1 01:00 Inserted saline lock: 20 gauge in right antecubital area, using aseptic technique. df1 01:00 No provider procedures requiring assistance completed. df1 02:59 IV discontinued, intact, bleeding controlled, No redness/swelling at site. Pressure dc2 dressing applied. Administered Medications: 00:59 Drug: Ativan (LORazepam) 0.5 mg Route: IVP; Site: right antecubital; df1 02:00 Follow up: Response: Anxiety unchanged dc2 02:28 CANCELLED (Physician Discretion): Ativan (LORazepam) 0.5 mg PO once cp 02:42 Drug: Ativan (LORazepam) 0.5 mg Route: IVP; Site: right forearm; dc2 03:00 Follow up: Response: Anxiety decreased dc2 02:58 Not Given (BP too loww): Lasix (furosemide) 60 mg IVP once; give over 2 minutes dc2 Outcome: 02:45 Discharge ordered by MD. cp 03:00 Discharged to home via wheelchair. dc2 03:00 Condition: stable 03:00 Discharge instructions given to patient, Instructed on discharge instructions, Demonstrated understanding of instructions. 03:13 Patient left the ED. dc2 Signatures: Dispatcher [employer] EDMS Andrea Burdick PA PA cp Roslyn Reese [facility] Mikaela Begum RN RN cc4 Maricruz Yost df1 Zaida Sibley RN RN dc2 Dianne Washburn RN RN sj1 Corrections: (The following items were deleted from the chart) 02:58 02:42 Lasix (furosemide) 60 mg IVP in right forearm dc2 dc2
--- NOTE | 2021-03-07 02:46 | EDPHYS ---
Physician Documentation [facility] Name: Devika Sanchez Age: 65 yrs Sex: Female : 1955 Arrival Date: 03/06/2021 Time: 23:10 Bed 19 Private MD: ED Physician Bashir Buckley HPI: 03/07 00:10 This 65 yrs old Female presents to ER via Ambulatory with complaints of cp Anxiety. Historical: - Allergies: 03/06 23:20 Baclofen; sj1 23:20 Celebrex; sj1 23:20 Codeine; sj1 23:20 Celecoxib; sj1 23:20 NSAIDS; sj1 - Home Meds: 03/07 01:00 Ambien 5 mg Oral tab 1 tab once daily [Active]; amlodipine 5 mg tab 1 tab twice a day df1 [Active]; doxazosin 1 mg Oral tab 1 tab once daily [Active]; ferrous sulfate 325 mg (65 mg iron) Oral tab 2 tab daily [Active]; levothyroxine 75 mcg tab 1 tab once daily [Active]; Lexapro 20 mg Oral tab 1 tab once daily [Active]; Prozac 10 mg Oral cap once daily [Active]; Treva-Denny 0.8 mg Oral tab daily [Active]; Renvela 800 mg Oral tab 1 tab 3 times per day [Active]; RevaVite tablet one tab once daily [Active]; Rocaltrol 0.25 mcg Oral cap 1 cap once daily [Active]; sevelamer carbonate 800 mg Oral tab 1 tab 3 times per day [Active]; sodium bicarbonate 650 mg Oral tab daily [Active]; trazodone 50 mg Oral tab 0.5 tab daily [Active]; - PMHx: 03/06 23:20 Anemia; ESRD; kidney failure; Pulmonary Embolism; pulmonary edema; Hypertension; sj1 Hypothyroidism; POLYCYSTIC KIDNEY DISEASE; 03/07 01:00 Hemodialysis; df1 - PSHx: 01:00 bilateral carpal tunnel; right knee repair; fistula left arm; df1 - Immunization history:: Adult Immunizations up to date. - Social history:: Smoking status: Patient denies any tobacco usage or history of. Patient/guardian denies using alcohol, street drugs. ROS: 00:15 Constitutional: Negative for body aches, chills, fever, poor PO intake. cp 00:15 Cardiovascular: Negative for chest pain, edema, palpitations. cp 00:15 Eyes: Negative for injury, pain, redness, and discharge. cp 00:15 ENT: Negative for drainage from ear(s), ear pain, sore throat, difficulty swallowing, difficulty handling secretions. 00:15 Respiratory: Positive for orthopnea, shortness of breath, at rest. Negative for cough, wheezing. 00:15 Abdomen/GI: Negative for abdominal pain, nausea, vomiting, and diarrhea. 00:15 Back: Negative for pain at rest, pain with movement. 00:15 Neuro: Negative for altered mental status, headache, loss of consciousness, syncope, weakness. 00:15 Psych: Positive for anxiety. 00:15 All other systems are negative. Exam: 00:45 ECG was reviewed by the Attending Physician. cp Vital Signs: 03/06 23:15 BP 137 / 63; Pulse 63; Resp 19; Temp 98.1(O); Pulse Ox 98% on R/A; Weight 113.85 kg sj1 (R); Height 5 ft. 0 in. (152.40 cm) (R); Pain 3/10; 23:56 BP 134 / 73; Pulse 61; Resp 20; Temp 98.1; Pulse Ox 98% on R/A; cc4 03/07 00:47 BP 121 / 51; Pulse 62; Resp 20; Pulse Ox 98% ; cc4 01:30 BP 142 / 73; Pulse 63; Resp 20; Pulse Ox 100% on R/A; cc4 02:58 BP 123 / 56; Pulse 63; Resp 18; Pulse Ox 100% on R/A; Pain 0/10; dc2 03/06 23:15 Body Mass Index 49.02 (113.85 kg, 152.40 cm) sj1 MDM: 00:06 Patient medically screened. cp 01:00 Differential diagnosis: Anxiety Reaction CHF exacerbation, volume overload, cardiac cp arrythmia, electrolyte abnormality pneumonia, pulmonary edema, Pulmonary Embolism Unstable Angina. 02:15 Data reviewed: vital signs, nurses notes, lab test result(s), EKG, radiologic studies, cp plain films. 02:15 Test interpretation: by ED physician or midlevel provider: ECG, chest xray negative for cp infiltrates. 03/07 00:05 Order name: Basic Metabolic Panel; Complete Time: 02:08 cp 03/07 02:09 Interpretation: Normal except: BUN 72; CRE 9.53; GFR 4; CA 8.0. cp 03/07 00:05 Order name: CBC with Diff; Complete Time: 02:08 cp 03/07 02:09 Interpretation: Normal except: MCV 95.5; MCH 31.6; PLT 151. cp 03/07 00:05 Order name: LFT's; Complete Time: 02:08 cp 03/07 00:05 Order name: Magnesium; Complete Time: 02:08 cp 03/07 00:05 Order name: NT PRO-BNP; Complete Time: 02:08 cp 03/07 02:09 Interpretation: Abnormal: NT PRO-BNP 2771. cp 03/07 00:05 Order name: PT-INR; Complete Time: 02:08 cp 03/07 00:05 Order name: Troponin (emerg Dept Use Only); Complete Time: 02:08 cp 03/07 02:09 Interpretation: Abnormal: TROPED < 0.02. cp 03/07 00:05 Order name: XRAY Chest (1 view) cp 03/07 00:05 Order name: EKG; Complete Time: 00:07 cp 03/07 00:05 Order name: Cardiac monitoring; Complete Time: 00:59 cp 03/07 00:05 Order name: EKG - Nurse/Tech; Complete Time: 00:59 cp 03/07 00:05 Order name: IV Saline Lock; Complete Time: 00:59 cp 03/07 00:05 Order name: Labs collected and sent; Complete Time: 00:59 cp 03/07 00:05 Order name: O2 Per Protocol; Complete Time: 00:59 cp 03/07 00:05 Order name: O2 Sat Monitoring; Complete Time: 00:59 cp EC:45 Rate is 62 beats/min. Rhythm is regular. MT interval is normal. QRS interval is normal. cp QT interval is normal. T waves are Inverted in lead aVR. Interpreted by me. Reviewed by me. Administered Medications: 00:59 Drug: Ativan (LORazepam) 0.5 mg Route: IVP; Site: right antecubital; df1 02:00 Follow up: Response: Anxiety unchanged dc2 02:28 CANCELLED (Physician Discretion): Ativan (LORazepam) 0.5 mg PO once cp 02:42 Drug: Ativan (LORazepam) 0.5 mg Route: IVP; Site: right forearm; dc2 03:00 Follow up: Response: Anxiety decreased dc2 02:58 Not Given (BP too loww): Lasix (furosemide) 60 mg IVP once; give over 2 minutes dc2 Disposition: 03:01 Chart complete. cp 04:46 Co-signature as Attending Physician, Bashir Buckley MD Did not see or evaluate patient. ps1 Signature is for administrative purposes and not an endorsement of care provided. . Disposition Summary: 03/07/21 02:45 Discharge Ordered Location: Home cp Problem: new cp Symptoms: have improved cp Condition: Stable cp Diagnosis - Anxiety disorder, unspecified cp Followup: cp - With: Private Physician - When: 1 - 2 days - Reason: Recheck today's complaints Discharge Instructions: - Discharge Summary Sheet cp - Generalized Anxiety Disorder, Adult cp Forms: - Medication Reconciliation Form cp - Thank You Letter cp - Antibiotic Education cp - Prescription Opioid Use cp Signatures: Dispatcher [employer] EDMS Andrea Burdick PA PA cp Bashir Buckley MD MD ps1 Maricruz Yost df1 Zaida Sibley RN RN dc2 Dianne Washburn RN RN sj1 Corrections: (The following items were deleted from the chart) 02:09 02:09 Normal except: BUN 72; CRE 9.53; GFR 4. cp cp 02:28 02:27 Ativan (LORazepam) 0.5 mg PO once ordered. cp cp
[2021-03-07] MEDS ORDERED: FUROSEMIDE 100 MG/10 ML VIAL IV ONE (03:03)
[2021-03-07 03:20] VITALS: TEMP 98.1
[2021-03-07 03:24] VITALS: O2SAT 100
[2021-03-07 03:26] VITALS: BP 123/56
--- NOTE | 2021-03-07 07:39 | RAD REPORT ---
EXAM DESCRIPTION: RAD - Chest Single View - 03/07/2021 12:20 am CLINICAL HISTORY: SOB COMPARISON: Portable April 2018 TECHNIQUE: AP portable chest image was obtained 03/07/2021 12:20 am . FINDINGS: No peripheral mass or consolidation. Interstitial pattern is not clearly different from th e prior study when adjusting for technique differences. Heart and vasculature are normal. No measurable pleural effusion and no pneumothorax. No acute bony abnormality seen. No acute aortic findings suspected. IMPRESSION: No acute cardiopulmonary process. No significant change from comparison study.
--- NOTE | 2021-03-09 09:03 | EKG ---
Test Date: 2021-03-07 Test Time: 00:39:22 Medical Receptionist Assistant: MEASUREMENT RESULTS: Intervals: Rate: 62 [place]: 112 QRSD: 82 QT: 450 QTc: 456 [place]: P: 61 [place]: 112 QRS: -10 T: 35 INTERPRETIVE STATEMENTS: Normal sinus rhythm Normal ECG Compared to ECG 03/07/2021 00:38:44 Atrial fibrillation no longer present Electronically Signed On 03-09-21 08:57:53 CDT by Gómez Black
== END 2021-03-07 03:13 | disposition home or self-care (01) ==
LOC: ER 23:08
DX: F41.9 Anxiety disorder, unspecified (principal); I12.0 Hypertensive chronic kidney disease with stage 5 chronic kidney disease or end stage renal disease; N18.6 End stage renal disease; Z99.2 Dependence on renal dialysis; Z88.1 Allergy status to other antibiotic agents; Z88.5 Allergy status to narcotic agent; Z88.6 Allergy status to analgesic agent
CPT/HCPCS: 36415; 71045; 80048; 80076; 83735; 83880; 84484; 85025; 85610; 93005; 99284

== ENCOUNTER 2021-04-26 09:03 | Emergency (ER) | payer OTHER, MEDICARE ==
--- OUTSIDE RECORDS SUMMARY | 2021-04-26 09:07 | XMS REPORT | Continuity of Care Document ---
:1955 Author Organization [facility] t Address [address] [place] [place] [address] Care Team Providers Name Role Phone Neena Dyer MD Attending Clinician Doctor Unassigned, Name Attending Clinician Unavailable 1, Lab Attending Clinician Unavailable Neena Dyer MD Admitting Clinician Problems This patient has no known problems. Allergies, Adverse Reactions, Alerts Allergy Allergy Status Severity Reaction(s) Onset Inactive Treating Comm ents Source Name Type Date Date Clinician Baclofen Adverse Active Info [facility] Adhesive Adverse Active Info Not [facility] Tape Reaction Available [facility] Medications Ordered Filled Start Stop Current Ordering Indication Dosage Frequency Signature Comments Components Source Medication Medication Date Date Medication? Clinician (SIG) Name Name Aspir-81 Aspir-81 Yes Khurram not [facility] defined [facility] Sensipar Sensipar Yes Khurram not [facility] Levothyroxi Levothyroxi Yes Khurram not [facility] ne Sodium ne Sodium [facility] defined [facility] Treva-Denny Treva-Denny Yes Khurram not [facility] Lasix Lasix Yes Khurram not [facility] Levaquin Levaquin Yes Khurram not [facility] defined [facility] Renvela Renvela Yes Khurram not [facility] Promethazin Promethazin Yes Khurram not [facility] HCl e HCl [facility] Hydrocodone Hydrocodone Yes Khurram not [facility] -Acetaminop -Acetaminop [facility] defined [facility] Xanax Xanax Yes Khurram not [facility] defined [facility] Dialyvite Dialyvite Yes Khurram not [facility] 800/Ultra D 800/Ultra D [facility] defined [facility] Zolpidem Zolpidem Yes Khurram not [facility] Tartrate Tartrate [facility] defined [facility] Lidocaine-P Lidocaine-P Yes Khurram not [facility] rilocaine rilocaine [facility] defined [facility] Furosemide Furosemide Yes Khurram not [facility] defined [facility] Escitalopra Escitalopra Yes Khurram not [facility] m Oxalate m Oxalate [facility] defined [facility] Alprazolam Alprazolam Yes Khurram not [facility] Procedures This patient has no known procedures. Encounters Start End Encounter Admission Attending Care Care Encounter Source Date/Time Date/Time Type Type Clinicians Facility Department ID 2021-02-02 2021-02-02 [id number] 2020-12-25 2020-12-25 [facility] [id number] [facility] 2020-12-01 2020-12-01 [facility] [id number] [facility] 2020-10-06 2020-10-06 [facility] [id number] [facility] 2020-09-29 2020-09-29 [facility] [id number] [facility] 2020-09-22 2020-09-22 [facility] [id number] [facility] 2020-08-04 2020-08-04 [id number] 2020-03-17 2020-03-17 [facility] [id number] [facility] 2020-03-10 2020-03-10 [facility] [id number] [facility] 2020-03-04 2020-03-04 [facility] [id number] [facility] 2019-10-22 2019[facility]10-22 [facility] [id number] [facility] 15[facility] 15:00[facility]00 [facility] 2019-05-07 2019-05-07 [facility] [id number] 11:15:00 11:15:00 [facility] Clin[facility] 2019-04-18 2019-04-18 [facility] [id number] 08[facility]00:00 08:00:00 [facility] 2019-01-29 2019-01-29 [facility] [id number] 11:00:00 11:00:00 [facility] 2019-01-23 2019-01-23 [facility] [id number] 15[facility]30:00 15:30:00 [facility] 2019-01-15 2019-01-15 [facility] [id number] 11:00:00 11:00:00 [facility] 2019-01-08 2019-01-08 [facility] [id number] 06:54:52 10:15:00 Encounter Robbie Chaudhary Yakov [id number] [place] [id number] [facility] [id number] [place] 07 2019-01-08 2019-01-08 Orders Doctor GRISELDA [id number] 00:00:00 00:00:00 Only Unassigned, OLAMIDE [id number] [place] [id number] [id number] 2019-01-03 2019-01-03 [facility] [id number] 14:06:00 14:06:00 [facility] ent [facility] 2019-01-01 2019-01-01 Primary Care Provider 1, Adc Lab [facility] [id number] 14:12:04 14:27:04 Visit Yakov [id number] [place] [id number] [place] [id number] [facility] 2019-01-01 2019-01-01 Orders Doctor GRISELDA [id number] 00:00:00 00:00:00 Only Unassigned, OLAMIDE [id number] [place] [id number] 2018-12-04 2018-12-04 [facility] [id number] 13:30:00 13:30:00 t [facility] Results This patient has no known results.
--- NOTE | 2021-04-26 09:24 | ER ---
Nurse's Notes [facility] Name: Devika Sanchez Age: 65 yrs Sex: Female : 1955 Arrival Date: 04/26/2021 Time: : Bed Waiting Private MD: Yogi Mao B Diagnosis: Assessment: 04/26 09:22 Reassessment: States she no longer wants to be seen as a patient because she needs to ss go home to take her XANAX that she forgot to take this am. ED Course: : Patient arrived in ED. as : Yogi Mao MD is Private Physician. as Administered Medications: No medications were administered Outcome: : Eloped from waiting room, before seeing physician ss : Patient left the ED. ss Signatures: Anaya oRdas Shelby, RN RN ss
== END 2021-04-26 09:23 | disposition left against medical advice (07) ==
LOC: ER 09:03
DX: Z02.9 Encounter for administrative examinations, unspecified (principal)

== ENCOUNTER 2021-05-02 14:58 | Emergency (ER) | payer OTHER, MEDICARE ==
--- OUTSIDE RECORDS SUMMARY | 2021-05-02 15:02 | XMS REPORT | Continuity of Care Document ---
:[address] [facility] t Address [address] [place] [address] Care Team Providers Name Role Phone Neena [...] Clinicians Facility Department ID 2021-02-02 2021-02-02 [facility] [id number] 2020-12-25 2020-12-25 [facility] [id number] [facility] 2020-12-01 2020-12-01 [facility] [id number] [facility] 2020-10-06 2020-10-06 [facility] [id number] [facility] 2020-09-29 2020-09-29 [facility] [id number] [facility] 2020-09-22 2020-09-22 [facility] [id number] [facility] 2020-08-04 2020-08-04 [facility] [id number] [facility] 2020-03-17 2020-03-17 [facility] [id number] [facility] 2020-03-10 2020-03-10 [facility] [id number] [facility] 2020-03-04 2020-03-04 [facility] [id number] [facility] 2019-10-22 2019-10-22 [facility] [id number] 15:00:00 15:00:00 [facility] Clin[facility] 2019-05-07 2019-05-07 [facility] [id number] 11:15:00 11:15:00 [facility] 2019-04-18 2019-04-18 [facility] [id number] 08:00:00 08:00:00 [facility] Clin[facility] 2019-01-29 2019-01-29 [facility] [id number] 11:00:00 11:00:00 [facility] 2019-01-23 2019-01-23 [facility] [id number] 15:30:00 15:30:00 [facility] 2019-01-15 2019-01-15 [facility] [id number] 11:00:00 11:00:00 [facility] 2019-01-08 2019-01-08 [facility] [id number] 06:54:52 10:15:00 Encounter Robbie Chaudhary Yakov [id number] [place] [id number] [facility] [id number] [place] 07 2019-01-08 2019-01-08 Orders Doctor GRISELDA [id number] 00:00:00 00:00:00 Only Unassigned, OLAMIDE [id number] [place] [id number] 2019-01-03 2019-01-03 [facility] [id number] 14:06:00 14:06:00 [facility] 2019-01-01 2019-01-01 Software Development Coordinator 1, Adc Lab [facility] [id number] 14:12:04 14:27:04 Visit Yakov [id number] [place] [id number] [place] [id number] [facility] 2019-01-01 2019-01-01 Orders Doctor GRISELDA [id number] 00:00:00 00:00:00 Only Unassigned, OLAMIDE [id number] [place] [id number] 2018-12-04 2018-12-04 [facility] [id number] 13:30:00 13:30:00 [facility] Results This patient has no known results.
[2021-05-02] MEDS ORDERED: NA CHLORIDE 0.9% 1,000 ML ONE (15:30)
[2021-05-02] MEDS ORDERED: ONDANSETRON 4 MG/2 ML VIAL ONE (15:30)
[2021-05-02 15:36] LABS: Absolute Lymphocytes (CBC) 0.5 K/uL (0.7-4.9); Basophils % 0.4 % (0-1.3); Hematocrit 32.9 % (36.0-45.0); Lymphocytes % 12.4 % (15.3-44.8); MPV 7.6 fL (7.6-11.3); RBC Red Blood Cell Count 3.59 M/uL (3.86-4.86)
[2021-05-02 16:05] LABS: Albumin 2.6 g/dL (3.4-5.0); Bilirubin Direct 0.2 mg/dL (0-0.2); Bilirubin Total 0.5 mg/dL (0.2-1.0); Potassium 4.4 mmol/L (3.5-5.1); Protein, Total 6.6 g/dL (6.4-8.2)
[2021-05-02] MEDS ORDERED: CASIRIVIMAB/IMDEVIMAB 10 ML VIAL ONE (16:46)
[2021-05-02] MEDS ORDERED: NA CHLORIDE 0.9% 250 ML ONE (16:46)
--- NOTE | 2021-05-02 18:51 | ER ---
Nurse's Notes [facility] Name: Devika Sanchez Age: 65 yrs Sex: Female : 1955 Arrival Date: 05/02/2021 Time: 15:01 Bed 7 Private MD: Diagnosis: Other specified viral diseases-COVID 19 Presentation: 05/02 15:00 Chief complaint: EMS states: patient is complaining of nausea, dizziness, and diarrhea. al4 pt is supposed to go to dialysis 3 times a week, but has missed this week due to not being able to get out of bed. patient tested positive for COVID on 04/27/21 by Brock.". 15:02 Coronavirus screen: diarrhea, nausea, Client reports previous positive COVID test al4 result. Date of collection: April 27, 2021. Ebola Screen: No symptoms or risks identified at this time. Initial Sepsis Screen: Does the patient meet any 2 criteria? No. Patient's initial sepsis screen is negative. Does the patient have a suspected source of infection? No. Patient's initial sepsis screen is negative. Risk Assessment: Do you want to hurt yourself or someone else? Patient reports no desire to harm self or others. Onset of symptoms is unknown. 15:02 Method Of Arrival: EMS: [facility] al4 15:02 Acuity: NADINE 3 al4 Triage Assessment: 15:39 General: Appears in no apparent distress. uncomfortable, Behavior is calm, cooperative, al4 appropriate for age, Reports nausea, dizziness. Pain: Denies pain. EENT: No signs and/or symptoms were reported regarding the EENT system. Neuro: Level of Consciousness is awake, alert, obeys commands, Oriented to person, place, time, situation, Appropriate for age. Cardiovascular: Capillary refill < 3 seconds Patient's skin is warm and dry. Respiratory: Airway is patent Respiratory effort is even, unlabored, Respiratory pattern is regular, symmetrical. GI: Reports diarrhea. : No signs and/or symptoms were reported regarding the genitourinary system. Derm: No signs and/or symptoms reported regarding the dermatologic system. Musculoskeletal: No signs and/or symptoms reported regarding the musculoskeletal system. Historical: - Allergies: 15:43 Baclofen; al4 15:43 Celebrex; al4 15:43 Celecoxib; al4 15:43 NSAIDS; al4 15:43 Codeine; al4 - Immunization history:: Client reports having NOT received the Covid vaccine. Flu vaccine is up to date. - Social history:: Patient/guardian denies using alcohol, street drugs, The patient lives with family, Smoking status: Patient denies any tobacco usage or history of. - Family history:: not pertinent. Screenin:10 Abuse screen: Denies threats or abuse. Nutritional screening: No deficits noted. al4 Tuberculosis screening: No symptoms or risk factors identified. Fall Risk No fall in past 12 months (0 pts). IV access (20 points). Ambulatory Aid- None/Bed Rest/Nurse Assist (0 pts). Gait- Weak (10 pts.). Mental Status- Oriented to own ability (0 pts). Total Ledesma Fall Scale indicates No Risk (0-24 pts). Assessment: 15:00 Reassessment: see triage assessment. al4 16:00 Reassessment: No changes from previously documented assessment. Patient and/or family al4 updated on plan of care and expected duration. Pain level reassessed. Patient is alert, oriented x 3, equal unlabored respirations, skin warm/dry/pink. 17:23 Reassessment: regen-cov started. pt awake and alert. all questions answered. al4 Reassessment:. 18:00 Reassessment: Patient and/or family updated on plan of care and expected duration. Pain al4 level reassessed. Patient is alert, oriented x 3, equal unlabored respirations, skin warm/dry/pink. 18:11 Reassessment: Jarvis Sanchez () : [phone]. call for dsicharge. jd3 18:31 Reassessment: med complete. post infusion observation started. al4 18:34 Reassessment: No changes from previously documented assessment. Patient and/or family al4 updated on plan of care and expected duration. Pain level reassessed. Patient is alert, oriented x 3, equal unlabored respirations, skin warm/dry/pink. 19:10 Reassessment: called patient's for discharge and ride home at this time. lp1 19:15 Reassessment: Patient called nurse into room, reports "I pulled my IV out because I am lp1 ready to go, but it won't stop bleeding"; Small amount of blood noted to floor, pressure held to R AC IV site, bleeding controlled. Vital Signs: 15:02 BP 148 / 87; Pulse 79; Resp 18 S; Temp 100.1; Pulse Ox 97% on R/A; al4 15:13 BP 148 / 87; Pulse 73; Resp 18; Temp 100.1; Pulse Ox 97% ; al4 15:30 BP 128 / 51; Pulse 61; Resp 19; Pulse Ox 97% ; al4 16:00 BP 123 / 58; Pulse 78; Resp 19; Pulse Ox 98% ; al4 16:30 BP 21 / 62; Pulse 78; Resp 18; Pulse Ox 98% ; al4 17:00 BP 145 / 66; Pulse 77; Resp 25; Pulse Ox 94% ; al4 17:51 BP 131 / 53; Pulse 80; Resp 27; Pulse Ox 96% ; al4 18:00 BP 127 / 74; Pulse 80; Resp 24; Pulse Ox 96% ; al4 18:35 BP 129 / 41; Pulse 60; Resp 16; Pulse Ox 96% ; al4 19:20 BP 134 / 72; Pulse 64; Resp 22; Temp 98.9(O); Pulse Ox 95% on R/A; lp1 ED Course: 15:01 Patient arrived in ED. al4 15:01 Elton Andrade is Primary Nurse. al4 15:07 Quang Hale MD is Attending Physician. ma2 15:08 Triage completed. al4 15:10 Patient has correct armband on for positive identification. Bed in low position. Call al4 light in reach. Side rails up X2. Pulse ox on. NIBP on. Door closed. Noise minimized. 15:12 Maintain EMS IV. Dressing intact. Good blood return noted. Site clean \\T\\ dry. Gauge \\T\\ al 4 site: 18G Right AC. 18:04 PO fluids given. Head of bed elevated. al4 19:21 Attending Physician role handed off by Quang Hale MD madelyn 19:21 Andrea Kat MD is Attending Physician. [facility] 19:25 No provider procedures requiring assistance completed. bleeding controlled, DC'd by lp1 patient. Administered Medications: 15:38 Drug: NS 0.9% 1000 ml Route: IV; Rate: 1 bolus; Site: right antecubital; al4 16:38 Follow up: Response: No adverse reaction; IV Status: Completed infusion al4 15:38 Drug: Zofran (Ondansetron) 4 mg Route: IVP; Site: right antecubital; al4 16:38 Follow up: Response: No adverse reaction al4 17:22 Drug: Casirivimab-Imdevimab Dose Pack 120 mg/mL-120 mg/mL (EUA) 600 mg Route: IV; Rate: al4 calculated rate; Infused Over: 1 hrs; Site: right antecubital; 18:22 Follow up: Response: No adverse reaction; IV Status: Completed infusion al4 Outcome: 18:50 Discharge ordered by . ma2 19:38 Discharged to home via wheelchair, with significant other. lp1 19:38 Condition: good 19:38 Discharge instructions given to patient, significant other, Instructed on discharge instructions, follow up and referral plans. Demonstrated understanding of instructions, follow-up care. 19:38 Patient left the ED. lp1 Signatures: Andrea Kat MD MD cha Pena, Laura RN RN lp1 Manoj Garcia RN RN jd3 Alzahri, Mohammad, MD MD ma2 Ledbetter, Alexis al4 Corrections: (The following items were deleted from the chart) 17:14 17:13 Reassessment: see triage assessment al4 al4 17:59 15:30 BP 128 / 51; Pulse 61bpm; Resp 18bpm; Pulse Ox 97%; al4 al4 17:59 16:00 BP 123 / 58; Pulse 78bpm; Resp 18bpm; Pulse Ox 98%; al4 al4 17:59 16:30 BP 138 / 62; Pulse 78bpm; Resp 18bpm; Pulse Ox 98%; al4 al4 17:59 17:00 BP 145 / 66; Pulse 77bpm; Resp 18bpm; Pulse Ox 94%; al4 al4 18:14 18:11 Reassessment: Jarvis Sanchez () : [phone] moses jd3
--- NOTE | 2021-05-02 18:51 | EDPHYS ---
Physician Documentation [facility] Name: Devika Sanchez Age: 65 yrs Sex: Female : 1955 Arrival Date: 05/02/2021 Time: 15:01 Bed 7 Private MD: ED Physician Andrea Kat HPI: 05/02 15:09 This 65 yrs old Female presents to ER via EMS with complaints of nausea. ma2 15:09 Onset: The symptoms/episode began/occurred gradually, 2 day(s) ago. Associated signs ma2 and symptoms: Pertinent negatives: diaphoresis, dizziness, fever, hemoptysis, loss of consciousness, nausea, numbness in extremities, visual changes, vomiting. Severity of symptoms: At their worst the symptoms were moderate in the emergency department the symptoms are unchanged. The patient has not experienced similar symptoms in the past. Historical: - Allergies: 15:43 Baclofen; al4 15:43 Celebrex; al4 15:43 Celecoxib; al4 15:43 NSAIDS; al4 15:43 Codeine; al4 - Immunization history:: Client reports having NOT received the Covid vaccine. Flu vaccine is up to date. - Social history:: Patient/guardian denies using alcohol, street drugs, The patient lives with family, Smoking status: Patient denies any tobacco usage or history of. - Family history:: not pertinent. ROS: 15:09 Constitutional: Negative for fever, chills, and weight loss. ma2 15:09 All other systems are negative. Exam: 15:09 Constitutional: This is a well developed, well nourished patient who is awake, alert, ma2 and in no acute distress. Head/Face: Normocephalic, atraumatic. Eyes: Pupils equal round and reactive to light, extra-ocular motions intact. Lids and lashes normal. Conjunctiva and sclera are non-icteric and not injected. Cornea within normal limits. Periorbital areas with no swelling, redness, or edema. ENT: Nares patent. No nasal discharge, no septal abnormalities noted. Tympanic membranes are normal and external auditory canals are clear. Oropharynx with no redness, swelling, or masses, exudates, or evidence of obstruction, uvula midline. Mucous membranes moist. Neck: Trachea midline, no thyromegaly or masses palpated, and no cervical lymphadenopathy. Supple, full range of motion without nuchal rigidity, or vertebral point tenderness. No Meningismus. Chest/axilla: Normal chest wall appearance and motion. Nontender with no deformity. No lesions are appreciated. Cardiovascular: Regular rate and rhythm with a normal S1 and S2. No gallops, murmurs, or rubs. Normal PMI, no JVD. No pulse deficits. Respiratory: Lungs have equal breath sounds bilaterally, clear to auscultation and percussion. No rales, rhonchi or wheezes noted. No increased work of breathing, no retractions or nasal flaring. Abdomen/GI: Soft, non-tender, with normal bowel sounds. No distension or tympany. No guarding or rebound. No evidence of tenderness throughout. Skin: Warm, dry with normal turgor. Normal color with no rashes, no lesions, and no evidence of cellulitis. MS/ Extremity: Pulses equal, no cyanosis. Neurovascular intact. Full, normal range of motion. Neuro: Awake and alert, GCS 15, oriented to person, place, time, and situation. Cranial nerves II-XII grossly intact. Motor strength 5/5 in all extremities. Sensory grossly intact. Cerebellar exam normal. Normal gait. Vital Signs: 15:02 BP 148 / 87; Pulse 79; Resp 18 S; Temp 100.1; Pulse Ox 97% on R/A; al4 15:13 BP 148 / 87; Pulse 73; Resp 18; Temp 100.1; Pulse Ox 97% ; al4 15:30 BP 128 / 51; Pulse 61; Resp 19; Pulse Ox 97% ; al4 16:00 BP 123 / 58; Pulse 78; Resp 19; Pulse Ox 98% ; al4 16:30 BP 21 / 62; Pulse 78; Resp 18; Pulse Ox 98% ; al4 17:00 BP 145 / 66; Pulse 77; Resp 25; Pulse Ox 94% ; al4 17:51 BP 131 / 53; Pulse 80; Resp 27; Pulse Ox 96% ; al4 18:00 BP 127 / 74; Pulse 80; Resp 24; Pulse Ox 96% ; al4 18:35 BP 129 / 41; Pulse 60; Resp 16; Pulse Ox 96% ; al4 19:20 BP 134 / 72; Pulse 64; Resp 22; Temp 98.9(O); Pulse Ox 95% on R/A; lp1 MDM: 15:07 Patient medically screened. ma2 15:09 Differential diagnosis: Anxiety Reaction asthma, Bronchitis reactive airway disease. ma2 16:01 ED course: Patient request Regeneron infusion, I explained all risk benefits, explained ma2 that this is) EUA treatment, also explained that she is on a high risk group, since she is obese, age above 65, and has CKD, however patient insisted on receiving the treatment. I had a lengthy discussion she understands all risk and benefit,. 18:45 Data reviewed: vital signs, nurses notes. Counseling: I had a detailed discussion with ma2 the patient and/or guardian regarding: the historical points, exam findings, and any diagnostic results supporting the discharge/admit diagnosis, the presence of at least one elevated blood pressure reading (>120/80) during this emergency department visit, the need for outpatient follow up. 05/02 15:08 Order name: Basic Metabolic Panel; Complete Time: 16:29 [facility] 05/02 15:08 Order name: CBC with Diff [facility] 05/02 15:08 Order name: Hepatic Function; Complete Time: 16:29 [place] 05/02 15:08 Order name: Lipase; Complete Time: 16:29 [facility] 05/02 19:10 Order name: CBC Smear Scan EDMS 05/02 15:08 Order name: IV Saline Lock; Complete Time: 15:14 [facility] 05/02 15:08 Order name: Labs collected and sent; Complete Time: 15:24 [facility] Administered Medications: 15:38 Drug: NS 0.9% 1000 ml Route: IV; Rate: 1 bolus; Site: right antecubital; al4 16:38 Follow up: Response: No adverse reaction; IV Status: Completed infusion al4 15:38 Drug: Zofran (Ondansetron) 4 mg Route: IVP; Site: right antecubital; al4 16:38 Follow up: Response: No adverse reaction al4 17:22 Drug: Casirivimab-Imdevimab Dose Pack 120 mg/mL-120 mg/mL (EUA) 600 mg Route: IV; Rate: al4 calculated rate; Infused Over: 1 hrs; Site: right antecubital; 18:22 Follow up: Response: No adverse reaction; IV Status: Completed infusion al4 Disposition Summary: 05/02/21 18:50 Discharge Ordered Location: Home ma2 Condition: Stable ma2 Diagnosis - Other specified viral diseases - COVID 19 ma2 Followup: ma2 - With: Private Physician - When: Tomorrow - Reason: Continuance of care Discharge Instructions: - Discharge Summary Sheet ma2 - 10 Things You Can Do to Manage Your COVID-19 Symptoms at Home - [facility] Forms: - Medication Reconciliation Form ma2 - Thank You Letter ma2 - Antibiotic Education ma2 - Prescription Opioid Use ma2 Signatures: Dispatcher [employer] EDQuang Oates MD MD ma2 Elton Andrade
[2021-05-02 19:10] LABS: Blood Morphology Comment NOT SEEN (NOT SEEN); Platelet Estimate DECR; White Blood Cell Scan OK (OK)
[2021-05-02 20:02] VITALS: BP 134/72; TEMP 98.9; O2SAT 95
== END 2021-05-02 19:38 | disposition home or self-care (01) ==
LOC: ER 14:58
DX: U07.1 COVID-19 (principal)
CPT/HCPCS: 96365; 96361; 85025; 80048; 36415; 80076; 83690; 96375; 99284; J7050; J7030; J2405; M0243

== ENCOUNTER 2021-05-07 09:39 | Emergency (ER) | payer OTHER, MEDICARE ==
--- OUTSIDE RECORDS SUMMARY | 2021-05-07 09:41 | XMS REPORT | Continuity of Care Document ---
:[address] [facility] t Address [address] [place] [address] Care Team Providers Name Role Phone Neena [...] Clinicians Facility Department ID 2021-02-02 2021-02-02 Outpatient [facility] [id number] [facility] 2020-12-25 2020-12-25 Outpatient [facility] [id number] [facility] 2020-12-01 2020-12-01 [facility] [id number] 2020-10-06 2020-10-06 [facility] [id number] [facility] 2020-09-29 2020-09-29 Outpatient [facility] [id number] [facility] 2020-09-22 2020-09-22 [facility] [id number] [facility] 2020-08-04 2020-08-04 [facility] [id number] [facility] 2020-03-17 2020-03-17 [facility] [id number] [facility] 2020-03-10 2020-03-10 [facility] [id number] [facility] 2020-03-04 2020-03-04 [facility] [id number] [facility] 2019-10-22 2019-10-22 [facility] [id number] [facility] 15[facility] 15[facility] 2019-05-07 2019-05-07 [facility] [id number] 11:15:00 11:15:00 [facility] Clinics 2019-04-18 2019-04-18 [facility] [id number] 08:[facility]00 08:00:00 [facility] Clinics 2019-01-29 2019-01-29 [facility] [id number] 11:00[facility]00 11:00:00 [facility] Clin[facility] 2019-01-23 2019-01-23 [facility] [id number] 15[facility]30:00 15:30:00 [facility] Clin[facility] 2019-01-15 2019-01-15 [facility] [id number] 11:00:00 11:00:00 [facility] 2019-01-08 2019-01-08 [facility] [id number] 06:54:52 10:15:00 Encounter Robbie Chaudhary Yakov [id number] [place] [id number] [facility] [id number] [place] 07 2019-01-08 2019-01-08 Orders Doctor GRISELDA [id number] 00:00:00 00:00:00 Only Unassigned, OLAMIDE [id number] [place] [id number] 2019-01-03 2019-01-03 [facility] [id number] 14:06:00 14:06:00 [facility] 2019-01-01 2019-01-01 Warp Scouring Vat Tender 1, Adc Lab [facility] [id number] 14:12:04 14:27:04 Visit Yakov [id number] [place] [id number] [place] [id number] [facility] 2019-01-01 2019-01-01 Orders Doctor GRISELDA [id number] 00:00:00 00:00:00 Only Unassigned, OLAMIDE [id number] [place] [id number] 2018-12-04 2018-12-04 [facility] [id number] 13:30:00 13:30:00 [facility] Results This patient has no known results.
[2021-05-07 10:08] LABS: Absolute Lymphocytes (CBC) 0.4 K/uL (0.7-4.9); Basophils % 0.2 % (0-1.3); Lymphocytes % 8.4 % (15.3-44.8); MPV 7.2 fL (7.6-11.3); RBC Red Blood Cell Count 3.47 M/uL (3.86-4.86)
[2021-05-07 10:12] LABS: Protime INR 1.11
--- NOTE | 2021-05-07 10:23 | RAD REPORT ---
EXAM DESCRIPTION: [place] Single View05/07/2021 10:14 am CLINICAL HISTORY: Chest pain COMPARISON: February 2021 FINDINGS: Moderate to marked bilateral pulmonary opacities The heart is borderline enlarged IMPRESSION: Moderate to marked bilateral pulmonary opacities probably pneumonia
[2021-05-07 10:35] LABS: Potassium 4.4 mmol/L (3.5-5.1)
[2021-05-07 10:53] LABS: Blood Morphology Comment NOT SEEN (NOT SEEN); Platelet Estimate DECR
--- NOTE | 2021-05-07 11:35 | EDPHYS ---
Physician Documentation [facility] Name: Devika Sanchez Age: 65 yrs Sex: Female : 1955 Arrival Date: 05/07/2021 Time: 09:41 Bed 19 Private MD: ED Physician Saturnino Mcmillan HPI: 05/07 12:12 This 65 yrs old Female presents to ER via EMS with complaints of not feeling well. kb 12:12 The patient or guardian reports flu symptoms, low-grade fever, myalgias, no appetite. kb Onset: The symptoms/episode began/occurred 10 day(s) ago. Severity of symptoms: At their worst the symptoms were moderate, in the emergency department the symptoms are unchanged. Modifying factors: The symptoms are alleviated by nothing, the symptoms are aggravated by nothing. Associated signs and symptoms: The patient has no apparent associated signs or symptoms. The patient has not experienced similar symptoms in the past. The patient has not recently seen a physician. Pt states she has had covid for 10 days. States she has been tired and not wanting to get up and do anything because she hasn't felt good. Has not gone to dialysis in 11 days because she hasn't felt like it. States her made her come in today because he was worried about her not feeling well. reports pt has had nausea and vomiting for 10 days. Pt's only complaint at this time is not feeling well. . Historical: - Allergies: 09:42 Baclofen; ap3 09:42 Celebrex; ap3 09:42 Celecoxib; ap3 09:42 Codeine; ap3 09:42 NSAIDS; ap3 - PMHx: 09:42 Anemia; ESRD; hemodialysis; Hypertension; Hypothyroidism; kidney failure; POLYCYSTIC ap3 KIDNEY DISEASE; pulmonary edema; Pulmonary Embolism; - PSHx: 09:42 bilateral carpal tunnel; fistula left arm; right knee repair; ap3 - Immunization history:: Client reports having NOT received the Covid vaccine. - Social history:: Smoking status: Patient denies any tobacco usage or history of. ROS: 12:11 Respiratory: Negative for shortness of breath, cough, wheezing, and pleuritic chest kb pain. 12:11 Constitutional: Positive for body aches, chills, fatigue, fever, malaise, poor PO intake. 12:11 Abdomen/GI: Positive for nausea and vomiting, Negative for abdominal pain, diarrhea. 12:11 All other systems are negative. Exam: 12:11 Constitutional: This is a well developed, well nourished patient who is awake, alert, kb and in no acute distress. Head/Face: Normocephalic, atraumatic. Cardiovascular: Regular rate and rhythm with a normal S1 and S2. No gallops, murmurs, or rubs. No pulse deficits. Respiratory: Respirations even and unlabored. No increased work of breathing. Talking in full sentences Abdomen/GI: Soft, non-tender. No distention Skin: Warm, dry with normal turgor. Normal color. MS/ Extremity: Pulses equal, no cyanosis. Neurovascular intact. Full, normal range of motion. Neuro: Awake and alert, GCS 15, oriented to person, place, time, and situation. Moves all extremities. Normal gait. Psych: Awake, alert, with orientation to person, place and time. Behavior, mood, and affect are within normal limits. Vital Signs: 09:44 BP 146 / 65; Pulse 67; Resp 16; Temp 97.5(O); Pulse Ox 98% on R/A; Weight 95.25 kg; ap3 Height 5 ft. (152.40 cm); 10:48 BP 152 / 72; Pulse 65; Resp 17; Pulse Ox 99% on R/A; ap3 09:44 Body Mass Index 41.01 (95.25 kg, 152.40 cm) ap3 MDM: 09:43 Patient medically screened. kb 10:40 Data reviewed: vital signs, nurses notes. Data interpreted: Pulse oximetry: on room air kb is 98 %. Interpretation: normal. ED course: Pt states she just wants to go home. States she didn't want to come, but her called 911 because she didn't feel good. Pt educated that we needed to wait for her potassium level to come back before she could leave. . 12:08 Counseling: I had a detailed discussion with the patient and/or guardian regarding: the kb historical points, exam findings, and any diagnostic results supporting the discharge/admit diagnosis, lab results, radiology results, the need for outpatient follow up, a family practitioner, to return to the emergency department if symptoms worsen or persist or if there are any questions or concerns that arise at home. ED course: Pt continues to want to go home. States she will go to dialysis this evening. Spoke with dialysis nurse about pt coming to dialysis tonight. They will be expecting her to come. Pt transferred from stretcher to chair with assist. No resp distress. no indication for emergent dialysis. Pt is awake, alert and oriented x4. . 05/07 09:43 Order name: CBC with Diff; Complete Time: 10:56 kb 05/07 09:43 Order name: Basic Metabolic Panel; Complete Time: 10:41 kb 05/07 09:43 Order name: Protime (+inr); Complete Time: 10:14 kb 05/07 09:43 Order name: Ptt, Activated; Complete Time: 10:14 kb 05/07 09:43 Order name: Chest Single View XRAY; Complete Time: 10:25 kb 05/07 10:14 Order name: Manual Differential; Complete Time: 10:56 EDMS Administered Medications: No medications were administered Disposition: 19:49 Co-signature as Attending Physician, Saturnino Mcmillan MD I agree with the assessment and kdr plan of care. Disposition Summary: 05/07/21 11:35 Discharge Ordered Location: Home kb Condition: Stable kb Diagnosis - Coronavirus infection, unspecified kb Followup: kb - With: Emergency Department - When: As needed - Reason: Worsening of condition Followup: kb - With: Private Physician - When: 2 - 3 days - Reason: Recheck today's complaints, Continuance of care, Re-evaluation by your physician Discharge Instructions: - Discharge Summary Sheet kb - Viral Respiratory Infection, [id number]-Faew kb - COVID-19 kb - COVID-19 Frequently Asked Questions kb Forms: - Medication Reconciliation Form kb - Thank You Letter kb - Antibiotic Education kb - Prescription Opioid Use kb Prescriptions: - Zofran 4 mg Oral Tablet - take 1 tablet by ORAL route every 6 hours As needed; 20 tablet; Refills: 0, kb Product Selection Permitted Signatures: Dispatcher [employer] EDMS Mylene Goel FNP-C FNP-Ckb Rittger, Kevin, MD MD kdr Prokisch, Amanda, RN RN ap3 Corrections: (The following items were deleted from the chart) 10:57 10:26 [place] Wo Con+CT.RAD.BRZ ordered. EDMS EDMS
--- NOTE | 2021-05-07 11:35 | ER ---
Nurse's Notes [facility] Name: Devika Sanchez Age: 65 yrs Sex: Female : 1955 Arrival Date: 05/07/2021 Time: 09:41 Bed 19 Private MD: Diagnosis: Coronavirus infection, unspecified Presentation: 05/07 09:44 Chief complaint: EMS states: they were called to the patients residence for a complaint ap3 of weakness with nausea. It is reported that the patient tested positive 10 days ago. She reports that she has not had dialysis for 11 days due to not feeling well. Coronavirus screen: Client reports previous positive COVID test result. Date of collection: April 27, 2021. Ebola Screen: No symptoms or risks identified at this time. Initial Sepsis Screen: Does the patient meet any 2 criteria? No. Patient's initial sepsis screen is negative. Does the patient have a suspected source of infection? No. Patient's initial sepsis screen is negative. Risk Assessment: Do you want to hurt yourself or someone else? Patient reports no desire to harm self or others. Onset of symptoms was April 27, 2021. Care prior to arrival: Medication(s) given: zofran 4 mg, IV initiated. 20 GA, in the right antecubital area. 09:44 Method Of Arrival: EMS: [facility] ap3 09:44 Acuity: NADINE 3 ap3 Historical: - Allergies: 09:42 Baclofen; ap3 09:42 Celebrex; ap3 09:42 Celecoxib; ap3 09:42 Codeine; ap3 09:42 NSAIDS; ap3 - PMHx: 09:42 Anemia; ESRD; hemodialysis; Hypertension; Hypothyroidism; kidney failure; POLYCYSTIC ap3 KIDNEY DISEASE; pulmonary edema; Pulmonary Embolism; - PSHx: 09:42 bilateral carpal tunnel; fistula left arm; right knee repair; ap3 - Immunization history:: Client reports having NOT received the Covid vaccine. - Social history:: Smoking status: Patient denies any tobacco usage or history of. Screenin:48 Abuse screen: Denies threats or abuse. Nutritional screening: No deficits noted. ap3 Tuberculosis screening: No symptoms or risk factors identified. Fall Risk None identified. Assessment: 09:46 General: Appears in no apparent distress. uncomfortable, Behavior is calm, cooperative, ap3 Reports chills for fever for feeling ill for fatigue for. Pain: Complains of pain in generalized aches and pains Pain began gradually. Neuro: Level of Consciousness is awake, alert, obeys commands, Oriented to person, place, time, situation, Speech is normal. Cardiovascular: Patient's skin is warm and dry. Respiratory: Airway is patent Respiratory effort is even, unlabored, Respiratory pattern is regular, symmetrical. GI:. 10:31 Reassessment: patient resting, eyes closed, respirations are even and unlabored at this ap3 time. Bed is locked in the lowest position. Side rails are up Xs 2, call light is within reach. 10:44 Reassessment: nurse provided patient with an incentive spirometer, and proper ap3 education. Nurse observed the patient use the incentive spirometer, and there was observed understanding of the teaching through demonstration. Patient states to nurse she wants to go home. Nurse informed patient that we are waiting results on a few more lab values. Patient verbalized understanding and requests to go home when we have all the results in. Provider notified. 11:02 Reassessment: patient asked that her IV be promptly removed. ap3 11:31 Reassessment: patient disconnected BP cuff, pulse OX and heart monitor. patient ap3 ambulated to chair and is unsteady on her feet. nurse educated patient on need to not ambulate without assistance. nurse has curtain open so nurse and staff can monitor patient for ambulating without assistance. 11:45 Reassessment: patients family contacted for families discharge. family stated they are ap3 on their way. 11:59 Reassessment: patient attempted to get up without assistance. nurse assisted patient ap3 back into her chair, and educated again on the use of her call light and waiting for assistance. patient verbalized understanding. 12:12 Reassessment: at bedside. ap3 Vital Signs: 09:44 BP 146 / 65; Pulse 67; Resp 16; Temp 97.5(O); Pulse Ox 98% on R/A; Weight 95.25 kg; ap3 Height 5 ft. (152.40 cm); 10:48 BP 152 / 72; Pulse 65; Resp 17; Pulse Ox 99% on R/A; ap3 09:44 Body Mass Index 41.01 (95.25 kg, 152.40 cm) ap3 ED Course: 09:41 Patient arrived in ED. em1 09:41 Shu Centeno, RN is Primary Nurse. ap3 09:43 Mylene Goel FNP-C is [facility]. kb 09:43 Saturnino Mcmillan MD is Attending Physician. kb 09:46 Triage completed. ap3 09:48 Arm band placed on right wrist. ap3 09:49 Patient has correct armband on for positive identification. Bed in low position. Call ap3 light in reach. Side rails up X2. roll skinner on. Pulse ox on. NIBP on. Door closed. Noise minimized. 09:49 Maintain EMS IV. Dressing intact. Good blood return noted. Site clean \T\ dry. Gauge \T\ ap 3 site: 20g right AC. IV is patent, is intact, with good blood return, Flushed right antecubital with 5 ml normal saline. 10:14 Chest Single View XRAY In Process Unspecified. EDMS 11:02 IV discontinued, intact, bleeding controlled, No redness/swelling at site. Pressure ap3 dressing applied. 12:13 No provider procedures requiring assistance completed. ap3 Administered Medications: No medications were administered Outcome: 11:35 Discharge ordered by . kb 12:13 Discharged to home via wheelchair, with family. ap3 12:13 Condition: stable 12:13 Discharge instructions given to patient, family, Instructed on discharge instructions, follow up and referral plans. medication usage, incentive spirometer, COVID precautions Demonstrated understanding of instructions, follow-up care, medications, Prescriptions given X 1. 12:23 Patient left the ED. ap3 Signatures: Dispatcher [employer] EDMS Mylene Goel FNP-C FNP-Ckb Martinez, Eric em1 Shu Centeno, RN RN ap3 Corrections: (The following items were deleted from the chart) 11:59 11:58 Reassessment: patients family contacted for families discharge. family stated ap3 they are on their way. ap3
[2021-05-07 12:36] VITALS: TEMP 97.5
[2021-05-07 12:37] VITALS: BP 152/72; O2SAT 99
== END 2021-05-07 12:23 | disposition home or self-care (01) ==
LOC: ER 09:39
DX: U07.1 COVID-19 (principal); I12.0 Hypertensive chronic kidney disease with stage 5 chronic kidney disease or end stage renal disease; N18.6 End stage renal disease; E03.9 Hypothyroidism, unspecified
CPT/HCPCS: 36415; 71045; 80048; 85025; 85610; 85730; 99284

== ENCOUNTER 2021-05-09 18:30 | Observation (INO) | payer OTHER, MEDICARE ==
--- OUTSIDE RECORDS SUMMARY | 2021-05-09 18:34 | XMS REPORT | Continuity of Care Document ---
:1955 Author Organization [facility] t Address [address] [place] [address] Care Team Providers Name Role Phone Neena [...] l Outpat[facility] ent Clinics Treva-Denny Treva-Denny Yes Khurrma not [facility] [...] Clinicians Facility Department ID 2021-02-02 2021-02-02 [facility] [id number] [facility] 2020-12-25 2020-12-25 [facility] [id number] [facility] 2020-12-01 2020-12-01 Out[facility] [id number] [facility] 2020-10-06 2020-10-06 Out[facility] [id number] [facility] 2020-09-29 2020-09-29 [facility] [id number] [facility] 2020-09-22 2020-09-22 Out[facility] [id number] [facility] 2020-08-04 2020-08-04 Out[facility] [id number] [facility] 2020-03-17 2020-03-17 Out[facility] [id number] [facility] 2020-03-10 2020-03-10 Out[facility] [id number] [facility] 2020-03-04 2020-03-04 [facility] [id number] [facility] 2019-10-22 2019-10-22 [facility] [id number] 15:[facility]00 15:[facility] Clinics 2019-05-07 2019-05-07 [facility] [id number] 11:15:00 11:15:00 [facility] ent Clinics 2019-04-18 2019-04-18 [facility] [id number] 08:00:00 08:00:00 [facility] ent Clinics 2019-01-29 2019-01-29 [facility] [id number] 11:00:00 11:00:00 [facility] ent Clinics 2019-01-23 2019-01-23 [facility] [id number] 15:30:00 15:30:00 [facility] ent Clinics 2019-01-15 2019-01-15 [facility] [id number] 11:00:00 11:00:00 [facility] ent [facility] 2019-01-08 2019-01-08 [facility] [id number] 06:54:52 10:15:00 Encounter Robbie Chaudhary Yakov [id number] [place] [id number] [facility] [id number] [place] 07 2019-01-08 2019-01-08 Orders Doctor GRISELDA [id number] 00:00:00 00:00:00 Only Unassigned, OLAMIDE [id number] [place] [id number] 2019-01-03 2019-01-03 [facility] [id number] 14:06:00 14:06:00 [facility] ent [facility] 2019-01-01 2019-01-01 Hospice Liaison 1, Adc Lab [facility] [id number] 14:12:04 14:27:04 Visit Yakov [id number] [place] [id number] [place] [id number] [facility] 2019-01-01 2019-01-01 Orders Doctor GRISELDA [id number] 00:00:00 00:00:00 Only Unassigned, OLAMIDE [id number] [place] [id number] 2018-12-04 2018-12-04 [facility] [id number] 13:30:00 13:30:00 [facility] ent [facility] Results This patient has no known results.
[2021-05-09 20:01] LABS: Absolute Lymphocytes (CBC) 0.4 K/uL (0.7-4.9); Basophils % 0.2 % (0-1.3); Lymphocytes % 6.4 % (15.3-44.8); MPV 7.1 fL (7.6-11.3); RBC Red Blood Cell Count 3.96 M/uL (3.86-4.86)
[2021-05-09 20:05] LABS: Protime INR 1.15
[2021-05-09 20:24] LABS: ALT/SGPT 61 U/L (12-78); AST/SGOT 39 U/L (15-37); Albumin 3.2 g/dL (3.4-5.0); Alkaline Phosphatase 71 U/L (45-117); BUN Blood Urea Nitrogen 39 mg/dL (7-18); Bicarbonate 22 mmol/L (21-32); Bilirubin Direct 0.8 mg/dL (0-0.2); Bilirubin Total 1.5 mg/dL (0.2-1.0); Glucose Level 109 mg/dL (74-106); Magnesium 2.7 mg/dL (1.8-2.4); NT PRO-BNP 4724 pg/mL (<125); Potassium 3.1 mmol/L (3.5-5.1); Sodium Level 139 mmol/L (136-145); Troponin (Emerg Dept Use Only) < 0.02 ng/mL (0.0-0.045)
--- NOTE | 2021-05-09 20:24 | RAD REPORT ---
EXAM DESCRIPTION: RAD - Chest Single View - 05/09/2021 8:06 pm CLINICAL HISTORY: syncope Chest pain. COMPARISON: Chest Single View dated 05/07/2021; Chest Single View dated 03/07/2021; Chest Single Vie w dated 05/22/2018; Chest Pa And Lat (2 Views) dated 03/15/2018 FINDINGS: Portable technique limits examination quality. Moderate bilateral pulmonary opacities are present probably representing pulmonary edema or pneumonia . These appear mildly improved since comparative study from 2 days earlier. The heart is mildly enlar ged in size. No displaced fractures.
--- NOTE | 2021-05-09 20:31 | RAD REPORT ---
EXAM DESCRIPTION: CT - Head Brain Wo Cont - 05/09/2021 8:25 pm CLINICAL HISTORY: SYNCOPE Headache, drowsiness COMPARISON: No comparisons TECHNIQUE: All CT scans are performed using dose optimization technique as appropriate and may inclu de automated exposure control or mA/KV adjustment according to patient size. FINDINGS: No intracranial hemorrhage, hydrocephalus or extra-axial fluid collection.Mild generalized brain atrophy is present.No areas of brain edema or evidence of midline shift. Mild thickening of the sphenoid sinus. The paranasal sinuses and mastoids are otherwise clear. The ca lvarium is intact. IMPRESSION: No acute intracranial abnormality.
--- NOTE | 2021-05-09 20:33 | RAD REPORT ---
EXAM DESCRIPTION: CT - Abdomen Pelvis Wo Contrast - 05/09/2021 8:25 pm CLINICAL HISTORY: Abdominal pain. Diarrhea;Nausea / vomiting COMPARISON: No comparisons TECHNIQUE: CT imaging of the abdomen and pelvis was performed without contrast. Solid organ, bowel a nd vascular assessment is limited due to lack of IV and oral contrast. All CT scans are performed using dose optimization technique as appropriate and may include automated exposure control or mA/KV adjustment according to patient size. FINDINGS: Mild ground-glass opacities are present in both lung bases likely representing viral infec tion. The liver contains innumerable cysts. Polycystic kidney disease is also noted bilaterally with the in numerable renal cysts.The spleen, pancreas and adrenal glands are normal. No bowel obstruction, free air, free fluid or abscess. Mild sigmoid diverticulosis coli without diver ticulitis. The appendix is normal. The osseous structures are within normal limits. IMPRESSION: Polycystic kidney disease is noted. Ground-glass opacity in both lung bases most compatible with viral infection. A limited non-contrast examination was performed as detailed.
[2021-05-09 20:39] LABS: Arterial Blood Carboxyhemoglob 1.1 % (0-1.5); Blood Gas Oxyhemoglobin 94.1 % (94-97); Blood O2 Saturation 96.3 % (92-98.5)
[2021-05-09 20:48] LABS: Platelet Estimate ADEQ; White Blood Cell Scan OK (OK)
[2021-05-09 20:49] LABS: Blood Morphology Comment NOT SEEN (NOT SEEN)
--- NOTE | 2021-05-09 20:53 | ER ---
Nurse's Notes [facility] Name: Devika Sanchez Age: 65 yrs Sex: Female : 1955 Arrival Date: 05/09/2021 Time: 18:34 Bed 17 Private MD: Yogi Mao B Diagnosis: Syncope;ESRD on Hemodialysis;Pneumonia Presentation: 05/09 18:58 Chief complaint: EMS states: Syncopal episode while receiving dialysis treatment, ss lasting only moments. Pt has no complaints at this time. EMS reports that dialysis staff told him that patient missed 2 weeks of dialysis due to being COVID +. Coronavirus screen: Client presents with at least one sign or symptom that may indicate coronavirus-19. Standard/surgical mask placed on the client. Ebola Screen: Patient denies exposure to infectious person. Patient denies travel to an Ebola-affected area in the 21 days before illness onset. Initial Sepsis Screen: Does the patient meet any 2 criteria? No. Patient's initial sepsis screen is negative. Does the patient have a suspected source of infection? No. Patient's initial sepsis screen is negative. Risk Assessment: Do you want to hurt yourself or someone else? Patient reports no desire to harm self or others. Onset of symptoms was May 09, 2021. 18:58 Method Of Arrival: EMS: [facility] ss 18:58 Acuity: NADINE 3 ss Triage Assessment: 19:15 Pain: Denies pain. mk 23:56 General: Appears uncomfortable. mk Historical: - Allergies: 18:59 Baclofen; ss 18:59 Celebrex; ss 18:59 Celecoxib; ss 18:59 Codeine; ss 18:59 NSAIDS; ss - PMHx: 18:59 Hypothyroidism; Hypertension; pulmonary edema; POLYCYSTIC KIDNEY DISEASE; Pulmonary ss Embolism; kidney failure; hemodialysis; ESRD; Anemia; - PSHx: 18:59 bilateral carpal tunnel; fistula left arm; right knee repair; ss - Immunization history:: Client reports having NOT received the Covid vaccine. - Social history:: Smoking status: Patient denies any tobacco usage or history of. Screenin:15 Fall Risk No fall in past 12 months (0 pts). Secondary diagnosis (15 points) impaired mk mobility, IV access (20 points). Ambulatory Aid- None/Bed Rest/Nurse Assist (0 pts). Gait- Weak (10 pts.). Mental Status- Overestimates/Forgets Limitations (15 pts.). 23:55 Abuse screen: Denies threats or abuse. Nutritional screening: No deficits noted. mk Tuberculosis screening: No symptoms or risk factors identified. Assessment: 19:15 General: Appears uncomfortable, Behavior is anxious. Neuro: Level of Consciousness is mk awake, alert, obeys commands, Oriented to person, place, situation, Vault Mechanic are equal bilaterally Moves all extremities. Gait is unsteady, shuffling, Speech is normal, Facial symmetry appears normal, Pupils are PERRLA, Intact. Cardiovascular: Heart tones S1 S2 present Capillary refill < 3 seconds Pulses are 2+ in right radial artery, right dorsalis pedis artery, left radial artery and left dorsalis pedis artery Rhythm is Dialysis shunt: in the left arm, with auscultated bruit, Parent/caregiver reports patient has had syncope, since while at HD, per [facility] pt 'slumped over in the chair while at HD'. Respiratory: Airway is patent Trachea midline Respiratory effort is even, unlabored, Respiratory pattern is regular, Breath sounds are clear. GI: Abdomen is round non-distended, Bowel sounds present X 4 quads. Abd is soft and non tender X 4 quads. : No signs and/or symptoms were reported regarding the genitourinary system. Derm: Skin is intact, bruise RAC by EMS IV attempt Skin is dry, Skin is pink, warm \\T\\ dry. Skin temperature is warm. Musculoskeletal: Reports weakness in right leg and left leg. 20:16 General: Appears uncomfortable, Behavior is anxious. mk 21:15 General: Appears uncomfortable, Behavior is anxious. mk 22:22 Reassessment: No changes from previously documented assessment. Patient and/or family mk updated on plan of care and expected duration. Pain level reassessed. Patient is alert, oriented x 3, equal unlabored respirations, skin warm/dry/pink. 23:41 Reassessment: Patient and/or family updated on plan of care and expected duration. Pain mk level reassessed. Patient is alert, oriented x 3, equal unlabored respirations, skin warm/dry/pink. Patient states feeling better. 05/10 00:34 Reassessment: No changes from previously documented assessment. Patient and/or family mk updated on plan of care and expected duration. Pain level reassessed. Patient is alert, oriented x 3, equal unlabored respirations, skin warm/dry/pink. 01:24 Reassessment: Patient and/or family updated on plan of care and expected duration. Pain mk level reassessed. Patient is alert, oriented x 3, equal unlabored respirations, skin warm/dry/pink. General: Appears uncomfortable, Behavior is anxious. 02:30 Reassessment: No changes from previously documented assessment. Patient and/or family mk updated on plan of care and expected duration. Pain level reassessed. Patient is alert, oriented x 3, equal unlabored respirations, skin warm/dry/pink. pt asking anxiously for medications for anxiety as well as pt's , RN notifying MD. 03:28 Reassessment: No changes from previously documented assessment. Patient is alert, mk oriented x 3, equal unlabored respirations, skin warm/dry/pink. Patient states feeling better. General: Appears in no apparent distress. 03:29 Reassessment: No changes from previously documented assessment. Patient and/or family mk updated on plan of care and expected duration. Pain level reassessed. Patient is alert, oriented x 3, equal unlabored respirations, skin warm/dry/pink. 04:24 Reassessment: No changes from previously documented assessment. Patient and/or family mk updated on plan of care and expected duration. Pain level reassessed. Patient is alert, oriented x 3, equal unlabored respirations, skin warm/dry/pink. 05:15 Reassessment: No changes from previously documented assessment. Patient and/or family mk updated on plan of care and expected duration. Pain level reassessed. Patient is alert, oriented x 3, equal unlabored respirations, skin warm/dry/pink. 06:10 Reassessment: No changes from previously documented assessment. Patient and/or family mk updated on plan of care and expected duration. Pain level reassessed. Patient is alert, oriented x 3, equal unlabored respirations, skin warm/dry/pink. General: Appears Behavior is cooperative. Vital Signs: 05/09 18:58 Resp 18; Height 5 ft. 0 in. (152.40 cm); Pain 0/10; ss 19:08 Pulse 71; Temp 97.2(TE); Pulse Ox 98% on R/A; ss 19:39 BP 140 / 97; Pulse 63; Resp 18; Pulse Ox 97% on R/A; mk 20:44 BP 142 / 81; Pulse 68; Resp 20 S; Pulse Ox 98% on R/A; as6 22:31 BP 159 / 103; Pulse 72; Resp 18; Pulse Ox 97% on R/A; mk 23:15 BP 137 / 81; Pulse 71; Resp 18; Pulse Ox 97% ; mk 05/10 00:10 BP 148 / 84; Pulse 74; Resp 18; Pulse Ox 97% on R/A; mk 01:00 BP 135 / 75; Pulse 63; Resp 16; Pulse Ox 97% on R/A; mk 02:12 BP 127 / 66; Pulse 63; Resp 22; Pulse Ox 95% on R/A; mk 02:12 BP 115 / 67; Pulse 67; Resp 18; Pulse Ox 95% on R/A; mk 03:28 BP 139 / 67; Pulse 76; Resp 18; Pulse Ox 98% on R/A; mk 04:21 BP 119 / 65; Pulse 88; Resp 18; Pulse Ox 97% on R/A; mk 05:20 BP 115 / 58; Pulse 67; Resp 18; Pulse Ox 96% on R/A; mk 06:10 BP 110 / 68; Pulse 67; Resp 18; Pulse Ox 94% on R/A; mk [place] Coma Score: 05/09 19:09 Eye Response: spontaneous(4). Verbal Response: confused(4). Motor Response: obeys mk commands(6). Total: 14. 20:52 Eye Response: spontaneous(4). Verbal Response: confused(4). Motor Response: obeys mk commands(6). Total: 14. 22:31 Eye Response: spontaneous(4). Verbal Response: oriented(5). Motor Response: obeys mk commands(6). Total: 15. 23:15 Eye Response: spontaneous(4). Verbal Response: oriented(5). Motor Response: obeys mk commands(6). Total: 15. 05/10 01:00 Eye Response: spontaneous(4). Verbal Response: oriented(5). Motor Response: obeys mk commands(6). Total: 15. 02:12 Eye Response: spontaneous(4). Verbal Response: oriented(5). Motor Response: obeys mk commands(6). Total: 15. 03:28 Eye Response: spontaneous(4). Verbal Response: oriented(5). Motor Response: obeys mk commands(6). Total: 15. 04:21 Eye Response: spontaneous(4). Verbal Response: oriented(5). Motor Response: obeys mk commands(6). Total: 15. 05:20 Eye Response: spontaneous(4). Verbal Response: oriented(5). Motor Response: obeys mk commands(6). Total: 15. 06:10 Eye Response: spontaneous(4). Verbal Response: oriented(5). Motor Response: obeys mk commands(6). Total: 15. ED Course: 05/09 18:34 Patient arrived in ED. mr 18:34 Yogi Mao MD is Private Physician. mr 18:59 Triage completed. ss 18:59 Arm band placed on right wrist. ss 19:02 Chris Torrez MD is Attending Physician. 7 19:15 Patient has correct armband on for positive identification. Allergy band placed. Fall mk risk band placed. Placed in gown. Bed in low position. Call light in reach. Side rails up X 1. 19:39 Marianne Banuelos, RN is Primary Nurse. mk 19:56 Inserted saline lock: 20 gauge in right antecubital area, using aseptic technique. oe Blood collected. 20:06 XRAY Chest (1 view) In Process Unspecified. EDMS 20:24 CT Head Brain wo Cont In Process Unspecified. EDMS 20:25 CT Abd/Pelvis - Without Contrast In Process Unspecified. EDMS 20:28 Notified ED physician of a critical lab result(s). Creatinine 9.47. lp1 20:52 Hermelindo Marrufo is Hospitalizing Provider. 7 20:59 CBC with Diff Sent. mk 20:59 Basic Metabolic Panel Sent. mk 21:56 COVID-19/FLU A+B/RSV Sent. mk 21:57 Blood Culture Sent. mk 22:32 COVID-19/FLU A+B/RSV Sent. mk 22:32 Blood Culture Sent. mk 22:32 Blood Culture Adult (2) Sent. mk 22:32 COVID-19/FLU A+B/RSV (Document "Date of Onset" if Symptomatic) Sent. mk 23:56 No provider procedures requiring assistance completed. 05/10 07:29 Primary Nurse role handed off by Marianne Banuelos RN bp 07:29 Marcelo Echevarria, RN is Primary Nurse. bp 10:08 Hospitalizing Provider role handed off by Hermelindo Marrufo eb 10:08 May Real MD is Hospitalizing Provider. eb 16:09 IV discontinued, intact, bleeding controlled, No redness/swelling at site. ld1 Administered Medications: 05/09 21:56 Drug: Rocephin (cefTRIAXone) 1 grams Route: IV; Rate: per protocol; Site: right mk antecubital; 23:55 Follow up: Response: No adverse reaction; IV Status: Completed infusion; IV Intake: 10mlmk 22:32 Drug: AZITHromycin 500 mg Route: IVPB; Infused Over: 1 hrs; Site: right antecubital; mk 23:55 Follow up: Response: No adverse reaction; IV Status: Completed infusion; IV Intake: mk 250ml 22:32 Drug: Ativan (LORazepam) 0.5 mg Route: PO; mk 23:55 Follow up: Response: Anxiety decreased mk Intake: 23:55 IV: 250ml; Total: 250ml. mk 23:55 IV: 10ml; Total: 260ml. Outcome: 20:53 Decision to Hospitalize by Provider. [facility] 05/10 16:09 Discharged to home via wheelchair, with family. ld1 Condition: stable Discharge instructions given to patient, family, Instructed on discharge instructions, follow up and referral plans. medication usage, Demonstrated understanding of instructions, follow-up care, medications, Prescriptions given X 2. 16:09 Patient left the ED. ld1 Signatures: Dispatcher [facility] Karishma JonasGabby RN TIA Sonal Horvath RN RN lp1 Honorio Cardoza Marcelo Echevarria, RN RN Randi Meng Maurice, MD MD [facility] Lucinda Lopez, TIA WEBER ld1 Jean-Pierre Zavaleta RN RN as6 Marianne Banuelos, TIA WEBER Corrections: (The following items were deleted from the chart) 05/09 23:54 23:52 BP 137 / 81; Pulse 71bpm; Resp 18bpm; Pulse Ox 97%; mk 05/10 06:07 1218 22:22 Reassessment: [facility]
--- NOTE | 2021-05-09 20:54 | EDPHYS ---
Physician Documentation [facility] Name: Devika Sanchez Age: 65 yrs Sex: Female : 1955 Arrival Date: 05/09/2021 Time: 18:34 Bed 17 Private MD: Yogi Mao B ED Physician Chris Torrez HPI: 05/09 19:31 This 65 yrs old Female presents to ER via EMS with complaints of Syncope. mh7 19:31 The patient has experienced syncope, lost consciousness. Onset: The symptoms/episode mh7 began/occurred just prior to arrival, today. Duration: This was a single episode, that lasted an unknown period of time, Brief episode per EMS from bystanders. Context: the episode(s) was witnessed, by a bystander, Dialysis staff, occurred Dialysis center, occurred while the patient was sitting, Receiving dialysis. Just prior to the episode the patient experienced no apparent symptoms. Associated injury: The patient did not suffer any apparent associated injury. Associated signs and symptoms: Pertinent positives: nausea, vomiting, weakness, Generalized fatigue/weakness, Pertinent negatives: abdominal pain, agitation, ataxia, blurred vision, chest pain, combativeness, confusion, diaphoresis, dizziness, headache, lightheadedness, numbness, palpitations, seizure, shortness of breath, tingling, vertigo. 19:31 Current symptoms: Nausea. mh7 19:31 Patient states that she has been feeling generalized fatigue/weakness for 2 weeks since mh7 testing positive for Covid. She also reports missing dialysis for the past 2 weeks due to Covid symptoms. Denies any fever, cough, headache, chest pain, abdominal pain, dizziness, numbness/tingling, or focal weakness. She has had nausea, vomiting, and diarrhea over the past 2 weeks.. Historical: - Allergies: 18:59 Baclofen; ss 18:59 Celebrex; ss 18:59 Celecoxib; ss 18:59 Codeine; ss 18:59 NSAIDS; ss - PMHx: 18:59 Hypothyroidism; Hypertension; pulmonary edema; POLYCYSTIC KIDNEY DISEASE; Pulmonary ss Embolism; kidney failure; hemodialysis; ESRD; Anemia; - PSHx: 18:59 bilateral carpal tunnel; fistula left arm; right knee repair; ss - Immunization history:: Client reports having NOT received the Covid vaccine. - Social history:: Smoking status: Patient denies any tobacco usage or history of. ROS: 19:31 Constitutional: Negative for fever, chills, and weight loss, Eyes: Negative for injury, mh7 pain, redness, and discharge, ENT: Negative for injury, pain, and discharge, Neck: Negative for injury, pain, and swelling, Cardiovascular: Negative for chest pain, palpitations, and edema, Respiratory: Negative for shortness of breath, cough, wheezing, and pleuritic chest pain, Back: Negative for injury and pain, : Negative for injury, bleeding, discharge, and swelling, MS/Extremity: Negative for injury and deformity, Skin: Negative for injury, rash, and discoloration, Neuro: Negative for headache, weakness, numbness, tingling, and seizure, Psych: Negative for depression, anxiety, suicide ideation, homicidal ideation, and hallucinations, Allergy/Immunology: Negative for hives, rash, and allergies, Endocrine: Negative for neck swelling, polydipsia, polyuria, polyphagia, and marked weight changes, Hematologic/Lymphatic: Negative for swollen nodes, abnormal bleeding, and unusual bruising. Exam: 19:31 Constitutional: This is a well developed, well nourished patient who is awake, alert, mh7 and in no acute distress. Head/Face: Normocephalic, atraumatic. Eyes: Pupils equal round and reactive to light, extra-ocular motions intact. Lids and lashes normal. Conjunctiva and sclera are non-icteric and not injected. Cornea within normal limits. Periorbital areas with no swelling, redness, or edema. Neck: Trachea midline, no thyromegaly or masses palpated, and no cervical lymphadenopathy. Supple, full range of motion without nuchal rigidity, or vertebral point tenderness. No Meningismus. Chest/axilla: Normal chest wall appearance and motion. Nontender with no deformity. No lesions are appreciated. Cardiovascular: Regular rate and rhythm with a normal S1 and S2. No gallops, murmurs, or rubs. Normal PMI, no JVD. No pulse deficits. Respiratory: Lungs have equal breath sounds bilaterally, clear to auscultation and percussion. No rales, rhonchi or wheezes noted. No increased work of breathing, no retractions or nasal flaring. Abdomen/GI: Soft, non-tender, with normal bowel sounds. No distension or tympany. No guarding or rebound. No evidence of tenderness throughout. Back: No spinal tenderness. No costovertebral tenderness. Full range of motion. Skin: Warm, dry with normal turgor. Normal color with no rashes, no lesions, and no evidence of cellulitis. MS/ Extremity: Pulses equal, no cyanosis. Neurovascular intact. Full, normal range of motion. 19:31 Neuro: Orientation: to person, place, situation, Mentation: appropriate for stated age, Memory: appropriate for stated age, Cranial nerves: grossly normal, Cerebellar function: is grossly normal, Motor: is normal, Sensation: is normal, Gait: not tested. seizure activity, is not displayed by the patient, Abnormal movements: there are no abnormal movements. 19:31 Psych: Behavior/mood is pleasant, cooperative, Affect is calm, Oriented to person, place, Patient has no thoughts/intents to harm self or others. Judgement / Insight is normal. Memory is normal. Delusions/hallucinations are not present. Vital Signs: 18:58 Resp 18; Height 5 ft. 0 in. (152.40 cm); Pain 0/10; ss 19:08 Pulse 71; Temp 97.2(TE); Pulse Ox 98% on R/A; ss 19:39 BP 140 / 97; Pulse 63; Resp 18; Pulse Ox 97% on R/A; mk 20:44 BP 142 / 81; Pulse 68; Resp 20 S; Pulse Ox 98% on R/A; as6 22:31 BP 159 / 103; Pulse 72; Resp 18; Pulse Ox 97% on R/A; mk 23:15 BP 137 / 81; Pulse 71; Resp 18; Pulse Ox 97% ; mk 12 00:10 BP 148 / 84; Pulse 74; Resp 18; Pulse Ox 97% on R/A; mk 01:00 BP 135 / 75; Pulse 63; Resp 16; Pulse Ox 97% on R/A; mk 02:12 BP 127 / 66; Pulse 63; Resp 22; Pulse Ox 95% on R/A; mk 02:12 BP 115 / 67; Pulse 67; Resp 18; Pulse Ox 95% on R/A; mk 03:28 BP 139 / 67; Pulse 76; Resp 18; Pulse Ox 98% on R/A; mk 04:21 BP 119 / 65; Pulse 88; Resp 18; Pulse Ox 97% on R/A; mk 05:20 BP 115 / 58; Pulse 67; Resp 18; Pulse Ox 96% on R/A; mk 06:10 BP 110 / 68; Pulse 67; Resp 18; Pulse Ox 94% on R/A; mk [place] Coma Score: 05/09 19:09 Eye Response: spontaneous(4). Verbal Response: confused(4). Motor Response: obeys mk commands(6). Total: 14. 20:52 Eye Response: spontaneous(4). Verbal Response: confused(4). Motor Response: obeys mk commands(6). Total: 14. 22:31 Eye Response: spontaneous(4). Verbal Response: oriented(5). Motor Response: obeys mk commands(6). Total: 15. 23:15 Eye Response: spontaneous(4). Verbal Response: oriented(5). Motor Response: obeys mk commands(6). Total: 15. 05/10 01:00 Eye Response: spontaneous(4). Verbal Response: oriented(5). Motor Response: obeys mk commands(6). Total: 15. 02:12 Eye Response: spontaneous(4). Verbal Response: oriented(5). Motor Response: obeys mk commands(6). Total: 15. 03:28 Eye Response: spontaneous(4). Verbal Response: oriented(5). Motor Response: obeys mk commands(6). Total: 15. 04:21 Eye Response: spontaneous(4). Verbal Response: oriented(5). Motor Response: obeys mk commands(6). Total: 15. 05:20 Eye Response: spontaneous(4). Verbal Response: oriented(5). Motor Response: obeys mk commands(6). Total: 15. 06:10 Eye Response: spontaneous(4). Verbal Response: oriented(5). Motor Response: obeys mk commands(6). Total: 15. MDM: 05/09 20:51 Differential Diagnosis: cardiac arrhythmia, cerebrovascular accident, drug effect, mh7 emotional response, idiopathic syncope, pseudo seizure, seizure, sepsis, transient ischemic attack, vasovagal episode. Data reviewed: vital signs, nurses notes, EMS record, old medical records, lab test result(s), cardiac enzymes, CBC, electrolytes, EKG, radiologic studies, CT scan, plain films. Data interpreted: Pulse oximetry: on room air is 98 %. Interpretation: normal. Counseling: I had a detailed discussion with the patient and/or guardian regarding: the historical points, exam findings, and any diagnostic results supporting the discharge/admit diagnosis, the presence of at least one elevated blood pressure reading (>120/80) during this emergency department visit, lab results, radiology results, the need for further work-up and treatment in the hospital. Response to treatment: the patient's symptoms have mildly improved after treatment. 20:53 Patient medically screened. [facility] 05/09 19:29 Order name: Basic Metabolic Panel [facility] 05/09 19:29 Order name: CBC with Diff [facility] 05/09 19:29 Order name: LFT's; Complete Time: 20:29 [facility] 05/09 19:29 Order name: Magnesium; Complete Time: 20:29 [facility] 05/09 19:29 Order name: NT PRO-BNP; Complete Time: 20:29 [facility] 05/09 19:29 Order name: PT-INR; Complete Time: 20:24 [facility] 05/09 19:29 Order name: Troponin (emerg Dept Use Only); Complete Time: 20:29 [facility] 05/09 19:29 Order name: Arterial Blood Gas; Complete Time: 20:50 [facility] 05/09 19:30 Order name: Basic Metabolic Panel; Complete Time: 20:29 [facility] 05/09 19:30 Order name: CBC with Automated Diff; Complete Time: 20:50 [facility] 05/09 20:33 Order name: Blood Culture Adult (2) [facility] 05/09 20:33 Order name: COVID-19/FLU A+B/RSV (Document "Date of Onset" if Symptomatic) [facility] 05/09 20:34 Order name: Blood Culture [facility] 05/09 20:34 Order name: COVID-19/FLU A+B/RSV; Complete Time: 01:42 [facility] 05/09 19:29 Order name: XRAY Chest (1 view); Complete Time: 20:26 [facility] 05/09 19:29 Order name: CT Head Brain wo Cont; Complete Time: 20:34 [facility] 05/09 19:35 Order name: CT Abd/Pelvis - Without Contrast; Complete Time: 20:36 [facility] 05/09 20:48 Order name: CBC Smear Scan; Complete Time: 20:50 [facility] 05/10 01:45 Order name: Lactate [facility] 05/10 01:59 Order name: C-Reactive Protein [facility] 05/10 01:59 Order name: Ferritin [facility] 05/10 02:06 Order name: Procalcitonin [facility] 05/10 06:05 Order name: CBC with Automated Diff [facility] 05/10 09:02 Order name: Comprehensive Metabolic Panel [facility] 05/10 09:03 Order name: Phosphorus [facility] 05/10 09:03 Order name: Lipid Profile [facility] 05/10 09:03 Order name: T4 Free [facility] 05/10 09:03 Order name: Magnesium [facility] 05/10 09:03 Order name: Thyroid Stimulating Hormone [facility] 05/10 09:06 Order name: LDL, Direct [facility] 05/09 19:29 Order name: EKG; Complete Time: 19:30 mh7 05/09 19:29 Order name: Cardiac monitoring; Complete Time: 20:45 mh7 05/09 19:29 Order name: EKG - Nurse/Tech; Complete Time: 20:45 mh7 05/09 19:29 Order name: IV Saline Lock; Complete Time: 20:45 mh7 05/09 19:29 Order name: Labs collected and sent; Complete Time: 20:45 mh7 05/09 19:29 Order name: O2 Per Protocol; Complete Time: 20:45 mh7 05/09 19:29 Order name: O2 Sat Monitoring; Complete Time: 20:45 mh7 Administered Medications: 21:56 Drug: Rocephin (cefTRIAXone) 1 grams Route: IV; Rate: per protocol; Site: right antecubital; 23:55 Follow up: Response: No adverse reaction; IV Status: Completed infusion; IV Intake: 10mlmk 22:32 Drug: AZITHromycin 500 mg Route: IVPB; Infused Over: 1 hrs; Site: right antecubital; 23:55 Follow up: Response: No adverse reaction; IV Status: Completed infusion; IV Intake: mk 250ml 22:32 Drug: Ativan (LORazepam) 0.5 mg Route: PO; 23:55 Follow up: Response: Anxiety decreased Disposition Summary: 05/09/21 20:53 Hospitalization Ordered Hospitalization Status: Inpatient Admission [facility] Condition: Stable [facility] Problem: new [facility] Symptoms: have improved mh7 Bed/Room Type: Standard [facility] Provider: May Real(05/10/21 10:08) eb Location: Intensive Care Unit(05/10/21 12:57) eb Room Assignment: 8-(05/10/21 12:57) eb Diagnosis - Syncope mh7 - ESRD on Hemodialysis mh7 - Pneumonia [facility] Forms: - Medication Reconciliation Form mh7 - SBAR form 7 Signatures: Dispatcher [employer] EDMS Katie Blanco RN RN Gabby Gomez RN RN Randi Carrion Maurice, MD MD [facility] Jeremias Washburn PA PA ej Kotarski, Madeline RN RN mk Corrections: (The following items were deleted from the chart) 21:03 20:53 Telemetry/MedSurg (Inpatient) [facility] 21:03 20:53 [facility] 05/10 10:08 12 20:53 Hermelindo Marrufo [facility] 05/10 12:57 05/09 21:03 [facility] ER [facility] 05/10 12:57 05/09 21:03 [facility]
[2021-05-09] MEDS ORDERED: CEFTRIAXONE 1000 MG/VIAL ONE (21:05)
[2021-05-09] MEDS ORDERED: WATER FOR INJ,STERILE 10 ML ONE (21:06)
[2021-05-09] MEDS ORDERED: AZITHROMYCIN 500 MG INJ IVPB ONE (21:06)
[2021-05-09] MEDS ORDERED: NA CHLORIDE 0.9% 250 ML ONE (21:07)
[2021-05-09] MEDS ORDERED: LORAZEPAM 0.5 MG TABLET ONE (22:18)
--- NOTE | 2021-05-09 22:25 | P.HP ---
Certification for Inpatient Patient admitted to: Observation With expected LOS: <2 Midnights Patient will require the following post-hospital care: None Practitioner: I am a practitioner with admitting privileges, knowledge of patient current condition, hospital course, and medical plan of care. Services: Services provided to patient in accordance with Admission requirements found in Title 42 Section 412.3 of the Code of Federal Regulations Patient History Date of Service: 05/09/21 Reason for admission: syncope History of Present Illness: Ms. Sanchez is a 65 yo F with ESRD on HD TTS, HTN, hypothyroidism who presents after syncopal episode while receiving dialysis today. She says she became diaphoretic and next thing she remembers is a staff member doing a sternal rub on her chest. Denies dizziness, lightheadness, fall. She has had COVID for the past two weeks and has not been going to dialysis. Today was her first session back. She has been having fatigue, weakness, nausea, vomiting, and diarrhea. Denies fever, cough and SOB. She has had poor appetite and decreased fluid intake for the past 10 days. She says in the past she had syncopal episodes during dialysis when her blood pressure was low. K 3.1 BUN 39 Cr 9.47 GFR 4 Mg 2.7 Tbili 1.5 Dbili 0.8 AST 39 BNP 4724. Received IV antibiotics in the ED. CT HEAD WO CONTRAST IMPRESSION: No acute intracranial abnormality. CTAP IMPRESSION: Polycystic kidney disease is noted. Ground-glass opacity in both lung bases most compatible with viral infection. CXR FINDINGS: Moderate bilateral pulmonary opacities are present probably representing pulmonary edema or pneumonia. These appear mildly improved since comparative study from 2 days earlier. The heart is mildly enlarged in size. No displaced fractures. Allergies celecoxib [From Celebrex] Allergy (Verified 11/14/17 14:29) Rash codeine Allergy (Verified 11/14/17 14:29) Unknown adhesive tape Adverse Reaction (Verified 11/14/17 14:29) Rash BACLOFEN Allergy (Mild, Uncoded 11/14/17 14:29) Unknown NSAIDS Allergy (Uncoded 11/14/17 14:29) Anaphylaxis Home Medications: Folic Acid/Vit B Complex and C [Treva-Denny Tablet] 1 tab PO DAILY 02/24/17 Levothyroxine [Synthroid*] 1 tab PO DAILY 02/24/17 Sevelamer Carbonate [Renvela*] 800 mg PO TID 09/17/17 Escitalopram [Lexapro*] 1 tab PO DAILY 11/14/17 Zolpidem Tartrate [Ambien*] 1 tab PO BEDTIME 11/14/17 - Past Medical/Surgical History Diabetic: No -: HTN -: Hypothyroidism -: ESRD ON HD TTS -: Sleep apnea patient compliant with her CPAP -: Polycystic kidney disease -: carpal tunnel -: R knee sx -: bilateral carpal tunnel repair. -: 2 dialysis catheter placements. - Family History Father -: Heart disease, Hypertension Mother -: Hypertension, Kidney disease Notes: polycystic kidney disease - Social History Smoking Status: Never smoker Alcohol use: No CD- Drugs: No Caffeine use: Yes Place of Residence: Home Review of Systems 10-point ROS is otherwise unremarkable General: Sweats, Weakness, Malaise Eyes: Unremarkable ENT: Unremarkable Respiratory: Unremarkable Cardiovascular: Unremarkable Gastrointestinal: Nausea, Vomiting, Diarrhea, As per HPI Genitourinary: Unremarkable Musculoskeletal: Unremarkable Integumentary: Unremarkable Neurological: Unremarkable Lymphatics: Unremarkable Physical Examination - Physical Exam General: Alert, In no apparent distress HEENT: Atraumatic, PERRLA, Mucous membr. moist/pink, EOMI, Sclerae nonicteric Neck: Supple, 2+ carotid pulse no bruit, No LAD, Without JVD or thyroid abnormality Respiratory: Clear to auscultation bilaterally, Normal air movement Cardiovascular: Regular rate/rhythm, Normal S1 S2 Gastrointestinal: Normal bowel sounds, No tenderness Musculoskeletal: No tenderness Integumentary: No rashes Neurological: Normal speech, Normal strength at 5/5 x4 extr, Normal tone, Normal affect Lymphatics: No axilla or inguinal lymphadenopathy - Studies Laboratory Data (last 24 hrs) 05/09/21 19:52: PT 13.3 H, INR 1.15 05/09/21 19:52: WBC 7.00 D, Hgb 12.1, Hct 36.0, Plt Count 190 D 05/09/21 19:52: Sodium 139, Potassium 3.1 L, BUN 39 H D, Creatinine 9.47 H* D, Glucose 109 H, Magnesium 2.7 H, Total Bilirubin 1.5 H, AST 39 H, ALT 61, Alkaline Phosphatase 71 Assessment and Plan - Problems (Diagnosis) (1) Syncope Current Visit: Yes Status: Acute Qualifiers: Syncope type: unspecified Qualified Code(s): R55 - Syncope and collapse (2) COVID Current Visit: Yes Status: Acute (3) Missed dialysis Current Visit: Yes Status: Acute (4) ESRD (end stage renal disease) Onset Date: 11/17/17 Current Visit: No Status: Chronic (5) Essential hypertension Onset Date: 11/17/17 Current Visit: No Status: Chronic (6) Hypothyroidism Onset Date: 11/17/17 Current Visit: No Status: Chronic Qualifiers: Hypothyroidism type: acquired Qualified Code(s): E03.9 - Hypothyroidism, unspecified (7) Polycystic kidney disease Current Visit: No Status: Chronic - Plan CRP, ferritin, procal, lactate pending on tele, repeat EKG, orthostatic VS hydralazine PRN for BP antiemetics as needed reconcile and continue home medications DVT ppx Discharge Plan: Home Plan to discharge in: 24 Hours - Advance Directives Does patient have a Living Will: No Does patient have a Durable POA for Healthcare: No - Code Status/Comfort Care Code Status Assessed: Yes (full code ) Critical Care: No Time Spent Managing Pts Care (In Minutes): 70
[2021-05-09 22:52] LABS: SARS-COV-2 RT PCR POSITIVE (NEGATIVE)
[2021-05-10] MEDS ORDERED: HYDRALAZINE HCL 20 MG/ML VIAL IV PRN (00:44)
[2021-05-10] MEDS ORDERED: LORAZEPAM 0.5 MG TABLET PO PRN (00:44)
[2021-05-10] MEDS ORDERED: ONDANSETRON 4 MG/2 ML VIAL IV PRN (00:44)
[2021-05-10] MEDS ORDERED: ACETAMINOPHEN 500 MG TAB PO PRN (00:44)
[2021-05-10] MEDS: HEPARIN 5000 UNIT/ML 1 ML VIAL SQ SCH ×2 (01:00→09:00)
[2021-05-10] MEDS ORDERED: ZOLPIDEM TARTRATE 5 MG TABLET PO SCH (01:14)
[2021-05-10] MEDS ORDERED: HEPARIN 5000 UNIT/ML 1 ML VIAL ONE (01:31)
[2021-05-10] MEDS ORDERED: ZOLPIDEM TARTRATE 5 MG TABLET ONE (01:32)
[2021-05-10 01:59] LABS: C-Reactive Protein 78.7 mg/L (<3.00); Ferritin 2317.5 ng/mL (8-388)
[2021-05-10 06:04] LABS: Absolute Lymphocytes (CBC) 0.9 K/uL (0.7-4.9); Basophils % 0.5 % (0-1.3); Hematocrit 34.9 % (36.0-45.0); MPV 8.2 fL (7.6-11.3); RBC Red Blood Cell Count 3.78 M/uL (3.86-4.86)
--- NOTE | 2021-05-10 07:41 | P.CNS ---
Date of Consult: 05/10/21 Reason for Consult: ESRD Requesting Physician: May Real Chief Complaint: syncope History of Present Illness: 65F w/ PMHx of ESRD on HD qTTS, last HD received yesterday, who became unresponsive x 45 sec while receiving HD yesterday afternoon. VS were stable & no tongue biting, facial droop, chest pain, MANN, or dizzeness at that time. Admitted for further eval & mngt. Allergies celecoxib [From Celebrex] Allergy (Verified 11/14/17 14:29) Rash codeine Allergy (Verified 11/14/17 14:29) Unknown adhesive tape Adverse Reaction (Verified 11/14/17 14:29) Rash BACLOFEN Allergy (Mild, Uncoded 11/14/17 14:29) Unknown NSAIDS Allergy (Uncoded 11/14/17 14:29) Anaphylaxis Home Medications: Folic Acid/Vit B Complex and C [Treva-Denny Tablet] 1 tab PO DAILY 02/24/17 Levothyroxine [Synthroid*] 1 tab PO DAILY 02/24/17 Sevelamer Carbonate [Renvela*] 800 mg PO TID 09/17/17 Escitalopram [Lexapro*] 1 tab PO DAILY 11/14/17 Zolpidem Tartrate [Ambien*] 1 tab PO BEDTIME 11/14/17 Dexamethasone [Decadron] 6 mg PO DAILY #5 tablet 05/10/21 Furosemide 2 tab PO BID 05/10/21 Hydrocodone/Acetaminophen [Hydrocodone-Acetamin 5-325 mg] 1 each PO Q6HR PRN 05/10/21 Zinc Sulfate [Zinc Sulfate*] 220 mg PO BID #20 cap 05/10/21 - Past Medical/Surgical History Diabetic: No -: HTN -: Hypothyroidism -: ESRD ON HD TTS -: Sleep apnea patient compliant with her CPAP -: Polycystic kidney disease -: carpal tunnel -: R knee sx -: bilateral carpal tunnel repair. -: 2 dialysis catheter placements. - Family History Father Medical History: Heart disease, Hypertension Mother Medical History: Hypertension, Kidney disease Notes: polycystic kidney disease - Social History Alcohol use: No CD- Drugs: No Caffeine use: Yes Place of Residence: Home Review of Systems General: Weakness Eyes: Unremarkable ENT: Unremarkable Respiratory: Unremarkable Cardiovascular: Other (syncope) Gastrointestinal: Unremarkable Genitourinary: Unremarkable Musculoskeletal: Unremarkable Integumentary: Unremarkable Neurological: Unremarkable Lymphatics: Unremarkable Other: Anxiety Physical Examination General: In no apparent distress HEENT: Atraumatic, Normocephalic Neck: 2+ carotid pulse no bruit Respiratory: Other (symmetric chest expansion) Cardiovascular: No rubs, No murmurs Gastrointestinal: Soft and benign, No guarding Musculoskeletal: No clubbing Integumentary: No warmth Neurological: Normal speech, Normal tone Urinary: Other (no bladder distention) External genitalia: Deferred Rectal: Deferred Laboratory Data (last 24 hrs) 05/09/21 19:52: PT 13.3 H, INR 1.15 05/09/21 19:52: WBC 7.00 D, Hgb 12.1, Hct 36.0, Plt Count 190 D 05/09/21 19:52: Sodium 139, Potassium 3.1 L, BUN 39 H D, Creatinine 9.47 H* D, Glucose 109 H, Magnesium 2.7 H, Total Bilirubin 1.5 H, AST 39 H, ALT 61, Alkaline Phosphatase 71 Conclusions/Impression: # ESRD on HD qTTS at [facility] Received HD yesterday Next HD Tue HD access: [place] AVF EDW: 101 kgs Renal vit po daily Renal diet Monitor renal panel # Syncope Occured during HD on 05/09/21 w/ stable VS ? non-convulsive seizure, r/o dialysis dysequilibrium BUN 116 on 05/07 & 39 on 05/09 No EKG or telemetry abnormalities Per other services # Anemia Monitor H/H # Renal osteodystrophy Monitor Ca & Phos # Covid infection Decadron # Generalized anxiety disorder Start Sertraline 50 mg po daily # Dispo Dc today request for help to take care of pt at home. Will arrange for home provider visits.
[2021-05-10] MEDS ORDERED: LORAZEPAM 1 MG TABLET ONE (07:48)
[2021-05-10 08:24] VITALS: BMI 35.2
[2021-05-10 08:57] LABS: Bicarbonate 21 mmol/L (21-32); Glucose Level 101 mg/dL (74-106); Potassium 3.4 mmol/L (3.5-5.1); Sodium Level 139 mmol/L (136-145)
[2021-05-10 08:58] LABS: ALT/SGPT 58 U/L (12-78); AST/SGOT 31 U/L (15-37); Alkaline Phosphatase 66 U/L (45-117); BUN Blood Urea Nitrogen 47 mg/dL (7-18); Bilirubin Total 1.1 mg/dL (0.2-1.0)
[2021-05-10 08:59] LABS: HDL Cholesterol 35 mg/dL (40-60); Phosphorus 5.4 mg/dL (2.5-4.9); Protein, Total 7.7 g/dL (6.4-8.2)
[2021-05-10 09:00] LABS: Magnesium 2.5 mg/dL (1.8-2.4)
[2021-05-10 09:05] LABS: LDL, Direct 67 mg/dL (100-129)
[2021-05-10] MEDS ORDERED: ONDANSETRON 4 MG/2 ML VIAL ONE (09:31)
[2021-05-10] MEDS ORDERED: AMLODIPINE 5 MG TAB PO ONE (09:41)
[2021-05-10 09:47] VITALS: O2SAT 98
[2021-05-10 13:11] VITALS: BP 132/81
[2021-05-10] MEDS ORDERED: POTASSIUM 25 MEQ EFFERV TAB PO ONE (14:23)
--- NOTE | 2021-05-10 14:23 | P.DS ---
Admission Date: 05/09/21 Discharge Date: 05/10/21 Disposition: ROUTINE DISCHARGE Discharge Condition: FAIR Reason for Admission: syncope Brief History of Present Illness: History of Present Illness: Ms. Sanchez is a 65 yo F with ESRD on HD TTS, HTN, hypothyroidism who presents after syncopal episode while receiving dialysis today. She says she became diaphoretic and next thing she remembers is a staff member doing a sternal rub on her chest. Denies dizziness, lightheadness, fall. She has had COVID for the past two weeks and has not been going to dialysis. Today was her first session back. She has been having fatigue, weakness, nausea, vomiting, and diarrhea. Denies fever, cough and SOB. She has had poor appetite and decreased fluid intake for the past 10 days. She says in the past she had syncopal episodes during dialysis when her blood pressure was low. K 3.1 BUN 39 Cr 9.47 GFR 4 Mg 2.7 Tbili 1.5 Dbili 0.8 AST 39 BNP 4724. Received IV antibiotics in the ED. CT HEAD WO CONTRAST IMPRESSION: No acute intracranial abnormality. CTAP IMPRESSION: Polycystic kidney disease is noted. Ground-glass opacity in both lung bases most compatible with viral infection. CXR FINDINGS: Moderate bilateral pulmonary opacities are present probably representing pulmonary edema or pneumonia. These appear mildly improved since comparative study from 2 days earlier. The heart is mildly enlarged in size. No displaced fractures. Allergies celecoxib [From Celebrex] Allergy (Verified 11/14/17 14:29) Rash codeine Allergy (Verified 11/14/17 14:29) Unknown adhesive tape Adverse Reaction (Verified 11/14/17 14:29) Rash Hospital Course: 59-year-old female with history of hypertension, ESRD, recently diagnosed Covid positive status in the last week admitted after developing syncope during [id number] dialysis yesterday night. She has apparently missed dialysis for 2 weeks prior to restarting [id number] dialysis now. On admission her potassium was 3.4 creatinine of 9.6 with BUN down to 39. She was started on gentle IV fluid although blood pressure has normalized in the 140s. Patient remained stable with no telemetry changes or EKG abnormality. She is more ambulatory and conversant today. She will be discharged home to follow-up with her regular dialysis as outpatient. Her chest x-ray shows improving bilateral pulmonary infiltrates worrisome for Covid pneumonia versus pulmonary edema. Patient may need continued dialysis but with low UF target during the session. We will start the patient on Decadron since still + Covid status Vital Signs/Physical Exam: Temp Pulse Resp BP Pulse Ox 69 17 132/81 95 05/10/21 12:00 05/10/21 12:00 05/10/21 12:00 05/10/21 12:00 General: Alert, In no apparent distress, Oriented x3 HEENT: Atraumatic, Normocephalic, PERRLA Neck: Supple, 2+ carotid pulse no bruit, JVD not distended Respiratory: Clear to auscultation bilaterally, Normal air movement Cardiovascular: No edema, Normal pulses, Regular rate/rhythm, Normal S1 S2 Gastrointestinal: Normal bowel sounds, Soft and benign, Non-distended Musculoskeletal: No clubbing, No swelling Integumentary: No rashes, No breakdown, No significant lesion Neurological: Normal speech, Normal tone, Sensation intact, Cranial nerves 3-12 intact Laboratory Data at Discharge: WBC 6.60 K/uL (4.3-10.9) 05/10/21 05:27 Hgb 11.7 g/dL (12.0-15.0) L 05/10/21 05:27 Hct 34.9 % (36.0-45.0) L 05/10/21 05:27 Plt Count 189 K/uL (152-406) 05/10/21 05:27 PT 13.3 SECONDS (9.5-12.5) H 05/09/21 19:52 INR 1.15 05/09/21 19:52 Sodium 139 mmol/L (136-145) 05/10/21 07:05 Potassium 3.4 mmol/L (3.5-5.1) L 05/10/21 07:05 BUN 47 mg/dL (7-18) H 05/10/21 07:05 Creatinine 10.90 mg/dL (0.55-1.3) H* D 05/10/21 07:05 Glucose 101 mg/dL (74-106) 05/10/21 07:05 Phosphorus 5.4 mg/dL (2.5-4.9) H 05/10/21 07:05 Magnesium 2.5 mg/dL (1.8-2.4) H 05/10/21 07:05 Total Bilirubin 1.1 mg/dL (0.2-1.0) H 05/10/21 07:05 AST 31 U/L (15-37) 05/10/21 07:05 ALT 58 U/L (12-78) 05/10/21 07:05 Alkaline Phosphatase 66 U/L (45-117) 05/10/21 07:05 Triglycerides 418 mg/dL (<150) H 05/10/21 07:05 Cholesterol 146 mg/dL (<200) 05/10/21 07:05 LDL Cholesterol Direct 67 mg/dL (100-129) L 05/10/21 07:05 HDL Cholesterol 35 mg/dL (40-60) L 05/10/21 07:05 Cholesterol/HDL Ratio 4.17 05/10/21 07:05 Home Medications: Folic Acid/Vit B Complex and C [Treva-Denny Tablet] 1 tab PO DAILY 02/24/17 Levothyroxine [Synthroid*] 1 tab PO DAILY 02/24/17 Sevelamer Carbonate [Renvela*] 800 mg PO TID 09/17/17 Escitalopram [Lexapro*] 1 tab PO DAILY 11/14/17 Zolpidem Tartrate [Ambien*] 1 tab PO BEDTIME 11/14/17 Dexamethasone [Decadron] 6 mg PO DAILY #5 tablet 05/10/21 Furosemide 2 tab PO BID 05/10/21 Hydrocodone/Acetaminophen [Hydrocodone-Acetamin 5-325 mg] 1 each PO Q6HR PRN 05/10/21 Zinc Sulfate [Zinc Sulfate*] 220 mg PO BID #20 cap 05/10/21 New Medications: Dexamethasone [Decadron] 6 mg PO DAILY #5 tablet Zinc Sulfate [Zinc Sulfate*] 220 mg PO BID #20 cap Diet: Renal Activity: Ad brenda Followup: Yogi Mao MD [Primary Care Provider] - Time spent managing pt's care (in minutes): 35
[2021-05-10 16:19] VITALS: TEMP 97.2
--- NOTE | 2021-05-11 08:12 | EKG ---
Test Date: 2021-05-09 Test Time: 19:32:40 Locum Tenens Hospitalist: MEASUREMENT RESULTS: Intervals: Rate: 65 DE: 108 QRSD: 84 QT: 446 QTc: 463 Dana: P: 16 DE: 108 QRS: 7 T: 16 INTERPRETIVE STATEMENTS: Sinus rhythm with short DE Moderate voltage criteria for LVH, may be normal variant Cannot rule out Septal infarct, age undetermined Abnormal ECG Compared to ECG 03/07/2021 00:39:22 Short DE interval now present Left ventricular hypertrophy now present Myocardial infarct finding now present Electronically Signed On 05-11-21 08:11:07 SLURRY TANK TENDER by Gómez Black
== END 2021-05-10 16:09 | disposition home or self-care (01) ==
LOC: ER 18:30 → ERHOLD 22:13 → 3RD-ICU 05-10 14:42
PROVIDERS: ADMIT Internal Medicine; ATTEND Internal Medicine
DX: R55 Syncope and collapse (principal); U07.1 COVID-19; I12.0 Hypertensive chronic kidney disease with stage 5 chronic kidney disease or end stage renal disease; N18.6 End stage renal disease; D64.9 Anemia, unspecified; N25.0 Renal osteodystrophy; F41.9 Anxiety disorder, unspecified; E03.9 Hypothyroidism, unspecified; Q61.3 Polycystic kidney, unspecified; G47.30 Sleep apnea, unspecified; Z99.2 Dependence on renal dialysis
CPT/HCPCS: 96365; 93005; 87040 ×2; 85025 ×2; 80048; 36415; 83721; 83735 ×2; 87205; 84100; 85610; 80061; 80076; 83605; 84443; 84484; 84439; 82728; 80053; 84145; 83880; 0241U; 86140; 70450; 74176; 71045; 82805; 94760; 99284; J1644; J0456; J7050; J2405; G0378 ×3

== ENCOUNTER 2022-02-10 14:56 | Emergency (ER) | payer OTHER, MEDICARE ==
--- OUTSIDE RECORDS SUMMARY | 2022-02-10 14:59 | XMS REPORT | Continuity of Care Document ---
:1955 Author Organization [facility] t Address [address] [place] [address] Care Team Providers Name Role Phone Sunny Mao Attending Clinician Unavailable Robbie Dyer MD Attending Clinician Doctor Unassigned, [place] Attending Clinician Unavailable 1, [facility] Attending Clinician Unavailable Robbie Dyer MD Admitting Clinician Problems This patient has no known problems. Allergies, Adverse Reactions, Alerts Allergy Allergy Status Severity Reaction(s) Onset Inactive Treating Comm ents Source Name Type Date Date Clinician [place] Adverse Active Info Not Commo n Reaction Available [facility] Adhesive Adverse Active Info Not Commo n Tape Reaction Available [facility] Medications Ordered Filled Start Stop Current Ordering Indication Dosage Frequency Signature Comments Components Source Medication Medication Date Date Medication? Clinician (SIG) Name Name Aspir-81 Aspir-81 Yes Khurram not Comm on Garcia defined [facility] Sensipar Sensipar Yes Khurram not Comm on Garcia defined [facility] Levothyroxi Levothyroxi Yes Khurram not Common ne Sodium ne Sodium [facility] Treva-Denny Treva-Denny Yes Khurram not Co mmon Garcia defined [facility] Lasix Lasix Yes Khurram not Common Garcia defined [facility] Levaquin Levaquin Yes Khurram not Comm on Garcia defined [facility] Renvela Renvela Yes Khurram not Common Garcia defined [facility] Promethazin Promethazin Yes Khurram not Common e HCl e HCl Garcia defined [facility] Hydrocodone Hydrocodone Yes Khurram not Common -Acetaminop -Acetaminop Garcai defined [facility] hen hen [facility] Xanax Xanax Yes Khurram not Common Garcia defined [facility] Dialyvite Dialyvite Yes Khurram not Co mmon 800/Ultra D 800/Ultra D Garcia defined [facility] Zolpidem Zolpidem Yes Khurram not Comm on Tartrate Tartrate Garcia defined Spir it [facility] Lidocaine-P Lidocaine-P Yes Khurram not Common rilocaine rilocaine Garcia defined Sp [facility] Furosemide Furosemide Yes Khurram not Common Garcia defined [facility] Escitalopra Escitalopra Yes Khurram not Common m Oxalate m Oxalate Garcia [facility] Alprazolam Alprazolam Yes Khurram not Common Garcia defined [facility] Procedures This patient has no known procedures. Encounters Start End Encounter Admission Attending Care Care Encounter Source Date/Time Date/Time Type Type Clinicians Facility Department ID 2022-01-[address] [facility] [id number] Common 08:24:01 Sunny [facility] 2021-12-[address] [facility] [id number] Common 10:40:00 Sunny [facility] 2021-12-[address] [facility] [id number] Common 10:47:00 Sunny [facility] 2021-06-[address] [facility] [id number] Common 13:46:32 Sunny [id number] [facility] 2021-06-[address] [facility] [id number] Common 12:58:03 Sunny [id number] [facility] 2021-06-17 Outpatient Mayco, STLMLC STLMLC [id number] Common 12:57:19 Sunny [id number] [facility] 2021-06-17 Outpatient Mayco, STLMLC STLMLC [id number] Common 11:52:24 Sunny [id number] [facility] 2022-01-04 2022-01-04 ambulatory STLMLC STLMLC [id number] Common 00:00:00 00:00:00 [facility] 2021-11-30 2021-11-30 ambulatory STLMLC STLMLC [id number] Common 00:00:00 00:00:00 [facility] 2021-10-05 2021-10-05 ambulatory STLMLC STLMLC [id number] Common 00:00:00 00:00:00 [facility] 2021-09-28 2021-09-28 ambulatory STLMLC STLMLC [id number] Common 00:00:00 00:00:00 [facility] 2021-09-21 2021-09-21 ambulatory STLMLC STLMLC [id number] Common 00:00:00 00:00:00 [facility] 2021-02-02 2021-02-02 Outpatient STLMLC STLMLC [id number] Common 00:00:00 00:00:00 [facility] 2020-12-25 2020-12-25 Outpatient STLMLC STLMLC [id number] Common 00:00:00 00:00:00 [facility] 2020-12-01 2020-12-01 Outpatient STLMLC STLMLC [id number] Common 00:00:00 00:00:00 [facility] 2020-10-06 2020-10-06 Outpatient STLMLC STLMLC [id number] Common 00:00:00 00:00:00 [facility] 2020-09-29 2020-09-29 Outpatient STLMLC STLMLC [id number] Common 00:00:00 00:00:00 [facility] 2020-09-22 2020-09-22 Outpatient STLMLC STLMLC [id number] Common 00:00:00 00:00:00 [facility] 2020-08-04 2020-08-04 Outpatient STLMLC STLMLC [id number] Common 00:00:00 00:00:00 [facility] 2020-03-17 2020-03-17 Outpatient STLMLC STLMLC [id number] Common 00:00:00 00:00:00 [facility] 2020-03-10 2020-03-10 Outpatient STLMLC STLMLC [id number] Common 00:00:00 00:00:00 [facility] 2020-03-04 2020-03-04 Outpatient STLMLC STLMLC [id number] Common 00:00:00 00:00:00 [facility] 2019-10-22 2019-10-22 [facility] [id number] Common 15:00:00 15:00:00 [facility] 2019-05-07 2019-05-07 [facility] [id number] Common 11:15:00 11:15:00 t [facility] Bone [facility] Sp[facility] 2019-04-18 2019-04-18 [facility] [id number] Common 08:00:00 08:00:00 t [facility] Bone [facility] Sp[facility] t and [facility] 2019-01-29 2019-01-29 [facility] [id number] Common 11:00:00 11:00:00 t [facility] 2019-01-23 2019-01-23 [facility] [id number] Common 15:30:00 15:30:00 t [facility] Bone [facility] Sp[facility] t and [facility] 2019-01-15 2019-01-15 [facility] [id number] Common 11:00:00 11:00:00 t [facility] Bone [facility] Sp[facility] t [facility] 2019-01-08 2019-01-08 [facility] [id number] 06:54:52 10:15:00 Encounter Robbie Chaudhary Yakov [id number] [place] [id number] [facility] [id number] [place] 071 2019-01-08 2019-01-08 Orders Doctor GRISELDA [id number] 00:00:00 00:00:00 Only Unassigned, OLAMIDE [id number] [place] [id number] [id number] 2019-01-03 2019-01-03 [facility] [id number] Common 14:06:00 14:06:00 t [facility] Bone [facility] Spiri t and Joint [facility] 2019-01-01 2019-01-01 Project Architect 1, Adc Lab [facility] [id number] 14:12:04 14:27:04 Visit Yakov [id number] [place] [id number] [place] [id number] [facility] 2019-01-01 2019-01-01 Orders Doctor GRISELDA [id number] 00:00:00 00:00:00 Only Unassigned, OLAMIDE [id number] [place] [id number] 2018-12-04 2018-12-04 [facility] [id number] Common 13:30:00 13:30:00 t Bone Bone and Spiri t and Joint [facility] Results This patient has no known results.
[2022-02-10 15:53] LABS: Urine Blood 3+ (Negative); Urine Glucose Negative (Negative); Urine Protein 3+ (Negative); Urine Specific Gravity 1.015 (1.005-1.030); Urine pH >=9.0 (5.0-7.0)
[2022-02-10 15:58] LABS: Hematocrit 38.5 % (36.0-45.0); Lymphocytes % 27.8 % (15.3-44.8); MCV 93.2 fL (80-100); MPV 8.1 fL (7.6-11.3); RBC Red Blood Cell Count 4.14 M/uL (3.86-4.86)
[2022-02-10 16:14] LABS: Albumin 3.8 g/dL (3.4-5.0); Bilirubin Total 0.4 mg/dL (0.2-1.0); Protein, Total 6.8 g/dL (6.4-8.2)
[2022-02-10 16:15] LABS: Potassium 5.1 mmol/L (3.5-5.1)
--- NOTE | 2022-02-10 16:49 | RAD REPORT ---
EXAM DESCRIPTION: CT - Stone Protocol - 02/10/2022 4:35 pm CLINICAL HISTORY: Flank pain. hematuria COMPARISON: Abdomen Pelvis Wo Contrast dated 05/09/2021 TECHNIQUE: Axial images were obtained without oral or IV contrast. Lack of contrast limits solid org an and vascular assessment. The [id number] spans the entirety of the system partially obscuring uppermost abdomen and lung bases. Coronal reformatted images were obtained and reviewed. All CT scans are performed using dose optimization technique as appropriate and may include automated exposure control or mA/KV adjustment according to patient size. FINDINGS: The lower lung vallejo are clear. Innumerable cysts are noted in the liver, several which demonstrate wall calcifications.Normal spleen . The pancreas and adrenal glands are normal. No pathologic lymphadenopathy in the abdomen or pelvis. Innumerable cysts are present throughout both kidneys compatible with polycystic kidney disease. Lorri ral demonstrate mild complex features. No hydronephrosis. No bowel obstruction, free air, free fluid or abscess. Normal appendix noted.Sigmoid diverticulosis w ithout diverticulitis. No significant bony abnormality. IMPRESSION: No hydronephrosis is seen. Innumerable cysts in both kidneys and in the liver compatible with polycystic kidney disease.
[2022-02-10] MEDS ORDERED: CEFTRIAXONE 1000 MG/VIAL ONE (17:30)
--- NOTE | 2022-02-10 17:54 | EDPHYS ---
Physician Documentation [facility] Name: Devika Sanchez Age: 66 yrs Sex: Female : 1955 Arrival Date: 02/10/2022 Time: 14:59 Bed IW5 Private MD: Yogi Mao B ED Physician Andrea Kat HPI: 02/10 15:28 This 66 yrs old Female presents to ER via Ambulatory with complaints of Urinary Problem.jmm 15:28 This is a 58-year-old female with history of end-stage renal disease, polycystic kidney jmm disease, hypertension the presents emerged department with complaints of blood in her urine. Denies fever or chills. Denies vomiting. Denies pain. Patient last received dialysis yesterday.. Historical: - Allergies: 15:11 Baclofen; iw 15:11 Celebrex; iw 15:11 Codeine; iw 15:11 NSAIDS; iw 15:11 Celecoxib; iw - PMHx: 15:11 Anemia; ESRD; hemodialysis; Hypertension; Hypothyroidism; kidney failure; POLYCYSTIC iw KIDNEY DISEASE; pulmonary edema; Pulmonary Embolism; - PSHx: 15:11 bilateral carpal tunnel; fistula left arm; right knee repair; iw - Immunization history:: Adult Immunizations up to date. - Social history:: Smoking status: Patient denies any tobacco usage or history of. ROS: 15:28 Constitutional: Negative for fever, chills, and weight loss, Cardiovascular: Negative jmm for chest pain, palpitations, and edema, Respiratory: Negative for shortness of breath, cough, wheezing, and pleuritic chest pain, Abdomen/GI: Negative for abdominal pain, nausea, vomiting, diarrhea, and constipation. 15:28 : Positive for urinary symptoms, hematuria. 15:28 All other systems are negative. Exam: 15:28 Constitutional: This is a well developed, well nourished patient who is awake, alert, jmm and in no acute distress. Head/Face: atraumatic. Eyes: EOMI, no conjunctival erythema appreciated ENT: Moist Mucus Membranes Neck: Trachea midline, Supple Chest/axilla: Normal chest wall appearance and motion. Cardiovascular: Regular rate and rhythm. No edema appreciated Respiratory: Normal respirations, no respiratory distress appreciated 15:28 Back: Normal ROM Skin: General appearance color normal MS/ Extremity: Moves all extremities, no obvious deformities appreciated, no edema noted to the lower extremities Neuro: Awake and alert Psych: Behavior is normal, Mood is normal, Patient is cooperative and pleasant 15:28 Abdomen/GI: Inspection: abdomen appears normal, Bowel sounds: normal, Palpation: abdomen is soft and non-tender, in all quadrants. Vital Signs: 15:08 BP 125 / 60; Pulse 87; Resp 16; Temp 97.9; Pulse Ox 97% on R/A; Weight 78.6 kg; iw MDM: 15:32 Patient medically screened. [facility] 17:54 Data reviewed: vital signs, nurses notes. Counseling: I had a detailed discussion with shilpa the patient and/or guardian regarding: the historical points, exam findings, and any diagnostic results supporting the discharge/admit diagnosis, lab results, radiology results, the need for outpatient follow up, to return to the emergency department if symptoms worsen or persist or if there are any questions or concerns that arise at home. 20:04 ED course: Patient is alert nontoxic in appearance in the ED. Urine will be treated shilpa with oral antibiotics. Patient otherwise to follow-up with her geospatial analyst and otherwise given strict return precautions. Patient understood agrees to clinic care.. 02/10 15:28 Order name: CBC with Diff [facility] 02/10 15:28 Order name: CMP [facility] 02/10 15:28 Order name: Lipase [facility] 02/10 15:28 Order name: Urine Culture [facility] 02/10 15:53 Order name: Urine Dipstick-Ancillary; Complete Time: 15:55 [facility] 02/10 15:59 Order name: CBC with Automated Diff; Complete Time: 16:05 [facility] 02/10 15:28 Order name: IV Saline Lock; Complete Time: 15:48 [facility] 02/10 15:28 Order name: Labs collected and sent; Complete Time: 15:48 [facility] 02/10 15:28 Order name: CT Stone Protocol [facility] 02/10 15:28 Order name: Urine Dipstick-Ancillary (obtain specimen); Complete Time: 15:47 [facility] 02/10 16:16 Order name: Comprehensive Metabolic Panel; Complete Time: 16:17 [facility] 02/10 16:16 Order name: Lipase; Complete Time: 16:17 [facility] 02/10 16:49 Order name: CT; Complete Time: 16:50 EDMS Administered Medications: 17:23 Drug: Rocephin (cefTRIAXone) 1 grams Route: IV; Rate: calculated rate; Site: right bm7 antecubital; 18:13 Follow up: Response: No adverse reaction; IV Status: Completed infusion bm7 Disposition Summary: 02/10/22 17:54 Discharge Ordered Location: Home [facility] Condition: Stable [facility] Diagnosis - Hemorrhagic cystitis [facility] Followup: [facility] - With: Yogi Mao MD - When: 2 - 3 days - Reason: Recheck today's complaints, Continuance of care, Re-evaluation by your physician Discharge Instructions: - Discharge Summary Sheet [facility] - Hemorrhagic Cystitis [facility] Forms: - Medication Reconciliation Form [facility] - Thank You Letter [facility] - Antibiotic Education [facility] - Prescription Opioid Use [facility] - Family Work Release Prescriptions: - cefpodoxime 200 mg Oral Tablet - take 1 tablet by ORAL route every 12 hours for 10 days with food; 20 tablet; [facility] Refills: 0, Product Selection Permitted Signatures: Dispatcher [employer] EDMS Shahzad Watkins PA PA [facility] Slime Maldonado, RN TIA Roslyn Cline RN RN [facility]
--- NOTE | 2022-02-10 17:54 | ER ---
Nurse's Notes [facility] Name: Devika Sanchez Age: 66 yrs Sex: Female : 1955 Arrival Date: 02/10/2022 Time: 14:59 Bed IW5 Private MD: Yogi Mao B Diagnosis: Hemorrhagic cystitis Presentation: 02/10 15:08 Chief complaint: Patient states: woke up and slept late, her commode had a lot of blood iw in it, I urinated four more time and there was blood, I have PCKD , is having some mild cramping and low back pain, denies pain with urination , urine is pinkish color , is on dialysis. Coronavirus screen: At this time, the client does not indicate any symptoms associated with coronavirus-19. Ebola Screen: Patient negative for fever greater than or equal to 101.5 degrees Fahrenheit, and additional compatible Ebola Virus Disease symptoms Patient denies exposure to infectious person. Patient denies travel to an Ebola-affected area in the 21 days before illness onset. No symptoms or risks identified at this time. Initial Sepsis Screen: Does the patient meet any 2 criteria? No. Patient's initial sepsis screen is negative. Does the patient have a suspected source of infection? No. Patient's initial sepsis screen is negative. Risk Assessment: Do you want to hurt yourself or someone else? Patient reports no desire to harm self or others. Onset of symptoms was February 10, 2022. 15:08 Method Of Arrival: Ambulatory iw 15:08 Acuity: NADINE 3 iw Historical: - Allergies: 15:11 Baclofen; iw 15:11 Celebrex; iw 15:11 Codeine; iw 15:11 NSAIDS; iw 15:11 Celecoxib; iw - PMHx: 15:11 Anemia; ESRD; hemodialysis; Hypertension; Hypothyroidism; kidney failure; POLYCYSTIC iw KIDNEY DISEASE; pulmonary edema; Pulmonary Embolism; - PSHx: 15:11 bilateral carpal tunnel; fistula left arm; right knee repair; iw - Immunization history:: Adult Immunizations up to date. - Social history:: Smoking status: Patient denies any tobacco usage or history of. Screenin:12 Abuse screen: Denies threats or abuse. Nutritional screening: No deficits noted. bm7 Tuberculosis screening: No symptoms or risk factors identified. Fall Risk None identified. Assessment: 18:12 Reassessment: No changes from previously documented assessment. bm7 Vital Signs: 15:08 BP 125 / 60; Pulse 87; Resp 16; Temp 97.9; Pulse Ox 97% on R/A; Weight 78.6 kg; iw ED Course: 14:59 Patient arrived in ED. mr 14:59 Yogi Mao MD is Private Physician. mr 15:11 Triage completed. iw 15:11 Arm band placed on. iw 15:27 Shahzad Watkins PA is PHCP. jmm 15:27 Andrea Kat MD is Attending Physician. jmm 15:48 Initial lab(s) drawn, by mo, sent to lab. Inserted saline lock: 20 gauge antecubital bm7 area, using aseptic technique. Blood collected. 17:54 Yogi Mao MD is Referral Physician. m 18:12 Patient has correct armband on for positive identification. Adult w/ patient. Client bm7 placed on continuous cardiac and pulse oximetry monitoring. NIBP monitoring applied. 18:12 No provider procedures requiring assistance completed. IV discontinued, intact, bm7 bleeding controlled, No redness/swelling at site. Pressure dressing applied. Administered Medications: 17:23 Drug: Rocephin (cefTRIAXone) 1 grams Route: IV; Rate: calculated rate; Site: right bm7 antecubital; 18:13 Follow up: Response: No adverse reaction; IV Status: Completed infusion bm7 Medication: 18:12 VIS not applicable for this client. bm7 Outcome: 17:54 Discharge ordered by . [facility] 18:12 Discharged to home ambulatory, with family. bm7 18:12 Condition: good 18:12 Discharge instructions given to patient, family, Instructed on discharge instructions, follow up and referral plans. medication usage, Demonstrated understanding of instructions, follow-up care, medications, Prescriptions given X 1. 18:13 Patient left the ED. bm7 Signatures: Shahzad Watkins PA PA jmm Rivera, Mary Slime Maldonado, RN RN Roslyn Cline RN RN bm7
[2022-02-12 04:27] VITALS: BP 125/60; TEMP 97.9; O2SAT 97
== END 2022-02-10 18:13 | disposition home or self-care (01) ==
LOC: ER 14:56
DX: N30.01 Acute cystitis with hematuria (principal); I12.0 Hypertensive chronic kidney disease with stage 5 chronic kidney disease or end stage renal disease; N18.6 End stage renal disease; Z99.2 Dependence on renal dialysis; Z88.1 Allergy status to other antibiotic agents; Z88.5 Allergy status to narcotic agent; Z88.6 Allergy status to analgesic agent
CPT/HCPCS: 36415; 74176; 76377; 80053; 81003; 83690; 85025; 87077; 87086; 87088; 87186; 96365; 99284

== ENCOUNTER 2022-09-22 19:23 | Emergency (ER) | payer OTHER, MEDICARE ==
--- OUTSIDE RECORDS SUMMARY | 2022-09-22 19:29 | XMS REPORT | Continuity of Care Document ---
:1955 Author Organization [facility] t Address [address] [place] [address] [address] [place] [address] Care Team Providers Name Role Phone Yogi Mao MD Primary Care Physician Sunny Mao Attending Clinician Unavailable Ami Choe MA Attending Clinician Unavailable Tito Rico MD Attending Clinician Michell Fisher MA Attending Clinician Unavailable Quique Jama RN Attending Clinician Unavailable Susu Sanchez MA Attending Clinician Unavailable Zaida Alvarez Attending Clinician Unavailable Javed Vitale LCSW Attending Clinician Unavailable Carla Walsh MA Attending Clinician Unavailable Lety Espinoza Attending Clinician Tony Aranda Attending Clinician Unavailable Alberto Kumar MD Attending Clinician Janee Shen RN Attending Clinician Unavailable Marga Sun Attending Clinician Unavailable Roxana Fraser MA Attending Clinician Unavailable Clara Champion MA Attending Clinician Unavailable Robbie Dyer MD Attending Clinician Doctor Unassigned, [place] Attending Clinician Unavailable , [facility] Attending Clinician Unavailable Robbie Dyer MD Admitting Clinician Payers Payer Name Policy Type Policy Number Effective Date Expiration Date [place] [address] [id number] [facility] MEDICARE 12 [id number] [facility] NOVITAS [facility] Problems Condition Condition Condition Status Onset Resolution Last Treating Co mments Source Name Details Category Date Date Treatment Clinician Date CKD CKD Disease Active 2021-05 Method[facility] (chronic (chronic 06-14 kidney kidney 00:00: Hospita disease) disease) 00 l stage 5, stage 5, GFR less GFR less than 15 than 15 ml/min ml/min Pre-transp Pre-transp Disease Active 2021-05 M ethodi lant lant 06-14 evaluation evaluation 00:00: Ho spita for kidney for kidney 00 l transplant transplant Essential Essential Disease Active 2021-05 Met hodi hypertensi hypertensi 06-14 on on 00:00: Hospita 00 l Mixed Mixed Disease Active 2021-05 [facility] hyperlipid hyperlipid 06-14 emia emia 00:00: Hospita 00 l PKD PKD Disease Active [facility] (polycysti (polycysti 01-11 st c kidney c kidney 00:00: Hospit a disease) disease) 00 l 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 00:00: Hospit a dysfunctio dysfunctio 00 l n n ESRD (end ESRD (end Disease Active Met hodi stage stage 12-09 renal renal 00:00: Hospita disease) disease) 00 l on on dialysis dialysis Failure of Failure of Disease Active M ethodi hemodialys hemodialys 11-21 is access is access 00:00: Hosp zane 00 l [id number] Primary Problem Comm on osteoarthr Spirit itis of - [facility] left knee [facility] [id number] Primary Problem Comm on osteoarthr Spirit [facility] of - [facility] right knee [facility] Allergies, Adverse Reactions, Alerts Allergy Allergy Status Severity Reaction(s) Onset Inactive Treating Comm ents Source Name Type Date Date Clinician Adhesive Propensi Active Rash Paper Method i Tape-Azra ty to 11-[address] icones adverse 00:00: ok Hospita reaction 00 l s to drug Baclofen Propensi Active Other (See Encephalo Methodi ty to Comments) 11-[address] adverse 00:00: Hospita reaction 00 l s to drug Celecoxi Propensi Active Hives Method i b ty to 11-21 adverse 00:00: Hospita reaction 00 l s to drug Codeine Propensi Active GI Methodi ty to Intolerance 11-21 adverse 00:00: Hospita reaction 00 l s to drug codeine codeine Active Unknown Common [facility] 4994 Drug Active Unknown Common allergy [facility] celecoxi celecoxi Active Unknown Commo n b b [facility] baclofen baclofen Active Unknown Commo n [facility] Family History Family Member Diagnosis Comments Start Date Stop Date Source Natural father Heart disease [facility] Natural father Hyperlipidemia Method [facility] Natural mother Kidney disease Method [facility] Natural mother Polycystic kidney Met [facility] Natural sister Kidney disease Method [facility] sister Polycystic kidney Met [facility] Social History Social Habit Start Date Stop Date Quantity Comments Source History of Tobacco Common [facility] - Use [facility] Gender identity [facility] Sexual orientation Method [facility] History of Social 2022-07-26 2022-07-[address] function 00:00:00 00:00:00 Hospital Alcohol intake 2022-07-21 2022-07-21 Current Jewish 00:00:00 00:00:00 non-drinker of Hospital alcohol (finding) Tobacco use and 2022-02-12 2022-02-12 Smokeless Jewish exposure 00:00:00 00:00:00 tobacco non-user [facility] Sex Ass[birth year] At [birth year] Jewish 00:00:00 00:00:00 Hospital Smoking Status Start Date Stop Date Source Never Smoker [facility] Medications Ordered Filled Start Stop Current Ordering Indication Dosage Frequency Signature Comments Components Source Medication Medication Date Date Medication? Clinician (SIG) Name Name Bupivicaine Bupivicaine 2021-05 No 2.5mg [facility] 2-21 Spirit 00:00: [facility] Kenalog Kenalog 2021-05 No 40mg Common (Triamcinol (Triamcinol 2-21 S pirit one) one) 00:00: [facility] calcium Yes 1{tbl} [id number] Chew 1 Methodi carbonate 02-[id number] 300 mg (750 11:51: 3D (three) Hos aaron mg) 37 times a l tablet,chew day with able meals. folic Yes 1{tbl} QD Take 1 Methodi acid/vit B 02-[address] complex and 11:51: mouth Hospi ta C 37 daily. l (REBEKAH-DENNY ORAL) sevelamer Yes 2400mg [id number] Take 3 Methodi (RENVELA) 02-12 [id number] tablets s t 800 mg 11:31: 3D (2,400 mg Hospit a tablet 39 total) by l mouth 3 (three) times a day with meals. 1,600mg with snacks escitalopra Yes 20mg QD Take 20 mg Methodi m (LEXAPRO) 02-[address] 20 MG 11:31: daily. Hospita tablet 39 l zolpidem Yes 5mg QD Take 5 mg Meth smith (AMBIEN) 10 02-[address] mg tablet 11:31: nightly. Hosp zane 39 l cinacalcet Yes 60mg QD Take 2 Metho di (SENSIPAR) 02-[address] 30 MG 11:31: (60 mg Hospita tablet 39 total) by l mouth daily. ferric Yes 1{tbl} [id number] Take 1 M ethodi citrate 02-12 [id number] tablet by s t (Auryxia) 11:31: 3D mouth 3 Hospi ta 210 mg iron 39 (three) l tablet times daily after meals. vit B Yes 1{tbl} QD Chew 1 Methodi comp-C-foli 02-[address] c acid-vit 11:31: daily. Hospi ta D3 39 l (Dialyvite 800 Plus D) 800 mcg- 2,000 unit tablet,chew able furosemide Yes 160mg QD Take 2 Meth smith (LASIX) 80 02-[address] mg tablet 11:31: (160 mg Hospi ta 39 total) by l mouth daily. ALPRAZolam Yes .5mg Q.5D Take 1 Metho di (XANAX) 0.5 9-[address] MG tablet 11:31: (0.5 mg Hospi ta 39 total) by l mouth 2 (two) times a day. levothyroxi 0 Yes 75ug QD Take 75 Met hodi ne 9-[address] (SYNTHROID, 11:31: mouth Hospi ta LEVOXYL) 75 39 every l mcg tablet morning. Kenalog Kenalog 0 No 40mg Common (Triamcinol (Triamcinol 8-15 S pirit one) one) 00:00: - [facility] Bupivicaine Bupivicaine 2021-0 No 2.5mg [facility] 8-15 Spirit 00:00: - [facility] Kenalog Kenalog 2021-0 No 40mg Common (Triamcinol (Triamcinol 8-15 S pirit one) one) 00:00: - [facility] Bupivicaine Bupivicaine 2021-0 No 2.5mg [facility] [place] 8-15 Spirit 00:00: - [facility] Bupivicaine Bupivicaine 2021-0 No 2.5mg [facility] 8-15 Spirit 00:00: - [facility]I 00 [facility] Kenalog Kenalog 2021-0 No 40mg Common (Triamcinol (Triamcinol 8-15 S pirit one) one) 00:00: - [facility] Hyalgan 20 Hyalgan 20 2021-0 No 20mg C ommon mg mg 5-16 Spirit 00:00: - [facility] Hyalgan 20 Hyalgan 20 2021-0 No 20mg C ommon mg mg 5-16 Spirit 00:00: - [facility] Hyalgan 20 Hyalgan 20 2021-0 No 20mg C ommon mg mg 5-16 Spirit 00:00: - [facility] Hyalgan 20 Hyalgan 20 2021-0 No 20mg C ommon mg mg 5-16 Spirit 00:00: - [facility] Hyalgan 20 Hyalgan 20 2021-0 No 20mg C ommon mg mg 5-16 Spirit 00:00: - [facility] Hyalgan 20 Hyalgan 20 2021-0 No 20mg C ommon mg mg 10-05 Spirit 00:00: - [facility] Hyalgan 20 Hyalgan 20 2021-0 No 20mg C ommon mg mg 09-28 Spirit 00:00: - [facility] Hyalgan 20 Hyalgan 20 2021-0 No 20mg C ommon mg mg 09-28 Spirit 00:00: - [facility] Hyalgan 20 Hyalgan 20 2021-0 No 20mg C ommon mg mg 09-28 Spirit 00:00: - [facility] Hyalgan 20 Hyalgan 20 2021-0 No 20mg C ommon mg mg 09-28 Spirit 00:00: - [facility] Hyalgan 20 Hyalgan 20 2021-0 No 20mg C ommon mg mg 09-28 Spirit 00:00: - [facility] Hyalgan 20 Hyalgan 20 2021-0 No 20mg C ommon mg mg 09-28 Spirit 00:00: - [facility] Kenalog Kenalog 2021-0 No 40mg Common (Triamcinol (Triamcinol 5-02 S pirit one) one) 00:00: - [facility] Bupivicaine Bupivicaine 2021-0 No 2.5mg [facility] - Spirit 00:00: - [facility] Hyalgan 20 Hyalgan 20 2021-0 No 20mg C ommon mg mg 09-21 Spirit 00:00: - [facility] Kenalog Kenalog 2021-0 No 40mg Common (Triamcinol (Triamcinol 5-02 S pirit one) one) 00:00: - [facility] Bupivicaine Bupivicaine 2021-0 No 2.5mg [facility] 5-02 Spirit 00:00: - [facility] Hyalgan 20 Hyalgan 20 2021-0 No 20mg C ommon mg mg 09-21 Spirit 00:00: - [facility] Kenalog Kenalog 2021-0 No 40mg Common (Triamcinol (Triamcinol 5-02 S pirit one) one) 00:00: - [facility]I 00 [facility] Bupivicaine Bupivicaine 2-0 No 2.5mg [facility] 5-02 Spirit 00:00: - [facility] 00 [facility] Hyalgan 20 Hyalgan 20 2021-0 No 20mg C ommon mg mg -02 Spirit 00:00: - [facility]I 00 [facility] Kenalog Kenalog 2021-0 No 40mg Common (Triamcinol (Triamcinol 5-02 S pirit one) one) 00:00: - [facility]I 00 [facility] Bupivicaine Bupivicaine 2021-0 No 2.5mg [facility] 5-02 Spirit 00:00: - [facility] 00 [facility] Hyalgan 20 Hyalgan 20 2021-0 No 20mg C ommon mg mg 09-21 Spirit 00:00: - [facility]I 00 [facility] Kenalog Kenalog 2021-0 No 40mg Common (Triamcinol (Triamcinol 5-02 S pirit one) one) 00:00: - [facility]I 00 [facility] Hyalgan 20 Hyalgan 20 2021-0 No 20mg C ommon mg mg 02 Spirit 00:00: - [facility] 00 [facility] Bupivicaine Bupivicaine 2021-0 No 2.5mg [facility] 5-02 Spirit 00:00: - [facility] 00 [facility] Kenalog Kenalog 2021-0 No 40mg Common (Triamcinol (Triamcinol 5-02 S pirit one) one) 00:00: - [facility]I 00 [facility] Hyalgan 20 Hyalgan 20 2021-0 No 20mg C ommon mg mg 5-02 Spirit 00:00: - [facility] 00 [facility] Bupivicaine Bupivicaine 2-0 No 2.5mg [facility] [place] 5-02 Spirit 00:00: - [facility] 00 [facility] Kenalog Kenalog 2021-0 No 40mg Common (Triamcinol (Triamcinol 5-02 S pirit one) one) 00:00: - [facility] 00 [facility] Bupivicaine Bupivicaine 2-0 No 2.5mg [facility] [place] 5-02 Spirit 00:00: - [facility] 00 [facility] Hyalgan 20 Hyalgan 20 2021-0 No 20mg C ommon mg mg 5-02 Spirit 00:00: - [facility]I 00 [facility] Kenalog Kenalog 2020-0 No 40mg Common (Triamcinol (Triamcinol 7-12 S pirit one) one) 00:00: - [facility] 00 [facility] Bupivicaine Bupivicaine 2020-0 No 2.5mg [facility] 7-12 Spirit 00:00: - [facility] 00 [facility] Kenalog Kenalog 2020-0 No 40mg Common (Triamcinol (Triamcinol 7-12 S pirit one) one) 00:00: - [facility] 00 [facility] Bupivicaine Bupivicaine 2020-0 No 2.5mg [facility] 7-12 Spirit 00:00: - [facility] 00 [facility] Kenalog Kenalog 2020-0 No 40mg Common (Triamcinol (Triamcinol 7-12 S pirit one) one) 00:00: - [facility] 00 [facility] Bupivicaine Bupivicaine 2020-0 No 2.5mg [facility] 7-12 Spirit 00:00: - [facility] 00 [facility] Kenalog Kenalog 2020-0 No 40mg Common (Triamcinol (Triamcinol 7-12 S pirit one) one) 00:00: - [facility] 00 [facility] Bupivicaine Bupivicaine 2020-0 No 2.5mg [facility] 7-12 Spirit 00:00: - [facility] 00 [facility] Bupivicaine Bupivicaine 2020-0 No 2.5mg [facility] 7-12 Spirit 00:00: - [facility] 00 [facility] Kenalog Kenalog 2020-0 No 40mg Common (Triamcinol (Triamcinol 7-12 S pirit one) one) 00:00: - [facility] 00 [facility] Bupivicaine Bupivicaine 2020-0 No 2.5mg [facility] 7-12 Spirit 00:00: - [facility] 00 [facility] Kenalog Kenalog 2020-0 No 40mg Common (Triamcinol (Triamcinol 7-12 S pirit one) one) 00:00: - [facility] Kenalog Kenalog 2020-0 No 40mg Common (Triamcinol (Triamcinol 7-12 S pirit one) one) 00:00: - [facility]I 00 [facility] Bupivicaine Bupivicaine 2020-0 No 2.5mg [facility] 7-12 Spirit 00:00: - [facility] Hyalgan 20 Hyalgan 20 2020-0 No 20mg C ommon mg mg 5-17 Spirit 00:00: - [facility]I 00 [facility] Hyalgan 20 Hyalgan 20 2020-0 No 20mg C ommon mg mg 5-17 Spirit 00:00: - [facility] Hyalgan 20 Hyalgan 20 2020-0 No 20mg C ommon mg mg 5- Spirit 00:00: - [facility] Hyalgan 20 Hyalgan 20 2020-0 No 20mg C ommon mg mg 5-17 Spirit 00:00: - [facility] Hyalgan 20 Hyalgan 20 2020-0 No 20mg C ommon mg mg 5-17 Spirit 00:00: - [facility] Hyalgan 20 Hyalgan 20 2020-0 No 20mg C ommon mg mg -17 Spirit 00:00: - [facility] Hyalgan 20 Hyalgan 20 2020-0 No 20mg C ommon mg mg 5-17 Spirit 00:00: - [facility] Hyalgan 20 Hyalgan 20 2020-0 No 20mg C ommon mg mg 5-17 Spirit 00:00: - [facility] Hyalgan 20 Hyalgan 20 2020-0 No 20mg C ommon mg mg 5-17 Spirit 00:00: - [facility] Hyalgan 20 Hyalgan 20 2020-0 No 20mg C ommon mg mg 5-17 Spirit 00:00: - [facility] Hyalgan 20 Hyalgan 20 2020-0 No 20mg C ommon mg mg 5-17 Spirit 00:00: - [facility] Hyalgan 20 Hyalgan 20 2020-0 No 20mg C ommon mg mg 5-17 Spirit 00:00: - [facility] Hyalgan 20 Hyalgan 20 1-0 No 20mg C ommon mg mg -17 Spirit 00:00: - [facility] 00 [facility] Hyalgan 20 Hyalgan 20 1-0 No 20mg C ommon mg mg 5-17 Spirit 00:00: - [facility] Hyalgan 20 Hyalgan 20 1-0 No 20mg C ommon mg mg 5-10 Spirit 00:00: - [facility] 00 [facility] Hyalgan 20 Hyalgan 20 1-0 No 20mg C ommon mg mg 5-10 Spirit 00:00: - [facility] Hyalgan 20 Hyalgan 20 2020-0 No 20mg C ommon mg mg 5-10 Spirit 00:00: - [facility] 00 [facility] Hyalgan 20 Hyalgan 20 2020-0 No 20mg C ommon mg mg 5-10 Spirit 00:00: - [facility] Hyalgan 20 Hyalgan 20 2020-0 No 20mg C ommon mg mg 5-10 Spirit 00:00: - [facility] Hyalgan 20 Hyalgan 20 2020-0 No 20mg C ommon mg mg 5-10 Spirit 00:00: - [facility] Hyalgan 20 Hyalgan 20 2020-0 No 20mg C ommon mg mg 5-10 Spirit 00:00: - [facility] Hyalgan 20 Hyalgan 20 1-0 No 20mg C ommon mg mg 5-10 Spirit 00:00: - [facility] Hyalgan 20 Hyalgan 20 1-0 No 20mg C ommon mg mg 5-10 Spirit 00:00: - [facility] 00 [facility] Hyalgan 20 Hyalgan 20 1-0 No 20mg C ommon mg mg 5-10 Spirit 00:00: - [facility] 00 [facility] Hyalgan 20 Hyalgan 20 1-0 No 20mg C ommon mg mg 5-10 Spirit 00:00: - [facility] 00 [facility] Hyalgan 20 Hyalgan 20 1-0 No 20mg C ommon mg mg 5-10 Spirit 00:00: - [facility] 00 [facility] Hyalgan 20 Hyalgan 20 2020-0 No 20mg C ommon mg mg 5-10 Spirit 00:00: - [facility] Hyalgan 20 Hyalgan 20 2020-0 No 20mg C ommon mg mg 09-29 Spirit 00:00: - [facility] Hyalgan 20 Hyalgan 20 2020-0 No 20mg C ommon mg mg 09-22 Spirit 00:00: - [facility] Hyalgan 20 Hyalgan 20 2020-0 No 20mg C ommon mg mg 09-22 Spirit 00:00: - [facility] Hyalgan 20 Hyalgan 20 2020-0 No 20mg C ommon mg mg 09-22 Spirit 00:00: - [facility] Hyalgan 20 Hyalgan 20 2020-0 No 20mg C ommon mg mg 09-22 Spirit 00:00: - [facility] Hyalgan 20 Hyalgan 20 2020-0 No 20mg C ommon mg mg 09-22 Spirit 00:00: - [facility] Hyalgan 20 Hyalgan 20 2020-0 No 20mg C ommon mg mg 09-22 Spirit 00:00: - [facility] Hyalgan 20 Hyalgan 20 2020-0 No 20mg C ommon mg mg 09-22 Spirit 00:00: - [facility] Hyalgan 20 Hyalgan 20 2020-0 No 20mg C ommon mg mg 09-22 Spirit 00:00: - [facility] Hyalgan 20 Hyalgan 20 2020-0 No 20mg C ommon mg mg 09-22 Spirit 00:00: - [facility] Hyalgan 20 Hyalgan 20 2020-0 No 20mg C ommon mg mg 09-22 Spirit 00:00: - [facility] Hyalgan 20 Hyalgan 20 2020-0 No 20mg C ommon mg mg 09-22 Spirit 00:00: - [facility] Hyalgan 20 Hyalgan 20 2020-0 No 20mg C ommon mg mg 09-22 Spirit 00:00: - [facility] Hyalgan 20 Hyalgan 20 2020-0 No 20mg C ommon mg mg 09-22 Spirit 00:00: - [facility] Hyalgan 20 Hyalgan 20 2020-0 No 20mg C ommon mg mg 5-03 Spirit 00:00: - [facility] 00 [facility] Bupivicaine Bupivicaine 2020-0 No 2.5mg [facility] 3-15 [facility] 00:00: - [facility] 00 [facility] Kenalog Kenalog 0 No 40mg Common (Triamcinol (Triamcinol 3-15 S pirit one) one) 00:00: - [facility] 00 [facility] Bupivicaine Bupivicaine 2020-0 No 2.5mg [facility] 3-15 Spirit 00:00: - [facility] 00 [facility] Kenalog Kenalog 0 No 40mg Common (Triamcinol (Triamcinol 3-15 S pirit one) one) 00:00: - [facility] 00 [facility] Bupivicaine Bupivicaine 2020-0 No 2.5mg [facility] [place] 3-15 Spirit 00:00: - [facility] 00 [facility] Kenalog Kenalog 0 No 40mg Common (Triamcinol (Triamcinol 3-15 S pirit one) one) 00:00: - [facility] 00 [facility] Bupivicaine Bupivicaine 2020-0 No 2.5mg [facility] 3-15 Spirit 00:00: - [facility] 00 [facility] Kenalog Kenalog 2020-0 No 40mg Common (Triamcinol (Triamcinol 3-15 S pirit one) one) 00:00: - [facility] 00 [facility] Kenalog Kenalog 2020-0 No 40mg Common (Triamcinol (Triamcinol 3-15 S pirit one) one) 00:00: - [facility] 00 [facility] Bupivicaine Bupivicaine 2020-0 No 2.5mg [facility] 3-15 [facility] 00:00: - [facility] 00 [facility] Kenalog Kenalog 2020-0 No 40mg Common (Triamcinol (Triamcinol 3-15 S pirit one) one) 00:00: - [facility] 00 [facility] Bupivicaine Bupivicaine 2020-0 No 2.5mg [facility] 3-15 [facility] 00:00: - [facility] 00 [facility] Bupivicaine Bupivicaine 2020-0 No 2.5mg [facility] 3-15 [facility] 00:00: - [facility] 00 [facility] Kenalog Kenalog 2020-0 No 40mg Common (Triamcinol (Triamcinol 3-15 S pirit one) one) 00:00: - [facility] 00 [facility] Hyalgan 20 Hyalgan 20 2019-1 No 20mg C ommon mg mg 0-26 Spirit 00:00: - [facility] 00 [facility] Hyalgan 20 Hyalgan 20 2019- No 20mg C ommon mg mg 0-26 Spirit 00:00: - [facility] 00 [facility] Kenalog Kenalog 2019- No 40mg Common (Triamcinol (Triamcinol 0-26 S pirit one) one) 00:00: - [facility] 00 [facility] Bupivicaine Bupivicaine 2019- No 5mg [facility] 0-26 [facility] 00:00: - [facility] 00 [facility] Hyalgan 20 Hyalgan 20 2019- No 20mg C ommon mg mg 0-26 Spirit 00:00: - [facility] 00 [facility] Hyalgan 20 Hyalgan 20 2019-1 No 20mg C ommon mg mg 0-26 Spirit 00:00: - [facility] 00 [facility] Bupivicaine Bupivicaine 2019-1 No 5mg [facility] 0-26 [facility] 00:00: - [facility] 00 [facility] Kenalog Kenalog 2019- No 40mg Common (Triamcinol (Triamcinol 0-26 S pirit one) one) 00:00: - [facility] 00 [facility] Hyalgan 20 Hyalgan 20 2019-1 No 20mg C ommon mg mg 0-26 Spirit 00:00: - [facility] 00 [facility] Hyalgan 20 Hyalgan 20 2019-1 No 20mg C ommon mg mg 0-26 Spirit 00:00: - [facility] 00 [facility] Bupivicaine Bupivicaine 2019- No 5mg [facility] 0-26 [facility] 00:00: - [facility] 00 [facility] Kenalog Kenalog 2019- No 40mg Common (Triamcinol (Triamcinol 0-26 S pirit one) one) 00:00: - [facility] 00 [facility] Hyalgan 20 Hyalgan 20 2019- No 20mg C ommon mg mg 0-26 Spirit 00:00: - [facility] 00 [facility] Hyalgan 20 Hyalgan 20 2019- No 20mg C ommon mg mg 0-26 Spirit 00:00: - [facility] 00 [facility] Bupivicaine Bupivicaine 2019- No 5mg [facility] [place] 0-26 [facility] 00:00: - [facility] 00 [facility] Kenalog Kenalog 2019- No 40mg Common (Triamcinol (Triamcinol 0-26 S pirit one) one) 00:00: - [facility] 00 [facility] Hyalgan 20 Hyalgan 20 2019- No 20mg C ommon mg mg 0-26 Spirit 00:00: - [facility] 00 [facility] Bupivicaine Bupivicaine 2019- No 5mg [facility] 0-26 [facility] 00:00: - [facility] 00 [facility] Hyalgan 20 Hyalgan 20 2019- No 20mg C ommon mg mg 0-26 Spirit 00:00: - [facility] 00 [facility] Kenalog Kenalog 2019- No 40mg Common (Triamcinol (Triamcinol 0-26 S pirit one) one) 00:00: - [facility] 00 [facility] Hyalgan 20 Hyalgan 20 2019- No 20mg C ommon mg mg 0-26 Spirit 00:00: - [facility] 00 [facility] Bupivicaine Bupivicaine 2019- No 5mg [facility] 0-26 [facility] 00:00: - [facility] 00 [facility] Hyalgan 20 Hyalgan 20 2019- No 20mg C ommon mg mg 0-26 Spirit 00:00: - [facility] 00 [facility] Kenalog Kenalog 2019- No 40mg Common (Triamcinol (Triamcinol 0-26 S pirit one) one) 00:00: - [facility] 00 [facility] Hyalgan 20 Hyalgan 20 2019-1 No 20mg C ommon mg mg 0-26 Spirit 00:00: - [facility] 00 [facility] Hyalgan 20 Hyalgan 20 2019- No 20mg C ommon mg mg 0-26 Spirit 00:00: - [facility] 00 [facility] Bupivicaine Bupivicaine 2019-05 No 5mg [facility] 0-26 [facility] 00:00: - [facility] Kenalog Kenalog 2019-05 No 40mg Common (Triamcinol (Triamcinol 0-26 S pirit one) one) 00:00: - [facility] Hyalgan 20 Hyalgan 20 2019-05 No 20mg C ommon mg mg 0-19 Spirit 00:00: - [facility] Hyalgan 20 Hyalgan 20 2019-05 No 20mg C ommon mg mg 0-19 Spirit 00:00: - [facility] Hyalgan 20 Hyalgan 20 2019-05 No 20mg C ommon mg mg 0-19 Spirit 00:00: - [facility] Hyalgan 20 Hyalgan 20 2019-05 No 20mg C ommon mg mg 0-19 Spirit 00:00: - [facility] Hyalgan 20 Hyalgan 20 2019-05 No 20mg C ommon mg mg 0-19 Spirit 00:00: - [facility] Hyalgan 20 Hyalgan 20 2019-05 No 20mg C ommon mg mg 0-19 Spirit 00:00: - [facility] Hyalgan 20 Hyalgan 20 2019-05 No 20mg C ommon mg mg 0-19 Spirit 00:00: - [facility] Hyalgan 20 Hyalgan 20 2019-05 No 20mg C ommon mg mg 0-19 Spirit 00:00: - [facility] Hyalgan 20 Hyalgan 20 2019- No 20mg C ommon mg mg 0-19 [facility] 00:00: - [facility] Hyalgan 20 Hyalgan 20 2019-05 No 20mg C ommon mg mg 0-19 Spirit 00:00: - [facility] Hyalgan 20 Hyalgan 20 2019- No 20mg C ommon mg mg 0-19 Spirit 00:00: - [facility] Hyalgan 20 Hyalgan 20 2019-05 No 20mg C ommon mg mg 0-19 Spirit 00:00: - [facility] Hyalgan 20 Hyalgan 20 2019- No 20mg C ommon mg mg 0-19 Spirit 00:00: - [facility] 00 [facility] Hyalgan 20 Hyalgan 20 2019-1 No 20mg C ommon mg mg 0-19 Spirit 00:00: - [facility] 00 [facility] Kenalog Kenalog 2019-05 No 40mg Common (Triamcinol (Triamcinol 0-13 S pirit one) one) 00:00: - [facility] Hyalgan 20 Hyalgan 20 2019- No 20mg C ommon mg mg 0-13 Spirit 00:00: - [facility] Hyalgan 20 Hyalgan 20 2019- No 20mg C ommon mg mg 0-13 Spirit 00:00: - [facility] Bupivicaine Bupivicaine 2019- No 5mg [facility] [place] 0-13 [facility] 00:00: - [facility] Kenalog Kenalog 2019-05 No 40mg Common (Triamcinol (Triamcinol 0-13 S pirit one) one) 00:00: - [facility] Hyalgan 20 Hyalgan 20 2019- No 20mg C ommon mg mg 0-13 Spirit 00:00: - [facility] Hyalgan 20 Hyalgan 20 2019- No 20mg C ommon mg mg 0-13 Spirit 00:00: - [facility] Bupivicaine Bupivicaine 2019- No 5mg [facility] [place] 0-13 [facility] 00:00: - [facility] Kenalog Kenalog 2019-05 No 40mg Common (Triamcinol (Triamcinol 0-13 S pirit one) one) 00:00: - [facility] Hyalgan 20 Hyalgan 20 2019- No 20mg C ommon mg mg 0-13 [facility] 00:00: - [facility] Hyalgan 20 Hyalgan 20 2019- No 20mg C ommon mg mg 0-13 Spirit 00:00: - [facility] Bupivicaine Bupivicaine 2019- No 5mg [facility] [place] 0-13 [facility] 00:00: - [facility] Kenalog Kenalog 2019-05 No 40mg Common (Triamcinol (Triamcinol 0-13 S pirit one) one) 00:00: - [facility] Hyalgan 20 Hyalgan 20 2020-1 No 20mg C ommon mg mg 0-13 [facility] 00:00: - [facility] Hyalgan 20 Hyalgan 20 2019-1 No 20mg C ommon mg mg 0-13 Spirit 00:00: - [facility] Bupivicaine Bupivicaine 2019- No 5mg [facility] [place] 0-13 [facility] 00:00: - [facility] Kenalog Kenalog 2019- No 40mg Common (Triamcinol (Triamcinol 0-13 S pirit one) one) 00:00: - [facility] Hyalgan 20 Hyalgan 20 2019- No 20mg C ommon mg mg 0-13 [facility] 00:00: - [facility] Hyalgan 20 Hyalgan 20 2019- No 20mg C ommon mg mg 0-13 [facility] 00:00: - [facility] Bupivicaine Bupivicaine 2019- No 5mg [facility] [place] 0-13 [facility] 00:00: - [facility] Kenalog Kenalog 2019- No 40mg Common (Triamcinol (Triamcinol 0-13 S pirit one) one) 00:00: - [facility] Hyalgan 20 Hyalgan 20 2019-1 No 20mg C ommon mg mg 0-13 [facility] 00:00: - [facility] Hyalgan 20 Hyalgan 20 2019-1 No 20mg C ommon mg mg 0-13 [facility] 00:00: - [facility] Bupivicaine Bupivicaine 2019-1 No 5mg [facility] [place] 0-13 [facility] 00:00: - [facility] Kenalog Kenalog 2019- No 40mg Common (Triamcinol (Triamcinol 0-13 S pirit one) one) 00:00: - [facility] Hyalgan 20 Hyalgan 20 2019-1 No 20mg C ommon mg mg 0-13 [facility] 00:00: - [facility] Bupivicaine Bupivicaine 2019-1 No 5mg [facility] [place] 0-13 [facility] 00:00: - [facility] Hyalgan 20 Hyalgan 20 2020-1 No 20mg C ommon mg mg 0-13 [facility] 00:00: - [facility] Kenalog Kenalog 2020-0 No 40mg [facility] (Triamcinol (Triamcinol 6-01 S pirit one) one) 00:00: - [facility] LIDOCAINE LIDOCAINE 2020-0 No 4mL Com mon HCL 10MG/ML HCL 10MG/ML 6- S pirit 00:00: - [facility] Kenalog Kenalog 2020-0 No 40mg [facility] (Triamcinol (Triamcinol 6-01 S pirit one) one) 00:00: - [facility] LIDOCAINE LIDOCAINE 2020-0 No 4mL Com mon HCL 10MG/ML HCL 10MG/ML 6- S pirit 00:00: - [facility] Kenalog Kenalog 2020-0 No 40mg Common (Triamcinol (Triamcinol 6-01 S pirit one) one) 00:00: - [facility] LIDOCAINE LIDOCAINE 2020-0 No 4mL Com mon HCL 10MG/ML HCL 10MG/ML 6- S pirit 00:00: - [facility] Kenalog Kenalog 2020-0 No 40mg Common (Triamcinol (Triamcinol 6-01 S pirit one) one) 00:00: - [facility] LIDOCAINE LIDOCAINE 2020-0 No 4mL Com mon HCL 10MG/ML HCL 10MG/ML 6- S pirit 00:00: - [facility] Kenalog Kenalog 2020-0 No 40mg Common (Triamcinol (Triamcinol 6-01 S pirit one) one) 00:00: - [facility] LIDOCAINE LIDOCAINE 2020-0 No 4mL Com mon HCL 10MG/ML HCL 10MG/ML 6-01 S pirit 00:00: - [facility] Kenalog Kenalog 2020-0 No 40mg Common (Triamcinol (Triamcinol 6-01 S pirit one) one) 00:00: - [facility] LIDOCAINE LIDOCAINE 2020-0 No 4mL Com mon HCL 10MG/ML HCL 10MG/ML 6-01 S pirit 00:00: - [facility] Kenalog Kenalog 2020-0 No 40mg Common (Triamcinol (Triamcinol 6-01 S pirit one) one) 00:00: - [facility] LIDOCAINE LIDOCAINE 2020-0 No 4mL Com mon HCL 10MG/ML HCL 10MG/ML 6-01 S pirit 00:00: - [facility] Hyalgan 20 Hyalgan 20 2019-0 No 2mL C ommon mg mg 01-29 Spirit 00:00: - [facility] Hyalgan 20 Hyalgan 20 2019-0 No 2mL C ommon mg mg 01-29 [facility] 00:00: - [facility] Hyalgan 20 Hyalgan 20 2019-0 No 2mL C ommon mg mg 01-29 [facility] 00:00: - [facility] Hyalgan 20 Hyalgan 20 2019-0 No 2mL C ommon mg mg 01-29 [facility] 00:00: - [facility] Hyalgan 20 Hyalgan 20 2019-0 No 2mL C ommon mg mg 01-29 [facility] 00:00: - [facility] Hyalgan 20 Hyalgan 20 2019-0 No 2mL C ommon mg mg 01-29 [facility] 00:00: - [facility] Hyalgan 20 Hyalgan 20 2019-0 No 2mL C ommon mg mg 01-29 [facility] 00:00: - [facility] Hyalgan 20 Hyalgan 20 2019-0 No 2mL C ommon mg mg 01-23 [facility] 00:00: - [facility] Hyalgan 20 Hyalgan 20 2019-0 No 2mL C ommon mg mg 01-23 [facility] 00:00: - [facility] Hyalgan 20 Hyalgan 20 2019-0 No 2mL C ommon mg mg 01-23 [facility] 00:00: - [facility] Hyalgan 20 Hyalgan 20 2019-0 No 2mL C ommon mg mg 01-23 [facility] 00:00: - [facility] Hyalgan 20 Hyalgan 20 2019-0 No 2mL C ommon mg mg 01-23 [facility] 00:00: - [facility] Hyalgan 20 Hyalgan 20 2019-0 No 2mL C ommon mg mg 01-23 [facility] 00:00: - [facility] Hyalgan 20 Hyalgan 20 2019-0 No 2mL C ommon mg mg 01-23 [facility] 00:00: - [facility] Hyalgan 20 Hyalgan 20 2019-0 No 2mL C ommon mg mg 01-15 [facility] 00:00: - [facility] Hyalgan 20 Hyalgan 20 2019-0 No 2mL C ommon mg mg 01-15 [facility] 00:00: - [facility] Hyalgan 20 Hyalgan 20 2019-0 No 2mL C ommon mg mg 01-15 [facility] 00:00: - [facility] Hyalgan 20 Hyalgan 20 2019-0 No 2mL C ommon mg mg 01-15 [facility] 00:00: - [facility] Hyalgan 20 Hyalgan 20 2019-0 No 2mL C ommon mg mg 01-15 [facility] 00:00: - [facility] Hyalgan 20 Hyalgan 20 2019-0 No 2mL C ommon mg mg 01-15 [facility] 00:00: - [facility] Hyalgan 20 Hyalgan 20 2019-0 No 2mL C ommon mg mg 01-15 [facility] 00:00: - [facility] Kenalog Kenalog 2019-0 No 40mg Common (Triamcinol (Triamcinol 5-16 S pirit one) one) 00:00: - [facility] LIDOCAINE LIDOCAINE 2019-0 No 10mg Com mon HCL 10MG/ML HCL 10MG/ML 5-16 S pirit 00:00: - [facility] Kenalog Kenalog 2019-0 No 40mg Common (Triamcinol (Triamcinol 5-16 S pirit one) one) 00:00: - [facility] LIDOCAINE LIDOCAINE 2019-0 No 10mg Com mon HCL 10MG/ML HCL 10MG/ML 5-16 S pirit 00:00: - [facility] Kenalog Kenalog 2019-0 No 40mg Common (Triamcinol (Triamcinol 5-16 S pirit one) one) 00:00: - [facility] LIDOCAINE LIDOCAINE 2019-0 No 10mg Com mon HCL 10MG/ML HCL 10MG/ML 5-16 S pirit 00:00: - [facility] Suleman Kenalog 2019-0 No 40mg Common (Triamcinol (Triamcinol 5-16 S pirit one) one) 00:00: - [facility] LIDOCAINE LIDOCAINE 2019-0 No 10mg Com mon HCL 10MG/ML HCL 10MG/ML 5-16 S pirit 00:00: - [facility] Suleman Kenalog 2019-0 No 40mg Common (Triamcinol (Triamcinol 5-16 S pirit one) one) 00:00: - [facility] LIDOCAINE LIDOCAINE 2019-0 No 10mg Com mon HCL 10MG/ML HCL 10MG/ML 5-16 S pirit 00:00: - [facility] S[place] Kenjun 2019-0 No 40mg Common (Triamcinol (Triamcinol 5-16 S pirit one) one) 00:00: - [facility] LIDOCAINE LIDOCAINE 2019-0 No 10mg Com mon HCL 10MG/ML HCL 10MG/ML 5-16 S pirit 00:00: - [facility] Suleman Kenalog 2019-0 No 40mg Common (Triamcinol (Triamcinol 5-16 S pirit one) one) 00:00: - [facility] LIDOCAINE LIDOCAINE 2019-0 No 10mg Com mon HCL 10MG/ML HCL 10MG/ML 5-16 S pirit 00:00: - [facility] Aspir-81 Aspir-81 Yes Khurram not Comm on Garcia defined [facility] Sensipar Sensipar Yes Khurram not Comm on Garcia defined [facility] Levothyroxi Levothyroxi Yes Khurram not Common ne Sodium ne Sodium [facility] Rebekah-Denny Rebekah-Denny Yes Khurram not Co mmon Garcia defined [facility] Lasix Lasix Yes Khurram not Common Garcia defined [facility] Levaquin Levaquin Yes Khurram not Comm on Garcia defined [facility] Renvela Renvela Yes Khurram not Common Garcia defined [facility] Promethazin Promethazin Yes Khurram not Common e HCl e HCl Garcia defined [facility] Hydrocodone Hydrocodone Yes Khurram not Common -Acetaminop -Acetaminop Garcia defined [facility] Xanax Xanax Yes Khurram not Common Garcia defined [facility] Dialyvite Dialyvite Yes Khurram not Co mmon 800/Ultra D 800/Ultra D Garcia defined [facility] Zolpidem Zolpidem Yes Khurram not Comm on Tartrate Tartrate Garcia defined Spir it [facility] Lidocaine-P Lidocaine-P Yes Khurram not Common rilocaine rilocaine Garcia defined [facility] Furosemide Furosemide Yes Khurram not Common Garcia defined [facility] Escitalopra Escitalopra Yes Khurram not Common m Oxalate m Oxalate Garcia defined [facility] Alprazolam Alprazolam Yes Khurram not Common Garcia defined [facility] Dialyvite Dialyvite No Dialyvite 800/Ultra D 800/Ultra D 800/Ultra D Auryxia 1 Auryxia 1 No Auryxia 1 GM 210 GM 210 GM 210 MG(Fe) MG(Fe) MG(Fe) HYDROcodone HYDROcodone No HYDROcodon -Acetaminop -Acetaminop e-Acetamin hen hen ophen Vitamin D Vitamin D No Vitamin D (Ergocalcif (Ergocalcif (Ergocalci clarissa) 1.25 clarissa) 1.25 ferol) MG (94591 MG (36106 1.25 MG UT) UT) (02947 UT) Promethazin Promethazin No Promethazi e HCl e HCl ne HCl Lasix Lasix No Lasix Rebekah-Denny Rebekah-Denny No Rebekah-Denny levoFLOXaci levoFLOXaci No levoFLOXac n 250 MG n 250 MG in 250 MG Escitalopra Escitalopra No Escitalopr m Oxalate m Oxalate am Oxalate Levothyroxi Levothyroxi No Levothyrox ne Sodium ne Sodium ine Sodium Sensipar Sensipar No Sensipar Acetaminoph Acetaminoph No Acetaminop en-Codeine en-Codeine hen-Codein #3 300-30 #3 300-30 e #3 MG MG 300-30 MG Levaquin Levaquin No Levaquin Renvela Renvela No Renvela Zolpidem Zolpidem No Zolpidem Tartrate Tartrate Tartrate ALPRAZolam ALPRAZolam No ALPRAZolam Aspir-81 Aspir-81 No Aspir-81 Xanax Xanax No Xanax Sevelamer Sevelamer No Sevelamer Carbonate Carbonate Carbonate 800 MG 800 MG 800 MG Lidocaine-P Lidocaine-P No Lidocaine- rilocaine rilocaine Prilocaine Dialyvite Dialyvite No Dialyvite 800/Ultra D 800/Ultra D 800/Ultra D Levothyroxi Levothyroxi No Levothyrox ne Sodium ne Sodium ine Sodium ALPRAZolam ALPRAZolam No ALPRAZolam Vitamin D Vitamin D No Vitamin D (Ergocalcif (Ergocalcif (Ergocalci clarissa) 1.25 clarissa) 1.25 ferol) MG (73828 MG (84083 1.25 MG UT) UT) (35088 UT) Promethazin Promethazin No Promethazi e HCl e HCl ne HCl Lactulose Lactulose No Lactulose 10 GM/15ML 10 GM/15ML 10 GM/15ML Levaquin Levaquin No Levaquin Acetaminoph Acetaminoph No Acetaminop en-Codeine en-Codeine hen-Codein #3 300-30 #3 300-30 e #3 MG MG 300-30 MG Lidocaine-P Lidocaine-P No Lidocaine- rilocaine rilocaine Prilocaine Zolpidem Zolpidem No Zolpidem Tartrate Tartrate Tartrate Auryxia 1 Auryxia 1 No Auryxia 1 GM 210 GM 210 GM 210 MG(Fe) MG(Fe) MG(Fe) Sevelamer Sevelamer No Sevelamer Carbonate Carbonate Carbonate 800 MG 800 MG 800 MG Furosemide Furosemide No Furosemide Sensipar Sensipar No Sensipar levoFLOXaci levoFLOXaci No levoFLOXac n 250 MG n 250 MG in 250 MG Rebekah-Denny Rebekah-Denny No Rebekah-Denny Aspir-81 Aspir-81 No Aspir-81 Xanax Xanax No Xanax Lasix Lasix No Lasix Escitalopra Escitalopra No Escitalopr m Oxalate m Oxalate am Oxalate HYDROcodone HYDROcodone No HYDROcodon -Acetaminop -Acetaminop e-Acetamin hen hen ophen Renvela Renvela No Renvela Dialyvite Dialyvite No Dialyvite 800/Ultra D 800/Ultra D 800/Ultra D Levothyroxi Levothyroxi No Levothyrox ne Sodium ne Sodium ine Sodium ALPRAZolam ALPRAZolam No ALPRAZolam Vitamin D Vitamin D No Vitamin D (Ergocalcif (Ergocalcif (Ergocalci clarissa) 1.25 clarissa) 1.25 ferol) MG (81642 MG (01515 1.25 MG UT) UT) (20455 UT) Promethazin Promethazin No Promethazi e HCl e HCl ne HCl Lactulose Lactulose No Lactulose 10 GM/15ML 10 GM/15ML 10 GM/15ML Levaquin Levaquin No Levaquin Acetaminoph Acetaminoph No Acetaminop en-Codeine en-Codeine hen-Codein #3 300-30 #3 300-30 e #3 MG MG 300-30 MG Lidocaine-P Lidocaine-P No Lidocaine- rilocaine rilocaine Prilocaine Zolpidem Zolpidem No Zolpidem Tartrate Tartrate Tartrate Auryxia 1 Auryxia 1 No Auryxia 1 GM 210 GM 210 GM 210 MG(Fe) MG(Fe) MG(Fe) Sevelamer Sevelamer No Sevelamer Carbonate Carbonate Carbonate 800 MG 800 MG 800 MG Furosemide Furosemide No Furosemide Sensipar Sensipar No Sensipar levoFLOXaci levoFLOXaci No levoFLOXac n 250 MG n 250 MG in 250 MG Rebekah-Denny Rebekah-Denny No Rebekah-Denny Aspir-81 Aspir-81 No Aspir-81 Xanax Xanax No Xanax Lasix Lasix No Lasix Escitalopra Escitalopra No Escitalopr m Oxalate m Oxalate am Oxalate HYDROcodone HYDROcodone No HYDROcodon -Acetaminop -Acetaminop e-Acetamin hen hen ophen Renvela Renvela No Renvela Dialyvite Dialyvite No Dialyvite 800/Ultra D 800/Ultra D 800/Ultra D Levothyroxi Levothyroxi No Levothyrox ne Sodium ne Sodium ine Sodium ALPRAZolam ALPRAZolam No ALPRAZolam Vitamin D Vitamin D No Vitamin D (Ergocalcif (Ergocalcif (Ergocalci clarissa) 1.25 clarissa) 1.25 ferol) MG (71460 MG (00918 1.25 MG UT) UT) (40172 UT) Promethazin Promethazin No Promethazi e HCl e HCl ne HCl Lactulose Lactulose No Lactulose 10 GM/15ML 10 GM/15ML 10 GM/15ML Levaquin Levaquin No Levaquin Acetaminoph Acetaminoph No Acetaminop en-Codeine en-Codeine hen-Codein #3 300-30 #3 300-30 e #3 MG MG 300-30 MG Lidocaine-P Lidocaine-P No Lidocaine- rilocaine rilocaine Prilocaine Zolpidem Zolpidem No Zolpidem Tartrate Tartrate Tartrate Auryxia 1 Auryxia 1 No Auryxia 1 GM 210 GM 210 GM 210 MG(Fe) MG(Fe) MG(Fe) Sevelamer Sevelamer No Sevelamer Carbonate Carbonate Carbonate 800 MG 800 MG 800 MG Furosemide Furosemide No Furosemide Sensipar Sensipar No Sensipar levoFLOXaci levoFLOXaci No levoFLOXac n 250 MG n 250 MG in 250 MG Rebekah-Denny Rebekah-Denny No Rebekah-Denny Aspir-81 Aspir-81 No Aspir-81 Xanax Xanax No Xanax Lasix Lasix No Lasix Escitalopra Escitalopra No Escitalopr m Oxalate m Oxalate am Oxalate HYDROcodone HYDROcodone No HYDROcodon -Acetaminop -Acetaminop e-Acetamin hen hen ophen Renvela Renvela No Renvela Xanax Xanax No Xanax Rebekah-Denny Rebekah-Denny No Rebekah-Denny Acetaminoph Acetaminoph No Acetaminop en-Codeine en-Codeine hen-Codein #3 300-30 #3 300-30 e #3 MG MG 300-30 MG Lactulose Lactulose No Lactulose 10 GM/15ML 10 GM/15ML 10 GM/15ML levoFLOXaci levoFLOXaci No levoFLOXac n 250 MG n 250 MG in 250 MG Promethazin Promethazin No Promethazi e HCl e HCl ne HCl Levothyroxi Levothyroxi No Levothyrox ne Sodium ne Sodium ine Sodium Levaquin Levaquin No Levaquin Dialyvite Dialyvite No Dialyvite 800/Ultra D 800/Ultra D 800/Ultra D ALPRAZolam ALPRAZolam No ALPRAZolam Sevelamer Sevelamer No Sevelamer Carbonate Carbonate Carbonate 800 MG 800 MG 800 MG Sensipar Sensipar No Sensipar Furosemide Furosemide No Furosemide Vitamin D Vitamin D No Vitamin D (Ergocalcif (Ergocalcif (Ergocalci clarissa) 1.25 clarissa) 1.25 ferol) MG (26435 MG (04969 1.25 MG UT) UT) (49696 UT) Renvela Renvela No Renvela Lidocaine-P Lidocaine-P No Lidocaine- rilocaine rilocaine Prilocaine Aspir-81 Aspir-81 No Aspir-81 Escitalopra Escitalopra No Escitalopr m Oxalate m Oxalate am Oxalate Auryxia 1 Auryxia 1 No Auryxia 1 GM 210 GM 210 GM 210 MG(Fe) MG(Fe) MG(Fe) Zolpidem Zolpidem No Zolpidem Tartrate Tartrate Tartrate HYDROcodone HYDROcodone No HYDROcodon -Acetaminop -Acetaminop e-Acetamin hen hen ophen Lasix Lasix No Lasix Xanax Xanax No Xanax Rebekah-Denny Rebekah-Denny No Rebekah-Denny Acetaminoph Acetaminoph No Acetaminop en-Codeine en-Codeine hen-Codein #3 300-30 #3 300-30 e #3 MG MG 300-30 MG Lactulose Lactulose No Lactulose 10 GM/15ML 10 GM/15ML 10 GM/15ML levoFLOXaci levoFLOXaci No levoFLOXac n 250 MG n 250 MG in 250 MG Promethazin Promethazin No Promethazi e HCl e HCl ne HCl Levothyroxi Levothyroxi No Levothyrox ne Sodium ne Sodium ine Sodium Levaquin Levaquin No Levaquin Dialyvite Dialyvite No Dialyvite 800/Ultra D 800/Ultra D 800/Ultra D ALPRAZolam ALPRAZolam No ALPRAZolam Sevelamer Sevelamer No Sevelamer Carbonate Carbonate Carbonate 800 MG 800 MG 800 MG Sensipar Sensipar No Sensipar Furosemide Furosemide No Furosemide Vitamin D Vitamin D No Vitamin D (Ergocalcif (Ergocalcif (Ergocalci clarissa) 1.25 clarissa) 1.25 ferol) MG (31213 MG (93935 1.25 MG UT) UT) (68341 UT) Renvela Renvela No Renvela Lidocaine-P Lidocaine-P No Lidocaine- rilocaine rilocaine Prilocaine Aspir-81 Aspir-81 No Aspir-81 Escitalopra Escitalopra No Escitalopr m Oxalate m Oxalate am Oxalate Auryxia 1 Auryxia 1 No Auryxia 1 GM 210 GM 210 GM 210 MG(Fe) MG(Fe) MG(Fe) Zolpidem Zolpidem No Zolpidem Tartrate Tartrate Tartrate HYDROcodone HYDROcodone No HYDROcodon -Acetaminop -Acetaminop e-Acetamin hen hen ophen Lasix Lasix No Lasix Lasix Lasix No Lasix Acetaminoph Acetaminoph No Acetaminop en-Codeine en-Codeine hen-Codein #3 300-30 #3 300-30 e #3 MG MG 300-30 MG Auryxia 1 Auryxia 1 No Auryxia 1 GM 210 GM 210 GM 210 MG(Fe) MG(Fe) MG(Fe) Zolpidem Zolpidem No Zolpidem Tartrate Tartrate Tartrate Auryxia 1 Auryxia 1 No Auryxia 1 GM 210 GM 210 GM 210 MG(Fe) MG(Fe) MG(Fe) Xanax Xanax No Xanax Escitalopra Escitalopra No Escitalopr m Oxalate m Oxalate am Oxalate Sevelamer Sevelamer No Sevelamer Carbonate Carbonate Carbonate 800 MG 800 MG 800 MG Acetaminoph Acetaminoph No Acetaminop en-Codeine en-Codeine hen-Codein #3 300-30 #3 300-30 e #3 MG MG 300-30 MG Sensipar Sensipar No Sensipar Levaquin Levaquin No Levaquin Aspir-81 Aspir-81 No Aspir-81 Dialyvite Dialyvite No Dialyvite 800/Ultra D 800/Ultra D 800/Ultra D levoFLOXaci levoFLOXaci No levoFLOXac n 250 MG n 250 MG in 250 MG ALPRAZolam ALPRAZolam No ALPRAZolam Furosemide Furosemide No Furosemide Levaquin Levaquin No Levaquin Levothyroxi Levothyroxi No Levothyrox ne Sodium ne Sodium ine Sodium Promethazin Promethazin No Promethazi e HCl e HCl ne HCl Zolpidem Zolpidem No Zolpidem Tartrate Tartrate Tartrate Lasix Lasix No Lasix Lactulose Lactulose No Lactulose 10 GM/15ML 10 GM/15ML 10 GM/15ML Lidocaine-P Lidocaine-P No Lidocaine- rilocaine rilocaine Prilocaine Vitamin D Vitamin D No Vitamin D (Ergocalcif (Ergocalcif (Ergocalci clarissa) 1.25 clarissa) 1.25 ferol) MG (03085 MG (80942 1.25 MG UT) UT) (39071 UT) Rebekah-Denny Rebekah-Denny No Rebekah-Denny Xanax Xanax No Xanax HYDROcodone HYDROcodone No HYDROcodon -Acetaminop -Acetaminop e-Acetamin hen hen ophen ALPRAZolam ALPRAZolam No ALPRAZolam Renvela Renvela No Renvela levoFLOXaci levoFLOXaci No levoFLOXac n 250 MG n 250 MG in 250 MG Lidocaine-P Lidocaine-P No Lidocaine- rilocaine rilocaine Prilocaine Rebekah-Denny Rebekah-Denny No Rebekah-Denny Sensipar Sensipar No Sensipar HYDROcodone HYDROcodone No HYDROcodon -Acetaminop -Acetaminop e-Acetamin hen hen ophen Levothyroxi Levothyroxi No Levothyrox ne Sodium ne Sodium ine Sodium Aspir-81 Aspir-81 No Aspir-81 Dialyvite Dialyvite No Dialyvite 800/Ultra D 800/Ultra D 800/Ultra D Promethazin Promethazin No Promethazi e HCl e HCl ne HCl Lactulose Lactulose No Lactulose 10 GM/15ML 10 GM/15ML 10 GM/15ML Sevelamer Sevelamer No Sevelamer Carbonate Carbonate Carbonate 800 MG 800 MG 800 MG Vitamin D Vitamin D No Vitamin D (Ergocalcif (Ergocalcif (Ergocalci clarissa) 1.25 clarissa) 1.25 ferol) MG (34041 MG (97117 1.25 MG UT) UT) (06855 UT) Furosemide Furosemide No Furosemide Renvela Renvela No Renvela Escitalopra Escitalopra No Escitalopr m Oxalate m Oxalate am Oxalate Furosemide Furosemide No Furosemide Lactulose Lactulose No Lactulose 10 GM/15ML 10 GM/15ML 10 GM/15ML Immunizations Ordered Immunization Filled Immunization Date Status Commen ts Source Name Name [facility]icaine [place] [facility] [place] 2020-12-01 [facility] Kenalog Kenalog 2020-12-01 [facility] (Triam[facility] (Triamcinolone) 14:02:00 - [facility] Hyalgan 20 mg Hyalgan 20 mg 2020-10-06 [facility] 14:03[facility]00 [facility] Hyalgan 20 mg Hyalgan 20 mg 2020-10-06 Completed [facility] 14:03:00 [facility] Hyalgan 20 mg Hyalgan 20 mg 2020-09-29 Completed [facility] 14:09:00 [facility] Hyalgan 20 mg Hyalgan 20 mg 2020-09-29 Completed [facility] 14:08:00 - [facility] Hyalgan 20 mg Hyalgan 20 mg 2020-09-22 Completed [facility] 11:02:00 - [facility] Hyalgan 20 mg Hyalgan 20 mg 2020-09-22 Completed [facility] 11:01:00 - [facility] Kenalog Kenalog 2020-08-04 [facility] (Triamcinolone) (Triamcinolone) 15:47:00 [facility] Bupivicaine [place] Bupivicaine [place] 2020-08-04 Completed [facility] 15:46:00 - [facility] Bupivicaine [place] Bupivicaine [place] 2020-03-17 Completed [facility] 14:20:00 [facility] Kenalog Kenalog 2020-03-17 Completed [facility] (Triamcinolone) (Triamcinolone) 14:19:00 [facility] Hyalgan 20 mg Hyalgan 20 mg 2020-03-17 Completed [facility] 14:19:00 [facility] Hyalgan 20 mg Hyalgan 20 mg 2020-03-17 Completed [facility] 14:18:00 [facility] Hyalgan 20 mg Hyalgan 20 mg 2020-03-10 Completed [facility] 10:52:00 [facility] Hyalgan 20 mg Hyalgan 20 mg 2020-03-10 Completed [facility] 10:51:00 [facility] Hyalgan 20 mg Hyalgan 20 mg 2020-03-04 Completed [facility] 16:01:00 [facility] Hyalgan 20 mg Hyalgan 20 mg 2020-03-04 Completed [facility] 16:01:00 [facility] Bupivicaine [place] Bupivicaine [place] 2020-03-04 Completed [facility] 16:00: [facility] Kenalog Kenalog 2020-03-04 Completed [facility] (Triamcinolone) (Triamcinolone) 15:59:00 [facility] LIDOCAINE HCL LIDOCAINE HCL 2019-10-22 Completed [facility] 10MG/ML 10MG/ML 17:02:00 [facility] Kenalog Kenalog 2019-10-22 Completed [facility] (Triamcinolone) (Triamcinolone) 16:35:00 [facility] Hyalgan 20 mg Hyalgan 20 mg 2019-01-29 Completed [facility] 11:18:00 [facility] Hyalgan 20 mg Hyalgan 20 mg 2019-01-23 Completed [facility] 16:19:00 [facility] Hyalgan 20 mg Hyalgan 20 mg 2019-01-15 Completed [facility] 11:57:00 [facility] LIDOCAINE HCL LIDOCAINE HCL 2018-10-05 Completed [facility] 10MG/ML 10MG/ML 09:05: [facility] Kenalog Kenalog 2018-10-05 Completed [facility] (Triamcinolone) (Triamcinolone) 09:03:00 [facility] Vital Signs Vital Name Observation Time Observation Value Comments Source height 2022-05-12 13:45:00 61.5 [in_i] Common S pirit - [facility] weight 2022-05-12 13:45:00 169 [lb_av] Common [facility] p[facility] - [facility] temperature 2022-05-12 13:45:00 97.8 [degF] Common [facility] p[facility] - [facility] bmi 2022-05-12 13:45:00 31.41 kg/m2 Common [facility] p[facility] - [facility] blood pressure 2022-05-12 13:45:00 134 mm[Hg] [facility] blood pressure 2022-05-12 13:45:00 82 mm[Hg] [facility] - diastolic [facility] height 2022-01-04 14:00:00 61.5 [in_i] Common S pirit [facility] weight 2022-01-04 14:00:00 180 [lb_av] Common S pirit - [facility] temperature 2022-01-04 14:00:00 97.3 [degF] [facility] [place] [facility] 2022-01-04 14:00:00 33.46 kg/m2 Common S pirit - [facility] blood pressure 2022-01-04 14:00:00 128 mm[Hg] [facility] - systolic [facility] blood pressure 2022-01-04 14:00:00 80 mm[Hg] [facility] - [facility] height 2021-10-05 08:30:00 61.5 [in_i] Common S pirit - [facility] weight 2021-10-05 08:30:00 190 [lb_av] Common S p[facility] - [facility] temperature 2021-10-05 08:30:00 97.2 [degF] Common S pirit - [facility] bmi 2021-10-05 08:30:00 35.31 kg/m2 Common S pirit - [facility] blood pressure 2021-10-05 08:30:00 126 mm[Hg] [facility] - systolic [facility] blood pressure 2021-10-05 08:30:00 82 mm[Hg] [facility] - diastolic [facility] height 2021-09-28 15:15:00 61.5 [in_i] Common S pirit [facility] weight 2021-09-28 15:15:00 196 [lb_av] [facility] temperature 2021-09-28 15:15:00 98.2 [degF] Common [facility] bmi 2021-09-28 15:15:00 36.43 kg/m2 [facility] blood pressure 2021-09-28 15:15:00 132 mm[Hg] [facility] - systolic [facility] blood pressure 2021-09-28 15:15:00 84 mm[Hg] [facility] - diastolic [facility] height 2021-09-21 10:00:00 61.5 [in_i] Common [facility] weight 2021-09-21 10:00:00 196.6 [lb_av] Common [facility] bmi 2021-09-21 10:00:00 36.54 kg/m2 [facility] pirit [facility] blood pressure 2021-09-21 10:00:00 134 mm[Hg] [facility] - systolic [facility] blood pressure 2021-09-21 10:00:00 82 mm[Hg] [facility] height 2021-02-02 08:15:00 61.5 [in_i] [facility] weight 2021-02-02 08:15:00 255 [lb_av] [facility] bmi 2021-02-02 08:15:00 47.4 kg/m2 [facility] pirit [facility] blood pressure 2021-02-02 08:15:00 144 mm[Hg] [facility] - systolic [facility] blood pressure 2021-02-02 08:15:00 83 mm[Hg] [facility] - diastolic [facility] Body weight 2022-07-21 19:07:00 74.5 kg [facility] BMI 2022-07-21 19:07:00 31.29 kg/m2 [facility] Systolic blood 2022-04-28 13:47:00 134 mm[Hg] [facility] pressure Diastolic blood 2022-04-28 13:47:00 69 mm[Hg] [facility] pressure Heart rate 2022-04-28 13:47:00 65 /min [facility] Body temperature 2022-04-28 13:46:00 36.11 Carlita [facility] Respiratory rate 2022-04-28 13:46:00 17 /min [facility] Body height 2022-04-28 13:46:00 154.3 cm [facility] Oxygen saturation in 2022-04-28 13:46:00 95 /min [facility] Arterial blood by Pulse oximetry Procedures Procedure Date / Time Performing Clinician Source Performed US BREAST COMPLETE 2022-09-01 18:21:49 Jacky [facility] BILATERAL [place] MAMMO BREAST DIAGNOSTIC 2022-09-01 18:09[facility] [place] OCCULT BLOOD, STOOL 2022-08-31 [facility] [place] [facility], [facility]OOL 2022-08-30 19:00:00 Rico, [facility] [place] OCCULT BLOOD, STOOL 2022-08-28 17:00[facility] [place] TTE COMPLETE, WO CONTRAST, 2022-07-21 21:17:00 Jacky [facility] W DOPPLER ([id number]) [place] CT ANGIOGRAM ABDOMINAL 2022-07-21 20:15:38 Jacky [facility] AORTA AND BILATERAL [place] ILIOFEMORAL RUNOFF W WO CONTRAST US RENAL 2022-07-21 18:50:00 Tito Rico XR CHEST 2 VW 2022-07-21 17:14:00 Tito Rico SIX MINUTE WALK W/ PULSE 2022-07-21 16:29:50 Jacky [facility] OXIMETRY [place] ECG 12-LEAD 2022-07-21 14:47:41 Tito Rico LIPID PANEL 2022-07-21 13:41:00 Tito Rico FASTING GLUCOSE LEVEL 2022-07-21 13:41:00 Jacky [facility] [place] CREATININE LEVEL 2022-07-21 13:41:00 [facility] PHOSPHORUS LEVEL 2022-07-21 13:41:00 [facility] LDH 2022-07-21 13:41:00 Rico, Tito Mina HEMOGLOBIN A1C 2022-07-21 13:41:00 [facility] [place] CYTOMEGALOVIRUS AB, IGG 2022-07-21 13:41:00 Rico, [facility] [place] CYTOMEGALOVIRUS AB, IGM 2022-07-21 13:41:00 Rico, [facility] [place] LEIGHTON-ROSENBERG VIRUS 2022-07-21 13:41:00 Rico, [facility] ANTIBODY TEST [place] HERPES SIMPLEX VIRUS BY 2022-07-21 13:41:00 Rico, [facility] PCR [place] HSV 1 & 2 GLYCOPROTEIN G 2022-07-21 13:41:00 Rico, [facility] AB, IGG [place] HSV TYPE 1/2 COMBINED AB, 2022-07-21 13:41:00 Rico, [facility] IGM [place] PARATHYROID HORMONE 2022-07-21 13:41:00 Rico, [facility] [place] ABORH - TRANSPLANT 2022-07-21 13:41:00 Rico, [facility] [place] FACTOR V LEIDEN BY PCR 2022-07-21 13:41:00 Rico, [facility] [place] PROTHROMBIN MUTATION, 2022-07-21 13:41:00 Rico, [facility] FACTOR II, BY PCR [place] LUPUS ANTICOAGULANT PANEL 2022-07-21 13:41:00 Rico, [facility] [place] HOMOCYSTINE, PLASMA 2022-07-21 13:41:00 Rico, [facility] [place] ESTIMATED GFR 2022-07-21 13:41:00 RicoTito HLA TYPING 2022-07-21 13:41:00 Tito Rico SINGLE ANTIGEN BEADS 2022-07-21 13:41:00 Rico, [facility] [place] URINE CULTURE 2022-04-28 19:56:00 RicoTito maldonado COMPREHENSIVE METABOLIC 2022-04-28 18:10:00 Rico, [facility] PANEL [place] URINALYSIS SCREEN AND 2022-04-28 18:10:00 Rico, [facility] MICROSCOPY, WITH REFLEX TO [place] CULTURE HIV 1/2 ANTIGEN/ANTIBODY, 2022-04-28 18:10:00 Rico, [facility] FOURTH GENERATION, WITH [place] REFLEXES HEPATITIS A ANTIBODY TOTAL 2022-04-28 18:10:00 Rico, [facility] [place] HEPATITIS B CORE ANTIBODY 2022-04-28 18:10:00 Rico, [facility] TOTAL [place] HEPATITIS B SURFACE 2022-04-28 18:10:00 Rico, [facility] ANTIBODY [place] HEPATITIS B SURFACE 2022-04-28 18:10:00 Rico, [facility] ANTIGEN [place] HEPATITIS B SURFACE AB, 2022-04-28 18:10:00 Rico, [facility] QUANTITATIVE [place] HEPATITIS C ANTIBODY 2022-04-28 18:10:00 Rico, [facility] [place] SYPHILIS TREPONEMA SCREEN 2022-04-28 18:10:00 Rico, [facility] WITH RPR CONFIRMATION [place] (REVERSE ALGORITHM) CBC WITH PLATELET AND 2022-04-28 18:10:00 Rico, [facility] DIFFERENTIAL [place] PROTHROMBIN TIME WITH INR 2022-04-28 18:10:00 Rico, [facility] [place] PARTIAL THROMBOPLASTIN 2022-04-28 18:10:00 Rico, [facility] TIME (PTT) [place] ABORH - TRANSPLANT 2022-04-28 18:10:00 Rico, [facility] [place] DRUG PENA 9, SER/BINTA, SCRN 2022-04-28 18:10:00 Rico, [facility] W/RFLX TO CONF [place] NICOTINE AND COTININE, 2022-04-28 18:10:00 Rico, [facility] SERUM [place] TB T-SPOT 2022-04-28 18:10:00 Rico, Tito Guerreroist Daniel Mina SERUM ELECTROPHORESIS 2022-04-28 18:10:00 Rico, [facility] [place] ESTIMATED GFR 2022-04-28 18:10:00 RicoTito Plan of Care Planned Activity Planned Date Details Comments Source Future Scheduled 2022-09-22 COVID-19 VACCINE (#1) [facility] Hospital Test 08:44:54 [code = COVID-19 VACCINE (#1)] Future Scheduled 2022-09-22 65[facility]OC[facility] [facility] Test 08:44:54 VACCINE (1 - PCV) [code = 65+ PNEUMOCOCCAL VACCINE (1 - PCV)] Future Scheduled 2022-09-22 SHINGLES VACCINES (1 [facility] Hospital Test 08:44:54 of 2) [code = SHINGLES VACCINES (1 of 2)] Future Scheduled 2022-09-22 COLONOSCOPY SCREENING [facility] Test 08:44:54 [code = COLONOSCOPY SCREENING] Future Scheduled 2022-09-22 INFLUENZA VACCINE [facility] Test 08:44:54 [code = INFLUENZA VACCINE] Future Scheduled 2022-09-22 BREAST CANCER [facility] Test 08:44:54 SCREENING [code = BREAST CANCER SCREENING] Encounters Start End Encounter Admission Attending Care Care Encounter Source Date/Time Date/Time Type Type Clinicians Facility Department ID 2022-01-05 Outpatient Mayco, [facility] [id number] Common 08:24:01 Sunny [facility] 2021-12-21 [facility] [id number] Common 10:40:00 Sunny [facility] 2021-12-08 Out[facility] Mayco, [facility] [id number] Common 10:47:00 Sunny [facility] 2021-06-17 Outpatient Mayco, [facility] [id number] Common 13:46:32 Sunny [id number] [facility] 2021-06-17 Outpatient Mayco, [facility] [id number] Common 12:58:03 Sunny [id number] [facility] 2021-06-17 Outpatient Mayco, [facility] [id number] Common 12:57:19 Sunny [id number] [facility] 2021-06-17 Out[facility] Mayco, [facility] [id number] Common 11:52:24 Sunny [id number] [facility] 2022-09-17 2022-09-17 [facility], 1.2.840.1 [id number] Methodi 00:00:00 00:00:[address] 3.430.2.7 Hospit a .3.872237 l .8 2022-09-01 2022-09-01 [facility], 1.2.840.1 [id number] Methodi 13:11:06 23:59:00 Encounter Tito 82268.1.[address] [place] 3.430.2.7 Hospit a .3.806612 l .8 2022-09-01 2022-09-01 [facility], 1.2.840.1 [id number] [id number] Methodi 12:35:11 13:10:00 Encounter Tito 05917.1.[address] [place] 3.430.2.7 Hospit a .3.990934 l .8 2022-09-01 2022-09-01 Outpatient [facility] [id number] [place] 00:00:00 00:00:00 TITO [address] 2022-09-01 2022-09-01 Outpatient [facility] [id number] [place] 00:00:00 00:00:00 TITO [address] 2022-09-01 2022-09-01 Outpatient [facility] [id number] [place] 00:00:00 00:00:00 TITO [address] 2022-09-01 2022-09-01 Travel 1.2.840.1 1.2.684.445 [id number] Methodi 00:00:00 00:00:[address] 3.430.2.7 0.2.7.3.698 Ho spita .3.662199 084.8 l .8 2022-08-31 2022-08-31 [facility], 1.2.840.1 [id number] Methodi 00:00:00 00:05:[address] [place] 3.430.2.7 Hospit a .3.863790 l .8 2022-08-31 2022-08-31 Outpatient JACKY, [facility] [id number] [place] 00:00:00 00:00:00 TITO [address] 2022-08-30 2022-08-30 Lab Jacky, 1.2.840.1 [id number] Methodi 00:00:00 00:05:[address] [place] 3.430.2.7 Hospit a .3.171991 l .8 2022-08-30 2022-08-30 Outpatient JACKY, [facility] [id number] [place] 00:00:00 00:00:00 TITO [address] 2022-08-28 2022-08-28 Lab Jacky, 1.2.840.1 [id number] 2589 Methodi 00:00:00 00:05:[address] [place] 3.430.2.7 Hospit a .3.711005 l .8 2022-08-28 2022-08-28 [facility] [id number] [place] 00:00:00 00:00:00 TITO [address] 2022-08-05 2022-08-05 Telephone Musaria, 1.2.840.1 [id number] 2100 [id number] Methodi 00:00:00 00:00:[address] 3.430.2.7 Hospit a .3.169979 l .8 2022-08-02 2022-08-02 Telephone Musaria, 1.2.840.1 [id number] 2100 [id number] Methodi 00:00:00 00:00:[address] 3.430.2.7 Hospit a .3.778548 l .8 2022-07-28 2022-07-28 Telephone Hewerdine, 1.2.840.1 [id number] 2 [id number] Methodi 00:00:00 00:00:[address] 3.430.2.7 Hospit a .3.129090 l .8 2022-07-23 2022-07-23 Telephone Sanchez, 1.2.840.1 [id number] Methodi 00:00:00 00:00:[address] 3.430.2.7 Hospit a .3.117607 l .8 2022-07-21 2022-07-21 [facility], 1.2.840.1 [id number] Methodi 14:00:00 23:59:00 Encounter Tito 93882.1.[address] [place] 3.430.2.7 Hospit a .3.493281 l .8 2022-07-21 2022-07-21 [facility], 1.2.840.1 [id number] Methodi 12:54:16 13:59:00 Encounter Tito 43982.1.[address] [place] 3.430.2.7 Hospit a .3.630711 l .8 2022-07-21 2022-07-21 [facility] 1.2.840.1 [id number] [id number] Methodi 12:15:00 12:53:00 Encounter Tito 01353.1.[address] [place] 3.430.2.7 Hospit a .3.850777 l .8 2022-07-21 2022-07-21 [facility], 1.2.840.1 [id number] Methodi 10:57:03 12:14:00 Encounter Tito 37213.1.[address] [place] 3.430.2.7 Hospit a .3.842644 l .8 2022-07-21 2022-07-21 [facility] 1.2.840.1 [id number] 94269 Methodi 10:05:47 10:56:00 Encounter Tito 88654.1.[address] [place] 3.430.2.7 Hospit a .3.051571 l .8 2022-07-21 2022-07-21 [facility] Rico Tito Mina 1.2.840.1 1 [id number] Methodi 09:00:00 09:57:50 Support Zaida Alvarez 44600.1.[address] 3.430.2.7 Hospit a .3.457445 l .8 2022-07-21 2022-07-21 Social RicoTito maldonado 1.2.840.1 10 [id number] Methodi 08:00:00 09:00:00 Work Javed Vitale 15057.1.[address] 3.430.2.7 Hospit a .3.426907 l .8 2022-07-21 2022-07-21 Nurse Only Jacky, 1.2.840.1 [id number] [id number] Methodi 07:30:00 07:45:[address] [place] 3.430.2.7 Hospit a .3.976990 l .8 2022-07-21 2022-07-21 Outpatient RICO, [facility] [id number] [place] 00:00:00 00:00:00 TITO 063 Method i 2022-07-21 2022-07-21 Outpatient RICO, [facility] [id number] [place] 00:00:00 00:00:00 TITO 064 Method i 2022-07-21 2022-07-21 Outpatient RICO, [facility] [id number] [place] 00:00:00 00:00:00 TITO 479 Method i 2022-07-21 2022-07-21 Outpatient RICO, [facility] [id number] [place] 00:00:00 00:00:00 TITO 397 Method i 2022-07-21 2022-07-21 Outpatient RICO, [facility] [id number] [place] 00:00:00 00:00:00 TITO 756 Method i 2022-07-21 2022-07-21 Outpatient RICO, [facility] [id number] [place] 00:00:00 00:00:00 TITO 346 Method i 2022-07-21 2022-07-21 Outpatient RICO, [facility] [id number] [place] 00:00:00 00:00:00 TITO 602 Method i 2022-07-21 2022-07-21 Travel 1.2.840.1 1.2.920.510 [id number] [id number] Methodi 00:00:00 00:00:[address] 3.430.2.7 0.2.7.3.698 spita .3.915584 084.8 l .8 2022-07-21 2022-07-21 Outpatient JACKY, [facility] [id number] [place] 00:00:00 00:00:00 TITO [address] 2022-07-21 2022-07-21 Outpatient JACKY [facility] [id number] [place] 00:00:00 00:00:[address] TITO [address] 2022-07-20 2022-07-20 Documentat Iam, 1.2.840.1 [id number] [id number] Methodi 00:00:00 00:00:00 ion Javed 00274.1.[address] 3.430.2.7 Hospit a .3.366428 l .8 2022-06-25 2022-06-25 Telephone Phillip, 1.2.840.1 [id number] 2099 [id number] Methodi 00:00:00 00:00:[address] 3.430.2.7 Hospit a .3.676951 l .8 2022-06-23 2022-06-23 Telephone Nico, 1.2.840.1 [id number] Methodi 00:00:00 00:00:[address] 3.430.2.7 Hospit a .3.370985 l .8 2022-06-22 2022-06-22 Telephone Phillip, 1.2.840.1 [id number] 2099 [id number] Methodi 00:00:00 00:00:[address] 3.430.2.7 Hospit a .3.011747 l .8 2022-06-21 2022-06-21 Telephone Wiley, 1.2.840.1 [id number] Methodi 00:00:00 00:00:[address] 3.430.2.7 Hospit a .3.992569 l .8 2022-04-28 2022-06-11 Office Raymundo, 1.2.840.1 [id number] Methodi 08:30:00 18:35:53 Visit Lety Reynaga 18804.1.[address] 3.430.2.7 Hospit a .3.830037 l .8 2022-06-09 2022-06-09 Telephone Manoj, 1.2.840.1 [id number] Methodi 00:00:00 00:00:[address] 3.430.2.7 Hospit a .3.442984 l .8 2022-05-12 2022-05-12 OFFICE STLMLC ST[facility] [id number] Co mmon 00:00:00 00:00:00 VISIT [facility] LEVEL 4 [facility] 2022-04-28 2022-05-06 Office Alberto Kumar 1.2.840.1 [id number] Methodi 08:00:00 08:24:[address] 3.430.2.7 Hospit a .3.565482 l .8 2022-05-05 2022-05-05 Documentat Ac, 1.2.840.1 [id number] 21 [id number] Methodi 00:00:00 00:00:00 ion Janee 56361.1.[address] 3.430.2.7 Hospit a .3.349375 l .8 2022-05-05 2022-05-05 (TEL) STLMLC STLMLC [id number] Co mmon 00:00:00 00:00:00 [facility] 2022-05-04 2022-05-04 Documentat Ac, 1.2.840.1 [id number] 21 [id number] Methodi 00:00:00 00:00:00 ion Janee 07524.1.[address] 3.430.2.7 Hospit a .3.283859 l .8 2022-04-28 2022-04-28 Lab Jacky, 1.2.840.1 [id number] 2643 Methodi 09:30:00 09:35:[address] [place] 3.430.2.7 Hospit a .3.470280 l .8 2022-04-28 2022-04-28 Outpatient JACKY, [facility] [id number] [place] 00:00:00 00:00:00 TITO [address] 2022-04-28 2022-04-28 Outpatient JACKY, [facility] [id number] [place] 00:00:00 00:00:00 TITO [address] 2022-04-28 2022-04-28 Outpatient ALBERTO KUMAR [facility] [id number] [place] 00:00:00 00:00:[address] 2022-04-28 2022-04-28 Outpatient RAYMUDNO, [facility] [id number] [place] 00:00:00 00:00:[address] LETY [address] 2022-04-28 2022-04-28 Documentat Corinne, 1.2.840.1 [id number] 2 [id number] Methodi 00:00:00 00:00:00 ion Marga 46339.1.[address] 3.430.2.7 Hospit a .3.322191 l .8 2022-04-28 2022-04-28 Travel 1.2.840.1 1.2.515.855 2450 [id number] Methodi 00:00:00 00:00:[address] 3.430.2.7 0.2.7.3.698 Ho spita .3.626136 084.8 l .8 2022-04-14 2022-04-14 Extended [place], 1.2.840.1 [id number] Methodi 00:00:00 00:00:00 Medical Lety Reynaga 05213.1.[address] Review 3.430.2.7 Hospit a .3.046223 l .8 2022-03-12 2022-03-12 Documentat Antonio, 1.2.840.1 [id number] Methodi 00:00:00 00:00:00 ion Zaida 01342.1.[address] 3.430.2.7 Hospit a .3.131775 l .8 2022-02-12 2022-02-12 Travel 1.2.840.1 1.2.377.774 4505 [id number] Methodi 00:00:00 00:00:[address] 3.430.2.7 0.2.7.3.698 Ho spita .3.631447 084.8 l .8 2022-02-03 2022-02-03 Telephone Fraser, 1.2.840.1 [id number] 21 [id number] Methodi 00:00:00 00:00:[address] 3.430.2.7 Hospit a .3.690083 l .8 2022-01-04 2022-01-04 OFFICE [facility]C ST[facility] [id number] Co mmon 00:00:00 00:00:00 [facility]IT [facility] LEVEL 4 [facility] 2021-12-31 2021-12-31 Telephone Akira, 1.2.840.1 [id number] 2099 [id number] Methodi 00:00:00 00:00:00 Clara Viji 56063.1.[address] 3.430.2.7 Hospit a .3.503669 l .8 2021-11-30 2021-11-30 (TEL) STLMLC STL[facility]C [id number] Co mmon 00:00:00 00:00:00 [facility] 2021-10-05 2021-10-05 (IN/ASP) STLMLC STLMLC [id number] C ommon 00:00:00 00:00:00 INJ [facility] 2021-09-28 2021-09-28 (IN/ASP) STLMLC STLMLC [id number] C ommon 00:00:00 00:00:00 INJ ASP [facility] 2021-09-21 2021-09-21 OFFICE STLMLC STLMLC [id number] Co mmon 00:00:00 00:00:00 VISIT [facility] PT - CHI LEVEL 4 [facility] 2021-02-022021-02-02 OFFICE STLMLC STLMLC [id number] Co mmon 00:00:00 00:00:00 VISIT [facility] LEVEL 4 [facility] 2020-12-25 2020-12-25 Outpatient [facility] ST[facility] [id number] Common 00:00:00 00:00:00 [facility] 2020-12-01 2020-12-01 Outpatient STLMLC STL[facility] [id number] Common 00:00:00 00:00:00 [facility] 2020-10-06 2020-10-06 Outpatient STLMLC STL[facility] [id number] Common 00:00:00 00:00:00 [facility] 2020-09-29 2020-09-29 Outpatient [facility] [id number] Common 00:00:00 00:00:00 [facility] 2020-09-22 2020-09-22 Outpatient [facility]LMLC STL[facility] [id number] Common 00:00:00 00:00:00 [facility] 2020-08-04 2020-08-04 Outpatient STLMLC STL[facility] [id number] Common 00:00:00 00:00:00 [facility] 2020-03-17 2020-03-17 Outpatient [facility] STL[facility] [id number] Common 00:00:00 00:00:00 [facility] 2020-03-10 2020-03-10 Outpatient STL[facility]C STL[facility] [id number] Common 00:00:00 00:00:00 [facility] 2020-03-04 2020-03-04 Outpatient [facility]C STL[facility] [id number] Common 00:00:00 00:00:00 [facility] 2019-10-22 2019-10-22 [facility] [id number] Common 15:00:00 15:00:00 [facility] 2019-05-07 2019-05-07 [facility] [id number] Common 11:15:00 11:15:00 t Bone [facility] 2019-04-18 2019-04-18 [facility] [id number] Common 08:00:00 08:00:00 t Bone Bone and Spiri t and Joint [facility] - [facility] 2019-01-29 2019-01-29 [facility] [id number] Common 11:00:00 11:00:00 t Bone Bone and Spiri t and Joint [facility] - [facility] 2019-01-23 2019-01-23 [facility] [id number] Common 15:30:00 15:30:00 t Bone Bone and Spiri t and Joint [facility] - [facility] 2019-01-15 2019-01-15 [facility] [id number] Common 11:00:00 11:00:00 t Bone Bone and Spiri t and Joint [facility] - [facility] 2019-01-08 2019-01-08 [facility] [id number] 06:54:52 10:15:00 Encounter Robbie Nagy [id number] [place] [id number] [facility] [id number] Ona 07 2019-01-08 2019-01-08 Orders Doctor VILLALOBOS [id number] 00:00:00 00:00:00 Only Unassigned, OLAMIDE [id number] [place] [facility] [id number] 2019-01-03 2019-01-03 [facility] [id number] Common 14:06:00 14:06:00 t Bone Bone and Spiri t and Joint [facility] 2019-01-01 2019-01-01 Drain[place] 1, Adc Lab [facility] [id number] 14:12:04 14:27:04 Visit Yakov [id number] [place] [id number] [place] [id number] [facility] 2019-01-01 2019-01-01 Orders Doctor GRISELDA [id number] 00:00:00 00:00:00 Only Unassigned, OLAMIDE [id number] [place] [facility] [id number] [id number] 2018-12-04 2018-12-04 [facility] [id number] Common 13:30:00 13:30:00 t Bone Bone and Spiri t and Joint [facility] Results Test Description Test Time Test Comments Results Result Comments Source Occult blood, stool 2022-09-06 22:14:00 Test Item Value Reference Range Interpretation Comme nts Occult blood, stool Negative for occult S pecimen InformationSpecimen (test code = 08639-9) blood. Source : StoolSpecimen Site: Nonpreserved [facility] [id number] 02:49:26 Test Item Value Reference Range Interpretation Comments Ventricular rate (test 61 code = 253) Atrial rate (test code 61 = 255) WA interval (test code 130 = 266) QRSD interval (test 84 code = 260) QT interval (test code 432 = 264) QTC interval (test code 434 = 265) P axis 1 (test code = 30 267) QRS axis 1 (test code = 24 268) T wave axis (test code 65 = 270) EKG impression (test Normal sinus code = 273) rhythm-Normal ECG-In automated comparison with ECG of 21-NOV-2017 11:22,-No significant change was found- [facility]/ pulse [id number] 16:29:50 Test Item Value Reference Range Interpretation Comments Six Minute Walk Distance (ft) 1132.00 Feet (test code = 7665) Six Minute Walk Distance (m) 345.00 m 263.32-541.32 (test code = 7614) Six Minute Walk Distance 402 Predicted (test code = 5645) Six Minute Walk Distance % 85.8 % Predicted (test code = 5646) SP02 at Rest (test code = 7617) 99.00 % SP02 at after 1 minute (test code 97.00 % = 7630) SP02 at after 2 minutes (test 99.00 % code = 7636) SP02 at after 3 minutes (test 97.00 % code = 7642) SP02 at after 4 minutes (test 96.00 % code = 7648) SP02 at after 5 minutes (test 96.00 % code = 7654) SP02 at after 6 minutes (test 96.00 % code = 7660) Heart Rate at Rest (test code = 63.00 1/min 7615) Heart Rate after 1 minute (test 74.00 1/min code = 7629) Heart Rate after 2 minutes (test 79.00 1/min code = 7635) Heart Rate after 3 minutes (test 84.00 1/min code = 7641) Heart Rate after 4 minutes (test 86.00 1/min code = 7647) Heart Rate after 5 minutes (test 89.00 1/min code = 7653) Heart Rate after 6 minutes (test 90.00 1/min code = 7659) Supplemental O2 During Rest (test 0.00 L/min code = 7624) Supplemental O2 after 1 minute 0.00 L/min (test code = 7634) Supplemental O2 after 2 minutes 0.00 L/min (test code = 7640) Supplemental O2 after 3 minutes 0.00 L/min (test code = 7646) Supplemental O2 after 4 minutes 0.00 L/min (test code = 7652) Supplemental O2 after 5 minutes 0.00 L/min (test code = 7658) Supplemental O2 after 6 minutes 0.00 L/min (test code = 7664) BP Systolic at Rest (test code = 134.00 mmHg 7622) BP Systolic after 6 minutes (test 141.00 mmHg code = 7662) BP Diastolic at Rest (test code = 70.00 mmHg 7623) BP Diastolic after 6 minutes 66.00 mmHg (test code = 7663) Beatris Dyspnea Scale at Rest (test 0.00 code = 7619) Beatris Dyspnea Scale after 6 2.00 minutes (test code = 7661) Lowest SpO2 (test code = 7618) 96.00 % Highest Heart Rate (test code = 90.00 BPM 7616) Lap Count (test code = 7625) 8.00 Premature Stop (test code = 7621) 0.00 Gait Speed (test code = 7627) 4.12 sec [facility] [id number] 20:29:00 Test Item Value Reference Interpretation Comments Range Urine culture Streptococcus group A Specime n isolate (test B10-4 cfu/mlThe Information Specimen code = 90670-2) performance Source: Urin eSpecimen characteristics of Site: Azeem an catch this assay on this isolatewere validated by the Microbiology Laboratory at [facility]. This source has not been approved by the U.S. Food and Drug Administration. The results are not intended to be used as the sole means for clinical diagnosis or patient management. The Microbiology Laboratory is authorized under the clinical Laboratory Improvement Amendments of 1988 (CLIA-88) to perform high complexity testing.The performance characteristics of this assay on this isolatewere validated by the Microbiology Laboratory at [facility]. This source has not been approved by the U.S. Food and Drug Administration. The results are not intended to be used as the sole means for clinical diagnosis or patient management. The Microbiology Laboratory is authorized under the clinical Laboratory Improvement Amendments of 1988 (CLIA-88) to perform high complexity testing.testing. Lab Abnormal Interpretation (test code = 90153-1) [facility]inal[facility] screen and microscopy, with reflex to culture 2022-04-28 19:56:00 Test Item Value Reference Range Interpretation Comments Specimen site (test Clean catch code = 0400772) Color, UA (test code = Yellow 5778-6) Appearance, UA (test Clear code = 5767-9) Specific gravity, UA 1.015 1.001-1.035 (test code = 5811-5) pH, UA (test code = 9.0 5.0-8.5 5803-2) Protein, UA (test code 1+ Negative A = 22902-4) Glucose, UA (test code Negative Negative = 07570-9) Ketones, UA (test code Negative Negative = 2514-8) Bilirubin, UA (test Negative Negative code = 5770-3) Blood, UA (test code = Negative Negative 5794-3) Nitrite, UA (test code Negative Negative = 5802-4) Urobilinogen, UA (test <2.0 <=2.0 code = 46015-6) Leukocyte esterase, UA Trace Negative A (test code = 5799-2) Epithelial cells, UA 1 See_Comment [Autom ated (test code = 5787-7) message ] The system which generated this result transmitted reference range : /HPF. The refer ence range was not u sed to interpret th is result as normal/abnormal . WBC, UA (test code = 2 See_Comment [Autom ated 5821-4) message] The sy stem which generated this result transmitted reference range : 0 - 4 /HPF. The reference range was not used to interpret this result as normal/abnormal . RBC, UA (test code = 1 See_Comment [Autom ated 23296-6) message] The sy stem which generated this result transmitted reference range : 0 - 5 /HPF. The reference range was not used to interpret this result as normal/abnormal . Bacteria, UA (test code None seen None seen = 04554-4) Yeast, UA (test code = None seen 41395-2) Yeast with None seen pseudohyphae, UA (test code = 60545-4) Lab Interpretation Abnormal (test code = 23928-1) [facility]
[2022-09-22] MEDS ORDERED: FUROSEMIDE 100 MG/10 ML VIAL IV ONE (20:43)
[2022-09-22] MEDS ORDERED: ACETAMINOPHEN 325 MG TABLET ONE (20:43)
[2022-09-22] MEDS ORDERED: MECLIZINE HCL 12.5 MG TAB ONE (20:43)
[2022-09-22] MEDS ORDERED: ONDANSETRON 4 MG/2 ML VIAL ONE (20:43)
[2022-09-22 21:20] LABS: Hematocrit 35.7 % (36.0-45.0); Lymphocytes % 15.7 % (15.3-44.8); MCV 95.4 fL (80-100); RBC Red Blood Cell Count 3.74 M/uL (3.86-4.86)
[2022-09-22 21:34] LABS: Specific Gravity 1.008 (1.005-1.030); Transitional Epithelial <5 /HPF (None Seen); Urine Bacteria <20 /HPF (<20); Urine Bilirubin NEGATIVE (Negative); Urine Blood 3+ (OVER) (Negative); Urine Clarity Turbid (Clear); Urine Color Light-Orange (Yellow); Urine Glucose 2+ (Negative); Urine Mucus Slight /HPF (None Seen); Urine Protein 3+ (Negative); Urine RBC >50 /HPF (None Seen); Urine Urobilinogen Normal (Normal); Urine pH 8.5 (5.0-7.0)
--- NOTE | 2022-09-22 21:38 | RAD REPORT ---
EXAM DESCRIPTION: Gabino Single View09/22/2022 9:24 pm CLINICAL HISTORY: cough COMPARISON: 2020 FINDINGS: The lungs appear clear of acute infiltrate. The heart is normal size IMPRESSION: No acute abnormalities displayed
[2022-09-22 21:41] LABS: Potassium 5.3 mEq/L (3.5-5.1); Troponin High Sensitivity 21.5 pg/mL (<58.9)
--- NOTE | 2022-09-22 22:34 | ER ---
Nurse's Notes [facility] Name: Devika Sanchez Age: 66 yrs Sex: Female : 1955 Arrival Date: 09/22/2022 Time: 19:23 Bed 7 Private MD: Diagnosis: Vomiting;Acute cystitis;Acute bronchitis, unspecified Presentation: 09/22 19:25 Chief complaint: EMS states: Toned out for N/V since 7 AM today, c/o dizziness and high aa9 blood pressure, dialysis patient TTS, took 8 mg of Zofran prior with no relief, also c/o headache. Coronavirus screen: Vaccine status: Patient reports receiving the 2nd dose of the covid vaccine. Ebola Screen: No symptoms or risks identified at this time. Initial Sepsis Screen: Does the patient meet any 2 criteria? No. Patient's initial sepsis screen is negative. Does the patient have a suspected source of infection? No. Patient's initial sepsis screen is negative. Risk Assessment: Do you want to hurt yourself or someone else? Patient reports no desire to harm self or others. Onset of symptoms was September 22, 2022. Care prior to arrival: Medication(s) given: zofran 4 mg, IV initiated. 20 GA, in the right wrist, Glucose check: 106. Activity prior to arrival: vomiting. 19:25 Method Of Arrival: EMS: [facility] aa9 19:25 Acuity: NADINE 3 aa9 Triage Assessment: 19:30 General: Appears uncomfortable, obese, Behavior is cooperative, anxious. Pain: aa9 Complains of pain in headache. Neuro: Level of Consciousness is awake, alert, obeys commands, Oriented to person, place, time, situation. Cardiovascular: Denies chest pain. Respiratory: Airway is patent Respiratory effort is even, unlabored. GI: Abdomen is obese, Reports nausea, vomiting, Patient currently denies diarrhea. : No signs and/or symptoms were reported regarding the genitourinary system. Derm: Skin is intact, is fragile, is thin. Historical: - Allergies: 19:28 Baclofen; aa9 19:28 Celebrex; aa9 19:28 Celecoxib; aa9 19:28 Codeine; aa9 19:28 NSAIDS; aa9 - Home Meds: 19:28 levothyroxine oral [Active]; BuSpar Oral [Active]; Lexapro Oral [Active]; Xanax Oral aa9 [Active]; furosemide 80 mg Oral tablet 2.5 tabs [Active]; - PMHx: 19:28 Anemia; ESRD; hemodialysis; POLYCYSTIC KIDNEY DISEASE; pulmonary edema; Hypothyroidism; aa9 Hypertension; - PSHx: 19:28 bilateral carpal tunnel; fistula left arm; right knee repair; aa9 - Immunization history:: Client reports receiving the 2nd dose of the Covid vaccine. - Social history:: Smoking status: Patient denies any tobacco usage or history of. Screenin:25 [facility] ED Fall Risk Assessment (Adult) History of falling in the last 3 months, aa9 including since admission No falls in past 3 months (0 pts) Confusion or Disorientation No (0 pts) Intoxicated or Sedated No (0 pts) Impaired Gait No (0 pts) Mobility Assist Device Used No (0 pt) Altered Elimination No (0 pt) Score/Fall Risk Level 0 - 2 = Low Risk Oriented to surroundings, Maintained a safe environment. Abuse screen: Denies threats or abuse. Denies injuries from another. Nutritional screening: Has had N/V for 3 or more days. Tuberculosis screening: No symptoms or risk factors identified. Assessment: 21:04 Reassessment: Patient appears in no apparent distress at this time. Patient and/or aa9 family updated on plan of care and expected duration. Pain level reassessed. Patient is alert, oriented x 3, equal unlabored respirations, skin warm/dry/pink. General:. 22:25 Reassessment: Patient appears in no apparent distress at this time. Patient and/or aa9 family updated on plan of care and expected duration. Pain level reassessed. Patient is alert, oriented x 3, equal unlabored respirations, skin warm/dry/pink. 22:59 Reassessment: Patient appears in no apparent distress at this time. Patient and/or aa9 family updated on plan of care and expected duration. Pain level reassessed. Patient is alert, oriented x 3, equal unlabored respirations, skin warm/dry/pink. Vital Signs: 19:25 BP 190 / 94; Pulse 56; Resp 18 S; Temp 98(O); Pulse Ox 100% on R/A; Weight 80.6 kg (R); aa9 Height 5 ft. 0 in. ; 19:31 BP 137 / 71; Pulse 56; Resp 18 S; Temp 98.4(O); Pulse Ox 100% on R/A; aa9 21:30 BP 128 / 55; Pulse 57; Resp 18; Pulse Ox 100% on R/A; aa9 22:59 BP 125 / 65; Pulse 58; Resp 18; Temp 98.3; Pulse Ox 99% on R/A; aa9 19:25 Body Mass Index 34.70 (80.60 kg, 152.4 cm) aa9 ED Course: 19:25 Patient arrived in ED. aa9 19:28 Triage completed. aa9 19:31 Arm band placed on. aa9 19:43 Patient has correct armband on for positive identification. Bed in low position. Call aa9 light in reach. Side rails up X2. Client placed on continuous cardiac and pulse oximetry monitoring. NIBP monitoring applied. 19:44 Debbie Barron RN is Primary Nurse. aa9 20:05 Saturnino Mcmillan MD is Attending Physician. kdr 20:51 Straight cath inserted, using sterile technique, 16 Fr. Returned sushma urine. Patient aa9 tolerated well. 21:03 Basic Metabolic Panel Sent. aa9 21:03 CBC with Diff Sent. aa9 21:03 Troponin HS Sent. aa9 21:03 Urinalysis w/ reflexes Sent. aa9 21:03 Urine Culture Sent. aa9 21:03 Maintain EMS IV. Dressing intact. Good blood return noted. Site clean \T\ dry. Gauge \T\ aa 9 site: 20 G R Wrist. 21:04 Diet: Patient given water. Tolerated well. aa9 21:26 XRAY Chest (1 view) In Process Unspecified. EDMS 21:30 Diet: Patient given snack. Tolerated well. aa9 22:59 No provider procedures requiring assistance completed. IV discontinued, intact, aa9 bleeding controlled, No redness/swelling at site. Pressure dressing applied. Administered Medications: 21:03 Drug: Furosemide IVP 80 mg Route: IVP; Site: right wrist; aa9 21:03 Drug: Ondansetron IVP 4 mg Route: IVP; Site: right wrist; aa9 21:45 Follow up: Response: No adverse reaction; Nausea is decreased aa9 21:03 Drug: Meclizine PO 25 mg Route: PO; aa9 21:45 Follow up: Response: No adverse reaction aa9 21:03 Drug: Acetaminophen PO 650 mg Route: PO; aa9 21:46 Follow up: Response: No adverse reaction aa9 22:50 Drug: Ciprofloxacin PO 500 mg Route: PO; aa9 22:58 Follow up: Response: No adverse reaction aa9 Medication: 22:25 VIS not applicable for this client. aa9 Outcome: 22:33 Discharge ordered by . stacy 22:59 Discharged to home ambulatory. aa9 22:59 Condition: stable 22:59 Discharge instructions given to patient, Instructed on discharge instructions, follow up and referral plans. medication usage, Demonstrated understanding of instructions, follow-up care, medications, Prescriptions given X 1. 23:00 Patient left the ED. aa9 Signatures: Dispatcher [employer] EDMS Saturnino Mcmillan MD MD kdr Avalos, Aylin, RN RN aa9
--- NOTE | 2022-09-22 22:34 | EDPHYS ---
Physician Documentation [facility] Name: Devika Sanchez Age: 66 yrs Sex: Female : 1955 Arrival Date: 09/22/2022 Time: 19:23 Bed 7 Private MD: ED Physician Saturnino Mcmillan HPI: 09/22 21:32 This 66 yrs old Female presents to ER via EMS with complaints of Dizzy, headache, kdr vomiting. 21:32 Patient states that she awoke this morning feeling her usual self. She had some coffee kdr and then about an hour after that began to have some dizziness and vomiting and headache. She states that she gets the same symptoms from time to time but usually is not vomiting all day. Normally it is more transient. She does not appear in any acute distress is able to move without significant exacerbation of her symptoms. She also states that she has had some difficulty with urination. Specifically she has felt the urge to urinate for the past month or so. She is not certain whether she has urinary tract infection. Patient otherwise is nonacute not requiring any immediate intervention. Onset: The symptoms/episode began/occurred this morning. Severity of symptoms: At their worst the symptoms were moderate severe just prior to arrival, in the emergency department the symptoms have improved mildly. The patient has experienced similar episodes in the past, a few times. The patient has not recently seen a physician, Patient states that she has had difficulty recently completing her dialysis sessions. She has missed several sessions. Otherwise she is generally compliant with her medications and her treatment regimen.. Historical: - Allergies: 19:28 Baclofen; aa9 19:28 Celebrex; aa9 19:28 Celecoxib; aa9 19:28 Codeine; aa9 19:28 NSAIDS; aa9 - Home Meds: 19:28 levothyroxine oral [Active]; BuSpar Oral [Active]; Lexapro Oral [Active]; Xanax Oral aa9 [Active]; furosemide 80 mg Oral tablet 2.5 tabs [Active]; - PMHx: 19:28 Anemia; ESRD; hemodialysis; POLYCYSTIC KIDNEY DISEASE; pulmonary edema; Hypothyroidism; aa9 Hypertension; - PSHx: 19:28 bilateral carpal tunnel; fistula left arm; right knee repair; aa9 - Immunization history:: Client reports receiving the 2nd dose of the Covid vaccine. - Social history:: Smoking status: Patient denies any tobacco usage or history of. ROS: 21:32 Constitutional: Negative for fever, chills, and weight loss, Eyes: Negative for injury, kdr pain, redness, and discharge, ENT: Negative for injury, pain, and discharge, Neck: Negative for injury, pain, and swelling, Cardiovascular: Negative for chest pain, palpitations, and edema, Respiratory: Negative for shortness of breath, cough, wheezing, and pleuritic chest pain, Back: Negative for injury and pain, : Negative for injury, bleeding, discharge, and swelling, MS/Extremity: Negative for injury and deformity, Skin: Negative for injury, rash, and discoloration, Psych: Negative for depression, anxiety, suicide ideation, homicidal ideation, and hallucinations, Allergy/Immunology: Negative for hives, rash, and allergies, Endocrine: Negative for neck swelling, polydipsia, polyuria, polyphagia, and marked weight changes, Hematologic/Lymphatic: Negative for swollen nodes, abnormal bleeding, and unusual bruising. 21:32 Abdomen/GI: Positive for nausea and vomiting, Negative for diarrhea, constipation, abdominal cramps, abdominal distension, black/tarry stool, rectal pain, rectal bleeding, bowel incontinence. 21:32 Neuro: Positive for headache. Exam: 20:56 ECG was reviewed by the Attending Physician. kdr 21:32 Constitutional: This is a well developed, well nourished patient who is awake, alert, kdr and in no acute distress. Head/Face: Normocephalic, atraumatic. Eyes: Pupils equal round and reactive to light, extra-ocular motions intact. Lids and lashes normal. Conjunctiva and sclera are non-icteric and not injected. Cornea within normal limits. Periorbital areas with no swelling, redness, or edema. Neck: Trachea midline, no thyromegaly or masses palpated, and no cervical lymphadenopathy. Supple, full range of motion without nuchal rigidity, or vertebral point tenderness. No Meningismus. Chest/axilla: Normal chest wall appearance and motion. Nontender with no deformity. No lesions are appreciated. Cardiovascular: Regular rate and rhythm with a normal S1 and S2. No gallops, murmurs, or rubs. Normal PMI, no JVD. No pulse deficits. Respiratory: Lungs have equal breath sounds bilaterally, clear to auscultation and percussion. No rales, rhonchi or wheezes noted. No increased work of breathing, no retractions or nasal flaring. Abdomen/GI: Soft, non-tender, with normal bowel sounds. No distension or tympany. No guarding or rebound. No evidence of tenderness throughout. Back: No spinal tenderness. No costovertebral tenderness. Full range of motion. Skin: Warm, dry with normal turgor. Normal color with no rashes, no lesions, and no evidence of cellulitis. MS/ Extremity: Pulses equal, no cyanosis. Neurovascular intact. Full, normal range of motion. Neuro: Awake and alert, GCS 15, oriented to person, place, time, and situation. Cranial nerves II-XII grossly intact. Motor strength 5/5 in all extremities. Sensory grossly intact. Cerebellar exam normal. Normal gait. Psych: Awake, alert, with orientation to person, place and time. Behavior, mood, and affect are within normal limits. Vital Signs: 19:25 BP 190 / 94; Pulse 56; Resp 18 S; Temp 98(O); Pulse Ox 100% on R/A; Weight 80.6 kg (R); aa9 Height 5 ft. 0 in. ; 19:31 BP 137 / 71; Pulse 56; Resp 18 S; Temp 98.4(O); Pulse Ox 100% on R/A; aa9 21:30 BP 128 / 55; Pulse 57; Resp 18; Pulse Ox 100% on R/A; aa9 22:59 BP 125 / 65; Pulse 58; Resp 18; Temp 98.3; Pulse Ox 99% on R/A; aa9 19:25 Body Mass Index 34.70 (80.60 kg, 152.4 cm) aa9 MDM: 21:32 Data reviewed: vital signs, nurses notes, lab test result(s), EKG, radiologic studies. kdr 22:33 Patient medically screened. kdr 22:35 ED course: Patient has meclizine and Zofran at home and does not require any refill of kdr her medications. 22:36 ED course: Patient was stable and much improved in the ED. She was alert and oriented kdr and appropriate sitting at bedside without any difficulties or complaints. She had crackers and Jell-O as well as a drink and tolerated all well. She has no signs of ongoing illness or disease.. 09/22 20:22 Order name: Basic Metabolic Panel; Complete Time: 22:21 kdr 09/22 20:22 Order name: CBC with Diff; Complete Time: 21:32 kdr 09/22 20:22 Order name: Troponin HS; Complete Time: 22:21 kdr 09/22 20:23 Order name: Urinalysis w/ reflexes; Complete Time: 22:21 kdr 09/22 20:23 Order name: Urine Culture kdr 09/22 20:22 Order name: XRAY Chest (1 view); Complete Time: 22:21 kdr 09/22 20:22 Order name: EKG; Complete Time: 20:23 kdr 09/22 20:22 Order name: Cardiac monitoring; Complete Time: 20:38 kdr 09/22 20:22 Order name: EKG - Nurse/Tech; Complete Time: 20:38 kdr 09/22 20:22 Order name: IV Saline Lock; Complete Time: 20:51 kdr 09/22 20:22 Order name: Labs collected and sent; Complete Time: 21:03 kdr 09/22 20:22 Order name: O2 Per Protocol; Complete Time: 20:51 kdr 09/22 20:22 Order name: O2 Sat Monitoring; Complete Time: 20:51 kdr 09/22 20:23 Order name: Straight Cath - Urine; Complete Time: 21:03 kdr EC:56 Rate is 57 beats/min. Rhythm is regular, Sinus bradycardia with No ectopy. QRS [place] is kdr Normal. AR interval is normal. QRS interval is normal. QT interval is normal. Clinical impression: Sinus bradycardia. Administered Medications: 21:03 Drug: Furosemide IVP 80 mg Route: IVP; Site: right wrist; aa9 21:03 Drug: Ondansetron IVP 4 mg Route: IVP; Site: right wrist; aa9 21:45 Follow up: Response: No adverse reaction; Nausea is decreased aa9 21:03 Drug: Meclizine PO 25 mg Route: PO; aa9 21:45 Follow up: Response: No adverse reaction aa9 21:03 Drug: Acetaminophen PO 650 mg Route: PO; aa9 21:46 Follow up: Response: No adverse reaction aa9 22:50 Drug: Ciprofloxacin PO 500 mg Route: PO; aa9 22:58 Follow up: Response: No adverse reaction aa9 Disposition Summary: 09/22/22 22:33 Discharge Ordered Location: Home kdr Problem: new kdr Symptoms: have improved kdr Condition: Stable kdr Diagnosis - Vomiting kdr - Acute cystitis kdr - Acute bronchitis, unspecified kdr Followup: kdr - With: Private Physician - When: 2 - 3 days - Reason: If symptoms return, Further diagnostic work-up, Recheck today's complaints, Continuance of care, Re-evaluation by your physician Discharge Instructions: - Discharge Summary Sheet kdr - Acute Bronchitis, Adult kdr - Nausea and Vomiting, Adult, [id number] kdr - Hemorrhagic Cystitis kdr Forms: - Medication Reconciliation Form kdr - Thank You Letter kdr - Antibiotic Education kdr Prescriptions: - Cipro 500 mg Oral Tablet - take 1 tablet by ORAL route every 12 hours for 7 days; 14 tablet; Refills: 0, kdr Product Selection Permitted Signatures: Dispatcher [employer] Saturnino Taveras MD MD kdr Debbie Barron RN RN aa9
[2022-09-22] MEDS ORDERED: CIPROFLOXACIN HCL 500 MG TAB ONE (22:53)
[2022-09-22 23:18] VITALS: BP 125/65; TEMP 98.3; O2SAT 99
--- NOTE | 2022-09-23 11:02 | EKG ---
Test Date: 2022-09-22 Test Time: 20:34:23 Mule Spinner: DEB MEASUREMENT RESULTS: Intervals: Rate: 57 OK: 152 QRSD: 82 QT: 462 QTc: 449 [place]: P: OK: 152 QRS: -27 T: -29 INTERPRETIVE STATEMENTS: Sinus bradycardia Lateral infarct, age undetermined Abnormal ECG Compared to ECG 05/09/2021 19:32:40 Sinus rhythm no longer present Short OK interval no longer present Left ventricular hypertrophy no longer present Myocardial infarct finding still present Electronically Signed On 09-23-22 11:01:33 CDT by Gómez Black
== END 2022-09-22 23:00 | disposition home or self-care (01) ==
LOC: ER 19:23
DX: N30.00 Acute cystitis without hematuria (principal); J20.9 Acute bronchitis, unspecified; I12.0 Hypertensive chronic kidney disease with stage 5 chronic kidney disease or end stage renal disease; N18.6 End stage renal disease; Z99.2 Dependence on renal dialysis; Z88.5 Allergy status to narcotic agent; Z88.6 Allergy status to analgesic agent
CPT/HCPCS: 87088; 85025; 81001; 87086; 80048; 36415; 84484; 71045; J8597; J2405; 93005

== ENCOUNTER 2023-02-21 22:47 | Emergency (ER) | payer OTHER, MEDICARE ==
--- OUTSIDE RECORDS SUMMARY | 2023-02-21 22:55 | XMS REPORT | Continuity of Care Document ---
:1955 Author Organization [facility] t Address [address] [place] [address] [address] [place] [address] Care Team Providers Name Role Phone Yogi Mao MD Primary Care Physician Sunny Mao Attending Clinician Unavailable Ashlee SALAZAR, Cheyenne Munoz Attending Clinician Geovanna Nieves Attending Clinician Unavailable Janee Shen RN Attending Clinician Unavailable Maggie Rico MD Attending Clinician Susu Sanchez MA Attending Clinician Unavailable Zaida Alvarez Attending Clinician Unavailable Ami Choe MA Attending Clinician Unavailable Michell Fisher MA Attending Clinician Unavailable Quique Jama RN Attending Clinician Unavailable Javed Vitale LCSW Attending Clinician Unavailable Carla Walsh MA Attending Clinician Unavailable Lety Espinoza Attending Clinician Tony Aranda Attending Clinician Unavailable Rachele Starr MD Attending Clinician Marga Sun Attending Clinician Unavailable Roxana Fraser MA Attending Clinician Unavailable Clara Champion MA Attending Clinician Unavailable Robbie Dyer MD Attending Clinician Doctor Unassigned, [place] Attending Clinician Unavailable 1, [facility] Attending Clinician Unavailable Robbie Dyer MD Admitting Clinician Payers Payer Name Policy Type Policy Number Effective Date Expiration Date Neena PRADO C1 [id number] [facility] MEDICARE 12 [id number] [facility] NOVITAS [facility] Problems Condition Condition Condition Status Onset Resolution [...] Disease Active Met hodi stage stage 12-09 st renal renal 00:00: Hospita disease) disease) 00 l on on dialysis dialysis Failure of Failure of Disease Active M ethodi hemodialys hemodialys 11-21 st is access is access 00:00: Hosp zane 00 l [id number] Primary Problem Comm on osteoarthr [facility] - [facility] left knee [facility] [id number] Primary Problem Comm on osteoarthr [facility] - [facility] right knee [facility] Allergies, Adverse Reactions, Alerts Allergy Allergy Status [...] Hives Method i b ty to 11-21 st adverse 00:00: Hospita reaction 00 l s to drug Codeine Propensi Active GI Methodi ty to Intolerance 11-21 adverse 00:00: Hospita reaction 00 l s to drug codeine codeine Active Unknown Common [facility] 4994 Drug Active Unknown Common allergy [facility] celecoxi celecoxi Active Unknown Commo n b b [facility] baclofen baclofen Active Unknown Commo n [facility] Family History Family Member Diagnosis Comments Start Date Stop Date Source Natural father Heart disease [facility] Natural father Hyperlipidemia Method [facility] Natural mother Kidney disease Method [facility] Natural mother Polycystic kidney Met [facility] Natural sister Kidney disease Method [facility] Natural sister Polycystic kidney Met [facility] Social History Social Habit Start Date Stop Date Quantity Comments Source Sexual orientation Method [facility] Gender identity [facility] History of Tobacco [facility] - Use [facility] Alcohol intake 2022-11-19 2022-11-19 Current Jewish 00:00:00 00:00:00 non-drinker of Hospital alcohol (finding) History of Social 2022-11-19 2022-11-[address] function 00:00:00 00:00:00 Hospital Tobacco use and 2022-02-12 2022-02-12 Smokeless Jewish exposure 00:00:00 00:00:00 tobacco non-user Hospital Sex Ass[birth year] At [birth year] Jewish 00:00:00 00:00:00 Hospital Smoking Status Start Date Stop Date Source Never Smoker [facility] Medications Ordered Filled Start Stop Current Ordering Indication Dosage Frequency Signature Comments Components Source Medication Medication Date Date Medication? Clinician (SIG) Name Name Bupivicaine Bupivicaine 2021-05 No 2.5mg [facility] [place] 2[place]21 Spirit 00:00: - [facility] Kenalog Kenalog 2021-05 No 40mg Common (Triamcinol (Triamcinol 2-21 S pirit one) one) 00:00: - [facility] 00 [facility] Bupivicaine Bupivicaine 2021-05 No 2.5mg Common [place] 2-21 Spirit 00:00: - [facility] Kenalog Kenalog 2021-05 No 40mg Common (Triamcinol (Triamcinol 2-21 S pirit one) one) 00:00: - [facility] 00 [facility] folic 2021-0 Yes 1{tbl} QD Take 1 [facility] acid/vit B 9-[address] complex and 11:51: mouth Hospi ta C 37 daily. l (TREVA-DENNY ORAL) calcium Yes 1{tbl} [id number] Chew 1 [facility] carbonate - [id number] tablet 3 st 300 mg (750 11:51: 3D (three) Hos aaron mg) 37 times a l tablet,chew day with able meals. folic Yes 1{tbl} QD Take 1 [facility] acid/vit B 9-[address] complex and 11:51: mouth Hospi ta C 37 daily. l (TREVA-DENNY ORAL) calcium Yes 1{tbl} Q.[id number] Chew 1 [facility] carbonate - [id number] tablet 3 st 300 mg (750 11:51: 3D (three) Hos aaron mg) 37 times a l tablet,chew day with able meals. levothyroxi Yes 75ug QD Take 75 Met hodi ne 9- mcg by st (SYNTHROID, 11:31: mouth Hospi ta LEVOXYL) 75 39 every l mcg tablet morning. sevelamer Yes 2400mg Q.[id number] Take 3 Methodi (RENVELA) - [id number] tablets s t 800 mg 11:31: 3D (2,400 mg Hospit a tablet 39 total) by l mouth 3 (three) times a day with meals. 1,600mg with snacks escitalopra Yes 20mg QD Take 20 mg Methodi m (LEXAPRO) - by mouth st 20 MG 11:31: daily. Hospita tablet 39 l zolpidem Yes 5mg QD Take 5 mg Meth smith (AMBIEN) 10 02-[address] mg tablet 11:31: nightly. Hosp zane 39 l cinacalcet Yes 60mg QD Take 2 Metho di (SENSIPAR) 9-[address] 30 MG 11:31: (60 mg Hospita tablet 39 total) by l mouth daily. ferric 0 Yes 1{tbl} Q.[id number] Take 1 M ethodi citrate 02-12 [id number] tablet by s t (Auryxia) 11:31: 3D [...] Q.5D Take 1 Metho di (XANAX) 0.5 - tablet st MG tablet 11:31: (0.5 mg Hospi ta 39 total) by l mouth 2 (two) times a day. levothyroxi Yes 75ug QD Take 75 Met hodi ne 9- mcg by st (SYNTHROID, 11:31: mouth Hospi ta LEVOXYL) 75 39 every l mcg tablet morning. sevelamer Yes 2400mg Q.[id number] Take 3 Methodi (RENVELA) 02-12 [id number] tablets s t 800 mg 11:31: 3D (2,400 mg Hospit a tablet 39 total) by l mouth 3 (three) times a day with meals. 1,600mg with snacks escitalopra 0 Yes 20mg QD Take 20 mg Methodi m (LEXAPRO) 02-[address] 20 MG 11:31: daily. Hospita tablet 39 l zolpidem 0 Yes 5mg QD Take 5 mg Meth smith (AMBIEN) 10 9-[address] mg tablet 11:31: nightly. Hosp zane 39 l cinacalcet Yes 60mg QD Take 2 Metho di (SENSIPAR) 9-[address] 30 MG 11:31: (60 mg Hospita tablet 39 total) by l mouth daily. ferric 0 Yes 1{tbl} Q.[id number] Take 1 M ethodi citrate 02-12 [id number] tablet by s t (Auryxia) 11:31: 3D mouth 3 Hospi ta 210 mg iron 39 (three) l tablet times daily after meals. vit B Yes 1{tbl} QD Chew 1 Methodi comp-C-foli - tablet st c acid-vit 11:31: daily. Hospi ta D3 39 l (Dialyvite 800 Plus D) 800 mcg- 2,000 unit tablet,chew able furosemide Yes 160mg QD Take 2 Meth smith (LASIX) 80 9- tablets st mg tablet 11:31: (160 mg Hospi ta 39 total) by l mouth daily. ALPRAZolam Yes .5mg Q.5D Take 1 Metho di (XANAX) 0.5 9-[address] MG tablet 11:31: (0.5 mg Hospi ta 39 total) by l mouth 2 (two) times a day. Kenalog Kenalog No 40mg Common (Triamcinol (Triamcinol 8-15 S pirit one) one) 00:00: - [facility] Bupivicaine Bupivicaine No 2.5mg Common [place] 8-15 Spirit 00:00: - [facility] Kenalog Kenalog No 40mg Common (Triamcinol (Triamcinol 8-15 S pirit one) one) 00:00: - [facility] Bupivicaine Bupivicaine 0 No 2.5mg Common [place] 8-15 Spirit 00:00: - [facility] Bupivicaine Bupivicaine 0 No 2.5mg Common [place] 8-15 Spirit 00:00: - [facility] Kenalog Kenalog 2022-0 No 40mg Common (Triamcinol (Triamcinol 8-15 S pirit one) one) 00:00: - [facility] Bupivicaine Bupivicaine 2021-0 No 2.5mg Common [place] 8-15 Spirit 00:00: - [facility] Kenalog Kenalog 2021-0 No 40mg Common (Triamcinol (Triamcinol 8-15 S pirit one) one) 00:00: - [facility] 00 [facility] Hyalgan 20 Hyalgan 20 2021-0 No 20mg C ommon mg mg 5-16 Spirit 00:00: - [facility] 00 [facility] Hyalgan 20 Hyalgan 20 2021-0 No 20mg C ommon mg mg -16 Spirit 00:00: - [facility] Hyalgan 20 Hyalgan 20 2021-0 No 20mg C ommon mg mg 5-16 Spirit 00:00: - [facility] Hyalgan 20 Hyalgan 20 2021-0 No 20mg C ommon mg mg 10-05 Spirit 00:00: - [facility] Hyalgan 20 Hyalgan 20 2021-0 No 20mg C ommon mg mg 10-05 Spirit 00:00: - [facility] Hyalgan 20 Hyalgan 20 2021-0 No 20mg C ommon mg mg 10-05 Spirit 00:00: - [facility] Hyalgan Hyalgan 2021-0 No 20mg Common -16 Spirit 00:00: - [facility] 00 [facility] Hyalgan 20 Hyalgan 20 2021-0 No 20mg C ommon mg mg 09-28 Spirit 00:00: - [facility] 00 [facility] Hyalgan 20 Hyalgan 20 2021-0 No 20mg C ommon mg mg 09-28 Spirit 00:00: - [facility] Hyalgan 20 Hyalgan 20 2021-0 No 20mg C ommon mg mg 09-28 Spirit 00:00: - [facility] Hyalgan 20 Hyalgan 20 2021-0 No 20mg C ommon mg mg 5- Spirit 00:00: - [facility] 00 [facility] Hyalgan 20 Hyalgan 20 2021-0 No 20mg C ommon mg mg 09-28 Spirit 00:00: - [facility] 00 [facility] Hyalgan 20 Hyalgan 20 2021-0 No 20mg C ommon mg mg 09-28 Spirit 00:00: - [facility] 00 [facility] Hyalgan Hyalgan 2021-0 No 20mg Common 09-28 Spirit 00:00: - [facility] 00 [facility] Kenalog Kenalog 2021-0 No 40mg Common (Triamcinol (Triamcinol 5-02 S pirit one) one) 00:00: - [facility] 00 [facility] Bupivicaine Bupivicaine 2021-0 No 2.5mg Common [place] 5-02 Spirit 00:00: - [facility] 00 [facility] Hyalgan 20 Hyalgan 20 2021-0 No 20mg C ommon mg mg 09-21 Spirit 00:00: - [facility] 00 [facility] Kenalog Kenalog 2021-0 No 40mg Common (Triamcinol (Triamcinol 5-02 S pirit one) one) 00:00: - [facility] 00 [facility] Bupivicaine Bupivicaine 2021-0 No 2.5mg Common [place] 5-02 Spirit 00:00: - [facility] 00 [facility] Hyalgan 20 Hyalgan 20 2021-0 No 20mg C ommon mg mg 09-21 Spirit 00:00: - [facility] 00 [facility] Kenalog Kenalog 2021-0 No 40mg Common (Triamcinol (Triamcinol 5-02 S pirit one) one) 00:00: - [facility] 00 [facility] Bupivicaine Bupivicaine 2021-0 No 2.5mg Common [place] 5-02 Spirit 00:00: - [facility] 00 [facility] Hyalgan 20 Hyalgan 20 2021-0 No 20mg C ommon mg mg 5 Spirit 00:00: - [facility] 00 [facility] Kenalog Kenalog 2021-0 No 40mg Common (Triamcinol (Triamcinol 5-02 S pirit one) one) 00:00: - [facility] 00 [facility] Bupivicaine Bupivicaine 2021-0 No 2.5mg Common [place] 5-02 Spirit 00:00: - [facility] 00 [facility] Hyalgan 20 Hyalgan 20 2021-0 No 20mg C ommon mg mg 09-21 Spirit 00:00: - [facility] 00 [facility] Kenalog Kenalog 2021-0 No 40mg Common (Triamcinol (Triamcinol 5-02 S pirit one) one) 00:00: - [facility] 00 [facility] Hyalgan 20 Hyalgan 20 2021-0 No 20mg C ommon mg mg 09-21 Spirit 00:00: - [facility] 00 [facility] Bupivicaine Bupivicaine 2021-0 No 2.5mg Common [place] - Spirit 00:00: - [facility] 00 [facility] Kenalog Kenalog 2021-0 No 40mg Common (Triamcinol (Triamcinol 5-02 S pirit one) one) 00:00: - [facility] 00 [facility] Hyalgan 20 Hyalgan 20 2021-0 No 20mg C ommon mg mg 09-21 Spirit 00:00: - [facility] 00 [facility] Bupivicaine Bupivicaine 2021-0 No 2.5mg Common [place] 5-02 Spirit 00:00: - [facility] 00 [facility] Kenalog Kenalog 2021-0 No 40mg Common (Triamcinol (Triamcinol 5-02 S pirit one) one) 00:00: - [facility] 00 [facility] Bupivicaine Bupivicaine 2021-0 No 2.5mg Common [place] 5-02 Spirit 00:00: - [facility] 00 [facility] Hyalgan 20 Hyalgan 20 2021-0 No 20mg C ommon mg mg 09-21 Spirit 00:00: - [facility] 00 [facility] Kenalog Kenalog 2021-0 No 40mg Common (Triamcinol (Triamcinol 5-02 S pirit one) one) 00:00: - [facility] 00 [facility] Bupivicaine Bupivicaine 2-0 No 2.5mg Common [place] 5-02 Spirit 00:00: - [facility] 00 [facility] Hyalgan Hyalgan 2021-0 No 20mg Common 5 Spirit 00:00: - [facility] 00 [facility] Kenalog Kenalog 2020-0 No 40mg Common (Triamcinol (Triamcinol 7-12 S pirit one) one) 00:00: - [facility] 00 [facility] Bupivicaine Bupivicaine 2020-0 No 2.5mg Common [place] 7-12 Spirit 00:00: - [facility] 00 [facility] Kenalog Kenalog 2020-0 No 40mg Common (Triamcinol (Triamcinol 7-12 S pirit one) one) 00:00: - [facility] 00 [facility] Bupivicaine Bupivicaine 2020-0 No 2.5mg Common [place] 7-12 Spirit 00:00: - [facility] 00 [facility] Kenalog Kenalog 2020-0 No 40mg Common (Triamcinol (Triamcinol 7-12 S pirit one) one) 00:00: - [facility] 00 [facility] Bupivicaine Bupivicaine 2020-0 No 2.5mg Common [place] 7-12 Spirit 00:00: - [facility] 00 [facility] Kenalog Kenalog 2020-0 No 40mg Common (Triamcinol (Triamcinol 7-12 S pirit one) one) 00:00: - [facility] 00 [facility] Bupivicaine Bupivicaine 2020-0 No 2.5mg Common [place] 7-12 Spirit 00:00: - [facility] 00 [facility] Bupivicaine Bupivicaine 1-0 No 2.5mg Common [place] 7-12 Spirit 00:00: - [facility] 00 [facility] Kenalog Kenalog 2020-0 No 40mg Common (Triamcinol (Triamcinol 7-12 S pirit one) one) 00:00: - [facility] 00 [facility] Bupivicaine Bupivicaine 1-0 No 2.5mg Common [place] 7-12 Spirit 00:00: - [facility] 00 [facility] Kenalog Kenalog 2020-0 No 40mg Common (Triamcinol (Triamcinol 7-12 S pirit one) one) 00:00: - [facility] 00 [facility] Kenalog Kenalog 2020-0 No 40mg Common (Triamcinol (Triamcinol 7-12 S pirit one) one) 00:00: - [facility] Bupivicaine Bupivicaine 2020-0 No 2.5mg Common [place] 7-12 Spirit 00:00: - [facility] Kenalog Kenalog 2020-0 No 40mg Common (Triamcinol (Triamcinol 7-12 S pirit one) one) 00:00: - [facility] Bupivicaine Bupivicaine 2020-0 No 2.5mg Common [place] 7-12 Spirit 00:00: - [facility] 00 [facility] Hyalgan 20 Hyalgan 20 2020-0 No 20mg C ommon mg mg 5-17 Spirit 00:00: - [facility] Hyalgan 20 Hyalgan 20 2020-0 No 20mg C ommon mg mg 5-17 Spirit 00:00: - [facility] Hyalgan 20 Hyalgan 20 2020-0 No 20mg C ommon mg mg 5-17 Spirit 00:00: - [facility] Hyalgan 20 Hyalgan 20 2020-0 No 20mg C ommon mg mg 5-17 Spirit 00:00: - [facility] Hyalgan 20 Hyalgan 20 2020-0 No 20mg C ommon mg mg 5-17 Spirit 00:00: - [facility] Hyalgan 20 Hyalgan 20 2020-0 No 20mg C ommon mg mg 5-17 Spirit 00:00: - [facility] Hyalgan 20 Hyalgan 20 2020-0 No 20mg C ommon mg mg 5-17 Spirit 00:00: - [facility] Hyalgan 20 Hyalgan 20 2020-0 No 20mg C ommon mg mg 5-17 Spirit 00:00: - [facility] Hyalgan 20 Hyalgan 20 2020-0 No 20mg C ommon mg mg 5-17 Spirit 00:00: - [facility] Hyalgan 20 Hyalgan 20 2020-0 No 20mg C ommon mg mg 5-17 Spirit 00:00: - [facility] Hyalgan 20 Hyalgan 20 2020-0 No 20mg C ommon mg mg 5-17 Spirit 00:00: - [facility] Hyalgan 20 Hyalgan 20 1-0 No 20mg C ommon mg mg 10-06 Spirit 00:00: - [facility] Hyalgan 20 Hyalgan 20 1-0 No 20mg C ommon mg mg 10-06 Spirit 00:00: - [facility] Hyalgan 20 Hyalgan 20 1-0 No 20mg C ommon mg mg 10-06 Spirit 00:00: - [facility] Hyalgan 20 Hyalgan 20 1-0 No 20mg C ommon mg mg 10-06 Spirit 00:00: - [facility] Hyalgan 20 Hyalgan 20 2020-0 No 20mg C ommon mg mg 10-06 Spirit 00:00: - [facility] Hyalgan 20 Hyalgan 20 2020-0 No 20mg C ommon mg mg 5- Spirit 00:00: - [facility] Hyalgan 20 Hyalgan 20 2020-0 No 20mg C ommon mg mg 5 Spirit 00:00: - [facility] Hyalgan 20 Hyalgan 20 2020-0 No 20mg C ommon mg mg 5 Spirit 00:00: - [facility] Hyalgan 20 Hyalgan 20 2020-0 No 20mg C ommon mg mg 5- Spirit 00:00: - [facility] Hyalgan 20 Hyalgan 20 2020-0 No 20mg C ommon mg mg 5-10 Spirit 00:00: - [facility] Hyalgan 20 Hyalgan 20 1-0 No 20mg C ommon mg mg 5-10 Spirit 00:00: - [facility] 00 [facility] Hyalgan 20 Hyalgan 20 1-0 No 20mg C ommon mg mg 5-10 Spirit 00:00: - [facility] Hyalgan 20 Hyalgan 20 1-0 No 20mg C ommon mg mg 5-10 Spirit 00:00: - [facility] Hyalgan 20 Hyalgan 20 1-0 No 20mg C ommon mg mg 5-10 Spirit 00:00: - [facility] Hyalgan 20 Hyalgan 20 1-0 No 20mg C ommon mg mg 5-10 Spirit 00:00: - [facility] Hyalgan 20 Hyalgan 20 2020-0 No 20mg C ommon mg mg 09-29 Spirit 00:00: - [facility] Hyalgan 20 Hyalgan 20 2020-0 No 20mg C ommon mg mg 09-29 Spirit 00:00: - [facility] Hyalgan 20 Hyalgan 20 2020-0 No 20mg C ommon mg mg 09-29 Spirit 00:00: - [facility] Hyalgan 20 Hyalgan 20 2020-0 No 20mg C ommon mg mg 09-29 Spirit 00:00: - [facility] Hyalgan 20 Hyalgan 20 2020-0 No 20mg C ommon mg mg 09-29 Spirit 00:00: - [facility] Hyalgan 20 Hyalgan 20 2020-0 No 20mg C ommon mg mg 09-29 Spirit 00:00: - [facility] Hyalgan 20 Hyalgan 20 2020-0 No 20mg C ommon mg mg 09-22 Spirit 00:00: - [facility] Hyalgan 20 Hyalgan 20 2020-0 No 20mg C ommon mg mg 09-22 Spirit 00:00: - [facility] Hyalgan 20 Hyalgan 20 2020-0 No 20mg C ommon mg mg 09-22 Spirit 00:00: - [facility] Hyalgan 20 Hyalgan 20 2020-0 No 20mg C ommon mg mg 09-22 Spirit 00:00: - [facility] Hyalgan 20 Hyalgan 20 2020-0 No 20mg C ommon mg mg 09-22 Spirit 00:00: - [facility] Hyalgan 20 Hyalgan 20 2020-0 No 20mg C ommon mg mg 09-22 Spirit 00:00: - [facility] Hyalgan 20 Hyalgan 20 2020-0 No 20mg C ommon mg mg 09-22 Spirit 00:00: - [facility] Hyalgan 20 Hyalgan 20 2020-0 No 20mg C ommon mg mg 09-22 Spirit 00:00: - [facility] Hyalgan 20 Hyalgan 20 2020-0 No 20mg C ommon mg mg 5 Spirit 00:00: - [facility] 00 [facility] Hyalgan 20 Hyalgan 20 2020-0 No 20mg C ommon mg mg 09-22 Spirit 00:00: - [facility] Hyalgan 20 Hyalgan 20 2020-0 No 20mg C ommon mg mg 09-22 Spirit 00:00: - [facility] 00 [facility] Hyalgan 20 Hyalgan 20 2020-0 No 20mg C ommon mg mg 09-22 Spirit 00:00: - [facility] 00 [facility] Hyalgan 20 Hyalgan 20 2020-0 No 20mg C ommon mg mg 09-22 Spirit 00:00: - [facility] Hyalgan 20 Hyalgan 20 2020-0 No 20mg C ommon mg mg 09-22 Spirit 00:00: - [facility] Hyalgan 20 Hyalgan 20 2020-0 No 20mg C ommon mg mg 09-22 Spirit 00:00: - [facility] Hyalgan 20 Hyalgan 20 2020-0 No 20mg C ommon mg mg 09-22 Spirit 00:00: - [facility] 00 [facility] Bupivicaine Bupivicaine 2020-0 No 2.5mg [facility] [place] 3-15 Spirit 00:00: - [facility] 00 [facility] Kenalog Kenalog 2020-0 No 40mg Common (Triamcinol (Triamcinol 3-15 S pirit one) one) 00:00: - [facility] 00 [facility] Bupivicaine Bupivicaine 2020-0 No 2.5mg Common [place] 3-15 Spirit 00:00: - [facility] 00 [facility] Kenalog Kenalog 2020-0 No 40mg Common (Triamcinol (Triamcinol 3-15 S pirit one) one) 00:00: - [facility] 00 [facility] Bupivicaine Bupivicaine 1-0 No 2.5mg [facility] [place] 3-15 Spirit 00:00: - [facility] 00 [facility] Kenalog Kenalog 2020-0 No 40mg Common (Triamcinol (Triamcinol 3-15 S pirit one) one) 00:00: - [facility] 00 [facility] Bupivicaine Bupivicaine 2020-0 No 2.5mg [facility] [place] 3-15 Spirit 00:00: - [facility] 00 [facility] Kenalog Kenalog 2020-0 No 40mg Common (Triamcinol (Triamcinol 3-15 S pirit one) one) 00:00: - [facility] 00 [facility] Kenalog Kenalog 2020-0 No 40mg Common (Triamcinol (Triamcinol 3-15 S pirit one) one) 00:00: - [facility] 00 [facility] Bupivicaine Bupivicaine 2020-0 No 2.5mg [facility] [place] 3-15 Spirit 00:00: - [facility] 00 [facility] Kenalog Kenalog 2020-0 No 40mg Common (Triamcinol (Triamcinol 3-15 S pirit one) one) 00:00: - [facility] 00 [facility] Bupivicaine Bupivicaine 2020-0 No 2.5mg Common [place] 3-15 Spirit 00:00: - [facility] 00 [facility] Bupivicaine Bupivicaine 2020-0 No 2.5mg [facility] [place] 3-15 Spirit 00:00: - [facility] 00 [facility] Kenalog Kenalog 2020-0 No 40mg Common (Triamcinol (Triamcinol 3-15 S pirit one) one) 00:00: - [facility] 00 [facility] Bupivicaine Bupivicaine 2020-0 No 2.5mg [facility] [place] 3-15 [facility] 00:00: - [facility] 00 [facility] Kenalog Kenalog 2020-0 No 40mg Common (Triamcinol (Triamcinol 3-15 S pirit one) one) 00:00: - [facility] 00 [facility] Hyalgan 20 Hyalgan 20 2019- No 20mg C ommon mg mg 0-26 Spirit 00:00: - [facility] 00 [facility] Hyalgan 20 Hyalgan 20 2019- No 20mg C [facility]mon mg mg 0-26 Spirit 00:00: - [facility] 00 [facility] Kenalog Kenalog 2019- No 40mg Common (Triamcinol (Triamcinol 0-26 S pirit one) one) 00:00: - [facility] 00 [facility] Bupivicaine Bupivicaine 2019- No 5mg [facility] [place] 0-26 Spirit 00:00: - [facility] 00 [facility] Hyalgan 20 Hyalgan 20 2019- No 20mg C ommon mg mg 0-26 Spirit 00:00: - [facility] 00 [facility] Hyalgan 20 Hyalgan 20 2019- No 20mg C ommon mg mg 0-26 Spirit 00:00: - [facility] 00 [facility] Bupivicaine Bupivicaine 2019- No 5mg [facility] [place] 0-26 [facility] 00:00: - [facility] 00 [facility] Kenalog Kenalog 2019- No 40mg Common (Triamcinol (Triamcinol 0-26 S pirit one) one) 00:00: - [facility] 00 [facility] Hyalgan 20 Hyalgan 20 2019- No 20mg C ommon mg mg 0-26 Spirit 00:00: - [facility] 00 [facility] Hyalgan 20 Hyalgan 20 2019-05 No 20mg C ommon mg mg 0-26 Spirit 00:00: - [facility] 00 [facility] Bupivicaine Bupivicaine 2019- No 5mg [facility] [place] 0-26 [facility] 00:00: - [facility] 00 [facility] Kenalog Kenalog 2019- No 40mg Common (Triamcinol (Triamcinol 0-26 S pirit one) one) 00:00: - [facility] 00 [facility] Hyalgan 20 Hyalgan 20 2019- No 20mg C ommon mg mg 0-26 Spirit 00:00: - [facility] 00 [facility] Hyalgan 20 Hyalgan 20 2019- No 20mg C ommon mg mg 0-26 [facility] 00:00: - [facility] 00 [facility] Bupivicaine Bupivicaine 2019- No 5mg [facility] [place] 0-26 [facility] 00:00: - [facility] 00 [facility] Kenalog Kenalog 2019- No 40mg Common (Triamcinol (Triamcinol 0-26 S pirit one) one) 00:00: - [facility] 00 [facility] Hyalgan 20 Hyalgan 20 2019- No 20mg C ommon mg mg 0-26 Spirit 00:00: - [facility] 00 [facility] Bupivicaine Bupivicaine 2019- No 5mg [facility] [place] 0-26 [facility] 00:00: - [facility] 00 [facility] Hyalgan 20 Hyalgan 20 2019- No 20mg C ommon mg mg 0-26 Spirit 00:00: - [facility] 00 [facility] Kenalog Kenalog 2019-05 No 40mg Common (Triamcinol (Triamcinol 0-26 S pirit one) one) 00:00: - [facility] 00 [facility] Hyalgan 20 Hyalgan 20 2019- No 20mg C ommon mg mg 0-26 Spirit 00:00: - [facility] 00 [facility] Bupivicaine Bupivicaine 2019- No 5mg [facility] [place] 0-26 [facility] 00:00: - [facility] 00 [facility] Hyalgan 20 Hyalgan 20 2019- No 20mg C ommon mg mg 0-26 Spirit 00:00: - [facility] 00 [facility] Kenalog Kenalog 2019-05 No 40mg Common (Triamcinol (Triamcinol 0-26 S pirit one) one) 00:00: - [facility] 00 [facility] Hyalgan 20 Hyalgan 20 2019- No 20mg C ommon mg mg 0-26 Spirit 00:00: - [facility] 00 [facility] Hyalgan 20 Hyalgan 20 2019- No 20mg C ommon mg mg 0-26 [facility] 00:00: - [facility] 00 [facility] Bupivicaine Bupivicaine 2019- No 5mg [facility] [place] 0-26 [facility] 00:00: - [facility] 00 [facility] Kenalog Kenalog 2019- No 40mg Common (Triamcinol (Triamcinol 0-26 S pirit one) one) 00:00: - [facility] 00 [facility] Hyalgan 20 Hyalgan 20 2019- No 20mg C ommon mg mg 0-26 [facility] 00:00: - [facility] 00 [facility] Hyalgan 20 Hyalgan 20 2019- No 20mg C ommon mg mg 0-26 [facility] 00:00: - [facility] 00 [facility] Bupivicaine Bupivicaine 2019- No 5mg [facility] [place] 0-26 [facility] 00:00: - [facility] 00 [facility] Kenalog Kenalog 2019-05 No 40mg Common (Triamcinol (Triamcinol 0-26 S pirit one) one) 00:00: - [facility] Hyalgan 20 Hyalgan 20 2019-05 No 20mg C ommon mg mg 0-19 Spirit 00:00: - [facility] Hyalgan 20 Hyalgan 20 2019-05 No 20mg C ommon mg mg 0-19 Spirit 00:00: - [facility] 20 Hyalgan 20 2019-05 No 20mg C ommon mg mg 0-19 Spirit 00:00: - [facility] 20 Hyalgan 20 2019-05 No 20mg C ommon mg mg 0-19 Spirit 00:00: - [facility] 20 Hyalgan 20 2019-05 No 20mg C ommon mg mg 0-19 Spirit 00:00: - [facility] 20 Hyalgan 20 2019-05 No 20mg C ommon mg mg 0-19 Spirit 00:00: - [facility] 20 Hyalgan 20 2019-05 No 20mg C ommon mg mg 0-19 Spirit 00:00: - [facility] 20 Hyalgan 20 2019-05 No 20mg C ommon mg mg 0-19 Spirit 00:00: - [facility] Hy[facility] 20 Hyalgan 20 2019-05 No 20mg C ommon mg mg 0-19 Spirit 00:00: - [facility] 20 Hyalgan 20 2019-05 No 20mg C ommon mg mg 0-19 Spirit 00:00: - [facility] 20 Hyalgan 20 2019-05 No 20mg C ommon mg mg 0-19 Spirit 00:00: - [facility] 20 Hyalgan 20 2019-05 No 20mg C ommon mg mg 0-19 Spirit 00:00: - [facility] 20 Hyalgan 20 2019-05 No 20mg C ommon mg mg 0-19 Spirit 00:00: - [facility] 20 Hyalgan 20 2019-05 No 20mg C ommon mg mg 0-19 Spirit 00:00: - [facility] 20 Hyalgan 20 2019- No 20mg C ommon mg mg 0-19 Spirit 00:00: - [facility] 20 Hyalgan 20 2019- No 20mg C ommon mg mg 0-19 Spirit 00:00: - [facility] Kenalog Kenalog 2019-05 No 40mg Common (Triamcinol (Triamcinol 0-13 S pirit one) one) 00:00: - [facility] Hy[facility] 20 Hyalgan 20 2019- No 20mg C ommon mg mg 0-13 Spirit 00:00: - [facility] 20 Hyalgan 20 2019- No 20mg C ommon mg mg 0-13 Spirit 00:00: - [facility] Bupivicaine Bupivicaine 2019-05 No 5mg [facility] [place] 0-13 Spirit 00:00: - [facility] Kenalog Kenalog 2019-05 No 40mg Common (Triamcinol (Triamcinol 0-13 S pirit one) one) 00:00: - [facility] 20 Hyalgan 20 2019- No 20mg C ommon mg mg 0-13 Spirit 00:00: - [facility] 20 Hyalgan 20 2019- No 20mg C ommon mg mg 0-13 Spirit 00:00: - [facility] Bupivicaine Bupivicaine 2019- No 5mg Common [place] 0-13 Spirit 00:00: - [facility] Kenal[facility] Kenalog 2019-05 No 40mg Common (Triamcinol (Triamcinol 0-13 S pirit one) one) 00:00: - [facility] 20 Hyalgan 20 2019- No 20mg C ommon mg mg 0-13 [facility] 00:00: - [facility] 20 Hyalgan 20 2019- No 20mg C ommon mg mg 0-13 [facility] 00:00: - [facility] Bupivicaine Bupivicaine 2019- No 5mg [facility] [place] 0-13 Spirit 00:00: - [facility] Kenalog Kenalog 2019- No 40mg Common (Triamcinol (Triamcinol 0-13 S pirit one) one) 00:00: - [facility] 20 Hyalgan 20 2019- No 20mg C ommon mg mg 0-13 Spirit 00:00: - [facility] 20 Hyalgan 20 2019- No 20mg C ommon mg mg 0-13 Spirit 00:00: - [facility] Bupivicaine Bupivicaine 2019- No 5mg Common [place] 0-13 [facility] 00:00: - [facility] Kenalog Kenalog 2019- No 40mg Common (Triamcinol (Triamcinol 0-13 S pirit one) one) 00:00: - [facility] 20 Hyalgan 20 2019- No 20mg C ommon mg mg 0-13 Spirit 00:00: - [facility] 20 Hyalgan 20 2019- No 20mg C ommon mg mg 0-13 Spirit 00:00: - [facility] Bupivicaine Bupivicaine 2019- No 5mg Common [place] 0-13 [facility] 00:00: - [facility] Kenal[place] Kenalog 2019- No 40mg Common (Triamcinol (Triamcinol 0-13 S pirit one) one) 00:00: - [facility] 20 Hyalgan 20 2019-1 No 20mg C ommon mg mg 0-13 Spirit 00:00: - [facility] 20 Hyalgan 20 2019- No 20mg C ommon mg mg 0-13 [facility] 00:00: - [facility] Bupivicaine Bupivicaine 2019-1 No 5mg Common [place] 0-13 [facility] 00:00: - [facility] Ken[place] Kenalog 2019- No 40mg Common (Triamcinol (Triamcinol 0-13 S pirit one) one) 00:00: - [facility] Hyal[facility] 20 Hyalgan 20 2019-1 No 20mg C ommon mg mg 0-13 [facility] 00:00: - [facility] Bupivicaine Bupivicaine 2020-1 No 5mg Common [place] 0-13 [facility] 00:00: - [facility] 20 Hyalgan 20 2020-1 No 20mg C ommon mg mg 0-13 [facility] 00:00: - [facility] Ken[place] Kenalog 2020-1 No 40mg Common (Triamcinol (Triamcinol 0-13 S pirit one) one) 00:00: - [facility] 20 Hyalgan 20 2019-1 No 20mg C ommon mg mg 0-13 [facility] 00:00: - [facility] Bupivicaine Bupivicaine 2019-1 No 5mg Common [place] 0-13 [facility] 00:00: - [facility] 20 Hyalgan 20 2019-1 No 20mg C ommon mg mg 0-13 Spirit 00:00: - [facility] Kenal[place] Kenalog 2020-0 No 40mg Common (Triamcinol (Triamcinol 6-01 S pirit one) one) 00:00: - [facility] LIDOCAINE LIDOCAINE 2020-0 No 4mL Com mon HCL 10MG/ML HCL 10MG/ML 6-01 S pirit 00:00: - [facility] Kenal[place] Kenalog 2020-0 No 40mg Common (Triamcinol (Triamcinol 6-01 S pirit one) one) 00:00: - [facility] LIDOCAINE LIDOCAINE 2020-0 No 4mL Com mon HCL 10MG/ML HCL 10MG/ML 6-01 S pirit 00:00: - [facility] [place] Kenalog 2020-0 No 40mg Common (Triamcinol (Triamcinol 6-01 S pirit one) one) 00:00: - [facility] LIDOCAINE LIDOCAINE 2020-0 No 4mL Com mon HCL 10MG/ML HCL 10MG/ML 6-01 S pirit 00:00: - [facility] Ken[place] Kenalog 2020-0 No 40mg Common (Triamcinol (Triamcinol 6-01 S pirit one) one) 00:00: - [facility] LIDOCAINE LIDOCAINE 2020-0 No 4mL Com mon HCL 10MG/ML HCL 10MG/ML 6-01 S pirit 00:00: - [facility] Ken[place] Kenalog 2020-0 No 40mg Common (Triamcinol (Triamcinol 6-01 S pirit one) one) 00:00: - [facility] LIDOCAINE LIDOCAINE 2020-0 No 4mL Com mon HCL 10MG/ML HCL 10MG/ML 6- S pirit 00:00: - [facility] Kenal[place] Kenalog 2020-0 No 40mg Common (Triamcinol (Triamcinol 6-01 S pirit one) one) 00:00: - [facility] LIDOCAINE LIDOCAINE 2020-0 No 4mL Com mon HCL 10MG/ML HCL 10MG/ML 6- S pirit 00:00: - [facility] Kenalog 2020-0 No 40mg Common (Triamcinol (Triamcinol 6-01 S pirit one) one) 00:00: - [facility] LIDOCAINE LIDOCAINE 2020-0 No 4mL Com mon HCL 10MG/ML HCL 10MG/ML 6- S pirit 00:00: - [facility] Kenalog 2020-0 No 40mg Common (Triamcinol (Triamcinol 6-01 S pirit one) one) 00:00: - [facility] LIDOCAINE LIDOCAINE 2020-0 No 4mL Com mon HCL 10MG/ML HCL 10MG/ML 6- S pirit 00:00: - [facility] 20 Hyalgan 20 2019-0 No 2mL C ommon mg mg 01-29 Spirit 00:00: - [facility] 20 Hyalgan 20 2019-0 No 2mL C ommon mg mg 01-29 Spirit 00:00: - [facility] 20 Hyalgan 20 2019-0 No 2mL C ommon mg mg 01-29 Spirit 00:00: - [facility] 20 Hyalgan 20 2019-0 No 2mL C ommon mg mg 01-29 [facility] 00:00: - [facility] 20 Hyalgan 20 2019-0 No 2mL C ommon mg mg 01-29 Spirit 00:00: - [facility] 20 Hyalgan 20 2019-0 No 2mL C ommon mg mg 01-29 [facility] 00:00: - [facility] 20 Hyalgan 20 2019-0 No 2mL C ommon mg mg 01-29 [facility] 00:00: - [facility] 20 Hyalgan 20 2019-0 No 2mL C ommon mg mg 01-29 [facility] 00:00: - [facility] 20 Hyalgan 20 2019-0 No 2mL C ommon mg mg 01-23 [facility] 00:00: - [facility] 20 Hyalgan 20 2019-0 No 2mL C ommon mg mg 01-23 Spirit 00:00: - [facility] 20 Hyalgan 20 2019-0 No 2mL C ommon mg mg 01-23 [facility] 00:00: - [facility] 20 Hyalgan 20 2019-0 No 2mL C ommon mg mg 01-23 [facility] 00:00: - [facility] 20 Hyalgan 20 2019-0 No 2mL C ommon mg mg 01-23 [facility] 00:00: - [facility] 20 Hyalgan 20 2019-0 No 2mL C ommon mg mg 01-23 Spirit 00:00: - [facility] 20 Hyalgan 20 2019-0 No 2mL C ommon mg mg 01-23 [facility] 00:00: - [facility] 20 Hyalgan 20 2019-0 No 2mL C ommon mg mg 01-23 [facility] 00:00: - [facility] 20 Hyalgan 20 2019-0 No 2mL C ommon mg mg 01-15 Spirit 00:00: - [facility] 20 Hyalgan 20 2019-0 No 2mL C ommon mg mg 01-15 [facility] 00:00: - [facility] 20 Hyalgan 20 2019-0 No 2mL C ommon mg mg 01-15 Spirit 00:00: - [facility] 20 Hyalgan 20 2019-0 No 2mL C ommon mg mg 01-15 [facility] 00:00: - [facility] 20 Hyalgan 20 2019-0 No 2mL C ommon mg mg 8- Spirit 00:00: - [facility] 20 Hyalgan 20 2019-0 No 2mL C ommon mg mg 8 Spirit 00:00: - [facility] 20 Hyalgan 20 2019-0 No 2mL C ommon mg mg 8- Spirit 00:00: - [facility] 20 Hyalgan 20 2019-0 No 2mL C ommon mg mg 8 [facility] 00:00: - [facility] [place] Kenalog 2019-0 No 40mg Common (Triamcinol (Triamcinol 5-16 S pirit one) one) 00:00: - [facility] LIDOCAINE LIDOCAINE 2019-0 No 10mg Com mon HCL 10MG/ML HCL 10MG/ML 5-16 S pirit 00:00: - [facility] Kenalog 2019-0 No 40mg Common (Triamcinol (Triamcinol 5-16 S pirit one) one) 00:00: - [facility] LIDOCAINE LIDOCAINE 2019-0 No 10mg Com mon HCL 10MG/ML HCL 10MG/ML 5-16 S pirit 00:00: - [facility] [place] Kenalog 2019-0 No 40mg Common (Triamcinol (Triamcinol 5-16 S pirit one) one) 00:00: - [facility] LIDOCAINE LIDOCAINE 2019-0 No 10mg Com mon HCL 10MG/ML HCL 10MG/ML 5-16 S pirit 00:00: - [facility] Kenalog 2019-0 No 40mg Common (Triamcinol (Triamcinol 5-16 S pirit one) one) 00:00: - [facility] LIDOCAINE LIDOCAINE 2019-0 No 10mg Com mon HCL 10MG/ML HCL 10MG/ML 5-16 S pirit 00:00: - [facility] Kenalog 2019-0 No 40mg Common (Triamcinol (Triamcinol 5-16 S pirit one) one) 00:00: - [facility] LIDOCAINE LIDOCAINE 2019-0 No 10mg Com mon HCL 10MG/ML HCL 10MG/ML 5-16 S pirit 00:00: - [facility] Kenalog 2019-0 No 40mg Common (Triamcinol (Triamcinol 5-16 S pirit one) one) 00:00: - [facility] LIDOCAINE LIDOCAINE 2019-0 No 10mg Com mon HCL 10MG/ML HCL 10MG/ML 5-16 S pirit 00:00: - [facility] Kenalog 2019-0 No 40mg Common (Triamcinol (Triamcinol 5-16 S pirit one) one) 00:00: - [facility] LIDOCAINE LIDOCAINE 2019-0 No 10mg Com mon HCL 10MG/ML HCL 10MG/ML 5-16 S pirit 00:00: - [facility] Kenalog 2019-0 No 40mg Common (Triamcinol (Triamcinol 5-16 S pirit one) one) 00:00: - [facility] LIDOCAINE LIDOCAINE 2019-0 No 10mg Com mon HCL 10MG/ML HCL 10MG/ML 5-16 S pirit 00:00: - [facility] Aspir-81 Aspir-81 Yes Khurram not Comm on Garcia defined [facility] Sensipar Sensipar Yes Khurram not Comm on Garcia defined [facility] Levothyroxi Levothyroxi Yes Khurram not Common ne Sodium ne Sodium Garcia defined Sp leyla [facility] Treva-Denny Treva-Denny Yes Khurram not Co mmon Garcia defined [facility] Lasix Lasix Yes Khurram not Common Garcia defined [facility] Levaquin Levaquin Yes Khurram not Comm on Garcia defined [facility] Renvela Renvela Yes Khurram not Common Garcia defined [facility] Promethazin Promethazin Yes Khurram not Common e HCl e HCl Garcia defined [facility] Hydrocodone Hydrocodone Yes Khurram not Common -Acetaminop -Acetaminop Garcia defined [facility] Xanax Xanax Yes Khurram not Common Garcia defined [facility] Dialyvite Dialyvite Yes Khurram not Co mmon 800/Ultra D 800/Ultra D Garcia defined [facility] Zolpidem Zolpidem Yes Khurram not Comm on Tartrate Tartrate Garcia defined Spir it [facility] Lidocaine-P Lidocaine-P Yes Khurram not Common rilocaine rilocaine Garcia defined Sp [facility] Furosemide Furosemide Yes Khurram not Common Garcia defined [facility] Escitalopra Escitalopra Yes Khurram not Common m Oxalate m Oxalate Garcia defined Sp [facility] Alprazolam Alprazolam Yes Khurram not Common Garcia defined [facility] Dialyvite Dialyvite No Dialyvite 800/Ultra D 800/Ultra D 800/Ultra D Auryxia 1 Auryxia 1 No Auryxia 1 GM 210 GM 210 GM 210 MG(Fe) MG(Fe) MG(Fe) HYDROcodone HYDROcodone No HYDROcodon -Acetaminop -Acetaminop e-Acetamin hen hen ophen Vitamin D Vitamin D No Vitamin D (Ergocalcif (Ergocalcif (Ergocalci clarissa) 1.25 clarissa) 1.25 ferol) MG (27976 MG (59415 1.25 MG UT) UT) (23781 UT) Promethazin Promethazin No Promethazi e HCl e HCl ne HCl Lasix Lasix No Lasix Treva-Denny Treva-Denny No Treva-Denny levoFLOXaci levoFLOXaci No levoFLOXac n 250 MG [...] (Ergocalci clarissa) 1.25 clarissa) 1.25 ferol) MG (07390 MG (10816 1.25 MG UT) UT) (67240 UT) Promethazin Promethazin No Promethazi e HCl [...] MG n 250 MG in 250 MG Treva-Denny Treva-Denny No Treva-Denny Aspir-81 Aspir-81 No Aspir-81 Xanax Xanax No [...] (Ergocalci clarissa) 1.25 clarissa) 1.25 ferol) MG (72053 MG (88378 1.25 MG UT) UT) (41918 UT) Promethazin Promethazin No Promethazi e HCl [...] MG n 250 MG in 250 MG Treva-Denny Treva-Denny No Treva-Denny Aspir-81 Aspir-81 No Aspir-81 Xanax Xanax No [...] (Ergocalci clarissa) 1.25 clarissa) 1.25 ferol) MG (36800 MG (39938 1.25 MG UT) UT) (31476 UT) Promethazin Promethazin No Promethazi e HCl [...] MG n 250 MG in 250 MG Treva-Denny Treva-Denny No Treva-Denny Aspir-81 Aspir-81 No Aspir-81 Xanax Xanax No Xanax Lasix Lasix No Lasix Escitalopra Escitalopra No Escitalopr m Oxalate m Oxalate am Oxalate HYDROcodone HYDROcodone No HYDROcodon -Acetaminop -Acetaminop e-Acetamin hen hen ophen Renvela Renvela No Renvela Xanax Xanax No Xanax Treva-Denny Treva-Denny No Treva-Denny Acetaminoph Acetaminoph No Acetaminop en-Codeine en-Codeine hen-Codein [...] (Ergocalci clarissa) 1.25 clarissa) 1.25 ferol) MG (45915 MG (23378 1.25 MG UT) UT) (76791 UT) Renvela Renvela No Renvela Lidocaine-P Lidocaine-P [...] Lasix No Lasix Xanax Xanax No Xanax Treva-Denny Treva-Denny No Treva-Denny Acetaminoph Acetaminoph No Acetaminop en-Codeine en-Codeine hen-Codein [...] (Ergocalci clarissa) 1.25 clarissa) 1.25 ferol) MG (71891 MG (76399 1.25 MG UT) UT) (63721 UT) Renvela Renvela No Renvela Lidocaine-P Lidocaine-P [...] (Ergocalci clarissa) 1.25 clarissa) 1.25 ferol) MG (76505 MG (42332 1.25 MG UT) UT) (28283 UT) Treva-Denny Treva-Denny No Treva-Denny Xanax Xanax No Xanax HYDROcodone HYDROcodone No HYDROcodon -Acetaminop -Acetaminop e-Acetamin hen hen ophen ALPRAZolam ALPRAZolam No ALPRAZolam Renvela Renvela No Renvela levoFLOXaci levoFLOXaci No levoFLOXac n 250 MG n 250 MG in 250 MG Lidocaine-P Lidocaine-P No Lidocaine- rilocaine rilocaine Prilocaine Treva-Denny Treva-Denny No Treva-Denny Sensipar Sensipar No Sensipar Auryxia 1 Auryxia 1 No Auryxia 1 GM 210 GM 210 GM 210 MG(Fe) MG(Fe) MG(Fe) Escitalopra Escitalopra No Escitalopr m Oxalate m Oxalate am Oxalate Sevelamer Sevelamer No Sevelamer Carbonate Carbonate Carbonate 800 MG 800 MG 800 MG Acetaminoph Acetaminoph No Acetaminop en-Codeine en-Codeine hen-Codein #3 300-30 #3 300-30 e #3 MG MG 300-30 MG Sensipar Sensipar No Sensipar HYDROcodone HYDROcodone No HYDROcodon -Acetaminop -Acetaminop e-Acetamin hen hen ophen Levaquin Levaquin No Levaquin Aspir-81 Aspir-81 No Aspir-81 Dialyvite Dialyvite No Dialyvite 800/Ultra D 800/Ultra D 800/Ultra D levoFLOXaci levoFLOXaci No levoFLOXac n 250 MG n 250 MG in 250 MG ALPRAZolam ALPRAZolam No ALPRAZolam Furosemide Furosemide No Furosemide Levothyroxi Levothyroxi No Levothyrox ne Sodium ne Sodium ine Sodium Promethazin Promethazin No Promethazi e HCl e HCl ne HCl Zolpidem Zolpidem No Zolpidem Tartrate Tartrate Tartrate Lasix Lasix No Lasix Levothyroxi Levothyroxi No Levothyrox ne Sodium ne Sodium ine Sodium Lactulose Lactulose No Lactulose 10 GM/15ML 10 GM/15ML 10 GM/15ML Lidocaine-P Lidocaine-P No Lidocaine- rilocaine rilocaine Prilocaine Vitamin D Vitamin D No Vitamin D (Ergocalcif (Ergocalcif (Ergocalci clarissa) 1.25 clarissa) 1.25 ferol) MG (67744 MG (69318 1.25 MG UT) UT) (54660 UT) Treva-Denny Treva-Denny No Treva-Denny Xanax Xanax No Xanax HYDROcodone HYDROcodone No HYDROcodon -Acetaminop -Acetaminop e-Acetamin hen hen ophen Renvela Renvela No Renvela Aspir-81 Aspir-81 No Aspir-81 Dialyvite Dialyvite No Dialyvite 800/Ultra D 800/Ultra D 800/Ultra D Promethazin Promethazin No Promethazi e HCl e HCl ne HCl Lactulose Lactulose No Lactulose 10 GM/15ML 10 GM/15ML 10 GM/15ML Sevelamer Sevelamer No Sevelamer Carbonate Carbonate Carbonate 800 MG 800 MG 800 MG Vitamin D Vitamin D No Vitamin D (Ergocalcif (Ergocalcif (Ergocalci clarissa) 1.25 clarissa) 1.25 ferol) MG (15421 MG (96351 1.25 MG UT) UT) (38072 UT) Furosemide Furosemide No Furosemide Renvela Renvela No Renvela Escitalopra Escitalopra No Escitalopr m Oxalate m Oxalate am Oxalate Furosemide Furosemide No Furosemide Lactulose Lactulose No Lactulose 10 GM/15ML 10 GM/15ML 10 GM/15ML Vital Signs Vital Name Observation Time Observation Value Comments Source height 2022-05-12 13:45:00 61.5 [in_i] [facility] weight 2022-05-12 13:45:00 169 [lb_av] [facility] temperature 2022-05-12 13:45:00 97.8 [degF] [facility] bmi 2022-05-12 13:45:00 31.41 kg/m2 [facility] S pirit - [facility] blood pressure 2022-05-12 13:45:00 134 mm[Hg] [facility] - systolic [facility] blood pressure 2022-05-12 13:45:00 82 mm[Hg] [facility] - diastolic [facility] height 2022-01-04 14:00:00 61.5 [in_i] [facility] - [facility] weight 2022-01-04 14:00:00 180 [lb_av] Common S pirit [facility] temperature 2022-01-04 14:00:00 97.3 [degF] Common S pirit [facility] bmi 2022-01-04 14:00:00 33.46 kg/m2 Common S pirit - [facility] blood pressure 2022-01-04 14:00:00 128 mm[Hg] [facility] - systolic [facility] blood pressure 2022-01-04 14:00:00 80 mm[Hg] [facility] - diastolic [facility] height 2021-10-05 08:30:00 61.5 [in_i] Common S pirit - [facility] weight 2021-10-05 08:30:00 190 [lb_av] Common S pirit - [facility] temperature 2021-10-05 08:30:00 97.2 [degF] Common S pirit - [facility] bmi 2021-10-05 08:30:00 35.31 kg/m2 Common S pirit - [facility] blood pressure 2021-10-05 08:30:00 126 mm[Hg] [facility] - systolic [facility] blood pressure 2021-10-05 08:30:00 82 mm[Hg] [facility] - diastolic [facility] height 2021-09-28 15:15:00 61.5 [in_i] Common S pirit - [facility] weight 2021-09-28 15:15:00 196 [lb_av] Common S pirit - [facility] temperature 2021-09-28 15:15:00 98.2 [degF] Common S pirit [facility] bmi 2021-09-28 15:15:00 36.43 kg/m2 Common S pirit [facility] blood pressure 2021-09-28 15:15:00 132 mm[Hg] [facility] - systolic [facility] blood pressure 2021-09-28 15:15:00 84 mm[Hg] [facility] - diastolic [facility] height 2021-09-21 10:00:00 61.5 [in_i] Common [facility] weight 2021-09-21 10:00:00 196.6 [lb_av] [facility] bmi 2021-09-21 10:00:00 36.54 kg/m2 [facility] S pirit - [facility] blood pressure 2021-09-21 10:00:00 134 mm[Hg] [facility] - systolic [facility] blood pressure 2021-09-21 10:00:00 82 mm[Hg] [facility] - diastolic [facility] height 2021-02-02 08:15:00 61.5 [in_i] [facility] weight 2021-02-02 08:15:00 255 [lb_av] [facility] bmi 2021-02-02 08:15:00 47.4 kg/m2 [facility]-02 08:15:00 144 mm[Hg] [facility] - systolic [facility] blood pressure 2021-02-02 08:15:00 83 mm[Hg] [facility] - diastolic [facility] Body height 2022-11-19 15:46:00 152.4 cm [facility] Body weight 2022-11-19 15:46:00 78 kg [facility] BMI 2022-11-19 15:46:00 33.58 kg/m2 [facility] Body weight 2022-07-21 19:07:00 74.5 kg [facility] BMI 2022-07-21 19:07:00 31.29 kg/m2 [facility] Systolic blood 2022-04-28 13:47:00 134 mm[Hg] [facility] pressure Diastolic blood 2022-04-28 13:47:00 69 mm[Hg] [facility] pressure Heart rate 2022-04-28 13:47:00 65 /min [facility] Body temperature 2022-04-28 13:46:00 36.11 Carlita [facility] Respiratory rate 2022-04-28 13:46:00 17 /min [facility] Body height 2022-04-28 13:46:00 154.3 cm [facility] Oxygen saturation in 2022-04-28 13:46:00 95 /min [facility] Arterial blood by Pulse oximetry Procedures Procedure Date / Time Performing Clinician Source Performed SINGLE ANTIGEN BEADS 2023-02-15 [facility] 2023-01-18 14:32:00 Ashlee [facility] SINGLE ANTIGEN BEADS 2022-12-14 16:25:00 Ashlee [facility] MRI ABDOMEN W WO CONTRAST 2022-11-19 16:38:31 Jacky [facility] US BREAST COMPLETE 2022-09-01 18:21:[facility] MAMMO BREAST DIAGNOSTIC 2022-09-01 [facility] OCCULT BLOOD, STOOL 2022-08-31 19:00[facility]22-08-30 [facility]22-08-28 [facility] [place], WO CONTRAST, 2022-07-21 21:17:00 Jacky [facility] W DOPPLER ([id number]) [place] [address] ANGIOGRAM ABDOMINAL 2022-07-21 20:15[facility] ILIOFEMORAL RUNOFF W WO CONTRAST US RENAL 2022-07-21 18:50:00 Jacky [facility] [place] XR CHEST 2 VW 2022-07-21 17:14:00 Maggie [facility] SIX MINUTE WALK W/ PULSE 2022-07-21 16:29:50 Rico, [facility] OXIMETRY [place] ECG 12-LEAD 2022-07-21 14:47:41 Rico, Maggie [facility] LIPID PANEL 2022-07-21 13:41:00 [facility] FASTING GLUCOSE LEVEL 2022-07-21 13:41:00 Rico, [facility] [place] CREATININE LEVEL 2022-07-21 13:41:00 Rico, [facility] Leopoldo PHOSPHORUS LEVEL 2022-07-21 13:41:00 [facility], [facility] LDH 2022-07-21 13:41:00 [facility] HEMOGLOBIN A1C 2022-07-21 13:41:00 Rico, [facility] Leopoldo CYTOMEGALOVIRUS AB, IGG 2022-07-21 13:41:00 Rico, [facility] Leopoldo CYTOMEGALOVIRUS AB, IGM 2022-07-21 13:41:00 [facility], [facility] [facility] VIRUS 2022-07-21 13:41:00 Rico, [facility] ANTIBODY TEST [place] HERPES SIMPLEX VIRUS BY 2022-07-21 13:41:00 Rico, [facility] PCR [place] HSV 1 & 2 GLYCOPROTEIN G 2022-07-21 13:41:00 Rico, [facility] AB, IGG [place] HSV TYPE 1/2 COMBINED AB, 2022-07-21 13:41:00 Rico, [facility] IGM [place] PARATHYROID HORMONE 2022-07-21 13:41:00 Rico, [facility] [place] ABORH - TRANSPLANT 2022-07-21 13:41:00 Rico, [facility] [place] FACTOR V LEIDEN BY PCR 2022-07-21 13:41:00 Rico, [facility] PROTHROMBIN MUTATION, 2022-07-21 13:41:00 Rico, [facility] FACTOR II, BY PCR [place] LUPUS ANTICOAGULANT PANEL 2022-07-21 13:41:00 Rico, [facility] [place] HOMOCYSTINE, PLASMA 2022-07-21 13:41:00 Rico, [facility] [place] ESTIMATED GFR 2022-07-21 13:41:00 Rico, Maggie Mina HLA TYPING 2022-07-21 13:41:00 Rico, Maggie Mina SINGLE ANTIGEN BEADS 2022-07-21 13:41:00 Rico, [facility] URINE CULTURE 2022-04-28 19:56:00 Rico, Maggie Mina COMPREHENSIVE METABOLIC 2022-04-28 18:10:00 Rico, [facility] PANEL [place] URINALYSIS SCREEN AND 2022-04-28 18:10:00 Rico, [facility] MICROSCOPY, WITH REFLEX TO [place] HORTON HIV 1/2 ANTIGEN/ANTIBODY, 2022-04-28 18:10:00 Rico, [facility] FOURTH GENERATION, WITH [place] REFLEXES HEPATITIS A ANTIBODY TOTAL 2022-04-28 18:10:00 Rico, [facility] [place] HEPATITIS B CORE ANTIBODY 2022-04-28 18:10:00 Rico, [facility] TOTAL [place] HEPATITIS B SURFACE 2022-04-28 18:10:00 Rico, [facility] ANTIBODY [place] HEPATITIS B SURFACE 2022-04-28 18:10:00 Rico, [facility] ANTIGEN [place] HEPATITIS B SURFACE AB, 2022-04-28 18:10:00 Rico, [facility] QUANTITATIVE [place] HEPATITIS C ANTIBODY 2022-04-28 18:10:00 Rico, [facility] [place] SYPHILIS TREPONEMA SCREEN 2022-04-28 18:10:00 [facility], [facility] WITH RPR CONFIRMATION [place] (REVERSE ALGORITHM) CBC WITH PLATELET AND 2022-04-28 18:10:00 Rico, [facility] DIFFERENTIAL [place] PROTHROMBIN TIME WITH INR 2022-04-28 18:10:00 [facility] PARTIAL THROMBOPLASTIN 2022-04-28 18:10:00 [facility], [facility] TIME (PTT) [place] ABORH - TRANSPLANT 2022-04-28 18:10:00 Rico, [facility] [place] DRUG PENA 9, SER/BINTA, SCRN 2022-04-28 18:10:00 Rico, [facility] W/RFLX TO AYAH Mina TB T-SPOT 2022-04-28 18:10:00 Maggie Rico SERUM ELECTROPHORESIS 2022-04-28 18:10:00 Maggie Rico [facility] ESTIMATED GFR 2022-04-28 18:10:00 Maggie Rico [facility] NICOTINE AND COTININE, 2022-04-28 18:10:00 Maggie [facility] Plan of Care Planned Activity Planned Date Details Comments Source Future Scheduled 2023-02-21 Screening for [facility] Test 14:28:05 malignant neoplasm of colon (procedure) [code = 583631752] Future Scheduled 2023-02-21 Screening for [facility] Test 14:28:05 malignant neoplasm of colon (procedure) [code = 097955172] Future Scheduled 2023-02-21 COVID-19 VACCINE (#1) [facility] Test 14:28:05 [code = COVID-19 VACCINE (#1)] Future Scheduled 2023-02-21 65+ PNEUMOCOCCAL [facility] Test 14:28:05 VACCINE (1 - PCV) [code = 65+ PNEUMOCOCCAL VACCINE (1 - PCV)] Future Scheduled 2023-02-21 Screening for [facility] Test 14:28:05 malignant neoplasm of colon (procedure) [code = 810169793] Future Scheduled 2023-02-21 SHINGLES VACCINES (1 Met [facility] Test 14:28:05 of 2) [code = SHINGLES VACCINES (1 of 2)] Future Scheduled 2023-02-21 INFLUENZA VACCINE (#1) [facility] Test 14:28:05 [code = INFLUENZA VACCINE (#1)] Future Scheduled 2023-02-21 Screening for [facility] Test 14:28:05 malignant neoplasm of colon (procedure) [code = 824717571] Future Scheduled 2023-02-21 Screening for [facility] Test 14:28:05 malignant neoplasm of colon (procedure) [code = 224650167] Future Scheduled 2023-02-21 BREAST CANCER [facility] Test 14:28:05 SCREENING [code = BREAST CANCER SCREENING] Future Scheduled 2022-09-22 COVID-19 VACCINE (#1) [facility] Test 08:44:54 [code = COVID-19 VACCINE (#1)] Future Scheduled 2022-09-22 65+ [facility] Test 08:44:54 VACCINE (1 - PCV) [code = 65+ PNEUMOCOCCAL VACCINE (1 - PCV)] Future Scheduled 2022-09-22 SHINGLES VACCINES ([facility] Test 08:44:54 of 2) [code = SHINGLES VACCINES (1 of 2)] Future Scheduled 2022-09-22 COLONOSCOPY SCREENING [facility] Test 08:44:54 [code = COLONOSCOPY SCREENING] Future Scheduled 2022-09-22 [facility]INE [facility] 08:44:54 [code = INFLUENZA VACCINE] Future Scheduled 2022-09-22 BREAST CANCER [facility] Test 08:44:54 SCREENING [code = BREAST CANCER SCREENING] Encounters Start End Encounter Admission Attending Care Care Encounter Source Date/Time Date/Time Type Type Clinicians Facility Department ID 2022-01-05 Outpatient Mayco, [facility] [id number] Common 08:24:01 Sunny [facility] 2021-12-21 [facility] [id number] Common 10:40:00 Sunny [facility] 2021-12-08 [facility] [id number] Common 10:47:00 Sunny [facility] 2021-06-17 [facility] [id number] Common 13:46:32 Sunny [id number] [facility] 2021-06-17 [facility] [id number] Common 12:58:03 Sunny [id number] [facility] 2021-06-17 [facility] [id number] Common 12:57:19 Sunny [id number] [facility] 2021-06-17 [facility] [id number] Common 11:52:24 Sunny [id number] [facility] 2023-02-15 2023-02-15 Maurisio Garcia, 1.2.840.1 [id number] 3770 Methodi 00:10:00 00:15:00 Ahmed Osama [address]72.1.[address] 3.430.2.7 Hospit a .3.318213 l .8 2023-02-15 2023-02-15 Outpatient ASHLEE, [facility] [id number] [address] [place] 00:00:00 00:00:00 AHMED [address] 2023-01-18 2023-01-18 Lab Ashlee, 1.2.840.1 [id number] 8813 Methodi 00:15:00 00:20:[address] Ahmed Osama [address]96.1.[address] 3.430.2.7 Hospit a .3.752909 l .8 2023-01-18 2023-01-18 Outpatient ASHLEE, [facility] [id number] [address] [place] 00:00:00 00:00:00 AHMED [address] 2022-12-14 2022-12-14 Lab Ashlee, 1.2.840.1 [id number] 870286 9426 Methodi 00:00:00 00:05:00 Ahmed Osama 34656.1.[address] 3.430.2.7 Hospit a .3.942586 l .8 2022-12-14 2022-12-14 Outpatient [facility] [id number] [address] [place] 00:00:00 00:00:00 [address]MED [address] 2022-12-08 2022-12-08 Telephone Nieves, 1.2.840.1 [id number] 2100 [id number] Methodi 00:00:00 00:00:00 Geovanna 46923.1.1 948 s t 3.430.2.7 Hospit a .3.644732 l .8 2022-12-07 2022-12-07 Telephone Nieves, 1.2.840.1 [id number] 2099 [id number] Methodi 00:00:00 00:00:00 Geovanna 81473.1.1 102 s t 3.430.2.7 Hospit a .3.585914 l .8 2022-12-06 2022-12-06 Documentat Ac, 1.2.840.1 [id number] 21 [id number] Methodi 00:00:00 00:00:[address]1.[address] 3.430.2.7 Hospit a .3.144028 l .8 2022-11-19 2022-11-19 Hospital Rico, 1.2.840.1 [id number] 03999 14722 Methodi 10:20:00 23:59:00 Encounter Maggie [address]282.1.[address] [place] 3.430.2.7 Hospit a .3.802451 l .8 2022-11-19 2022-11-19 [facility] [id number] [address] [place] 00:00:00 00:00:00 MAGGIE [address] 2022-10-29 2022-10-29 Telephone Laura, 1.2.840.1 [id number] 680 [id number] Methodi 00:00:00 00:00:[address] 3.430.2.7 Hospit a .3.682947 l .8 2022-10-26 2022-10-26 Telephone Ezequiel, 1.2.840.1 [id number] 2100 994072 Methodi 00:00:00 00:00:00 Geovanna 43034.1.1 921 s t 3.430.2.7 Hospit a .3.908889 l .8 2022-10-25 2022-10-25 Documentat Antonio, 1.2.840.1 [id number] 610 [id number] Methodi 00:00:00 00:00:00 ion Zaida 01235.1.[address] 3.430.2.7 Hospit a .3.466261 l .8 2022-10-22 2022-10-22 Telephone Ac 1.2.840.1 [id number] 880 [id number] Methodi 00:00:00 00:00:[address] 3.430.2.7 Hospit a .3.288874 l .8 2022-10-22 2022-10-22 Orders Ac, 1.2.840.1 [id number] 98421 76295 Methodi 00:00:00 00:00:00 Only Janee 63825.1.[address] 3.430.2.7 Hospit a .3.773563 l .8 2022-10-20 2022-10-20 Documentat Antonio, 1.2.840.1 [id number] 762 [id number] Methodi 00:00:00 00:00:00 ion Zaida 11577.1.[address] 3.430.2.7 Hospit a .3.349452 l .8 2022-10-14 2022-10-14 Documentat Ac, 1.2.840.1 [id number] Methodi 00:00:00 00:00:00 ion [address]e [address]174.1.[address] 3.430.2.7 Hospit a .3.803152 l .8 2022-10-13 2022-10-13 Telephone Ezequiel, 1.2.840.1 [id number] 2099 [id number] Methodi 00:00:00 00:00:00 Geovanna 80821.1.1 237 s t 3.430.2.7 Hospit a .3.654812 l .8 2022-09-17 2022-09-17 Telephone Daija, 1.2.840.1 [id number] 554 [id number] Methodi 00:00:00 00:00:[address] 3.430.2.7 Hospit a .3.755178 l .8 2022-09-17 2022-09-17 Telephone Daija, 1.2.840.1 [id number] 781 [id number] Methodi 00:00:00 00:00:[address] 3.430.2.7 Hospit a .3.048780 l .8 2022-09-01 2022-09-01 [facility], 1.2.840.1 [id number] 29201 16520 Methodi 13:11:06 23:59:00 Encounter Maggie 47389.1.[address] [place] 3.430.2.7 Hospit a .3.753353 l .8 2022-09-01 2022-09-01 [facility], 1.2.840.1 [id number] 33380 03877 Methodi 12:35:11 13:10:00 Encounter Maggie 78712.1.[address] [place] 3.430.2.7 Hospit a .3.637889 l .8 2022-09-01 2022-09-01 [facility], 1.2.840.1 [id number] 21001 [address] [place] 00:00:00 00:00:00 Encounter MAGGIE 59926.1.[address] .3.161931 .8 2022-09-01 2022-09-01 [facility], 1.2.840.1 [id number] 21001 [id number] [place] 00:00:00 00:00:00 Encounter MAGGIE 21955.1.[address] .3.644983 .8 2022-09-01 2022-09-01 [facility] [id number] [address] [place] 00:00:00 00:00:00 MAGGIE [address] 2022-09-01 2022-09-01 Travel 1.2.840.1 1.2.307.768 3979 528347 Methodi 00:00:00 00:00:[address] 3.430.2.7 0.2.7.3.698 Ho spita .3.255014 084.8 l .8 2022-09-01 2022-09-01 Travel 1.2.840.1 1.2.814.415 5024 839939 Methodi 00:00:00 00:00:[address] 3.430.2.7 0.2.7.3.698 Ho spita .3.836292 084.8 l .8 2022-08-31 2022-08-31 Lab Rico, 1.2.840.1 [id number] 038188 2211 Methodi 00:00:00 00:05:[address] [place] 3.430.2.7 Hospit a .3.462914 l .8 2022-08-31 2022-08-31 Lab Rico, 1.2.840.1 [id number] 140248 5236 Methodi 00:00:00 00:05:[address] [place] 3.430.2.7 Hospit a .3.189582 l .8 2022-08-30 2022-08-30 Lab Rico, 1.2.840.1 [id number] [id number] 1175 Methodi 00:00:00 00:05:[address] [place] 3.430.2.7 Hospit a .3.897603 l .8 2022-08-30 2022-08-30 Lab Rico, 1.2.840.1 [id number] 108047 3561 Methodi 00:00:00 00:05:[address] [place] 3.430.2.7 Hospit a .3.046077 l .8 2022-08-28 2022-08-28 Lab Rico, 1.2.840.1 [id number] 578492 1663 Methodi 00:00:00 00:05:[address] [place] 3.430.2.7 Hospit a .3.072618 l .8 2022-08-28 2022-08-28 Lab Rico, 1.2.840.1 [id number] 831177 0998 Methodi 00:00:00 00:05:[address] [place] 3.430.2.7 Hospit a .3.302808 l .8 2022-08-05 2022-08-05 Telephone [place], 1.2.840.1 [id number] 2100 858116 Methodi 00:00:00 00:00:[address] 3.430.2.7 Hospit a .3.553696 l .8 2022-08-05 2022-08-05 Telephone Musaangelique, 1.2.840.1 [id number] 2099 079434 Methodi 00:00:00 00:00:[address] 3.430.2.7 Hospit a .3.932082 l .8 2022-08-02 2022-08-02 Telephone Musaria, 1.2.840.1 [id number] 2100 896233 Methodi 00:00:00 00:00:[address] 3.430.2.7 Hospit a .3.181069 l .8 2022-08-02 2022-08-02 Telephone Phillip, 1.2.840.1 [id number] 2099 141404 Methodi 00:00:00 00:00:[address] 3.430.2.7 Hospit a .3.717438 l .8 2022-07-28 2022-07-28 Telephone Wiley, 1.2.840.1 [id number] 2 [id number] Methodi 00:00:00 00:00:[address] 3.430.2.7 Hospit a .3.679441 l .8 2022-07-28 2022-07-28 Telephone [facility], 1.2.840.1 [id number] 2 [id number] Methodi 00:00:00 00:00:[address] 3.430.2.7 Hospit a .3.143662 l .8 2022-07-23 2022-07-23 Telephone Sanchez, 1.2.840.1 [id number] 543 [id number] Methodi 00:00:00 00:00:[address] 3.430.2.7 Hospit a .3.249899 l .8 2022-07-23 2022-07-23 Telephone Sanchez, 1.2.840.1 [id number] 738 [id number] Methodi 00:00:00 00:00:[address] 3.430.2.7 Hospit a .3.141832 l .8 2022-07-21 2022-07-21 [facility], 1.2.840.1 [id number] 56759 30397 Methodi 14:00:00 23:59:00 Encounter Maggie 31300.1.[address] [place] 3.430.2.7 Hospit a .3.056358 l .8 2022-07-21 2022-07-21 [facility], 1.2.840.1 [id number] 51548 Methodi 14:00:00 23:59:00 Encounter Maggie 88423.1.[address] [place] 3.430.2.7 Hospit a .3.672363 l .8 2022-07-21 2022-07-21 [facility], 1.2.840.1 [id number] 47986 Methodi 12:54:16 13:59:00 Encounter Maggie [address]126.1.[address] [place] 3.430.2.7 Hospit a .3.476185 l .8 2022-07-21 2022-07-21 [facility], 1.2.840.1 [id number] 09536 Methodi 12:54:16 13:59:00 Encounter Maggie 99533.1.[address] [place] 3.430.2.7 Hospit a .3.656572 l .8 2022-07-21 2022-07-21 [facility], 1.2.840.1 [id number] 63916 Methodi 12:15:00 12:53:00 Encounter Maggie 99046.1.[address] [place] 3.430.2.7 Hospit a .3.195508 l .8 2022-07-21 2022-07-21 [facility], 1.2.840.1 [id number] 82641 Methodi 12:15:00 12:53:00 Encounter Maggie 44057.1.[address] [place] 3.430.2.7 Hospit a .3.140413 l .8 2022-07-21 2022-07-21 [facility], 1.2.840.1 [id number] 17494 Methodi 10:57:03 12:14:00 Encounter Maggie 69690.1.[address] [place] 3.430.2.7 Hospit a .3.985524 l .8 2022-07-21 2022-07-21 [facility], 1.2.840.1 [id number] 18534 Methodi 10:57:03 12:14:00 Encounter Maggie 18671.1.[address] [place] 3.430.2.7 Hospit a .3.114197 l .8 2022-07-21 2022-07-21 [facility], 1.2.840.1 [id number] 77391 63265 Methodi 10:05:47 10:56:00 Encounter Maggie 76289.1.[address] [place] 3.430.2.7 Hospit a .3.773429 l .8 2022-07-21 2022-07-21 [facility], 1.2.840.1 [id number] 47289 74661 Methodi 10:05:47 10:56:00 Encounter Maggie 12769.1.[address] [place] 3.430.2.7 Hospit a .3.198499 l .8 2022-07-21 2022-07-21 Clinical Maggie Rico 1.2.840.1 1 [id number] Methodi 09:00:00 09:57:50 Support Zaida Alvarez 05150.1.[address] 3.430.2.7 Hospit a .3.496219 l .8 2022-07-21 2022-07-21 Clinical Maggie Rico 1.2.840.1 1 [id number] Methodi 09:00:00 09:57:50 Support Zaida Alvarez 32116.1.[address] 3.430.2.7 Hospit a .3.168481 l .8 2022-07-21 2022-07-21 Social Maggie Rico 1.2.840.1 10 [id number] Methodi 08:00:00 09:00:00 Work Javed Vitale 74818.1.[address] 3.430.2.7 Hospit a .3.958915 l .8 2022-07-21 2022-07-21 Maggie Amado 1.2.840.1 10 [id number] Methodi 08:00:00 09:00:00 Work Javed Vitale 49959.1.[address] 3.430.2.7 Hospit a .3.652375 l .8 2022-07-21 2022-07-21 Nurse Only Jacky, 1.2.840.1 [id number] 523 [id number] Methodi 07:30:00 07:45:[address] [place] 3.430.2.7 Hospit a .3.461061 l .8 2022-07-21 2022-07-21 Nurse Only Jacky, 1.2.840.1 [id number] 756 [id number] Methodi 07:30:00 07:45:[address] [place] 3.430.2.7 Hospit a .3.263761 l .8 2022-07-21 2022-07-21 Outpatient RICO, [facility] [id number] [address] [place] 00:00:00 00:00:[address] MAGGIE [address] 2022-07-21 2022-07-21 Travel 1.2.840.1 1.2.665.614 8776 166261 Methodi 00:00:00 00:00:[address] 3.430.2.7 0.2.7.3.698 Ho spita .3.200473 084.8 l .8 2022-07-21 2022-07-21 Travel 1.2.840.1 1.2.742.674 6090 284248 Methodi 00:00:00 00:00:[address] 3.430.2.7 0.2.7.3.698 Ho spita .3.940758 084.8 l .8 2022-07-20 2022-07-20 Documentat Iam, 1.2.840.1 [id number] 562 [id number] Methodi 00:00:00 00:00:[address]ie [address]329.1.[address] 3.430.2.7 Hospit a .3.342288 l .8 2022-07-20 2022-07-20 Documentat Iam, 1.2.840.1 [id number] 565 [id number] Methodi 00:00:00 00:00:00 j[address] Burt 27341.1.[address] 3.430.2.7 Hospit a .3.028286 l .8 2022-06-25 2022-06-25 Telephone Musaria, 1.2.840.1 [id number] 2099132 Methodi 00:00:00 00:00:[address] 3.430.2.7 Hospit a .3.950972 l .8 2022-06-25 2022-06-25 Telephone Musaria, 1.2.840.1 [id number] 2099132 Methodi 00:00:00 00:00:[address] 3.430.2.7 Hospit a .3.022744 l .8 2022-06-23 2022-06-23 Telephone Nico, 1.2.840.1 [id number] 347 [id number] Methodi 00:00:00 00:00:[address] 3.430.2.7 Hospit a .3.571528 l .8 2022-06-23 2022-06-23 Telephone Nico, 1.2.840.1 [id number] 028 1850773 Methodi 00:00:00 00:00:[address] 3.430.2.7 Hospit a .3.778264 l .8 2022-06-22 2022-06-22 Telephone Musaria, 1.2.840.1 [id number] 2099 179340 Methodi 00:00:00 00:00:[address] 3.430.2.7 Hospit a .3.239204 l .8 2022-06-22 2022-06-22 Telephone uMsaria, 1.2.840.1 [id number] 2099 117023 Methodi 00:00:00 00:00:[address] 3.430.2.7 Hospit a .3.638313 l .8 2022-06-21 2022-06-21 Telephone Hewerdine, 1.2.840.1 [id number] 2 [id number] Methodi 00:00:00 00:00:[address] 3.430.2.7 Hospit a .3.452444 l .8 2022-06-21 2022-06-21 Telephone Wiley, 1.2.840.1 [id number] 2 [id number] Methodi 00:00:00 00:00:[address] 3.430.2.7 Hospit a .3.642797 l .8 2022-04-28 2022-06-11 Office Joe, 1.2.840.1 [id number] 062249 5621 Methodi 08:30:00 18:35:53 Visit Lety Reynaga 92450.1.[address] 3.430.2.7 Hospit a .3.065650 l .8 2022-04-28 2022-06-11 Office Joe, 1.2.840.1 [id number] 358198 0407 Methodi 08:30:00 18:35:53 Visit Lety Reynaga 32929.1.[address] 3.430.2.7 Hospit a .3.661424 l .8 2022-06-09 2022-06-09 Telephone Manoj, 1.2.840.1 [id number] 529 [id number] Methodi 00:00:00 00:00:[address] 3.430.2.7 Hospit a .3.441102 l .8 2022-06-09 2022-06-09 Telephone Manoj, 1.2.840.1 [id number] 760 [id number] Methodi 00:00:00 00:00:[address] 3.430.2.7 Hospit a .3.877609 l .8 2022-05-12 2022-05-12 OFFICE STLMLC ST[facility] [id number] Co mmon 00:00:00 00:00:00 VISIT Mac ESTAB PT - CHI LEVEL 4 [facility] 2022-04-28 2022-05-06 Office Rachele Starr 1.2.840.1 [id number] 21 [id number] Methodi 08:00:00 08:24:[address] 3.430.2.7 Hospit a .3.654163 l .8 2022-04-28 2022-05-06 Office Ro Rachele 1.2.840.1 [id number] 21 [id number] Methodi 08:00:00 08:24:[address] 3.430.2.7 Hospit a .3.795019 l .8 2022-05-05 2022-05-05 (TEL) STLMLC STL[facility]C [id number] Co mmon 00:00:00 00:00:00 [facility] 2022-05-05 2022-05-05 Documentat Shen, 1.2.840.1 [id number] 21 [id number] Methodi 00:00:00 00:00:00 ion Janee 60159.1.[address] 3.430.2.7 Hospit a .3.897288 l .8 2022-05-05 2022-05-05 Documentat Shen, 1.2.840.1 [id number] 21 [id number] Methodi 00:00:00 00:00:00 ion Janee 12124.1.[address] 3.430.2.7 Hospit a .3.574346 l .8 2022-05-04 2022-05-04 Documentat Shen, 1.2.840.1 [id number] 21 [id number] Methodi 00:00:00 00:00:00 ion Janee 88674.1.[address] 3.430.2.7 Hospit a .3.192786 l .8 2022-05-04 2022-05-04 Documentat Shen, 1.2.840.1 [id number] 21 [id number] Methodi 00:00:00 00:00:00 [address]e 75984.1.[address] 3.430.2.7 Hospit a .3.596076 l .8 2022-04-28 2022-04-28 Lab Jcaky, 1.2.840.1 [id number] 341029 4715 Methodi 09:30:00 09:35:[address] [place] 3.430.2.7 Hospit a .3.905956 l .8 2022-04-28 2022-04-28 Lab Rico, 1.2.840.1 [id number] 494002 9795 Methodi 09:30:00 09:35:[address] [place] 3.430.2.7 Hospit a .3.315562 l .8 2022-04-28 2022-04-28 [facility] [id number] 096 [place] 00:00:00 00:00:[address] MAGGIE [address] 2022-04-28 2022-04-28 Documentat [place], 1.2.840.1 [id number] 2 [id number] Methodi 00:00:00 00:00:00 ion Marga 78741.1.[address] 3.430.2.7 Hospit a .3.706629 l .8 2022-04-28 2022-04-28 Travel 1.2.840.1 1.2.464.416 5961 231820 Methodi 00:00:00 00:00:[address] 3.430.2.7 0.2.7.3.698 Ho spita .3.888587 084.8 l .8 2022-04-28 2022-04-28 Documentat [place], 1.2.840.1 [id number] 2 [id number] Methodi 00:00:00 00:00:00 ion Marga 30729.1.[address] 3.430.2.7 Hospit a .3.450581 l .8 2022-04-28 2022-04-28 Travel 1.2.840.1 1.2.023.583 0488 578427 Methodi 00:00:00 00:00:[address] 3.430.2.7 0.2.7.3.698 Ho spita .3.136108 084.8 l .8 2022-04-14 2022-04-14 Extended Flora, 1.2.840.1 576045982 76251 Methodi 00:00:00 00:00:00 Medical Lety Hallman. 77488.1.[address] Review 3.430.2.7 Hospit a .3.523263 l .8 2022-04-14 2022-04-14 Extended Flora, 1.2.840.1 [id number] 76260 Methodi 00:00:00 00:00:00 Medical Lety Hallman. [address]15.1.[address] Review 3.430.2.7 Hospit a .3.078470 l .8 2022-03-12 2022-03-12 Documentat Antonio, 1.2.840.1 [id number] 758 [id number] Methodi 00:00:00 00:00:00 ion Zaida 78487.1.[address] 3.430.2.7 Hospit a .3.034839 l .8 2022-03-12 2022-03-12 Documentat Antonio, 1.2.840.1 [id number] 314 [id number] Methodi 00:00:00 00:00:00 ion Zaida 15138.1.[address] 3.430.2.7 Hospit a .3.822089 l .8 2022-02-12 2022-02-12 Travel 1.2.840.1 1.2.651.138 9399 685635 Methodi 00:00:00 00:00:[address] 3.430.2.7 0.2.7.3.698 spita .3.656562 084.8 l .8 2022-02-03 2022-02-03 Telephone Evelio, 1.2.840.1 [id number] Methodi 00:00:00 00:00:[address] 3.430.2.7 Hospit a .3.138204 l .8 2022-01-04 2022-01-04 OFFICE STLM STLMLC [id number] Co mmon 00:00:00 00:00:00 [facility]IT [facility] - CHI LEVEL 4 [facility] 2021-12-31 2021-12-31 Telephone Akira 1.2.840.1 [id number] 2100 640432 Methodi 00:00:00 00:00:00 Clara Hallman 97776.1.1 088 3.430.2.7 Hospit a .3.523638 l .8 2021-11-30 2021-11-30 (TEL) STLMLC STLMLC [id number] Co mmon 00:00:00 00:00:00 [facility] 2021-11-09 2021-11-09 (TEL) STLMLC STLMLC [id number] Co mmon 00:00:00 00:00:00 [facility] 2021-10-05 2021-10-05 (IN/ASP) STLMLC STLMLC [id number] C ommon 00:00:00 00:00:00 INJ ASP [facility] 2021-09-28 2021-09-28 (IN/ASP) STLMLC STLMLC [id number] C ommon 00:00:00 00:00:00 INJ ASP [facility] 2021-09-21 2021-09-21 OFFICE STLMLC STLMLC [id number] Co mmon 00:00:00 00:00:00 [facility] - CHI LEVEL 4 [facility] 2021-02-02 2021-02-02 OFFICE STLMLC STLMLC [id number] Co mmon 00:00:00 00:00:00 VISIT [facility] ESTAB PT - CHI LEVEL 4 [facility] 2020-12-25 2020-12-25 Outpatient STLMLC STLMLC [id number] Common 00:00:00 00:00:00 [facility] 2020-12-01 2020-12-01 Outpatient STLMLC STLMLC [id number] Common 00:00:00 00:00:00 [facility] 2020-10-06 2020-10-06 Outpatient STLMLC STLMLC [id number] Common 00:00:00 00:00:00 [facility] 2020-09-29 2020-09-29 Outpatient STLMLC STLMLC [id number] Common 00:00:00 00:00:00 [facility] 2020-09-22 2020-09-22 Outpatient STLMLC STLMLC [id number] Common 00:00:00 00:00:00 [facility] 2020-08-04 2020-08-04 Outpatient STLMLC STLMLC [id number] Common 00:00:00 00:00:00 [facility] 2020-03-17 2020-03-17 Outpatient STLMLC STLMLC [id number] Common 00:00:00 00:00:00 [facility] 2020-03-10 2020-03-10 Outpatient STLMLC STLMLC [id number] Common 00:00:00 00:00:00 [facility] [facility] 2020-03-04 2020-03-04 Outpatient STLMLC STLMLC [id number] Common 00:00:00 00:00:00 [facility] 2019-10-22 2019-10-22 [facility] [id number] Common 15:00:00 15:00:00 t Bone Bone and Spiri t and Joint [facility] 2019-05-07 2019-05-07 [facility] [id number] Common 11:15:00 11:15:00 t Bone Bone and Spiri t and Joint Joint - [facility] 2019-04-18 2019-04-18 [facility] [id number] Common 08:00:00 08:00:00 t Bone Bone and Spiri t and Joint [facility] - [facility] 2019-01-29 2019-01-29 [facility] [id number] Common 11:00:00 11:00:00 t Bone Bone and Spiri t and Joint Joint - [facility] 2019-01-23 2019-01-23 [facility] [id number] Common 15:30:00 15:30:00 t Bone Bone and Spiri t and Joint Joint - [facility] 2019-01-15 2019-01-15 [facility] [id number] Common 11:00:00 11:00:00 t Bone Bone and Spiri t and Joint Joint - [facility] 2019-01-08 2019-01-08 Community [facility] [id number] 06:54:52 10:15:00 Encounter Robbie Chaudhary Yakov [id number] [place] [id number] [facility] [id number] [place] 07 2019-01-08 2019-01-08 Orders Doctor GRISELDA [id number] 00:00:00 00:00:00 Only Unassigned, OLAMIDE [id number] [place] [address]686 [id number] 009 2019-01-03 2019-01-03 [facility] [id number] Common 14:06:00 14:06:00 t Bone Bone and Spiri t and Joint Joint - [facility] 2019-01-01 2019-01-01 Division Supervisor 1, [facility] [id number] 14:12:04 14:27:04 Visit Yakov [id number] [place] [id number] [place] [id number] [facility] 2019-01-01 2019-01-01 Orders Doctor GRISELDA [id number] 00:00:00 00:00:00 Only Unassigned, OLAMIDE [id number] [place] [address]686 [id number] [id number] 2018-12-04 2018-12-04 [facility] [id number] Common 13:30:00 13:30:00 t Bone Bone and Spiri t and Joint Joint - [facility] Results Test Description Test Time Test Comments Results Result Comments Source Single antigen beads 2023-02-21 19:13:42 Test Item Value Reference Range Interpretation Comme nts SAB serum ID (test code = 5866) [id number] [facility] serum collection D&T (test code = 5867) 02/15/2023 10:28 AM SAB class I antibody assignment (test code = Negative 5870) SAB cPRA class I (test code = 5868) 0 SAB class II antibody assignment (test code = Negative 5871) SAB cPRA class II (test code = 5869) 0 Case number (test code = [id number]) [id number] Single antigen beads PDF (test code = 4604) See link below for PDF Lab Report [facility] serum [id number] 14:48:49 Test Item Value Reference Range Interpretation Comments HLA serum storage (test code = Processed 1555) Case number (test code = [id number]) [facility] [id number] 22:14:00 Test Item Value Reference Range Interpretation Comments Occult blood, Negative for Specimen stool (test occult blood. InformationSpe cimen code = Source: StoolSp ecimen 61879-9) [facility], [id number] 22:14:00 Test Item Value Reference Range Interpretation Comments Occult blood, Negative for Specimen stool (test occult blood. InformationSpe cimen code = Source: StoolSp ecimen 14524-8) Site: [facility] [id number] 02:49:26 Test Item Value Reference Range Interpretation Comments Ventricular rate (test 61 code = 253) Atrial rate (test code 61 = 255) SD interval (test code 130 = 266) QRSD [...] of 21-NOV-2017 11:22,-No significant change was found- [facility] [id number] 02:49:26 Test Item Value Reference Range Interpretation Comments Ventricular rate (test 61 code = 253) Atrial rate (test code 61 = 255) SD interval (test code 130 = 266) QRSD [...] of 21-NOV-2017 11:22,-No significant [facility]/ [facility] [id number] 16:29:50 Test Item Value Reference Range Interpretation [...] Speed (test code = 7627) 4.[address] [facility]/ pulse [id number] 16:29:50 Test Item Value Reference Range Interpretation [...] Speed (test code = 7627) 4.12 sec [facility] [id number] 20:29:00 Test Item Value Reference Interpretation Comments Range Urine culture Streptococcus group A Specime n isolate (test B10-4 cfu/mlThe Information Specimen code = 75368-9) performance Source: Urin eSpecimen characteristics of Site: Azeem an catch this assay on this isolatewere validated by [facility]. This source has not been approved [...] isolatewere validated by the [facility]. This source has not been approved by the U.S. Food and Drug Administration. The results are not intended to be used as the sole means for clinical diagnosis or patient management. The Microbiology Laboratory is authorized under the clinical Laboratory Improvement Amendments of 1988 (CLIA-88) to perform high complexity testing.testing. Lab Abnormal Interpretation (test code = 06953-6) [facility] [id number] 20:29:00 Test Item Value Reference Interpretation Comments Range Urine culture Streptococcus group A Specime n isolate (test B10-4 cfu/mlThe Information Specimen code = 11334-2) performance Source: Urin eSpecimen characteristics of Site: Azeem an catch this assay on this isolatewere validated by the [facility]. This source has not been approved by the U.S. Food and Drug Administration. The results are not intended to be used as the sole means for clinical diagnosis or patient management. The Microbiology Laboratory is authorized under the clinical Laboratory Improvement Amendments of 1987 (CLIA-88) to perform high complexity testing.The performance characteristics of this assay on this isolatewere validated by the [facility]. This source has not been approved by the U.S. Food and Drug Administration. The results are not intended to be used as the sole means for clinical diagnosis or patient management. The Microbiology Laboratory is authorized under the clinical Laboratory Improvement Amendments of 1988 (CLIA-88) to perform high complexity testing.testing. Lab Abnormal Interpretation (test code = 25122-4) [facility], with reflex to culture 2022-04-28 19:56:00 Test Item Value Reference Range Interpretation Comments Specimen site (test Clean catch code = 0885740) Color, UA (test code = Yellow 5778-6) Appearance, UA (test Clear code = 5767-9) Specific gravity, UA 1.015 1.001-1.035 (test code = 5811-5) pH, UA (test code = 9.0 5.0-8.5 5803-2) Protein, UA (test code 1+ Negative A = 28977-8) Glucose, UA (test code Negative Negative = 08114-7) Ketones, UA (test code Negative Negative = 2514-8) Bilirubin, UA (test Negative Negative code = 5770-3) Blood, UA (test code = Negative Negative 5794-3) Nitrite, UA (test code Negative Negative = 5802-4) Urobilinogen, UA (test <2.0 <=2.0 code = 75320-4) Leukocyte esterase, UA Trace Negative A (test [...] (test code = 1 See_Comment [Autom ated 58118-8) message] The sy stem which generated this result transmitted reference range : 0 - 5 /HPF. The reference range was not used to interpret this result as normal/abnormal . Bacteria, UA (test code None seen None seen = 23215-7) Yeast, UA (test code = None seen 87915-9) Yeast with None seen pseudohyphae, UA (test code = 39779-5) Lab Interpretation Abnormal (test code = 99758-5) [facility], [facility] to culture 2022-04-28 19:56:00 Test Item Value Reference Range Interpretation Comments Specimen site (test Clean catch code = 7943287) Color, UA (test code = Yellow 5778-6) Appearance, UA (test Clear code = 5767-9) Specific gravity, UA 1.015 1.001-1.035 (test code = 5811-5) pH, UA (test code = 9.0 5.0-8.5 5803-2) Protein, UA (test code 1+ Negative A = 35875-6) Glucose, UA (test code Negative Negative = 05312-6) Ketones, UA (test code Negative Negative = 2514-8) Bilirubin, UA (test Negative Negative code = 5770-3) Blood, UA (test code = Negative Negative 5794-3) Nitrite, UA (test code Negative Negative = 5802-4) Urobilinogen, UA (test <2.0 <=2.0 code = 50012-1) Leukocyte esterase, UA Trace Negative A (test [...] (test code = 1 See_Comment [Autom ated 88350-4) message] The sy stem which generated this result transmitted reference range : 0 - 5 /HPF. The reference range was not used to interpret this result as normal/abnormal . Bacteria, UA (test code None seen None seen = 84932-3) Yeast, UA (test code = None seen 07462-6) Yeast with None seen pseudohyphae, UA (test code = 06775-6) Lab Interpretation Abnormal (test code = 56861-4) [facility]
[2023-02-21] MEDS ORDERED: FLUORESCEIN SODIUM 1 MG/WRAP ONE (23:27)
[2023-02-21] MEDS ORDERED: TETRACAINE HCL 0.5% 4ML OPTH ONE (23:27)
[2023-02-21] MEDS ORDERED: NA CHLORIDE 0.9% 250 ML ONE (23:49)
--- NOTE | 2023-02-21 23:59 | EDPHYS ---
Physician Documentation [facility] Name: Devika Sanchez Age: 67 yrs Sex: Female : 1955 Arrival Date: 02/21/2023 Time: 22:47 Bed 15 Private MD: ED Physician Verena Chino HPI: 02/21 23:54 This 67 yrs old Female presents to ER via Ambulatory with complaints of Eye Injury. sp3 23:54 67-year-old female with extensive past medical history as demonstrated above now sp3 presents to the ED with chief complaint right-sided foreign body sensation in the eye. Patient states that she may have had "dog hair" in her eye and now is red and has a sensation to it. She denies any direct injury or trauma. Her vision is normal and there is no pain and no headache. Review of systems otherwise negative for fever, URI symptoms, neck pain, chest pain, shortness of breath, numbness or tingling or any other neurological symptoms or any other aspect of ROS at this time. Symptoms been occurring since earlier today.. Historical: - Allergies: 23:09 Baclofen; lg3 23:09 Celebrex; lg3 23:09 Celecoxib; lg3 23:09 Codeine; lg3 23:09 NSAIDS; lg3 23:09 Adhesives; lg3 - Home Meds: 23:09 BuSpar Oral [Active]; Lexapro 10 mg oral tablet [Active]; Xanax 0.5 mg oral tablet lg3 [Active]; furosemide 80 mg Oral tablet 2.5 tabs [Active]; levothyroxine 13 mcg oral capsule [Active]; Ambien Oral [Active]; - PMHx: 23:09 Anemia; ESRD; hemodialysis; Hypertension; Hypothyroidism; kidney failure; POLYCYSTIC lg3 KIDNEY DISEASE; pulmonary edema; Pulmonary Embolism; - PSHx: 23:09 bilateral carpal tunnel; fistula left arm; right knee repair; lg3 - Immunization history:: Adult Immunizations up to date. - Social history:: Smoking status: Patient denies any tobacco usage or history of. Patient/guardian denies using alcohol, street drugs. ROS: 23:55 Constitutional: Negative for fever, chills, and weight loss, ENT: Negative for injury, sp3 pain, and discharge, Neck: Negative for injury, pain, and swelling, Cardiovascular: Negative for chest pain, palpitations, and edema, Respiratory: Negative for shortness of breath, cough, wheezing, and pleuritic chest pain, Abdomen/GI: Negative for abdominal pain, nausea, vomiting, diarrhea, and constipation, Back: Negative for injury and pain, MS/Extremity: Negative for injury and deformity, Skin: Negative for injury, rash, and discoloration, Neuro: Negative for headache, weakness, numbness, tingling, and seizure, Psych: Negative for depression, anxiety, suicide ideation, homicidal ideation, and hallucinations, Allergy/Immunology: Negative for hives, rash, and allergies, Endocrine: Negative for neck swelling, polydipsia, polyuria, polyphagia, and marked weight changes, Hematologic/Lymphatic: Negative for swollen nodes, abnormal bleeding, and unusual bruising, 23:55 All other systems are negative, Exam: 23:55 Constitutional: This is a well developed, well nourished patient who is awake, alert, sp3 and in no acute distress. Head/Face: Normocephalic, atraumatic. ENT: Nares patent. No nasal discharge, no septal abnormalities noted. External auditory canals are clear. Oropharynx with no redness, swelling, or masses, exudates, or evidence of obstruction, uvula midline. Mucous membranes moist. Neck: Trachea midline, no thyromegaly or masses palpated, and no cervical lymphadenopathy. Supple, full range of motion without nuchal rigidity, or vertebral point tenderness. No Meningismus. Chest/axilla: Normal chest wall appearance and motion. Nontender with no deformity. No lesions are appreciated. Cardiovascular: Regular rate and rhythm with a normal S1 and S2. No gallops, murmurs, or rubs. Normal PMI, no JVD. No pulse deficits. Respiratory: Lungs have equal breath sounds bilaterally, clear to auscultation and percussion. No rales, rhonchi or wheezes noted. No increased work of breathing, no retractions or nasal flaring. Abdomen/GI: Soft, non-tender, with normal bowel sounds. No distension or tympany. No guarding or rebound. No evidence of tenderness throughout. Back: No spinal tenderness. No costovertebral tenderness. Full range of motion. Skin: Warm, dry with normal turgor. Normal color with no rashes, no lesions, and no evidence of cellulitis. MS/ Extremity: Pulses equal, no cyanosis. Neurovascular intact. Full, normal range of motion. Neuro: Awake and alert, GCS 15, oriented to person, place, time, and situation. Cranial nerves II-XII grossly intact. Motor strength 5/5 in all extremities. Sensory grossly intact. Cerebellar exam normal. Normal gait. Psych: Awake, alert, with orientation to person, place and time. Behavior, mood, and affect are within normal limits. 23:55 Eyes: Right mildly erythematous. Anterior chamber is clear there is no hyphema. Pupils equal round reactive light. Extraocular movements are intact. No foreign body seen.. Vital Signs: 23:06 BP 133 / 74; Pulse 62; Resp 17 S; Temp 98.4(O); Pulse Ox 100% on R/A; Weight 74.39 kg lg3 (R); Height 5 ft. 0 in. (R); 23:45 BP 109 / 54; Pulse 56; Resp 16; Pulse Ox 97% on R/A; Pain 5/10; pf1 23:06 Body Mass Index 32.03 (74.39 kg, 152.4 cm) lg3 23:45 Pain Scale: Adult pf1 MDM: 23:25 Patient medically screened. sp3 23:57 Data reviewed: vital signs, nurses notes, old medical records. ED course: Tetracaine sp3 drops were introduced and I will be flushed with 250 mL of normal saline. We will place patient on topical antibiotic and follow-up with finance professional. I am not highly suspicious for globe rupture, increased intraocular pressure, acute angle glaucoma, or any other critical findings at this time.. 02/21 23:18 Order name: Eye Tray; Complete Time: 23:18 lg3 02/21 23:18 Order name: Fluoresene Opth strip; Complete Time: 23:18 lg3 02/21 23:35 Order name: Misc. Order: Brian lens 250 mL NS right eye; Complete Time: 23:45 sp3 Administered Medications: 23:40 Drug: Tetracaine Ophthalmic Drops 0.5 % 1 drops Ophthalmic once Route: Ophthalmic; pf1 Site: right eye; 02/22 00:02 Follow up: Response: No adverse reaction; Marked relief of symptoms pf1 Disposition Summary: 02/21/23 23:58 Discharge Ordered Notes: Location: Home sp3 Condition: Stable sp3 Diagnosis - Foreign body sensation right eye sp3 Followup: sp3 - With: Private Physician - When: Upon discharge from the Emergency Department - Reason: Continuance of care Discharge Instructions: - Discharge Summary Sheet sp3 Forms: - Medication Reconciliation Form sp3 - Thank You Letter sp3 - Antibiotic Education sp3 - Prescription Opioid Use sp3 - Patient Portal Instructions sp3 - Leadership Thank You Letter sp3 Prescriptions: - Maxitrol 3.5mg/mL-10,000 unit/mL-0.1 % Ophthalmic drops, suspension - instill 2 drop OPHTHALMIC route every 4 hours; 5 milliliter; Refills: 0, sp3 Product Selection Permitted Signatures: Rosalind Corona RN RN lg3 Verena Chino MD MD sp3 Marti Davidson RN RN pf1
--- NOTE | 2023-02-21 23:59 | ER ---
Nurse's Notes [facility] Name: Devika Sanchez Age: 67 yrs Sex: Female : 1955 Arrival Date: 02/21/2023 Time: 22:47 Bed 15 Private MD: Diagnosis: Foreign body sensation right eye Presentation: 02/21 23:06 Chief complaint: Patient states: there is something in my right eye. i don't see lg3 anything but i can feel it. i have tried everything at home to get it out but nothing has worked. Coronavirus screen: Client denies travel out of the [place] in the last 14 days. At this time, the client does not indicate any symptoms associated with coronavirus-19. Ebola Screen: No symptoms or risks identified at this time. The patient denies any loss of vision. Initial Sepsis Screen: Does the patient meet any 2 criteria? No. Patient's initial sepsis screen is negative. Does the patient have a suspected source of infection? No. Patient's initial sepsis screen is negative. Risk Assessment: Do you want to hurt yourself or someone else? Patient reports no desire to harm self or others. Onset of symptoms was February 21, 2023. 23:06 Method Of Arrival: Ambulatory lg3 23:06 Acuity: NADINE 4 lg3 Triage Assessment: 23:09 General: Appears in no apparent distress. comfortable, Behavior is calm, cooperative. lg3 Pain: Complains of pain in right eye. EENT: Sclera/Cornea are reddened in right eye Reports pain in right eye. Neuro: No deficits noted. Patel Agitation-Sedation Scale (RASS): 0 - Alert and Calm Level of Consciousness is awake, alert, obeys commands, Oriented to person, place, time, situation. Cardiovascular: No deficits noted. Denies chest pain, shortness of breath, Capillary refill < 3 seconds Clubbing of nail beds is absent JVD is absent Patient's skin is warm and dry. Respiratory: No deficits noted. Airway is patent Respiratory effort is even, unlabored, Respiratory pattern is regular, symmetrical. GI: No deficits noted. No signs and/or symptoms were reported involving the gastrointestinal system. Abdomen is round non-distended. : No deficits noted. No signs and/or symptoms were reported regarding the genitourinary system. Derm: No deficits noted. No signs and/or symptoms reported regarding the dermatologic system. Skin is intact, is healthy with good turgor, Skin is dry, Skin is normal, Skin temperature is warm. Musculoskeletal: No deficits noted. No signs and/or symptoms reported regarding the musculoskeletal system. Circulation, motion, and sensation intact. Range of motion: intact in all extremities. Historical: - Allergies: 23:09 Baclofen; lg3 23:09 Celebrex; lg3 23:09 Celecoxib; lg3 23:09 Codeine; lg3 23:09 NSAIDS; lg3 23:09 Adhesives; lg3 - Home Meds: 23:09 BuSpar Oral [Active]; Lexapro 10 mg oral tablet [Active]; Xanax 0.5 mg oral tablet lg3 [Active]; furosemide 80 mg Oral tablet 2.5 tabs [Active]; levothyroxine 13 mcg oral capsule [Active]; Ambien Oral [Active]; - PMHx: 23:09 Anemia; ESRD; hemodialysis; Hypertension; Hypothyroidism; kidney failure; POLYCYSTIC lg3 KIDNEY DISEASE; pulmonary edema; Pulmonary Embolism; - PSHx: 23:09 bilateral carpal tunnel; fistula left arm; right knee repair; lg3 - Immunization history:: Adult Immunizations up to date. - Social history:: Smoking status: Patient denies any tobacco usage or history of. Patient/guardian denies using alcohol, street drugs. Screenin:12 [facility] ED Fall Risk Assessment (Adult) History of falling in the last 3 months, pf1 including since admission No falls in past 3 months (0 pts) Confusion or Disorientation No (0 pts) Intoxicated or Sedated No (0 pts) Impaired Gait No (0 pts) Mobility Assist Device Used No (0 pt) Altered Elimination No (0 pt) Score/Fall Risk Level 0 - 2 = Low Risk Oriented to surroundings, Maintained a safe environment, Educated pt \T\ family on fall prevention, incl call for assistance when getting out of bed, Assessed \T\ reinforced patient's understanding of fall precautions, Provided non-skid footwear, Hourly rounding (assess needs \T\ fall precautionary measures) done, Used ambulatory aids as needed (educated on \T\ assisted with), Used gait belt as appropriate. Abuse screen: Denies threats or abuse. Nutritional screening: No deficits noted. Tuberculosis screening: No symptoms or risk factors identified. Assessment: 23:12 General: Appears in no apparent distress. comfortable, well groomed, well developed, pf1 Behavior is calm, cooperative, appropriate for age, quiet. Pain: Complains of pain in right eye Pain currently is 5 out of 10 on a pain scale. Pain began 1 day ago. 23:12 Neuro: No deficits noted. Level of Consciousness is awake, alert, obeys commands, pf1 Oriented to person, place, time, situation. Cardiovascular: No deficits noted. Capillary refill < 3 seconds Patient's skin is warm and dry. Respiratory: No deficits noted. Airway is patent Respiratory effort is even, unlabored, Respiratory pattern is regular, symmetrical. GI: No deficits noted. No signs and/or symptoms were reported involving the gastrointestinal system. : No deficits noted. No signs and/or symptoms were reported regarding the genitourinary system. EENT: Eyes C/O possible dog hair to right eye. Sclera/Cornea are reddened in outer aspect of conjuctiva of right eye and inner aspect of conjuctiva of right eye Reports pain in right eye. Derm: No deficits noted. No signs and/or symptoms reported regarding the dermatologic system. Vital Signs: 23:06 BP 133 / 74; Pulse 62; Resp 17 S; Temp 98.4(O); Pulse Ox 100% on R/A; Weight 74.39 kg lg3 (R); Height 5 ft. 0 in. (R); 23:45 BP 109 / 54; Pulse 56; Resp 16; Pulse Ox 97% on R/A; Pain 5/10; pf1 23:06 Body Mass Index 32.03 (74.39 kg, 152.4 cm) lg3 23:45 Pain Scale: Adult pf1 ED Course: 22:53 Patient arrived in ED. gm2 22:53 Verena Chino MD is Attending Physician. sp3 23:09 Triage completed. lg3 23:09 Arm band placed on right wrist. lg3 23:12 Patient has correct armband on for positive identification. Bed in low position. Call pf1 light in reach. 23:35 Patient did not have IV access during this emergency room visit. pf1 02/22 00:12 No provider procedures requiring assistance completed. pf1 00:13 Provided Education on: follow up and prescription. pf1 Administered Medications: 02/21 23:40 Drug: Tetracaine Ophthalmic Drops 0.5 % 1 drops Ophthalmic once Route: Ophthalmic; pf1 Site: right eye; 02/22 00:02 Follow up: Response: No adverse reaction; Marked relief of symptoms pf1 Medication: 00:13 VIS not applicable for this client. pf1 Outcome: 02/21 23:58 Discharge ordered by . sp3 02/22 00:12 Discharged to home ambulatory, with family, pf1 Condition: improved Discharge instructions given to patient, Instructed on discharge instructions, follow up and referral plans. Demonstrated understanding of instructions, follow-up care, medications, Prescriptions given X 1, 00:13 Patient left the ED. pf1 Signatures: Rosalind Corona RN RN lg3 Verena Chino MD MD sp3 Marti Davidson RN RN pf1 Rere Ivory 2
[2023-02-22 00:37] VITALS: TEMP 98.4
[2023-02-22 00:39] VITALS: BP 109/54; O2SAT 97
== END 2023-02-22 00:13 | disposition home or self-care (01) ==
LOC: ER 22:47
DX: T15.91XA Foreign body on external eye, part unspecified, right eye, initial encounter (principal)
CPT/HCPCS: 99283; J7050

== ENCOUNTER 2023-10-25 09:12 | Emergency (ER) | payer OTHER, MEDICARE ==
[2023-10-25] MEDS ORDERED: LIDOCAINE 4% PATCH ONE (09:54)
[2023-10-25] MEDS ORDERED: HYDROCODONE/APAP 5/325 MG TAB ONE (09:54)
--- NOTE | 2023-10-25 11:06 | RAD REPORT ---
EXAM DESCRIPTION: Shoulder Right 2 View - 10/25/2023 10:31 am CLINICAL HISTORY: PAIN COMPARISON: No comparisons TECHNIQUE: Internal and external rotation views of the right shoulder were obtained. FINDINGS: There is no fracture or dislocation. AC joint is normal in appearance. No acute or suspici ous findings. IMPRESSION: Negative two-view right shoulder examination.
--- NOTE | 2023-10-25 11:17 | EDPHYS ---
Physician Documentation [facility] Name: Devika Sanchez Age: 67 yrs Sex: Female : 1955 Arrival Date: 10/25/2023 Time: 09:12 Bed 19 Private MD: ED Physician Jorge Kellogg HPI: 10/24 09:47 This 67 yrs old Female presents to ER via Ambulatory with complaints of ec2 Shoulder Pain. 09:47 Patient arrives today for evaluation of right shoulder pain. Patient reports she has ec2 been having pain for several days, states that she feels like she has radiating pain to the hand as well. States that the pain is worse with positional movements, worse with lifting it in certain directions. Patient reports no falls injuries or trauma. Reports improvement in symptoms with prednisone and Flexeril.. Historical: - Allergies: 09:38 Baclofen; ap3 09:38 Celebrex; ap3 09:38 Celecoxib; ap3 09:38 Adhesives; ap3 09:38 Codeine; ap3 09:38 NSAIDS; ap3 - PMHx: 09:38 Anemia; ESRD; hemodialysis; Hypertension; Hypothyroidism; kidney failure; POLYCYSTIC ap3 KIDNEY DISEASE; pulmonary edema; Pulmonary Embolism; - PSHx: 09:38 bilateral carpal tunnel; fistula left arm; right knee repair; ap3 - Infectious Disease History:: Denies. - Social history:: Smoking status: Patient denies any tobacco usage or history of. ROS: 09:47 Constitutional: as per hpi ec2 Exam: 09:47 Constitutional: GEN: NAD Head: atraumatic Eyes: EOMI Ears: External ears are ec2 normal. CV: regular rate LUNGS: no respiratory distress ABD: non-distended SKIN: no evidence of rashes MSK: no evidence of trauma, right upper extremity with TTP to the right trapezius as well as to the right deltoid, intact range of motion, intact distal neurovascular status. NEURO: moves all extremities equally Vital Signs: 09:36 BP 148 / 85; Pulse 71; Resp 17; Temp 97.4; Pulse Ox 100% ; Weight 74.84 kg; Height 5 ap3 ft. 0 in. ; Pain 10/10; 10:27 BP 139 / 73; Pulse 75; Resp 18 S; Pulse Ox 100% on R/A; kc6 09:36 Body Mass Index 32.22 (74.84 kg, 152.4 cm) ap3 09:36 Pain Scale: Adult ap3 MDM: 09:27 Patient medically screened. ec2 09:47 Data reviewed: vital signs. ED course: Patient arrives today for evaluation of right ec2 shoulder pain. Examination remarkable for right shoulder pain as above. Will obtain radiograph and treat the patient's pain. Differential diagnosis includes shoulder sprain, radiculopathy, arthritis . 11:15 ED course: Shoulder x-ray independently reviewed and interpreted by me, shows no ec2 evidence of bony injury. Will discharge home and have patient follow-up expectantly outpatient with the primary care doctor.. 10/24 09:46 Order name: Shoulder Right (2 View) XRAY; Complete Time: 11:15 ec2 10/24 09:46 Order name: Sling; Complete Time: 10:45 ec2 Administered Medications: 09:47 Not Given (Physician Discretion): [id number] mg PO once ec2 09:57 Drug: HYDROcodone-acetaminophen PO 5 mg-325 mg 1 tabs PO once Route: PO; kc6 10:46 Follow up: Response: No adverse reaction; Pain is unchanged, physician notified; RASS: kc6 Alert and Calm (0) 09:58 Drug: Lidoderm Topical Patch 5 % (700 mg/patch) 1 patches Topical once; leave on for 12 kc6 hours; cover most painful area; may cut into smaller pieces Route: Topical; Site: right upper arm; 10:45 Follow up: Response: No adverse reaction kc6 Disposition Summary: 10/25/23 11:17 Discharge Ordered Notes: Location: Home ec2 Condition: Stable ec2 Diagnosis - Sprain of shoulder joint ec2 Followup: ec2 - With: Private Physician - When: - Reason: Re-evaluation by your physician Discharge Instructions: - Discharge Summary Sheet ec2 - Shoulder Sprain ec2 Forms: - Medication Reconciliation Form ec2 - Antibiotic Education ec2 - Prescription Opioid Use ec2 - Patient Portal Instructions ec2 - Leadership Thank You Letter ec2 Signatures: Dispatcher [employer] Shu Reveles RN RN ap3 Alissa Pope RN RN kc6 Jorge Kellogg MD MD ec2 Corrections: (The following items were deleted from the chart) 09:47 09:47 Shoulder Right 2 View+RAD.[email or web address].[email or web address] ordered. EDMS EDMS
--- NOTE | 2023-10-25 11:17 | ER ---
Nurse's Notes [facility] Name: Devika Sanchez Age: 67 yrs Sex: Female : 1955 Arrival Date: 10/25/2023 Time: 09:12 Bed 19 Private MD: Diagnosis: Sprain of shoulder joint Presentation: 10/24 09:36 Chief complaint: Patient states: she injured her right shoulder when tearing receipts ap3 last week. patient has seen her PCP and has been on Flexeril and prednisone. patient states the pain is not improving, she currently rates her pain as a 10/10 on the pain scale. Coronavirus screen: At this time, the client does not indicate any symptoms associated with coronavirus-19. Ebola Screen: No symptoms or risks identified at this time. Initial Sepsis Screen: Does the patient meet any 2 criteria? No. Patient's initial sepsis screen is negative. Does the patient have a suspected source of infection? No. Patient's initial sepsis screen is negative. Risk Assessment: Do you want to hurt yourself or someone else? Patient reports no desire to harm self or others. Onset of symptoms is unknown. 09:36 Method Of Arrival: Ambulatory ap3 09:36 Acuity: NADINE 4 ap3 Triage Assessment: 09:39 General: Appears in no apparent distress. Behavior is calm, cooperative, appropriate ap3 for age. Pain: Complains of pain in anterior aspect of right shoulder and posterior aspect of right shoulder Pain currently is 10 out of 10 on a pain scale. Neuro: Level of Consciousness is awake, alert, obeys commands, Oriented to person, place, time, situation. Cardiovascular: Patient's skin is warm and dry. Cardiovascular: Dialysis shunt: in the left bicep. Respiratory: Airway is patent Respiratory effort is even, unlabored, Respiratory pattern is regular, symmetrical. Historical: - Allergies: 09:38 Baclofen; ap3 09:38 Celebrex; ap3 09:38 Celecoxib; ap3 09:38 Adhesives; ap3 09:38 Codeine; ap3 09:38 NSAIDS; ap3 - PMHx: 09:38 Anemia; ESRD; hemodialysis; Hypertension; Hypothyroidism; kidney failure; POLYCYSTIC ap3 KIDNEY DISEASE; pulmonary edema; Pulmonary Embolism; - PSHx: 09:38 bilateral carpal tunnel; fistula left arm; right knee repair; ap3 - Infectious Disease History:: Denies. - Social history:: Smoking status: Patient denies any tobacco usage or history of. Screenin:31 [facility] ED Fall Risk Assessment (Adult) History of falling in the last 3 months, kc6 including since admission No falls in past 3 months (0 pts) Confusion or Disorientation No (0 pts) Intoxicated or Sedated No (0 pts) Impaired Gait No (0 pts) Mobility Assist Device Used No (0 pt) Altered Elimination No (0 pt) Score/Fall Risk Level 0 - 2 = Low Risk Oriented to surroundings, Maintained a safe environment. Abuse screen: Denies threats or abuse. Denies injuries from another. Nutritional screening: No deficits noted. Tuberculosis screening: No symptoms or risk factors identified. Assessment: 10:27 General: Appears in no apparent distress. comfortable, well groomed, well developed, kc6 Behavior is calm, cooperative, appropriate for age. Pain: Complains of pain in anterior aspect of right shoulder. Neuro: Level of Consciousness is awake, alert, obeys commands, Oriented to person, place, time, situation, Appropriate for age. Cardiovascular: Capillary refill < 3 seconds. Respiratory: Airway is patent Trachea midline Respiratory effort is even, unlabored, Respiratory pattern is regular, symmetrical. GI: No signs and/or symptoms were reported involving the gastrointestinal system. : No signs and/or symptoms were reported regarding the genitourinary system. EENT: No signs and/or symptoms were reported regarding the EENT system. Derm: No signs and/or symptoms reported regarding the dermatologic system. Skin is intact, is healthy with good turgor, Skin is pink, warm \T\ dry. Musculoskeletal: Circulation, motion, and sensation intact. Capillary refill < 3 seconds, Range of motion: intact in all extremities. 11:21 Reassessment: Patient appears in no apparent distress at this time. No changes from kc6 previously documented assessment. Patient and/or family updated on plan of care and expected duration. Pain level reassessed. Patient is alert, oriented x 3, equal unlabored respirations, skin warm/dry/pink. Vital Signs: 09:36 BP 148 / 85; Pulse 71; Resp 17; Temp 97.4; Pulse Ox 100% ; Weight 74.84 kg; Height 5 ap3 ft. 0 in. ; Pain 10/10; 10:27 BP 139 / 73; Pulse 75; Resp 18 S; Pulse Ox 100% on R/A; kc6 09:36 Body Mass Index 32.22 (74.84 kg, 152.4 cm) ap3 09:36 Pain Scale: Adult ap3 ED Course: 09:19 Patient arrived in ED. mg5 09:27 Jorge Kellogg MD is Attending Physician. ec2 09:31 Alissa Pope, TIA is Primary Nurse. kc6 09:32 Patient has correct armband on for positive identification. Bed in low position. Call kc6 light in reach. Side rails up X 1. Pulse ox on. NIBP on. Pillow given. 09:38 Triage completed. ap3 09:39 Arm band placed on right wrist. ap3 10:33 Shoulder Right (2 View) XRAY In Process Unspecified. EDMS 10:46 Clavicle/Shoulder strap applied on right clavicle/shoulder. kc6 10:46 Wound care: ice pack applied. kc6 11:21 No provider procedures requiring assistance completed. Patient did not have IV access kc6 during this emergency room visit. Administered Medications: 09:47 Not Given (Physician Discretion): [id number] mg PO once ec2 09:57 Drug: HYDROcodone-acetaminophen PO 5 mg-325 mg 1 tabs PO once Route: PO; kc6 10:46 Follow up: Response: No adverse reaction; Pain is unchanged, physician notified; RASS: kc6 Alert and Calm (0) 09:58 Drug: Lidoderm Topical Patch 5 % (700 mg/patch) 1 patches Topical once; leave on for 12 kc6 hours; cover most painful area; may cut into smaller pieces Route: Topical; Site: right upper arm; 10:45 Follow up: Response: No adverse reaction kc6 Medication: 11:21 VIS not applicable for this client. kc6 Outcome: 11:17 Discharge ordered by . ec2 11:21 Discharged to home ambulatory, with significant other, kc6 11:21 Condition: good 11:21 Discharge instructions given to patient, significant other, Instructed on discharge instructions, follow up and referral plans. Demonstrated understanding of instructions, follow-up care, 11:23 Patient left the ED. kc6 Signatures: Dispatcher [employer] EDMS Shu Centeno RN RN ap3 Alissa Pope RN RN kc6 Carlee Guerra mg5 Jorge Kellogg MD MD ec2
[2023-10-25 11:35] VITALS: BP 139/73; TEMP 97.4; O2SAT 100
== END 2023-10-25 11:23 | disposition home or self-care (01) ==
LOC: ER 09:12
DX: S43.401A Unspecified sprain of right shoulder joint, initial encounter (principal)
CPT/HCPCS: 73030; 99284; J2001